=== PATIENT | male | born 1965 | race African-American/Black ===

== ENCOUNTER 2016-12-07 17:19 | Emergency (ER) | payer MEDICARE, MEDICAID ==
[2016-12-07] MEDS ORDERED: Aspirin Low Dose CHEW TAB* 81 MG PO ONE (17:59)
[2016-12-07 18:20] LABS: Hematocrit 26 % (42-52); Hemoglobin 8.8 g/dl (14.0-18.0); Mean Corpuscular HGB Conc 33 g/dl (31-36); Mean Corpuscular Hemoglobin 29 pg (27-31); Mean Corpuscular Volume 87 fL (80-94); Mean Platelet Volume 8 um3 (7.4-10.4); Red Blood Count 3.03 10^6/ul (4.0-5.4); Red Cell Distribution Width 18 % (10.5-15); White Blood Count 8.2 10^3/ul (3.5-10.8)
[2016-12-07] MEDS ORDERED: HYDROmorphone INJ* 1 MG/ML CARPUJECT SYRINGE IV ONE (18:34)
[2016-12-07] MEDS ORDERED: Ondansetron INJ* 2 MG/ML VIAL IV ONE (18:34)
[2016-12-07 18:43] LABS: Albumin 3.9 g/dL (3.2-5.2); BUN/Creatinine Ratio 4.2 (8-20); Calcium 9.2 mg/dL (8.6-10.3); EGFR African American 5.5 (>60); EGFR Non-African American 4.3 (>60); Globulin 3.6 g/dL (2-4); Potassium 4.7 mmol/L (3.5-5.0); Total Bilirubin 0.6 mg/dL (0.2-1.0); Total Protein 7.5 g/dL (6.4-8.9)
[2016-12-07 18:49] LABS: Troponin I 0.09 ng/mL (<0.04)
--- NOTE | 2016-12-07 19:05 | RAD ---
INDICATION: Chest pain. COMPARISON: Comparison is made with a prior chest x-ray study from May 29, 2015. TECHNIQUE: A portable view of the chest was obtained. FINDINGS: The heart is mildly enlarged and increased in size from the prior exam. There is mild prominence of the interstitial markings and small bilateral pleural effusions suggestive of congestive heart failure. IMPRESSION: FINDINGS SUGGESTIVE OF CONGESTIVE HEART FAILURE.
[2016-12-07 23:38] VITALS: BP 185/103
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
--- NOTE | 2016-12-08 12:18 | ED ---
Liset Arreguin Matthew, scribed for Asim Parekh MD on 12/07/16 at 1809 . HPI Chest Pain - HPI Summary HPI Summary: A 51 y/o male presents to the ED with waxing and waning left lateral chest pain since yesterday evening. The pain is described as sharp and rated 7/10 in severity. Associated symptoms include bilateral pedal edema - since 4 days ago, nausea, productive cough, and left arm pain. The patient denies vomiting and diaphoresis. He normal has dialysis MWF, but did not receive dialysis on 12/03/16 , because he was out of town; however, he received dialysis today. The pain is unaffected by movement and is occasionally worse with deep breaths. He also has chronic SOB that worsens with exertion and smoking. The patient's pedal edema improved after dialysis, but has not resolved. The patient also states that he' s been generally ill for the past two weeks. - History of Current Complaint Chief Complaint: EDChestPainROMI Time Seen by Provider: 12/07/16 17:40 Hx Obtained From: Patient Onset/Duration: Started Days Ago, Atraumatic, Still Present Timing: Intermittent Initial Severity: Moderate Current Severity: Moderate Pain Intensity: 7 Pain Scale Used: 0-10 Numeric Chest Pain Location: Left Lateral Chest Pain Radiates: No Character: Sharp/Stabbing Aggravating Factor(s): Nothing Alleviating Factor(s): Nothing Associated Signs and Symptoms: Positive: Chest Pain, Nausea, Productive Cough, Other: - left arm pain. Negative: Diaphoresis, Vomiting - Additional Pertinent History Primary Care Physician: [id number] - Allergy/Home Medications Allergies/Adverse Reactions: Allergies Allergy/AdvReac Type Severity Reaction Status Date / Time Penicillins [PCN] Allergy Severe Anaphylatic Verified 12/07/16 17:28 Shock Lisinopril Allergy Unknown Verified 12/07/16 17:28 Reaction Details PMH/Surg Hx/FS Hx/Imm Hx Endocrine/Hematology History: Reports: Hx Diabetes - ? NO MEDS , BLOOD LEVELS GOOD Denies: Hx Anticoagulant Therapy, Hx Thyroid Disease Cardiovascular History: Reports: Hx Hypertension Denies: Hx Pacemaker/ICD, Other Cardiovascular Problems/Disorders Respiratory History: Denies: Hx Asthma, Hx Chronic Obstructive Pulmonary Disease (COPD), Other Respiratory Problems/Disorders GI History: Reports: Hx Gastroesophageal Reflux Disease - ON DAILY MEDS Denies: Other GI Disorders History: Reports: Hx Renal Disease Musculoskeletal History: Reports: Hx Back Problems, Other Musculoskeletal History - rft Sensory History: Reports: Hx Contacts or Glasses Opthamlomology History: Reports: Hx Contacts or Glasses Neurological History: Reports: Hx Headaches Denies: Hx Dementia, Hx Seizures, Other Neuro Impairments/Disorders Psychiatric History: Reports: Hx Depression Denies: Hx Substance Abuse - Surgical History Surgery Procedure, Year, and Place: 2001 ABD. hernia REPAIR [facility]. 2002 cervicalspin surgery, [facility]. 1994 RT wrist surgery. 2009 ABD. HERNIA REPAIR. 2014 LEFT ELBOW SURGERY. 2014 LUE FISTULA PLACED Hx Anesthesia Reactions: No - Immunization History Date of Tetanus Vaccine: unknown Date of Influenza Vaccine: no Infectious Disease History: No Infectious Disease History: Denies: Hx Hepatitis, Hx Human Immunodeficiency Virus (HIV), Traveled Outside the in Last 30 Days - Social History Alcohol Use: None Substance Use Type: Reports: None Smoking Status (MU): Current Every Day Smoker Type: Cigarettes Amount Used/How Often: 1/2 PPD Length of Time of Smoking/Using Tobacco: 35 YEARS Have You Smoked in the Last Year: Yes Review of Systems Constitutional: Negative Negative: Skin Diaphoresis Eyes: Negative ENT: Negative Positive: Chest Pain Positive: Shortness Of Breath, Cough - productive Positive: Nausea. Negative: Vomiting Genitourinary: Negative Positive: Myalgia - left arm pain , Edema - bilateral pedal edema Skin: Negative Neurological: Negative Psychological: Normal All Other Systems Reviewed And Are Negative: Yes Physical Exam Triage Information Reviewed: Yes Vital Signs On Initial Exam: Initial Vitals Temp Pulse Resp BP Pulse Ox 99.0 F 89 20 173/84 100 12/07/16 17:22 12/07/16 17:22 12/07/16 17:22 12/07/16 17:22 12/07/16 17:22 Vital Signs Reviewed: Yes Appearance: Positive: Well-Appearing, No Pain Distress Skin: Positive: Warm, Skin Color Reflects Adequate Perfusion, Dry Head/Face: Positive: Normal Head/Face Inspection Eyes: Positive: EOMI, BARRY ENT: Positive: Normal ENT inspection Neck: Positive: Supple, Nontender Respiratory/Lung Sounds: Positive: Other - Crackles in the left base Cardiovascular: Positive: RRR, Murmur - Systolic injection murmur Abdomen Description: Positive: Nontender, Soft, Other: - Fistula intact Bowel Sounds: Positive: Present Musculoskeletal: Positive: Normal, Strength/ROM Intact Neurological: Positive: Normal, Sensory/Motor Intact, Alert, Oriented to Person Place, Time Psychiatric: Positive: Normal, Affect/Mood Appropriate Diagnostics - Vital Signs Vital Signs Temp Pulse Resp BP Pulse Ox 12/07/16 17:22 99.0 F 89 20 173/84 100 - Laboratory Lab Results: Lab Results 12/07/16 12/07/16 12/07/16 Range/Units 18:00 18:00 18:00 WBC 8.2 (3.5-10.8) 10^3/ul RBC 3.03 L (4.0-5.4) 10^6/ul Hgb 8.8 L (14.0-18.0) g/dl Hct 26 L (42-52) % MCV 87 (80-94) fL MCH 29 (27-31) pg MCHC 33 (31-36) g/dl RDW 18 H (10.5-15) % Plt Count 168 (150-450) 10^3/ul MPV 8 (7.4-10.4) um3 Neut % (Auto) 67.7 (38-83) % Lymph % (Auto) 22.2 L (25-47) % Hall % (Auto) 5.6 (1-9) % Eos % (Auto) 3.4 (0-6) % Baso % (Auto) 1.1 (0-2) % Absolute Neuts (auto) 5.6 (1.5-7.7) 10^3/ul Absolute Lymphs (auto) 1.8 (1.0-4.8) 10^3/ul Absolute Monos (auto) 0.5 (0-0.8) 10^3/ul Absolute Eos (auto) 0.3 (0-0.6) 10^3/ul Absolute Basos (auto) 0.1 (0-0.2) 10^3/ul Absolute Nucleated RBC 0 10^3/ul Nucleated RBC % 0 INR (Anticoag Therapy) 1.10 (0.89-1.11) Sodium 139 (133-145) mmol/L Potassium 4.7 (3.5-5.0) mmol/L Chloride 95 L (101-111) mmol/L Carbon Dioxide 35 H (22-32) mmol/L Anion Gap 9 (2-11) mmol/L BUN 52 H (6-24) mg/dL Creatinine 12.44 H (0.67-1.17) mg/dL Est GFR ( Amer) 5.5 (>60) Est GFR (Non-Af Amer) 4.3 (>60) BUN/Creatinine Ratio 4.2 L (8-20) Glucose 100 (70-100) mg/dL Lactic Acid (0.5-2.0) mmol/L Calcium 9.2 (8.6-10.3) mg/dL Total Bilirubin 0.60 (0.2-1.0) mg/dL AST 19 (13-39) U/L ALT 25 (7-52) U/L Alkaline Phosphatase 44 (34-104) U/L Troponin I 0.09 H* (<0.04) ng/mL B-Natriuretic Peptide ( - 100) pg/mL Total Protein 7.5 (6.4-8.9) g/dL Albumin 3.9 (3.2-5.2) g/dL Globulin 3.6 (2-4) g/dL Albumin/Globulin Ratio 1.1 (1-3) 12/07/16 12/07/16 12/07/16 Range/Units 18:00 18:00 21:00 WBC (3.5-10.8) 10^3/ul RBC (4.0-5.4) 10^6/ul Hgb (14.0-18.0) g/dl Hct (42-52) % MCV (80-94) fL MCH (27-31) pg MCHC (31-36) g/dl RDW (10.5-15) % Plt Count (150-450) 10^3/ul MPV (7.4-10.4) um3 Neut % (Auto) (38-83) % Lymph % (Auto) (25-47) % [place] % (Auto) (1-9) % Eos % (Auto) (0-6) % Baso % (Auto) (0-2) % Absolute Neuts (auto) (1.5-7.7) 10^3/ul Absolute Lymphs (auto) (1.0-4.8) 10^3/ul Absolute Monos (auto) (0-0.8) 10^3/ul Absolute Eos (auto) (0-0.6) 10^3/ul Absolute Basos (auto) (0-0.2) 10^3/ul Absolute Nucleated RBC 10^3/ul Nucleated RBC % INR (Anticoag Therapy) (0.89-1.11) Sodium (133-145) mmol/L Potassium (3.5-5.0) mmol/L Chloride (101-111) mmol/L Carbon Dioxide (22-32) mmol/L Anion Gap (2-11) mmol/L BUN (6-24) mg/dL Creatinine (0.67-1.17) mg/dL Est GFR ( Amer) (>60) Est GFR (Non-Af Amer) (>60) BUN/Creatinine Ratio (8-20) Glucose (70-100) mg/dL Lactic Acid 0.9 (0.5-2.0) mmol/L Calcium (8.6-10.3) mg/dL Total Bilirubin (0.2-1.0) mg/dL AST (13-39) U/L ALT (7-52) U/L Alkaline Phosphatase (34-104) U/L Troponin I 0.08 H* (<0.04) ng/mL B-Natriuretic Peptide 2266 H ( - 100) pg/mL Total Protein (6.4-8.9) g/dL Albumin (3.2-5.2) g/dL Globulin (2-4) g/dL Albumin/Globulin Ratio (1-3) Result Diagrams: 12/07/16 18:00 12/07/16 18:00 Lab Statement: Any lab studies that have been ordered have been reviewed, and results considered in the medical decision making process. - Radiology CXR Xray Interpretation: Positive (See Comments) - IMPRESSION: FINDINGS SUGGESTIVE OF CONGESTIVE HEART FAILURE. Radiology Interpretation Completed By: Radiologist - EKG 17:33 Cardiac Rate: NL - 70 bpm EKG Rhythm: Sinus Rhythm EKG Interpretation: LVH Chest Pain Course/Dx - Course Course Of Treatment: Mr. Roman presented C/O significant left sided chest pain in the context of having been on his feet a lot this past weekend and noticing a lot of fluid in his lower extemities. He reported it at dialysis on Tuesday and it did improve some but not significantly. He does admit to SOB which is a bit worse than his chronic condition. His W/U here showed that he was collecting fluid in his lungs as well as peripherally and I was concerned about his chest pain in the context of pulmonary edema. He probably just needs to be dialyzed which he is due for in the morning (he missed last Tuesday) but I have asked the hospitalist to admithim. His troponin is indeterminant and this is probably due to his renal failure but I am repeating it. - Diagnoses Provider Diagnoses: CHF (congestive heart failure) - Provider Notifications Discussed Care Of Patient With: Dr. Estrada (Hospitalist) at 21:50 -- Notified of patient's history and will admit the patient into his services. Discharge - Discharge Plan Condition: Stable Disposition: HOME Referrals: Jacob Deng MD [Primary Care Provider] - The documentation as recorded by the Liset mota Matthew accurately reflects the service I personally performed and the decisions made by me, Asim Parekh MD.
== END 2016-12-08 01:40 | disposition home or self-care (01) ==
LOC: ED 17:19
DX: I50.9 Heart failure, unspecified (principal); F17.210 Nicotine dependence, cigarettes, uncomplicated; I12.0 Hypertensive chronic kidney disease with stage 5 chronic kidney disease or end stage renal disease; E11.22 Type 2 diabetes mellitus with diabetic chronic kidney disease; N18.6 End stage renal disease; Z99.2 Dependence on renal dialysis; K21.9 Gastro-esophageal reflux disease without esophagitis; Z88.0 Allergy status to penicillin
CPT/HCPCS: 36415; 71010; 80053; 83605; 83880; 84484; 85025; 85610; 93005; 96374; 96375; 99283; A9270-GY; J1170; J2405

== ENCOUNTER 2016-12-08 10:30 | Observation (INO) | payer MEDICARE, MEDICAID ==
[2016-12-08] MEDS ORDERED: Aspirin Low Dose CHEW TAB* 81 MG PO ONE (11:06)
[2016-12-08 11:58] LABS: Hematocrit 26 % (42-52); Hemoglobin 8.8 g/dl (14.0-18.0); Mean Corpuscular HGB Conc 33 g/dl (31-36); Mean Corpuscular Hemoglobin 29 pg (27-31); Mean Corpuscular Volume 87 fL (80-94); Mean Platelet Volume 7 um3 (7.4-10.4); Red Blood Count 3.03 10^6/ul (4.0-5.4); Red Cell Distribution Width 18 % (10.5-15); White Blood Count 7.4 10^3/ul (3.5-10.8)
[2016-12-08 12:13] LABS: Albumin 3.9 g/dL (3.2-5.2); BUN/Creatinine Ratio 3.3 (8-20); EGFR African American 10.8 (>60); EGFR Non-African American 8.4 (>60); Globulin 3.4 g/dL (2-4); Total Bilirubin 0.5 mg/dL (0.2-1.0); Total Protein 7.3 g/dL (6.4-8.9)
[2016-12-08 12:41] LABS: Troponin I 0.09 ng/mL (<0.04)
[2016-12-08] MEDS ORDERED: Carvedilol TAB* 6.25 MG ONE (12:58)
[2016-12-08] MEDS ORDERED: amLODIPine TAB* 5 MG ONE (12:58)
[2016-12-08] MEDS ORDERED: amLODIPine TAB* 5 MG PO ONE (13:01)
[2016-12-08] MEDS ORDERED: Carvedilol TAB* 6.25 MG PO ONE (13:01)
--- NOTE | 2016-12-08 13:13 | ED ---
Jaden Arreguin Benjamin, scribed for Sergei Hammond MD on 12/08/16 at 1139 . HPI Chest Pain - HPI Summary HPI Summary: 51yo male c/o swollen ankles, also CP that radiates to his shoulder and neck since yesterday. Pt has hx of HTN, DM and renal failure, and is on dialysis 3 times a week. Fhx of DM and HTN. - History of Current Complaint Chief Complaint: EDChestPainROMI Time Seen by Provider: 12/08/16 11:07 Hx Obtained From: Patient Onset/Duration: Started Days Ago - 1 day ago, Still Present Timing: Intermittent Initial Severity: Moderate Current Severity: Moderate Pain Intensity: 7 Pain Scale Used: 0-10 Numeric Chest Pain Location: Diffuse Chest Pain Radiates: Yes Chest Pain Radiates To:: Shoulder, Neck Aggravating Factor(s): Nothing Alleviating Factor(s): Nothing Associated Signs and Symptoms: Positive: Nausea, Edema - ankles - Additional Pertinent History Primary Care Physician: EMILIE - Allergy/Home Medications Allergies/Adverse Reactions: Allergies Allergy/AdvReac Type Severity Reaction Status Date / Time Penicillins [PCN] Allergy Severe Anaphylatic Verified 12/07/16 17:28 Shock Lisinopril Allergy Unknown Verified 12/07/16 17:28 Reaction Details PMH/Surg Hx/FS Hx/Imm Hx Endocrine/Hematology History: Reports: Hx Diabetes - ? NO MEDS , BLOOD LEVELS GOOD Denies: Hx Anticoagulant Therapy, Hx Thyroid Disease Cardiovascular History: Reports: Hx Hypertension Denies: Hx Pacemaker/ICD, Other Cardiovascular Problems/Disorders Respiratory History: Denies: Hx Asthma, Hx Chronic Obstructive Pulmonary Disease (COPD), Other Respiratory Problems/Disorders GI History: Reports: Hx Gastroesophageal Reflux Disease - ON DAILY MEDS Denies: Other GI Disorders History: Reports: Hx Chronic Renal Failure, Hx Dialysis, Hx Renal Disease Musculoskeletal History: Reports: Hx Back Problems, Other Musculoskeletal History - rft Sensory History: Reports: Hx Contacts or Glasses Opthamlomology History: Reports: Hx Contacts or Glasses Neurological History: Reports: Hx Headaches Denies: Hx Dementia, Hx Seizures, Other Neuro Impairments/Disorders Psychiatric History: Reports: Hx Depression Denies: Hx Substance Abuse - Surgical History Surgery Procedure, Year, and Place: 2001 ABD. hernia REPAIR [facility]. 2002 cervicalspin surgery, [facility]. 1994 RT wrist surgery. 2010 ABD. HERNIA REPAIR. 2015 LEFT ELBOW SURGERY. 2015 LUE FISTULA PLACED Hx Anesthesia Reactions: No - Immunization History Date of Tetanus Vaccine: unknown Date of Influenza Vaccine: no Infectious Disease History: No Infectious Disease History: Denies: Hx Hepatitis, Hx Human Immunodeficiency Virus (HIV), Traveled Outside the [place] in Last 30 Days - Family History Known Family History: Positive: Hypertension, Diabetes Negative: Cardiac Disease, Renal Disease - Social History Alcohol Use: None Substance Use Type: Reports: None Smoking Status (MU): Current Every Day Smoker Type: Cigarettes Amount Used/How Often: 1/2 PPD Length of Time of Smoking/Using Tobacco: 35 YEARS Have You Smoked in the Last Year: Yes Review of Systems Constitutional: Negative Eyes: Negative ENT: Negative Positive: Chest Pain Respiratory: Negative Positive: Nausea Genitourinary: Negative Positive: Edema - bilateral LE Skin: Negative Neurological: Negative Psychological: Normal All Other Systems Reviewed And Are Negative: Yes Physical Exam Triage Information Reviewed: Yes Vital Signs On Initial Exam: Initial Vitals Temp Pulse Resp BP Pulse Ox 100.0 F 74 20 182/95 92 12/08/16 10:51 12/08/16 10:51 12/08/16 10:51 12/08/16 10:51 12/08/16 10:51 Vital Signs Reviewed: Yes Appearance: Positive: Well-Appearing, No Pain Distress, Well-Nourished Skin: Positive: Warm, Skin Color Reflects Adequate Perfusion, Dry Head/Face: Positive: Normal Head/Face Inspection Eyes: Positive: Normal ENT: Positive: Normal ENT inspection Neck: Positive: Supple, Nontender Respiratory/Lung Sounds: Positive: Clear to Auscultation, Breath Sounds Present Cardiovascular: Positive: RRR Abdomen Description: Positive: Nontender, No Organomegaly, Soft Bowel Sounds: Positive: Present Musculoskeletal: Positive: Edema Left, Edema Right - pedal edema Neurological: Positive: Normal, Sensory/Motor Intact, Alert, Oriented to Person Place, Time, CN Intact II-III, Reflexes Intact Psychiatric: Positive: Affect/Mood Appropriate Diagnostics - Vital Signs Vital Signs Temp Pulse Resp BP Pulse Ox 12/08/16 10:51 100.0 F 74 20 182/95 92 - Laboratory Lab Results: Lab Results 12/08/16 12/08/16 12/08/16 Range/Units 11:40 11:40 11:40 WBC 7.4 (3.5-10.8) 10^3/ul RBC 3.03 L (4.0-5.4) 10^6/ul Hgb 8.8 L (14.0-18.0) g/dl Hct 26 L (42-52) % MCV 87 (80-94) fL MCH 29 (27-31) pg MCHC 33 (31-36) g/dl RDW 18 H (10.5-15) % Plt Count 188 (150-450) 10^3/ul MPV 7 L (7.4-10.4) um3 Neut % (Auto) 59.4 (38-83) % Lymph % (Auto) 27.2 (25-47) % [place] % (Auto) 6.8 (1-9) % Eos % (Auto) 5.5 (0-6) % Baso % (Auto) 1.1 (0-2) % Absolute Neuts (auto) 4.4 (1.5-7.7) 10^3/ul Absolute Lymphs (auto) 2.0 (1.0-4.8) 10^3/ul Absolute Monos (auto) 0.5 (0-0.8) 10^3/ul Absolute Eos (auto) 0.4 (0-0.6) 10^3/ul Absolute Basos (auto) 0.1 (0-0.2) 10^3/ul Absolute Nucleated RBC 0 10^3/ul Nucleated RBC % 0 Sodium 139 (133-145) mmol/L Potassium 4.0 (3.5-5.0) mmol/L Chloride 94 L (101-111) mmol/L Carbon Dioxide 37 H (22-32) mmol/L Anion Gap 8 (2-11) mmol/L BUN 23 (6-24) mg/dL Creatinine 6.93 H (0.67-1.17) mg/dL Est GFR ( Amer) 10.8 (>60) Est GFR (Non-Af Amer) 8.4 (>60) BUN/Creatinine Ratio 3.3 L (8-20) Glucose 85 (70-100) mg/dL Lactic Acid 0.6 (0.5-2.0) mmol/L Calcium 9.0 (8.6-10.3) mg/dL Magnesium 2.0 (1.9-2.7) mg/dL Total Bilirubin 0.50 (0.2-1.0) mg/dL AST 20 (13-39) U/L ALT 23 (7-52) U/L Alkaline Phosphatase 56 (34-104) U/L Troponin I 0.09 H* (<0.04) ng/mL B-Natriuretic Peptide ( - 100) pg/mL Total Protein 7.3 (6.4-8.9) g/dL Albumin 3.9 (3.2-5.2) g/dL Globulin 3.4 (2-4) g/dL Albumin/Globulin Ratio 1.1 (1-3) 12/08/16 Range/Units 11:40 WBC (3.5-10.8) 10^3/ul RBC (4.0-5.4) 10^6/ul Hgb (14.0-18.0) g/dl Hct (42-52) % MCV (80-94) fL MCH (27-31) pg MCHC (31-36) g/dl RDW (10.5-15) % Plt Count (150-450) 10^3/ul MPV (7.4-10.4) um3 Neut % (Auto) (38-83) % Lymph % (Auto) (25-47) % [place] % (Auto) (1-9) % Eos % (Auto) (0-6) % Baso % (Auto) (0-2) % Absolute Neuts (auto) (1.5-7.7) 10^3/ul Absolute Lymphs (auto) (1.0-4.8) 10^3/ul Absolute Monos (auto) (0-0.8) 10^3/ul Absolute Eos (auto) (0-0.6) 10^3/ul Absolute Basos (auto) (0-0.2) 10^3/ul Absolute Nucleated RBC 10^3/ul Nucleated RBC % Sodium (133-145) mmol/L Potassium (3.5-5.0) mmol/L Chloride (101-111) mmol/L Carbon Dioxide (22-32) mmol/L Anion Gap (2-11) mmol/L BUN (6-24) mg/dL Creatinine (0.67-1.17) mg/dL Est GFR ( Amer) (>60) Est GFR (Non-Af Amer) (>60) BUN/Creatinine Ratio (8-20) Glucose (70-100) mg/dL Lactic Acid (0.5-2.0) mmol/L Calcium (8.6-10.3) mg/dL Magnesium (1.9-2.7) mg/dL Total Bilirubin (0.2-1.0) mg/dL AST (13-39) U/L ALT (7-52) U/L Alkaline Phosphatase (34-104) U/L Troponin I (<0.04) ng/mL B-Natriuretic Peptide 2000 H ( - 100) pg/mL Total Protein (6.4-8.9) g/dL Albumin (3.2-5.2) g/dL Globulin (2-4) g/dL Albumin/Globulin Ratio (1-3) Result Diagrams: 12/08/16 11:40 12/08/16 11:40 Lab Statement: Any lab studies that have been ordered have been reviewed, and results considered in the medical decision making process. - EKG 1059 Cardiac Rate: NL - 75bpm EKG Rhythm: Sinus Rhythm ST Segment: Normal Ectopy: None Chest Pain Course/Dx - Course Assessment/Plan: ADMIT HOSPITALIST STABLE - Diagnoses Provider Diagnoses: Chest pain Discharge - Discharge Plan Condition: Stable Disposition: ADMITTED TO [facility] documentation as recorded by the Jaden mota Benjamin accurately reflects the service I personally performed and the decisions made by me, Sergei Hammond MD.
[2016-12-08] MEDS ORDERED: Acetaminophen TAB* 325 MG PO PRN (13:45)
[2016-12-08] MEDS ORDERED: hydrALAZINE IV* 20 MG/ML VIAL IV SLOW PU PRN (13:45)
[2016-12-08] MEDS ORDERED: Dextrose 50% Syringe 50 ML* 25 GM/50 ML SYRINGE IV PUSH PRN (13:57)
[2016-12-08] MEDS ORDERED: Albuterol/Ipratropium NEB.SOL* Albuterol 2.5 MG/Ipratropium 0.5 MG 3 ML INH SCH (14:00)
[2016-12-08] MEDS ORDERED: Azithromycin IV(*) 500 MG in NS 0.9% 250 ML* 250 ML IVPB SCH (14:00)
[2016-12-08] MEDS ORDERED: Albuterol 2.5 MG/3 ML NEB.SOL* (0.083%) INH PRN (14:21)
[2016-12-08] MEDS: Heparin VIAL(*) 5000 UNITS/ML VIAL (FIVE THOUSAND) SUBCUT SCH ×2 (15:11→21:42)
[2016-12-08] MEDS: Carvedilol TAB* 25 MG PO SCH ×2 (15:37→20:42)
[2016-12-08] MEDS: Calcium Acetate CAP* 667 MG PO SCH (16:45)
[2016-12-08] MEDS: oxyCODONE TAB* 5 MG TAB PO SCH ×2 (16:45→20:43)
[2016-12-08] MEDS: Insulin LISPRO* 1 UNITS UNIT SUBCUT SCH (17:48)
--- NOTE | 2016-12-08 20:00 | HP ---
HISTORY AND PHYSICAL: DATE OF ADMISSION: 12/08/16 PRIMARY CARE PROVIDER: Dr. Deng. ATTENDING PHYSICIAN WHILE IN THE HOSPITAL: Dr. Jung *(report dictated by Maxim Disla NP) CHIEF COMPLAINT: Leg swelling. HISTORY OF PRESENT ILLNESS: Mr. Roman is a 51-year-old male patient coming into the ER today stating that since Tuesday he has noted that his legs have been swelling intermittently off and on. He states that he was painting, up on his feet all day on Tuesday and felt that him being standing all day may have contributed. The swelling went down but it came back throughout the weekend and was not getting any better. He initially came to the ER yesterday but according to the notes, he had signed out AMA. He came back again today because he noticed the swelling, it went down after dialysis. He does state that over the last 2 weeks though, he has been eating salty foods, particularly potato chips. I instructed him that he should avoid this at all cost. He also states that he has had cold symptoms for the last 7 to 10 days. He has had the rhinorrhea. He has been coughing. He cannot bring up anything with the cough. He states that he has continued to smoke with the cough as well. He denies any arthralgias or myalgias. He states that he does feel short of breath particularly with exertion. Denies any orthopnea. No chest pain. No abdominal pain or any nausea or vomiting. He was concerned, came back to the ER today because he was not feeling any better. He was evaluated down here. It was ultimately again found that his troponin was indeterminate, so the hospitalist service was asked to evaluate for admission. PAST MEDICAL HISTORY: Significant for: 1. CKD, on hemodialysis. 2. History of diabetes. 3. Chronic left arm pain. PAST SURGICAL HISTORY: 1. He has had a C-spine fusion. 2. He has had right wrist surgery. 3. Hernia repair. 4. Left elbow surgery. HOME MEDICATIONS: Include: 1. Catapres 0.2 mg p.o. b.i.d. 2. Norvasc 10 mg daily. 3. Cialis 20 mg p.o. daily as needed. 4. Imitrex 50 mg daily as needed. 5. Opana 20 mg p.o. 4 times a day 6. Sensipar 30 mg p.o. daily. 7. Coreg 25 mg p.o. t.i.d. 8. PhosLo 2001 mg p.o. t.i.d. 9. Nephro-Caridad 1 tablet p.o. daily. ALLERGIES TO MEDICATIONS: PENICILLIN, LISINOPRIL. FAMILY HISTORY: His mother has history of hypertension and diabetes. Father had diabetes. SOCIAL HISTORY: He is a half a pack a day smoker for 35 years. He does not drink alcohol. Surrogate decision maker is his . REVIEW OF SYSTEMS: There is no documented fever at home but he does have a low - grade fever of 100. He does state that he has had a weight change, he did not quantify how much. He denies having any shortness of breath or orthopnea. There is dyspnea on exertion. There is no chest pain. There is no orthopnea or nocturnal dyspnea. There is no abdominal pain. No nausea. No vomiting. No dysuria. No frequency. No loss of consciousness. No pruritus. No skin ulcerations. Review of 14 systems was completed, all others negative. PHYSICAL EXAMINATION GENERAL: At this time, Mr. Roman is a 51-year-old male patient. He appears well nourished, well developed. He does not appear to be in any acute distress. He is sitting in the ER stretcher. VITAL SIGNS: Blood pressure 182/95 with a pulse of 74, respirations 20, O2 saturation 92%, temperature now is 98.2. HEENT: Head is atraumatic and normocephalic. Eyes; EOMs are intact. Sclerae anicteric and not pale. Throat: Oral mucosa appears to be moist. No oropharyngeal erythema. NECK: Supple. LUNGS: He had wheezing noted throughout. Equal diaphragmatic expansion. HEART: Heart sounds S1 and S2. Regular rate and rhythm. No murmurs, rubs, or gallops. ABDOMEN: Soft, flat, nontender. Bowel sounds present. EXTREMITIES: Pulses are 2+ throughout. He did have some pedal edema, appeared to be nonpitting. He is able to move all 4 extremities with 5/5 strength. SKIN: Intact. NEUROLOGIC: He is awake, alert, and oriented x3. No gross focal deficits. LABORATORY DATA: The labs today revealed a WBC of 7.4, RBC of 3.03, hemoglobin of 8.8, hematocrit of 26, platelet count of 188. Sodium was 139, potassium 4, chloride 94, bicarb 37, BUN 23, creatinine 6.93, glucose 85, lactic 0.6, calcium 9, mag 2.0, total bili 0.5, AST 20, ALT 23, alk phos 66, troponin 0.09. BNP was 2000. Albumin 2.9. He had a chest x-ray obtained today, I did not appreciate any acute infiltrates or pulmonary vascular congestion. Appears to be a benign exam. An EKG obtained today, which shows a normal sinus rhythm. He had T-wave inversions at V4, 5, and 6, V2 and V3. The EKG from yesterday appears to be similar, the inversions appear to be more prominent now. Old medical records were reviewed. ASSESSMENT AND PLAN: Mr. Roman is a 51-year-old male patient, coming into the ER today with complaints of edema, cough, upper respiratory infection symptoms. On evaluation today, he was noted to have EKG changes. In addition to this, it was also noted that his troponin is elevated. He will be admitted under observation status for: 1. Indeterminate troponin and EKG changes. At this point, his blood pressures when these measurements were taken was in the 200s. He had not taken his BP medications this morning. My plan was to give him his blood pressure medications, repeat the troponin, repeat the EKG after his blood pressure trends down possibly in the 140 to 160 range systolically. I think that we are seeing left ventricular strain on the EKG secondary to the hypertension. He is not having any chest discomfort whatsoever. I am going to get an echo as well and evaluate him. At some point, a stress test would be warranted, but I would like to get the echo first, try to get his blood pressure under better control and reevaluate him. He is again not having any chest discomfort. 2. Lower extremity edema. Again, it is probably secondary to dietary indiscretion. The edema is improved now. We will continue to monitor him and continue his dialysis as prescribed. 3. Upper respiratory infection. Again, I think he has had upper respiratory infection symptoms for the last 7 days to 10 days. I am going to go ahead and put him on azithromycin. He is wheezing on exam. I have put him on nebs around the clock. Held on steroids because of the history of diabetes and the fact that this may cause edema as well and cause fluid retention, so I held off on the steroids for now. 4. Diabetes. Continue on lispro sliding scale. 5. Chronic arm pain, continue medications as prescribed. 6. DVT prophylaxis. He will be placed on heparin subcu. 7. Code status: Full code. 8. Fluid, electrolytes, nutrition. He can have a renal diet. TIME SPENT: Time spent on this admission was approximately 60 minutes, of which greater than half the time was spent [id number] with the patient obtaining my history and physical; other half of the time was spent going over the plan of care with the patient and implementing the plan of care. I discussed the plan of care with my attending, Dr. Jung, who is in agreement. MAXIM DISLA NP CC: Dr. Deng; Dr. Spivey * [id number]/CPS #: [id number] [facility] HOSPITALBernice
[2016-12-08] MEDS: cloNIDine TAB* 0.1 MG PO SCH (20:42)
[2016-12-08] MEDS: Nicotine PATCH 21 MG/24 HR* PATCH TRANSDERM SCH (21:43)
[2016-12-09 06:01] LABS: Hematocrit 24 % (42-52); Hemoglobin 7.9 g/dl (14.0-18.0); Mean Corpuscular HGB Conc 33 g/dl (31-36); Mean Corpuscular Hemoglobin 29 pg (27-31); Mean Corpuscular Volume 89 fL (80-94); Mean Platelet Volume 8 um3 (7.4-10.4); Red Blood Count 2.68 10^6/ul (4.0-5.4); Red Cell Distribution Width 19 % (10.5-15); White Blood Count 7.5 10^3/ul (3.5-10.8)
[2016-12-09 06:14] LABS: BUN/Creatinine Ratio 3.6 (8-20); Calcium 8.8 mg/dL (8.6-10.3); EGFR African American 7.4 (>60); EGFR Non-African American 5.7 (>60); Potassium 5.1 mmol/L (3.5-5.0)
[2016-12-09] MEDS: Heparin VIAL(*) 5000 UNITS/ML VIAL (FIVE THOUSAND) SUBCUT SCH ×2 (06:18→12:14)
[2016-12-09] MEDS: Insulin LISPRO* 1 UNITS UNIT SUBCUT SCH ×2 (07:53→11:58)
[2016-12-09] MEDS: Nicotine PATCH 21 MG/24 HR* PATCH TRANSDERM SCH (08:01)
[2016-12-09] MEDS: oxyCODONE TAB* 5 MG TAB PO SCH ×2 (08:01→12:18)
[2016-12-09] MEDS: Carvedilol TAB* 25 MG PO SCH ×3 (08:01→12:18)
[2016-12-09] MEDS: Calcium Acetate CAP* 667 MG PO SCH ×2 (08:01→12:17)
[2016-12-09] MEDS: cloNIDine TAB* 0.1 MG PO SCH (08:02)
--- NOTE | 2016-12-09 08:05 | RAD ---
HISTORY: Chest pain, shortness of breath COMPARISONS: December 07, 2016 VIEWS:1: Single frontal portable view of the chest at 11:20 PM FINDINGS: LINES AND TUBES: None. CARDIOMEDIASTINAL SILHOUETTE: The cardiomediastinal silhouette is normal for portable technique. PLEURA: There is blunting of the chest clinic angles bilaterally. LUNG PARENCHYMA: There is prominence of the central pulmonary vasculature. ABDOMEN: The upper abdomen is clear. There is no subphrenic gas. BONES AND SOFT TISSUES: No bone or soft tissue abnormalities are noted. IMPRESSION: PULMONARY VASCULAR CONGESTION WITH SMALL BILATERAL PLEURAL EFFUSIONS
[2016-12-09] MEDS ORDERED: Cinacalcet TAB* 30 MG PO SCH (09:00)
[2016-12-09] MEDS ORDERED: amLODIPine TAB* 5 MG PO SCH (09:00)
[2016-12-09] MEDS ORDERED: Albuterol HFA INHALER* 8 gm MDI INH PRN (11:34)
--- NOTE | 2016-12-09 11:36 | DCNOTE ---
Patient seen this morning. Still feels congested and a bit SOB at times. Minimal LE edema. Asking if he can go home tomorrow. On exam, lungs CTA B/L, LUE fistula, RRR, s1 and s2 presnent, no m/g/r, mild RLE edema Echo done and pending read. Likely discharge home with oral ABx and albuterol inhaler. HD tomorrow.
--- NOTE | 2016-12-09 12:34 | ECHO ---
Patient: REYNOLD DURON [facility] Rec#: [id number] : 1965 Date: 12/09/2016 Age: 51y Height: 182.9 cm / 72.0 in Weight: 91.6 kg / 201.9 lbs Sex: M BSA: 2.1 Room#: 432 Admit Date#: 12/08/2016 Type: Inpatient Referring: Francisco Disla NP Reading: Arthur Bolanos MD Collections Rep: Ofelia Akers RN RDCS CC: Jacob Deng MD Transthoracic Echocardiogram Indication: Chest pain, SOB, lower extremity edema BP: 158/83 HR: 74 Rhythm: NSR Findings History: HTN, DM, CKD on hemodialysis, chronic left arm pain, smoker Technical Comments: The study is technically limited due to the patient's smoking history. Completed at 0855. Left Ventricle: The left ventricular chamber size is mildly dilated. Moderate concentric left ventricular hypertrophy is observed. Mild global hypokinesis of the left ventricle is observed. There is mildly decreased left ventricular systolic function. The estimated ejection fraction is 40-45%. Visually estimated LVEF is closer to 45 %. There is no consistent Doppler evidence of clinically significant diastolic dysfunction. Left Atrium: The left atrium is severely dilated. Right Ventricle: The right ventricular cavity size is normal. The right ventricular global systolic function is normal. Right Atrium: The right atrium is moderately dilated. Aortic Valve: The aortic valve is trileaflet. The aortic valve leaflets are mildly thickened. There is no evidence of aortic regurgitation. There is no evidence of aortic stenosis. Mitral Valve: The mitral valve leaflets are mildly thickened. There is mild mitral regurgitation. There is no evidence of mitral stenosis. Tricuspid Valve: The tricuspid valve leaflets are normal. There is mild to moderate tricuspid regurgitation. There is evidence of moderate pulmonary hypertension. Pulmonic Valve: The pulmonic valve appears normal. There is trace to mild pulmonic regurgitation. There is no pulmonic stenosis. Pericardium: There is no significant pericardial effusion. A pericardial fat pad is visualized. Aorta: There is no dilatation of the ascending aorta. There is no dilatation of the aortic arch. The aortic root is normal in size. Pulmonary Artery: The main pulmonary artery appears normal. Venous: The inferior vena cava is dilated. There is less than 50% respiratory change in the inferior vena cava dimension. Conclusions Mild global hypokinesis of the left ventricle is observed. There is mildly decreased left ventricular systolic function. The estimated ejection fraction is 40-45%. Visually estimated LVEF is closer to 45 %. There is mild mitral regurgitation. There is mild to moderate tricuspid regurgitation. There is evidence of moderate pulmonary hypertension. There is trace to mild pulmonic regurgitation. No reports of prior studies are offered for comparison. Measurements Name Value Normal Range RVDdMajor (2D) 3.5 cm (2.2 - 4.4) RAd ISD 4CH 6.1 cm (3.4 - 4.9) RA (A4C)W 5.3 cm (2.9 - 4.6) IVSd (2D) 1.6 cm (0.6 - 1) LVPWd (2D) 1.6 cm (0.6 - 1) LVIDd (2D) 5.9 cm (3.6 - 5.4) LVIDs (2D) 4.8 cm - LV FS (2D) 19 % (25 - 45) Aortic Annulus 2.1 cm (1.4 - 2.6) Ao root diameter (2D) 3.3 cm (2.1 - 3.5) Ascending Ao 3.4 cm (2.1 - 3.4) Aortic arch 3 cm (1.8 - 3.4) LA dimension (AP) 2D 4.7 cm (2.3 - 3.8) LAd ISD 4CH 6.9 cm (2.9 - 5.3) LA ISD 4CH W 5.6 cm (2.5 - 4.5) Name Value Normal Range LA ESV SP 4CH (A/L) 132 ml - LA ESV SP 2CH (A/L) 113 ml - LA ESV BP (A/L) 131 ml - LA ESV BP (A/L) index 61.1 ml/m2 - LA ESV SP 4CH (MOD) 126 ml - LA ESV SP 2CH (MOD) 107 ml - Name Value Normal Range MV E-wave Vmax 1 m/sec - MV deceleration time 193 msec - MV A-wave Vmax 0.94 m/sec - MV E:A ratio 1.1 ratio - LV septal e' Vmax 0.06 m/sec - LV lateral e' Vmax 0.07 m/sec - LV E:e' septal ratio 16.7 ratio - LV E:e' lateral ratio 14.3 ratio - Name Value Normal Range AV Vmax 1.5 m/sec - LVOT Vmax 1.3 m/sec - DULCE Vmax 0.86 m/sec - Name Value Normal Range TR Vmax 3.2 m/sec - TR peak gradient 41 mmHg - RAP 15 mmHg - RVSP 56 mmHg - IVC diameter 2.2 cm - Name Value Normal Range PV Vmax 0.82 m/sec -
[2016-12-09] MEDS ORDERED: Azithromycin TAB* 250 MG PO SCH (13:00)
[2016-12-09 13:19] VITALS: BP 144/85
[2016-12-09] MEDS ORDERED: Nicotine Patch Removal NOTE FOLLOW UP SCH (21:00)
--- NOTE | 2016-12-10 09:10 | DS ---
DISCHARGE SUMMARY: DATE OF ADMISSION: 12/08/16 DATE OF DISCHARGE: 12/09/16 PCP: Dr. Deng. PRINCIPAL DISCHARGE DIAGNOSES: 1. Bronchitis. 2. Mild lower extremity edema. SECONDARY DIAGNOSES: 1. End-stage renal failure, on hemodialysis. 2. Chronic pain. 3. Hypertension. STUDIES DURING HOSPITALIZATION: Chest x-ray. Impression: Pulmonary vascular congestion with small bilateral pleural effusions. Transthoracic echocardiogram. Conclusions: Mild global hypokinesis of the left ventricle is observed. There is mildly decreased left ventricular systolic function. Estimated ejection fraction is close to 45%. Mild mitral regurgitation. Mild- to-moderate tricuspid regurgitation. Evidence of moderate pulmonary hypertension. [id number] pulmonic regurgitation. No reports of prior studies are offered for comparison. DISCHARGE MEDICATION REGIMEN: 1. Albuterol one puff inhaled every 4 hours as needed for shortness of breath or wheezing. 2. Azithromycin 250 mg by mouth daily. 3. Amlodipine 10 mg by mouth daily. 4. Tadalafil 20 mg by mouth daily as needed for erectile dysfunction. 5. Clonidine 0.2 mg by mouth 2 times daily. 6. Calcium acetate 2001 mg by mouth 3 times daily with meals. 7. Nephro-Caridad one tablet by mouth daily. 8. Carvedilol 25 mg by mouth 3 times daily. 9. Sensipar 30 mg by mouth daily. 10. Sumatriptan 50 mg by mouth daily as needed for migraine. 11. Opana 20 mg by mouth 4 times daily. HPI AND HOSPITAL SUMMARY: Please see the full history and physical by Francisco Disla NP for full details. Briefly, Mr. Roman is a 51-year-old male with a past medical history as above, who presented to the hospital with intermittent leg swelling, also reports recent cough, some shortness of breath, and rhinorrhea. The patient initially presented to the emergency department on 12/07/16; however, he signed out AMA, and then returned after dialysis. The patient was noted to have a mildly elevated troponin at 0.08 in the setting of end-stage renal disease. He did not report any chest pain. He was also noted to be significantly hypertensive. The patient was treated with azithromycin and p.r.n. nebulizer therapy. His lower extremity edema was very mild. He underwent an echocardiogram. We do not have any previous to compare to and he had some global hypokinesis; however, there were no focal wall motion abnormalities to indicate acute myocardial infarction. I feel that his mild troponin elevation is likely due to his hypertension, which improved with resumption of his home medications. The patient will be discharged home with three additional days of azithromycin and an albuterol inhaler. He should follow up with Dr. Deng as scheduled. TIME SPENT: Total time spent on this discharge was 40 minutes. This is a summary of the hospitalization; please see the full medical record for further details. CC: Dr. Deng* [id number]/CPS #: [id number] MTDD
== END 2016-12-09 14:30 | disposition home or self-care (01) ==
LOC: ED 10:30 → MEDTELE 12:19
PROVIDERS: ADMIT Internal Medicine; ATTEND Hospitalist
DX: J40 Bronchitis, not specified as acute or chronic (principal); R60.9 Edema, unspecified; I12.0 Hypertensive chronic kidney disease with stage 5 chronic kidney disease or end stage renal disease; N18.6 End stage renal disease; Z99.2 Dependence on renal dialysis; E11.9 Type 2 diabetes mellitus without complications; G89.29 Other chronic pain; J06.9 Acute upper respiratory infection, unspecified; R06.02 Shortness of breath; Z79.899 Other long term (current) drug therapy; Z88.0 Allergy status to penicillin; Z88.8 Allergy status to other drugs, medicaments and biological substances; F17.210 Nicotine dependence, cigarettes, uncomplicated; R94.31 Abnormal electrocardiogram [ECG] [EKG]
CPT/HCPCS: 36415; 71010; 80048; 80053; 83605; 83735; 83880; 84484; 85025; 87502; 93005; 94760; 96365; 96366; 96372; 99284; 99406; A9270-GY; G0378; J0456; J1644

== ENCOUNTER 2017-03-21 18:23 | Emergency (ER) | payer MEDICARE, MEDICAID ==
[2017-03-21 18:35] VITALS: BP 200/109
--- NOTE | 2017-03-21 18:47 | UC ---
Alexey Arreguin Alok, scribed for Gopal Dowell MD on 03/21/17 at 1837 . Shortness of Breath HPI - HPI Summary HPI Summary: 51M presents to the ED for SOB for the last two nights, worsening today. Pt states nothing worsens/improves his SOB. Pt also notes ankle edema. Pt also notes cough. Pt denies CP. Pt denies fever or chills. Pt has h/o renal failure and on dialysis. Pt last had dialysis treatment 3 days ago at [facility] and was due for one today but could not get an appointment. Additional PMHx includes HTN and DM (DM controlled without medications). Pt smokes tobacco 1/2 ppd. Pt is allergic to Penicillins. FMHx includes HTN. - History of Current Complaint Stated Complaint: DIFFICULTY BREATHING Time Seen by Provider: 03/21/17 18:28 Hx Obtained From: Patient Onset/Duration: Lasting Days, Still Present Current Severity: Moderate Aggrevating Factors: Nothing Alleviating Factors: Nothing Associated Signs & Symptoms: Positive: Calf Pain/Swelling, Edema, Other - SOB. Negative: Cough (Productive), Cough (Nonproductive), Cough (Bloody Sputum), Chest Pain w/Cough, Chest Pain Unrelated to Cough, Fever, Chills - Allergy/Home Medications Allergies/Adverse Reactions: Allergies Allergy/AdvReac Type Severity Reaction Status Date / Time Penicillins [PCN] Allergy Severe Anaphylatic Verified 03/21/17 18:36 Shock Lisinopril Allergy Unknown Verified 03/21/17 18:36 Reaction Details Home Medications: Home Medications Furosemide TAB* [Lasix TAB*] 80 mg PO DAILY 03/21/17 [History Confirmed 03/21/17 ] hydrALAZINE TAB* [Apresoline TAB*] 25 mg PO BID 03/21/17 [History Confirmed ] PMH/Surg Hx/FS Hx/Imm Hx Endocrine History Of: Reports: Diabetes - ? NO MEDS , BLOOD LEVELS GOOD Denies: Thyroid Disease Cardiovascular History Of: Reports: Hypertension Denies: Cardiac Disorders, Pacemaker/ICD Respiratory History Of: Denies: COPD, Asthma GI/ History Of: Reports: Renal Disease Denies: Gastroesophageal Reflux Neurological History Of: Denies: CVA, Dementia, Seizures Psychological History Of: Reports: Depression Other History Of: Negative For: Anticoagulant Therapy - Surgical History Surgical History: Yes Surgery Procedure, Year, and Place: 2001 ABD. hernia REPAIR [facility]. 2002 cervicalspin surgery, [facility]. 1994 RT wrist surgery. 2009 ABD. HERNIA REPAIR. 2014 LEFT ELBOW SURGERY. 2014 LUE FISTULA PLACED - Family History Known Family History: Positive: Hypertension, Diabetes Negative: Cardiac Disease, Renal Disease - Social History Occupation: Employed Full-time Lives: With Family Alcohol Use: None Substance Use Type: None Smoking Status (MU): Current Every Day Smoker Type: Cigarettes Amount Used/How Often: 1/2 PPD Length of Time of Smoking/Using Tobacco: 35 YEARS Have You Smoked in the Last Year: Yes Household Exposure Type: Cigarettes - Immunization History Most Recent Influenza Vaccination: unknown Most Recent Tetanus Shot: 2016 Most Recent Pneumonia Vaccination: 2016 Review of Systems Constitutional: Negative Respiratory: Shortness Of Breath Cardiovascular: Negative Musculoskeletal: Edema All Other Systems Reviewed And Are Negative: Yes Physical Exam Triage Information Reviewed: Yes Appearance: Other: - appears SOB Vital Signs: Initial Vital Signs Temp 98.7 F 03/21/17 18:31 Pulse 76 03/21/17 18:31 Resp 24 03/21/17 18:31 BP 200/109 03/21/17 18:31 Pulse Ox 95 03/21/17 18:31 ENT: Positive: Normal ENT inspection Dental: Positive: Percussion Tenderness @ Neck: Positive: Supple, Nontender Respiratory: Positive: Lungs clear, Other: - increased effort Cardiovascular: Positive: RRR Musculoskeletal: Positive: Edema @ - bilaterl ankles Psychological: Positive: Age Appropriate Behavior Skin: Negative: rashes Shortness of Breath Dx - Course Course Of Treatment: 51 yr old male with likely volume overload from missing his dialysis. His BP is high. JOSÉ Galindo in the ER at [facility] and they are aware of patient coming there. oxygen applied and saline lock ordered. Ambulance called. - Differential Dx/Diagnosis Provider Diagnoses: shortness of breath. renal failure - Physician Notification/Consults Discussed Patient Care With: Arthur Powell (ED PA) @ 1835 - discussed pt hx and transit to ED Discharge - Discharge Plan Condition: Fair Disposition: TRANS HIGHER LVL OF CARE FAC Referrals: Jacob Deng MD [Primary Care Provider] - The documentation as recorded by the Alexey mota Alok accurately reflects the service I personally performed and the decisions made by , Gopal Dowell MD.
== END 2017-03-21 19:00 | disposition short-term general hospital (02) ==
LOC: UCEAST 18:23
DX: N19 Unspecified kidney failure (principal); R06.02 Shortness of breath; I10 Essential (primary) hypertension; F32.9 Major depressive disorder, single episode, unspecified; Z88.0 Allergy status to penicillin; F17.210 Nicotine dependence, cigarettes, uncomplicated
CPT/HCPCS: 99213; G0463

== ENCOUNTER 2017-03-21 19:25 | Emergency (ER) | payer MEDICARE, MEDICAID ==
[2017-03-21 20:08] LABS: Hematocrit 24 % (42-52); Mean Corpuscular HGB Conc 33 g/dl (31-36); Mean Corpuscular Hemoglobin 29 pg (27-31); Mean Corpuscular Volume 88 fL (80-94); Mean Platelet Volume 8 um3 (7.4-10.4); Red Blood Count 2.79 10^6/ul (4.0-5.4); Red Cell Distribution Width 17 % (10.5-15); White Blood Count 7.6 10^3/ul (3.5-10.8)
[2017-03-21 20:23] LABS: Calcium 8.1 mg/dL (8.6-10.3); EGFR African American 4.6 (>60); EGFR Non-African American 3.6 (>60); Globulin 3.2 g/dL (2-4); Potassium 5.9 mmol/L (3.5-5.0); Total Bilirubin 0.5 mg/dL (0.2-1.0); Total Protein 7.2 g/dL (6.4-8.9)
[2017-03-21] MEDS ORDERED: Furosemide IV* 10 MG/ML 10 ML VIAL (100 MG) IV ONE (20:45)
--- NOTE | 2017-03-21 20:45 | ED ---
Harjinder Arreguin Salem, scribed for Hossein Jackson MD on 03/21/17 at 1945 . Shortness of Breath - HPI Summary HPI Summary: Patient is a 51 y/o male with chronic renal failure who presents to the ED per EMS with SOB since yesterday. He reports edema of the lower extremities since 2 days ago. He states he receives dialysis on Tuesday, , and Tuesday, but the last time was 3 days ago. Pt recently moved back from [place] and his dialysis schedule was recently changed as a result. Pt states that he is still able to make urine and typically does 5-6 times a day. He states he has been on dialysis for almost 2 years, but will be receiving a kidney transplant soon. - History of Current Complaint Time Seen by Provider: 03/21/17 19:27 Hx Obtained From: Patient, EMS Onset/Duration: Gradual Onset, Lasting Days, Still Present Timing: Constant Current Severity: Moderate Aggrevating Factors: Nothing Alleviating Factors: Nothing Associated Signs & Symptoms: Negative - Allergy/Home Medications Allergies/Adverse Reactions: Allergies Allergy/AdvReac Type Severity Reaction Status Date / Time Penicillins [PCN] Allergy Severe Anaphylatic Verified 03/21/17 18:36 Shock Lisinopril Allergy Unknown Verified 03/21/17 18:36 Reaction Details PMH/Surg Hx/FS Hx/Imm Hx Endocrine/Hematology History: Reports: Hx Diabetes - ? NO MEDS , BLOOD LEVELS GOOD Denies: Hx Anticoagulant Therapy, Hx Thyroid Disease Cardiovascular History: Reports: Hx Hypertension Denies: Hx Pacemaker/ICD, Other Cardiovascular Problems/Disorders Respiratory History: Denies: Hx Asthma, Hx Chronic Obstructive Pulmonary Disease (COPD), Other Respiratory Problems/Disorders GI History: Reports: Hx Gastroesophageal Reflux Disease - ON DAILY MEDS Denies: Hx Ulcer, Other GI Disorders History: Reports: Hx Chronic Renal Failure, Hx Dialysis, Hx Renal Disease Musculoskeletal History: Reports: Hx Back Problems, Other Musculoskeletal History - rft Sensory History: Reports: Hx Contacts or Glasses Opthamlomology History: Reports: Hx Contacts or Glasses Neurological History: Reports: Hx Headaches Denies: Hx Dementia, Hx Seizures, Other Neuro Impairments/Disorders Psychiatric History: Reports: Hx Depression Denies: Hx Substance Abuse - Surgical History Surgery Procedure, Year, and Place: 2001 ABD. [place] [facility] [place] [facility] [place]. 1994 RT wrist surgery. 2009 ABD. HERNIA REPAIR. 2014 LEFT ELBOW SURGERY. 2014 LUE FISTULA PLACED Hx Anesthesia Reactions: No - Immunization History Date of Tetanus Vaccine: unknown Date of Influenza Vaccine: no Infectious Disease History: Denies: Hx Clostridium Difficile, Hx Hepatitis, Hx Human Immunodeficiency Virus (HIV), Hx of Known/Suspected MRSA, Hx Shingles, Hx Tuberculosis, Hx Known/ Suspected VRE, Hx Known/Suspected VRSA, History Other Infectious Disease, Traveled Outside the US in Last 30 Days - Family History Known Family History: Positive: Hypertension, Diabetes Negative: Cardiac Disease, Renal Disease - Social History Alcohol Use: None Hx Substance Use: No Substance Use Type: Reports: None Hx Tobacco Use: Yes Smoking Status (MU): Current Every Day Smoker Type: Cigarettes Amount Used/How Often: 1/2 PPD Length of Time of Smoking/Using Tobacco: 35 YEARS Have You Smoked in the Last Year: Yes Review of Systems Negative: Fever Positive: Shortness Of Breath Positive: Edema - LLE. RLE. All Other Systems Reviewed And Are Negative: Yes Physical Exam Triage Information Reviewed: Yes Vital Signs On Initial Exam: Initial Vitals Temp Pulse Resp BP Pulse Ox 99.9 F 78 20 177/122 98 03/21/17 19:35 03/21/17 19:35 03/21/17 19:35 03/21/17 19:35 03/21/17 19:35 Vital Signs Reviewed: Yes Appearance: Positive: Well-Appearing, No Pain Distress Skin: Positive: Warm Head/Face: Positive: Normal Head/Face Inspection Eyes: Positive: BARRY ENT: Positive: Hearing grossly normal Neck: Positive: Supple Respiratory/Lung Sounds: Positive: Clear to Auscultation, Breath Sounds Present Cardiovascular: Positive: RRR Abdomen Description: Positive: Nontender, Soft Bowel Sounds: Positive: Present Musculoskeletal: Positive: Strength/ROM Intact Neurological: Positive: Sensory/Motor Intact, Alert, Oriented to Person Place, Time, Normal Gait Diagnostics - Vital Signs Vital Signs Temp Pulse Resp BP Pulse Ox 03/21/17 19:35 99.9 F 78 20 177/122 98 - Laboratory Lab Results: Lab Results 03/21/17 03/21/17 03/21/17 Range/Units 19:55 19:55 19:55 WBC 7.6 (3.5-10.8) 10^3/ul RBC 2.79 L (4.0-5.4) 10^6/ul Hgb 8.0 L (14.0-18.0) g/dl Hct 24 L (42-52) % MCV 88 (80-94) fL MCH 29 (27-31) pg MCHC 33 (31-36) g/dl RDW 17 H (10.5-15) % Plt Count 194 (150-450) 10^3/ul MPV 8 (7.4-10.4) um3 Neut % (Auto) 65.5 (38-83) % Lymph % (Auto) 23.1 L (25-47) % [place] % (Auto) 5.6 (1-9) % Eos % (Auto) 4.7 (0-6) % Baso % (Auto) 1.1 (0-2) % Absolute Neuts (auto) 5.0 (1.5-7.7) 10^3/ul Absolute Lymphs (auto) 1.8 (1.0-4.8) 10^3/ul Absolute Monos (auto) 0.4 (0-0.8) 10^3/ul Absolute Eos (auto) 0.4 (0-0.6) 10^3/ul Absolute Basos (auto) 0.1 (0-0.2) 10^3/ul Absolute Nucleated RBC 0.01 10^3/ul Nucleated RBC % 0.1 Sodium 138 (133-145) mmol/L Potassium 5.9 H (3.5-5.0) mmol/L Chloride 99 L (101-111) mmol/L Carbon Dioxide 26 (22-32) mmol/L Anion Gap 13 H (2-11) mmol/L BUN 88 H (6-24) mg/dL Creatinine 14.56 H (0.67-1.17) mg/dL Est GFR ( Amer) 4.6 (>60) Est GFR (Non-Af Amer) 3.6 (>60) BUN/Creatinine Ratio 6.0 L (8-20) Glucose 81 (70-100) mg/dL Lactic Acid 0.6 (0.5-2.0) mmol/L Calcium 8.1 L (8.6-10.3) mg/dL Total Bilirubin 0.50 (0.2-1.0) mg/dL AST 23 (13-39) U/L ALT 26 (7-52) U/L Alkaline Phosphatase 51 (34-104) U/L B-Natriuretic Peptide ( - 100) pg/mL Total Protein 7.2 (6.4-8.9) g/dL Albumin 4.0 (3.2-5.2) g/dL Globulin 3.2 (2-4) g/dL Albumin/Globulin Ratio 1.3 (1-3) 05/15/17 Range/Units 19:55 WBC (3.5-10.8) 10^3/ul RBC (4.0-5.4) 10^6/ul Hgb (14.0-18.0) g/dl Hct (42-52) % MCV (80-94) fL MCH (27-31) pg MCHC (31-36) g/dl RDW (10.5-15) % Plt Count (150-450) 10^3/ul MPV (7.4-10.4) um3 Neut % (Auto) (38-83) % Lymph % (Auto) (25-47) % [place] % (Auto) (1-9) % Eos % (Auto) (0-6) % Baso % (Auto) (0-2) % Absolute Neuts (auto) (1.5-7.7) 10^3/ul Absolute Lymphs (auto) (1.0-4.8) 10^3/ul Absolute Monos (auto) (0-0.8) 10^3/ul Absolute Eos (auto) (0-0.6) 10^3/ul Absolute Basos (auto) (0-0.2) 10^3/ul Absolute Nucleated RBC 10^3/ul Nucleated RBC % Sodium (133-145) mmol/L Potassium (3.5-5.0) mmol/L Chloride (101-111) mmol/L Carbon Dioxide (22-32) mmol/L Anion Gap (2-11) mmol/L BUN (6-24) mg/dL Creatinine (0.67-1.17) mg/dL Est GFR ( Amer) (>60) Est GFR (Non-Af Amer) (>60) BUN/Creatinine Ratio (8-20) Glucose (70-100) mg/dL Lactic Acid (0.5-2.0) mmol/L Calcium (8.6-10.3) mg/dL Total Bilirubin (0.2-1.0) mg/dL AST (13-39) U/L ALT (7-52) U/L Alkaline Phosphatase (34-104) U/L B-Natriuretic Peptide 3121 H ( - 100) pg/mL Total Protein (6.4-8.9) g/dL Albumin (3.2-5.2) g/dL Globulin (2-4) g/dL Albumin/Globulin Ratio (1-3) Result Diagrams: 03/21/17 19:55 03/21/17 19:55 Lab Statement: Any lab studies that have been ordered have been reviewed, and results considered in the medical decision making process. - Radiology CXR Radiology Interpretation Completed By: Radiologist - IMPRESSION: Cardiomegaly with findings consistent with CHF. - EKG 2043 EKG Interpretation: Sinus rhythm @ 78 bpm. LVH. Re-Evaluation - Re-Evaluation First Eval Change: Improved - pt feels better, not sob ambulates with 02 sat lowest at 89 % pt schedulked for dialysis in am, will d/c home return in am for dialysis, earlier if worsens Course/Dx - Diagnoses Provider Diagnoses: CRF (chronic renal failure) Discharge - Discharge Plan Condition: Improved Disposition: HOME Patient Education Materials: Chronic Kidney Disease (ED) Referrals: Jacob Deng MD [Primary Care Provider] - Additional Instructions: Please, go to dialysis tomorrow morning (03/22/17) as scheduled. The documentation as recorded by the Harjinder mota Salem accurately reflects the service I personally performed and the decisions made by , Hossein Jackson MD.
--- NOTE | 2017-03-21 20:50 | RAD ---
Indication: Shortness of breath. 2 views of the chest are reviewed and compared to previous exam dated December 08, 2016. Cardiomegaly is noted. Interstitial edema consistent with CHF is noted. No pleural fluid is identified. IMPRESSION: Cardiomegaly with findings consistent with CHF.
[2017-03-21] MEDS ORDERED: Sodium Polystyrene ORAL.SOL* 15 GM/60 ML BTL PO ONE (21:42)
[2017-03-21 22:08] VITALS: BP 196/107
== END 2017-03-21 22:23 | disposition home or self-care (01) ==
LOC: ED 19:25
DX: N18.9 Chronic kidney disease, unspecified (principal); R06.02 Shortness of breath; R60.9 Edema, unspecified; F17.210 Nicotine dependence, cigarettes, uncomplicated
CPT/HCPCS: 36415; 71020; 80053; 83605; 83880; 85025; 93005; 96374; 99282; J1940

== ENCOUNTER 2017-04-14 16:48 | Inpatient (IN) | payer MEDICARE, MEDICAID ==
[2017-04-14 19:16] LABS: Hematocrit 18 % (42-52); Red Blood Count 2.05 10^6/ul (4.0-5.4); Red Cell Distribution Width 16 % (10.5-15)
[2017-04-14] MEDS ORDERED: Ondansetron INJ* 2 MG/ML VIAL IV ONE (19:20)
[2017-04-14] MEDS ORDERED: Morphine INJ* 4 MG/ML 1 ML SYRINGE IV ONE (19:20)
[2017-04-14 19:28] LABS: ALT 26 U/L (7-52); Albumin 3.8 g/dL (3.2-5.2); Alkaline Phosphatase 45 U/L (34-104); BUN/Creatinine Ratio 5.2 (8-20); Blood Urea Nitrogen 68 mg/dL (6-24); CO2 Carbon Dioxide 27 mmol/L (22-32); Calcium 8.4 mg/dL (8.6-10.3); Chloride 96 mmol/L (101-111); EGFR African American 5.2 (>60); Globulin 3.3 g/dL (2-4); Glucose 77 mg/dL (70-100); Sodium 139 mmol/L (133-145); Total Protein 7.1 g/dL (6.4-8.9)
[2017-04-14 19:36] LABS: Mean Corpuscular HGB Conc 33 g/dl (31-36); Mean Corpuscular Hemoglobin 29 pg (27-31); Mean Corpuscular Volume 90 fL (80-94); Mean Platelet Volume 9 um3 (7.4-10.4); White Blood Count 8.9 10^3/ul (3.5-10.8)
[2017-04-14] MEDS ORDERED: Nitroglycerin 2% OINT* 1 GM PAK TOPICAL ONE (19:37)
[2017-04-14 19:38] LABS: Comments Flag Yes
[2017-04-14 19:39] LABS: Add Diff/Slide Review? Slide Review Added
[2017-04-14 19:41] LABS: Troponin I 0.07 ng/mL (<0.04)
[2017-04-14 19:41] LABS: PCO2 Arterial 35 mmHg (35-45)
[2017-04-14] MEDS ORDERED: Furosemide IV* 10 MG/ML 10 ML VIAL (100 MG) IV ONE (19:56)
[2017-04-14 20:04] LABS: Hypochromasia 1+; Polychromasia 1+; Schistocytes 2+
[2017-04-14 20:06] LABS: Add Path Review? YES
[2017-04-14] MEDS ORDERED: OXYMORPHONE IR 5 MG PO PRN (21:00)
[2017-04-14] MEDS: cloNIDine TAB* 0.1 MG PO SCH (21:03)
[2017-04-14] MEDS: hydrALAZINE TAB* 25 MG PO SCH (21:04)
--- NOTE | 2017-04-14 21:06 | RAD ---
Indication: Shortness of breath. Single frontal view of the chest performed at 1929 hours was reviewed. Comparison is made with previous exam dated March 21, 2017. Cardiomegaly is noted. Lung hart demonstrate no pleural fluid, pneumonia or pneumothorax. When compared to previous exam of March 21, 2017 interstitial edema is improved. IMPRESSION: CARDIOMEGALY WITHOUT DEFINITE PNEUMONIA.
[2017-04-14 21:08] LABS: Troponin I 0.07 ng/mL (<0.04)
[2017-04-14] MEDS: Pantoprazole IV* 80 MG in NS 0.9% 250 ML* 250 ML IVPB SCH (21:52)
[2017-04-14] MEDS: Nitroglycerin 2% OINT* 1 GM PAK TOPICAL SCH (21:53)
--- NOTE | 2017-04-14 22:21 | HP ---
CC: Dr. Deng; Dr. Spivey * HISTORY AND PHYSICAL: DATE OF ADMISSION: 04/14/17 CHIEF COMPLAINT: Shortness of breath. HISTORY OF PRESENT ILLNESS: The patient says he has been in increasingly short of breath now for 2 weeks. It has been on and off for that time. However, today he developed left-sided chest pain which goes to his shoulder. It is a pressure like pain, out of 10 severity. He said he had the shortness of breath during dialysis, but the pain happened afterwards. He does not normally wear oxygen at home. He denies sweating. He also does note a sharp pain in his stomach area. He has been having that for last week or so. He states it goes to his side where his kidney . He has got transfusion last but no further treatment. He also noticed his stool has been black as of late. He denies any recent NSAID use. PAST MEDICAL HISTORY: Significant for chronic kidney disease requiring hemodialysis, diabetes mellitus, chronic left arm pain. PAST SURGICAL HISTORY: Significant for C-spine fusion, right wrist surgery, hernia repair, and left elbow surgery. CURRENT MEDICATIONS: Are as follows: 1. Hydralazine 25 mg twice daily. 2. Clonidine 0.2 mg twice daily. 3. Amlodipine 10 mg daily. 4. Opana 40 mg b.i.d. and 10 mg 4 times a day. 5. Furosemide 80 mg daily. 6. B complex vitamin 1 tablet daily. ALLERGIES: He has allergy/adverse reaction to PENICILLIN, LISINOPRIL. FAMILY HISTORY: Significant for mother with hypertension, diabetes. Father had diabetes. SOCIAL HISTORY: Half-a-pack day smoker, 35 years, no alcohol, no recreational drug use. Surrogate decision maker is his , Yoni Bridges, [phone]. REVIEW OF SYSTEMS: A 14-point review of systems was completed with the patient. All pertinent positives and negatives are in the history of present illness; otherwise, it is negative. PHYSICAL EXAMINATION GENERAL: A pleasant gentleman, lying in bed, in no acute distress. VITAL SIGNS: Blood pressure 184/95, pulse ox 97%, respiratory rate 20 breaths per minute, heart rate 81 beats per minute, temperature is 101.1. HEENT: Normocephalic, atraumatic. Pupils equal and round reactive. Moist mucous membranes. NECK: Supple. No JVD, bruits, palpable thyroid or lymphadenopathy. CHEST: Clear to auscultation and percussion bilaterally. CARDIOVASCULAR: S1, S2 appreciated. Regular rate and rhythm. ABDOMEN: Positive bowel sounds in all 4 quadrants. Soft, nontender, nondistended. EXTREMITIES: No cyanosis or clubbing. +2 peripheral pulses bilaterally NEUROLOGIC: Alert and oriented x3. He moves all extremities. SKIN: No rashes or abnormalities. DIAGNOSTIC STUDIES/LAB DATA: Lab data, white count 8.9, hemoglobin 6.0, hematocrit 18, platelets 214. Sodium 139, potassium test not performed, chloride 96, CO2 27, BUN 68, creatinine 13.07, glucose 77, troponin 0.07, BNP 5. ABG pH 7.53, pCO2 35, pO2 66. Chest x-ray shows no acute infiltrates. EKG shows normal sinus rhythm at 80 beats per minute. Normal axis, no acute ST- T wave changes. ASSESSMENT AND PLAN: 1. Shortness of breath. I do not think the patient is in over heart failure now and he does not seem to be fluid overloaded. I think it may be related to his hemoglobin being quite low. It also could some ischemic demand because of the low hemoglobin. I will transfuse him 1 unit packed red blood cells, give him 80 mg IV Lasix, to be checked again. With his black stool, he should better perform a GI consult in the morning. 2. GI bleed. I will check stool guaiac. I think this is a likely cause of his low hemoglobin as well as his shortness of breath. I will place him on a Protonix drip. See above. We will ask GI to see in the morning. 3. Anemia due to acute blood loss. Check serial H and H's, transfuse as noted above. 4. Chest pain. I do not think he is having a heart attack. I think it is most likely ischemic demand. We will cycle his troponins, however on telemetry. 5. Hypertension. Poorly controlled, but he has not gotten his medications. We will restart his medications and the Lasix should help as well. Adjust medications as needed. 6. Diabetes mellitus. The patient's sugar is well-controlled and he is not on any current medications. Continue to monitor 7. Fluids, electrolytes, and nutrition, n.p.o. after midnight in case of procedure. 8. Deep vein thrombosis prophylaxis: Sequential compression stockings in case of bleed. 9. The patient is a full code. TIME SPENT: Over 80 minutes were spent on this H and P, and more than 45 minutes were spent in direct [id number] contact with the patient in evaluation , physical examination, counseling, and coordination of care. [id number] #: [id number] MTDD
[2017-04-14] MEDS: OXYMORPHONE 5 MG PO SCH (22:31)
--- NOTE | 2017-04-14 23:40 | ED ---
Heath Arreguin Aidan, scribed for Alexis Irwin MD on 04/14/17 at 1950 . Shortness of Breath - HPI Summary HPI Summary: 51 y/o male presents to the ED with a complaint of acute, constant, moderate SOB both today and yesterday. Associated symptoms include acute, constant, moderate lower abdominal pain that has persisted for the past 2 days, chronic shoulder pain, a productive cough, dizziness, and left-sided CP that radiates down the left arm. Hx of HTN and diabetes. This patient received dialysis this morning. - History of Current Complaint Chief Complaint: EDShortnessOfBreath Time Seen by Provider: 04/14/17 18:45 Hx Obtained From: Patient Onset/Duration: Sudden Onset, Lasting Days, Still Present Timing: Constant Current Severity: Moderate Dyspnea At: Rest - and during exertion Aggrevating Factors: Nothing - unknown Alleviating Factors: Nothing - unknown Associated Signs & Symptoms: Cough (Productive) - and abdominal pain, and chronic shoulder pain, Chest Pain w/Cough, Dizzy - Risk Factors Pulmonary Embolism: Smoking Cardiac: Smoking, Diabetes, Hypertension Tuberculosis: Diabetes - Allergy/Home Medications Allergies/Adverse Reactions: Allergies Allergy/AdvReac Type Severity Reaction Status Date / Time Penicillins [PCN] Allergy Severe Anaphylatic Verified 03/21/17 18:36 Shock Lisinopril Allergy Unknown Verified 03/21/17 18:36 Reaction Details Home Medications: Home Medications Opana 10 mg PO QID 04/14/17 [History Confirmed 04/14/17] Opana 40 mg PO BID 04/14/17 [History Confirmed 04/14/17] PMH/Surg Hx/FS Hx/Imm Hx Endocrine/Hematology History: Reports: Hx Diabetes - ? NO MEDS , BLOOD LEVELS GOOD Denies: Hx Anticoagulant Therapy, Hx Thyroid Disease Cardiovascular History: Reports: Hx Hypertension Denies: Hx Pacemaker/ICD, Other Cardiovascular Problems/Disorders Respiratory History: Denies: Hx Asthma, Hx Chronic Obstructive Pulmonary Disease (COPD), Other Respiratory Problems/Disorders GI History: Reports: Hx Gastroesophageal Reflux Disease - ON DAILY MEDS Denies: Hx Ulcer, Other GI Disorders History: Reports: Hx Chronic Renal Failure, Hx Dialysis, Hx Renal Disease Musculoskeletal History: Reports: Hx Back Problems, Other Musculoskeletal History - rft Sensory History: Reports: Hx Contacts or Glasses Opthamlomology History: Reports: Hx Contacts or Glasses Neurological History: Reports: Hx Headaches Denies: Hx Dementia, Hx Seizures, Other Neuro Impairments/Disorders Psychiatric History: Reports: Hx Depression Denies: Hx Substance Abuse - Surgical History Surgery Procedure, Year, and Place: 2001 ABD. hernia REPAIR [facility]. 2002 cervicalspin surgery, [facility]. 1994 RT wrist surgery. 2009 ABD. HERNIA REPAIR. 2014 LEFT ELBOW SURGERY. 2014 LUE FISTULA PLACED Hx Anesthesia Reactions: No - Immunization History Date of Tetanus Vaccine: unknown Date of Influenza Vaccine: no Infectious Disease History: No Infectious Disease History: Denies: Hx Clostridium Difficile, Hx Hepatitis, Hx Human Immunodeficiency Virus (HIV), Hx of Known/Suspected MRSA, Hx Shingles, Hx Tuberculosis, Hx Known/ Suspected VRE, Hx Known/Suspected VRSA, History Other Infectious Disease, Traveled Outside the [place] in Last 30 Days - Family History Known Family History: Positive: Hypertension, Diabetes Negative: Cardiac Disease, Renal Disease - Social History Occupation: Employed Full-time Lives: With Family Alcohol Use: None Hx Substance Use: No Substance Use Type: Reports: None Hx Tobacco Use: Yes Smoking Status (MU): Current Every Day Smoker Type: Cigarettes Amount Used/How Often: 1/2 PPD Length of Time of Smoking/Using Tobacco: 35 YEARS Have You Smoked in the Last Year: Yes Review of Systems Constitutional: Other - dizziness Negative: Fever, Chills, Fatigue, Skin Diaphoresis Eyes: Negative ENT: Negative Positive: Chest Pain. Negative: Palpitations Positive: Shortness Of Breath, Cough Gastrointestinal: Negative Genitourinary: Negative Musculoskeletal: Negative Skin: Negative Neurological: Negative Psychological: Normal All Other Systems Reviewed And Are Negative: Yes Physical Exam - Summary Physical Exam Summary: Constitutional: Well-developed, Well-nourished, Alert. (-) Distressed Skin: Warm, Dry HENT: Normocephalic; Atraumatic Eyes: Conjunctiva normal Neck: Musculoskeletal ROM normal neck. (-) JVD, (-) Stridor, (-) Tracheal deviation Cardio: Heart sounds normal; Intact distal pulses; The pedal pulses are 2+ and symmetric. Radial pulses are 2+ and symmetric. (-) Murmur Pulmonary/Chest wall: Effort normal. (+) TACH[place]A, (-) Wheezes, (+) rales on the left lower lung field Abd: Soft, (-) Tenderness, (-) Distension, (-) Guarding, (-) Rebound Musculoskeletal: (-) Edema Lymph: (-) Cervical adenopathy Neuro: Alert, Oriented x3 Psych: Mood and affect Normal, however the patient is somewhat drowsy Triage Information Reviewed: Yes Vital Signs On Initial Exam: Initial Vitals Temp Pulse Resp BP Pulse Ox 98.2 F 94 20 175/88 100 04/14/17 16:53 04/14/17 16:53 04/14/17 16:53 04/14/17 16:53 04/14/17 16:53 Vital Signs Reviewed: Yes - Branch Coma Scale Coma Scale Total: 15 Diagnostics - Vital Signs Vital Signs Temp Pulse Resp BP Pulse Ox 04/14/17 19:36 24 04/14/17 18:43 83 0 97 04/14/17 17:51 101.1 F 81 34 165/84 100 04/14/17 16:56 98.6 F 81 36 175/88 100 04/14/17 16:53 98.2 F 94 20 175/88 100 - Laboratory Lab Results: Lab Results 04/14/17 04/14/17 04/14/17 Range/Units 18:13 18:13 18:13 Sodium 139 (133-145) mmol/L Potassium Pending Chloride 96 L (101-111) mmol/L Carbon Dioxide 27 (22-32) mmol/L Anion Gap Pending BUN 68 H (6-24) mg/dL Creatinine 13.07 H (0.67-1.17) mg/dL Est GFR ( Amer) 5.2 (>60) Est GFR (Non-Af Amer) 4.0 (>60) BUN/Creatinine Ratio 5.2 L (8-20) Glucose 77 (70-100) mg/dL Lactic Acid 1.5 (0.5-2.0) mmol/L Calcium 8.4 L (8.6-10.3) mg/dL Total Bilirubin 0.50 (0.2-1.0) mg/dL AST Pending ALT 26 (7-52) U/L Alkaline Phosphatase 45 (34-104) U/L Troponin I Pending B-Natriuretic Peptide 2025 H ( - 100) pg/mL Total Protein 7.1 (6.4-8.9) g/dL Albumin 3.8 (3.2-5.2) g/dL Globulin 3.3 (2-4) g/dL Albumin/Globulin Ratio 1.2 (1-3) Result Diagrams: 04/14/17 18:13 04/14/17 20:35 Lab Statement: Any lab studies that have been ordered have been reviewed, and results considered in the medical decision making process. - Radiology CHEST X-RAY Xray Interpretation: Positive (See Comments) - IMPRESSION: Pulmonary edema Radiology Interpretation Completed By: ED Physician - Dr. Irwin - EKG EKG 1700 Cardiac Rate: NL - 80 BPM EKG Interpretation: NORMAL SINUS RHYTHM, NO STEMI Course/Dx - Course Course Of Treatment: 51 y/o male presents with acute, constant, moderate SOB and episodes of left-sided CP. Currently, he is dizzy and mentions some abdominal pain - Diagnoses Provider Diagnoses: Chronic pain, Dyspnea, Symptomatic anemia Discharge - Discharge Plan Condition: Good Disposition: ADMITTED TO [facility] The documentation as recorded by the Heath mota Aidan accurately reflects the service I personally performed and the decisions made by me, Alexis Irwin MD.
[2017-04-15 01:50] LABS: Comments Flag Yes; Hematocrit 20 % (42-52)
[2017-04-15 01:51] LABS: Hemoglobin 6.4 g/dl (14.0-18.0)
[2017-04-15] MEDS: Nitroglycerin 2% OINT* 1 GM PAK TOPICAL SCH ×3 (04:33→21:26)
[2017-04-15 07:20] LABS: Hematocrit 24 % (42-52); Hemoglobin 7.6 g/dl (14.0-18.0)
[2017-04-15] MEDS ORDERED: NON FORMULARY MED* (B-Complex W/ C & Folic Acid [Nephro-Vite 0.8 Mg] 1 TAB) PO SCH (09:00)
[2017-04-15] MEDS ORDERED: Ondansetron INJ* 2 MG/ML VIAL IV STA (09:14)
[2017-04-15] MEDS ORDERED: Ondansetron INJ* 2 MG/ML VIAL IV PRN (09:15)
[2017-04-15] MEDS ORDERED: Ondansetron INJ* 2 MG/ML VIAL ONE ×2 (09:16→09:21)
[2017-04-15] MEDS: Pantoprazole IV* 80 MG in NS 0.9% 250 ML* 250 ML IVPB SCH (10:09)
[2017-04-15 10:25] LABS: BUN/Creatinine Ratio 5.4 (8-20); Calcium 7.9 mg/dL (8.6-10.3); EGFR African American 4.9 (>60); EGFR Non-African American 3.8 (>60)
[2017-04-15 10:35] LABS: Potassium 6.3 mmol/L (3.5-5.0)
[2017-04-15] MEDS ORDERED: Epoetin Alfa* 10,000 UNITS/ML VIAL IV ONE (11:00)
[2017-04-15] MEDS: Folic Acid TAB* 1 MG PO SCH (13:24)
[2017-04-15] MEDS: amLODIPine TAB* 5 MG PO SCH (13:24)
[2017-04-15] MEDS: hydrALAZINE TAB* 25 MG PO SCH ×2 (13:25→21:25)
[2017-04-15] MEDS: cloNIDine TAB* 0.1 MG PO SCH ×2 (13:25→21:25)
[2017-04-15] MEDS: Nitro Patch/OINT Remove PATCH OFF SCH ×2 (13:26→19:00)
[2017-04-15] MEDS: Vitamin B Complex TAB PO SCH (13:27)
[2017-04-15] MEDS: OXYMORPHONE 5 MG PO SCH ×2 (13:51→21:26)
[2017-04-15 14:42] LABS: Hematocrit 29 % (42-52); Hemoglobin 8.7 g/dl (14.0-18.0)
[2017-04-15] MEDS ORDERED: Midazolam* 1 MG/ML 10 ML VIAL (10 MG) ONE (15:08)
[2017-04-15] MEDS ORDERED: fentaNYL* 50 MCG/ML 2 ML VIAL (100 MCG VIAL) ONE (15:08)
--- NOTE | 2017-04-15 15:31 | ECHO ---
Patient: REYNOLD DURON [facility] Rec#: [id number] : 1965 Date: 04/15/2017 Age: 51y Height: 182.88 cm / 72.0 in Weight: 87.54 kg / 192.9 lbs Sex: M BSA: 2.1 Room#: 439 Admit Date#: 04/14/2017 Type: Inpatient Referring: Osvaldo Estrada MD Reading: Rubén Taylor DO Highway Maintenance Technician: Ghada Hernandez RDCS CC: Jacob Deng MD Transthoracic Echocardiogram Indication: Chest pain BP: 160/90 HR: 95 Rhythm: NSR Indications Chest Pain Findings History: HTN, DM, chronic renal failure with dialysis, GERD, smoker. Technical Comments: The study quality is good. Completed at 1445. Left Ventricle: The left ventricular chamber size is normal. Moderate to severe concentric left ventricular hypertrophy is observed. Global left ventricular wall motion and contractility are within normal limits. There is normal left ventricular systolic function. The estimated ejection fraction is 50-55%. Left Atrium: The left atrium is moderate to severely dilated. Right Ventricle: The right ventricular cavity size is normal. The right ventricular global systolic function is normal. Right Atrium: The right atrium is moderately dilated. Aortic Valve: The aortic valve is trileaflet. The aortic valve leaflets are mildly thickened. There is a trace of aortic regurgitation. There is no evidence of aortic stenosis. Mitral Valve: The mitral valve leaflets are mildly thickened. There is mild mitral regurgitation. There is no evidence of mitral stenosis. Tricuspid Valve: The tricuspid valve leaflets are normal. There is mild tricuspid regurgitation. There is evidence of moderate pulmonary hypertension. There is no tricuspid stenosis. Pulmonic Valve: The pulmonic valve appears normal. There is a trace pulmonic regurgitation. There is no pulmonic stenosis. Pericardium: There is no significant pericardial effusion. Aorta: There is no dilatation of the ascending aorta. There is no dilatation of the aortic arch. There is no dilation of the aortic root. Pulmonary Artery: The main pulmonary artery is not well visualized. Venous: The inferior vena cava appears normal in size. There is an approximate 50% respiratory change in the inferior vena cava dimension. Conclusions The left ventricular chamber size is normal. Moderate to severe concentric left ventricular hypertrophy is observed. Global left ventricular wall motion and contractility are within normal limits. There is normal left ventricular systolic function. The estimated ejection fraction is 55%. The left atrium is moderate to severely dilated. No more than mild valvular regurgitation noted. The right ventricular cavity size is normal. The right ventricular global systolic function is normal. There is evidence of moderate pulmonary hypertension. Compared to prior study from 12/2016, the LVEF now appears in the normal range (was mildly reduced previously) Measurements Name Value Normal Range RVIDd (AP) 2D 2.5 cm (0.9 - 2.6) RVDdMajor (2D) 4.5 cm (2.2 - 4.4) RAd ISD 4CH 6 cm (3.4 - 4.9) RA (A4C)W 4.3 cm (2.9 - 4.6) IVSd (2D) 1.7 cm (0.6 - 1) LVPWd (2D) 1.7 cm (0.6 - 1) LVIDd (2D) 5.7 cm (3.6 - 5.4) LVIDs (2D) 4.7 cm - LV FS (2D) 18 % (25 - 45) Aortic Annulus 2.3 cm (1.4 - 2.6) Ao root diameter (2D) 3.4 cm (2.1 - 3.5) Ascending Ao 3.3 cm (2.1 - 3.4) Aortic arch 2.6 cm (1.8 - 3.4) LA dimension (AP) 2D 4 cm (2.3 - 3.8) LAd ISD 4CH 6.6 cm (2.9 - 5.3) LA ISD 4CH W 6.2 cm (2.5 - 4.5) Name Value Normal Range LA ESV SP 4CH (A/L) 147.5 ml - LA ESV SP 2CH (A/L) 139 ml - LA ESV BP (A/L) 147 ml - LA ESV BP (A/L) index 70.2 ml/m2 - LA ESV SP 4CH (MOD) 125 ml - LA ESV SP 2CH (MOD) 133 ml - Name Value Normal Range MV E-wave Vmax 1.1 m/sec - MV deceleration time 105.2 msec - MV A-wave Vmax 1.18 m/sec - MV E:A ratio 0.93 ratio - LV septal e' Vmax 0.07 m/sec - LV lateral e' Vmax 0.12 m/sec - Name Value Normal Range AV Vmax 2.3 m/sec - AV VTI 37 cm - AV peak gradient 21.87 mmHg - AV mean gradient 10.59 mmHg - LVOT diameter 2.4 cm - LVOT Vmax 1.6 m/sec - LVOT VTI 26.4 cm - LVOT peak gradient 10.82 mmHg - LVOT mean gradient 5.63 mmHg - BEN (continuity Vmax) 3.14 cm2 - BEN (continuity VTI) 3.23 cm2 - DULCE Vmax 1.3 m/sec - Name Value Normal Range TR Vmax 3.46 m/sec - TR peak gradient 48 mmHg - RAP 8 mmHg - RVSP 56 mmHg - IVC diameter 1.7 cm - Name Value Normal Range PV Vmax 1.08 m/sec - PV peak gradient 4.69 mmHg -
[2017-04-15] MEDS ORDERED: Furosemide IV* 10 MG/ML VIAL (40 MG) ONE (16:28)
--- NOTE | 2017-04-15 20:08 | CONS ---
GASTROENTEROLOGY CONSULT: DATE OF CONSULT: 04/15/17 CONSULTING PHYSICIAN: Dr. Osvaldo Estrada. REASON FOR CONSULT: Hemoglobin of 6.4 in a patient on dialysis, who has been running under 10 for the last 6 months and who had an outpatient transfusion, . HISTORY: He came to the emergency room complaining of shortness of breath. He did not really have any specific GI complaint at that time but told me that he had had black stool about 3 weeks ago and that it had persisted being dark and then yesterday, he saw some dark red or maroon stool. He also had some spitting up of bloody material within the last 24 hours. He is rather vague and seems little bit frustrated and exasperated after a long day. He denies any history of gastrointestinal bleeding in the past. He did have upper endoscopy by Dr. Majano in 2012, but generally unremarkable findings and then in June 2009, he had bidirectional endoscopy showing a little bit of erosive GERD, negative CLOtest, and a small hyperplastic sigmoid polyp. There was little bit of diverticulosis also. PAST MEDICAL HISTORY: 1. Chronic renal disease, on hemodialysis with left arm fistula. 2. Congestive heart failure. 3. Diabetes. 4. Hypertension. 5. Status post abdominal hernia repair with mesh twice. 6. Chronic pain syndrome, on Opana daily maintenance dose of 40 and other immediate-release doses. SOCIAL HISTORY: He is disabled and . He has two sons living in town. He has listed as having a here in [facility] and his ex- apparently lives in [place]. REVIEW OF SYSTEMS: There is no history of CVA or seizures. He has a complex regional pain syndrome, left arm. He did have cervical spine surgery by Dr. Saab in 2002. The old record has an entry for pancreatitis but reviewing the amylase and lipase values from the and first decade of 1999 reveals that the amylase is chronically elevated and lipase has been uniformly under 40 and they are thus constant and idiosyncratic. They are probably not the cause of abdominal pain that he had referred to. There has been a question of alcohol abuse. There is a single alcohol level May 1999 of 26.9 with normal less than 10. PHYSICAL EXAM: He is a chronically ill-appearing black male with a left arm fistula. He is in no acute distress, lying semi-supine. He does, however, have a little bit of breathy wet respirations and there are rales and rhonchi in the lower half of the lung hart. He had had dialysis earlier today and also 2 units transfused in the last 16 hours. He was given Lasix for those. He has no adenopathy. The lungs are symmetric. Heart sounds are regular. The abdomen is mildly obese, soft, and nontender. Rectal done later showed normal sphincter tone, no mass, and soft formed brown stool, sent for Hemoccult (later negative). Extremities show multiple deformities and scars. Neurologic: Grossly normal with regards to cranial nerves and movement of all four extremities. LABORATORY DATA: After 2 units transfusion, hemoglobin 8.7, hematocrit 29, MCV 90, platelets 214. Sed rate 27. Predialysis chemistries: Sodium 135, potassium 6.3, BUN 74, creatinine 13.8, ALT 26, alk phos 45, bilirubin 0.5. BNP yesterday 2024. An old serology shows hepatitis B antibody nonreactive, hepatitis B antigen nonreactive. Tuberculosis test via interferon gamma negative, May 2015. IMPRESSION: This 51-year-old man with renal failure, on dialysis, and also cardiomyopathy probably on the basis of hypertension reports seeing dark stool over several weeks. He also said he had vomited up some material. The history is rather vague. Upper endoscopy would certainly help and yet his oxygenation ( which is now 94% on 2 L) can be maintained. Upper endoscopy will be done. He clearly has a tenuous cardiac compensation. [id number]/CPS #: [id number] MTDD
[2017-04-16] MEDS: Pantoprazole IV* 80 MG in NS 0.9% 250 ML* 250 ML IVPB SCH ×3 (01:51→12:03)
[2017-04-16] MEDS: Nitro Patch/OINT Remove PATCH OFF SCH ×2 (01:53→09:34)
--- NOTE | 2017-04-16 02:33 | PRO ---
DATE: 04/15/17 - ROOM #439 REFERRING PHYSICIANS: Dr. Jacob Deng, Dr. Jacob Spivey * PROCEDURE: Upper gastrointestinal endoscopy through the distal duodenum. INDICATION: This 51-year-old man was admitted to the ER around 1 a.m. complaining of shortness of breath with his hemoglobin found to be 6.4, down from 8.0 on 03/21/17 after which he did receive a unit transfusion with labs associated with that and the dialysis unit records. He and his girlfriend say he has had dark stool for 3 weeks predominantly and saw some red blood yesterday. He also reported some blood in dry heaves. He is not on any PPI. ENDOSCOPIST: Dr. Sherwood. MEDICATIONS: Midazolam 3, meperidine 37.5. FINDINGS: He is a chronically ill appearing, black male with some increase in mucus with respiration. He does have rales in his lower lung hart. He has a left arm fistula. He is not overtly short of breath and with an adequate blood pressure and being alert, it was elected to proceed. The doses of medication were given slowly. He was encouraged to breathe and an equilibrium point was reached where he was clearly responsive to repeated verbal exhortations to breathe or cough and yet did not react to the two. EGD: Larynx - symmetric limited views. Esophagus - easily entered and the mucosa is normal in the upper, mid, and lower esophagus with the EG junction at 40. There is small minimal laxity at times with peristalsis coursing through, but no fixed hiatal hernia and no fundic prolapse. There were no chronic changes or scarring. Stomach - a mild amount of fluid in the gastric fundus. There was no blood seen. The mucosa appeared normal. The overall contours and rugal folds appeared normal. The antrum appeared normal. There were no erosions. Duodenum - the pylorus and bulb appeared normal. There were redundant folds in the bulb, but no erythema and they were carefully evaluated during different phases of peristalsis and motility in general and with vigorous insufflation. There was somewhat of a hyperacute turn and loop going into the second or third portion of the duodenum, though this was eventually traversed. The third and fourth portion of the duodenum appeared normal. No AVMs were seen. There was no blood. no findings in the distal duodenum. Coming back slowly, there were no additional findings. Following the scoping, a digital rectal was done and retrieved soft medium brown stools submitted for Hemoccult. It was clearly not compatible with melena. [id number]/[facility] #: [id number] [facility]
[2017-04-16] MEDS: Nitroglycerin 2% OINT* 1 GM PAK TOPICAL SCH (05:32)
[2017-04-16 07:47] LABS: Hematocrit 23 % (42-52); Hemoglobin 7.5 g/dl (14.0-18.0); Mean Corpuscular HGB Conc 33 g/dl (31-36); Mean Corpuscular Hemoglobin 29 pg (27-31); Mean Corpuscular Volume 89 fL (80-94); Mean Platelet Volume 8 um3 (7.4-10.4); Red Blood Count 2.58 10^6/ul (4.0-5.4); Red Cell Distribution Width 16 % (10.5-15); White Blood Count 16.3 10^3/ul (3.5-10.8)
[2017-04-16 08:14] LABS: BUN/Creatinine Ratio 4.9 (8-20); Calcium 7.8 mg/dL (8.6-10.3); EGFR African American 6.6 (>60); EGFR Non-African American 5.1 (>60); Phosphorus 6.2 mg/dL (2.5-5.0); Potassium 4.8 mmol/L (3.5-5.0)
[2017-04-16] MEDS: OXYMORPHONE 5 MG PO SCH (08:57)
[2017-04-16] MEDS: Vitamin B Complex TAB PO SCH (09:24)
[2017-04-16] MEDS: Folic Acid TAB* 1 MG PO SCH (09:24)
[2017-04-16] MEDS: hydrALAZINE TAB* 25 MG PO SCH (09:28)
[2017-04-16] MEDS: cloNIDine TAB* 0.1 MG PO SCH (09:28)
[2017-04-16] MEDS: amLODIPine TAB* 5 MG PO SCH (09:28)
--- NOTE | 2017-04-16 10:03 | RAD ---
HISTORY: Hypoxia COMPARISONS: April 14, 2017 VIEWS:1: Single frontal portable view of the chest at 9:50 AM FINDINGS: LINES AND TUBES: None. CARDIOMEDIASTINAL SILHOUETTE: The cardiac silhouette is enlarged. The cardiomediastinal silhouette is otherwise normal for portable technique. PLEURA: The costophrenic angles are sharp. No pleural abnormalities are noted. LUNG PARENCHYMA: There is been interval development of a diffuse reticular pattern of opacification, greater on the right than on the left, with patchy alveolar opacification of the right midlung. The pulmonary vasculature is indistinct ABDOMEN: The upper abdomen is clear. There is no subphrenic gas. BONES AND SOFT TISSUES: No bone or soft tissue abnormalities are noted. IMPRESSION: CARDIOMEGALY WITH INTERVAL DEVELOPMENT OF PULMONARY INTERSTITIAL EDEMA, WITH FINDINGS SUGGESTIVE OF ALVEOLAR EDEMA VERSUS PNEUMONIC CONSOLIDATION OF THE RIGHT MIDLUNG
[2017-04-16 11:50] VITALS: BP 162/95
--- NOTE | 2017-04-16 15:28 | PN ---
Subjective Date of Service: 04/15/17 Interval History: . saw patient after HD easier breathing. got 3rd unit prbc feels subjectively better overall, though he still requires oxygen. EGD pending. NPO patient now hungry. Family History: Unchanged from Admission Social History: Unchanged from Admission Past Medical History: Unchanged from Admission Objective Active Medications: reviewed in [facility] Vital Signs 04/15/17 04/15/17 04/16/17 20:00 20:02 00:04 Temperature 100.1 F 98.7 F Pulse Rate 95 76 Respiratory 22 28 16 Rate Blood Pressure 170/86 155/90 (mmHg) O2 Sat by Pulse 73 89 Oximetry Oxygen Devices in Use Now: Nasal Cannula Appearance: NAD at this time Ears/Nose/Mouth/Throat: Clear Oropharnyx Neck: NL Appearance and Movements; NL JVP Respiratory: Symmetrical Chest Expansion and Respiratory Effort Cardiovascular: NL Sounds; No Murmurs; No JVD Abdominal: NL Sounds; No Tenderness; No Distention Lymphatic: No Cervical Adenopathy Extremities: No Edema, - - L arm fistula, CDI Skin: No Rash or Ulcers Neurological: Alert and Oriented x 3 Lines/Tubes/Other Access: Clean, Dry and Intact Peripheral IV Nutrition: - - NPO for EGD Result Diagrams: 04/16/17 07:36 04/16/17 07:36 Additional Lab and Data: . Microbiology and Other Data: Microbiology 04/15/17 01:43 Aerobic Blood Culture - Preliminary Blood Venous No Growth Day 1 Anaerobic Blood Culture - Preliminary No Growth Day 1 04/15/17 16:00 Stool Occult Blood (PHIL) - Final Stool Assess/Plan/Problems-Billing . Assessment: 51 yo man with acute anemia thought 2/2 GI Bleed, but possibly secondary to anemia of renal failure, now with sohrtness of breath in setting of profound anemia. s/p urgent HD and 3 unit prbc transfusion, with EGD pending to explore possibility of upper GI Hemorrhage. . - Patient Problems (1) Symptomatic anemia Status: Acute Priority: High Code(s): D64.9 - ANEMIA, UNSPECIFIED Comment : - 3 unit prbc - urgent HD to remove extra / associated fluid - supplemental oxygen (2) Hypoxia Status: Acute Priority: High Code(s): R09.02 - HYPOXEMIA Comment: - likely a fluid component, but also likely a component of pulmonary hypertension. - ECHO with preserved EF, but mod-sev pHTN. - Likely SUMEET given patient's overnight desaturations recorded here. - Sleep study needed afte rdc -- will also need home oxygen. (3) ESRD (end stage renal disease) on dialysis Status: Acute Priority: High Code(s): N18.6 - END STAGE RENAL DISEASE; Z99.2 - DEPENDENCE ON RENAL DIALYSIS Comment: - Dr. Spivey aware of patient / HD needs and will consider adjusting dry-weight (target weight) at next HD.
--- NOTE | 2017-04-16 15:29 | PN ---
Hospitalist Progress Note . HOSPITALIST DISCHARGE NOTE: See dc instructions and summary by me. Patient stable for dc dc instructions reviewed with the patient at the bedside. DC patient home today.
--- NOTE | 2017-04-17 01:46 | DS ---
CC: Dr. Deng; Dr. Jacob Spivey; Dr. Sajan Sherwood DISCHARGE SUMMARY: DATE OF ADMISSION: 04/14/17 DATE OF DISCHARGE: 04/16/17 STATUS DURING HOSPITALIZATION: Inpatient. PRIMARY CARE PROVIDER: Dr. Jacob Deng, [facility]. NEPHROLOGY FOREIGN LANGUAGE INSTRUCTOR: Dr. Jacob Spivey. GI FOREIGN LANGUAGE INSTRUCTOR: Dr. Sajan Sherwood. PRINCIPAL DISCHARGE DIAGNOSES: 1. Symptomatic anemia secondary to anemia of end-stage renal failure. 2. Hypoxia secondary to fluid overload as well as moderate pulmonary hypertension secondary to sleep apnea with the patient discharged on home oxygen with need for followup sleep study. SECONDARY DIAGNOSES: 1. Chronic renal failure - stage 5 - on hemodialysis. 2. Iwj-xcagdsb-xvimcgwax diabetes mellitus. 3. Chronic left arm pain. 4. History of C-spine fusion, right wrist surgery, hernia repair, and left elbow surgery. DISCHARGE MEDICATIONS: Meds are unchanged and include: 1. Amlodipine 10 mg by mouth daily. 2. B complex with C and folic acid - 1 tablet by mouth once daily. 3. Clonidine 0.2 mg by mouth twice daily. 4. Hydralazine 25 mg by mouth twice daily. 5. Furosemide 80 mg by mouth daily. 6. Opana 10 mg by mouth 4 times daily (unchanged, unprescribed). 7. Opana 40 mg by mouth twice daily (told the patient to resume old regimen). HISTORY OF PRESENT ILLNESS/HOSPITAL COURSE: Please see the H and P by Dr. Osvaldo Estrada on 04/14/17. In brief, Mr. Roman was increasingly short of breath for 2 weeks. This has happened intermittently over that time period. The patient developed left sided chest pain which radiated to his shoulder. He stated it was fairly severe. He reported intermittent shortness of breath, including after dialysis. He does not wear oxygen. The patient came to the hospital for transfusion recently, but I do not have many details about that episode. The patient denied recent NSAID use. The patient was admitted to the hospital for symptomatic anemia with a hgb of around 6. At the point of admission, Dr. Estrada did not feel the patient was in overt heart failure and he was transfused several units of blood. Following the second unit of blood, the patient clearly had developed fluid-overload and had somewhat urgent dialysis on 04/14/17. During that dialysis, concurrent with his fluid removal, he did receive his third unit of packed red cells and his hemoglobin appropriately increased from 6 up to 8.7. The repeat hemoglobin was 7.5 on the morning of 08/23. The patient felt subjectively improved, but continued to demonstrate an oxygen requirement of approximately 4 L (nasal cannula). Again, he reported no symptoms and was eager for discharge. Specifically, no dyspnea was reported. The patient did have a transthoracic echocardiogram during the hospitalization to explore his ejection fraction and this showed no decrement in his ejection fraction with an ejection fraction between 50% and 55% and an LV chamber size that was normal, but with [id number] concentric left ventricular hypertrophy consistent with fluid sensitivity. The patient does have moderate pulmonary hypertension, though right ventricular global systolic function was normal. Interestingly, compared to the echocardiogram in December of 2016, his LVEF had normalized. The patient was initially placed on IV PPI drip and ultimately proceeded to an EGD following a consultation by Dr. Sajan Sherwood of the GI consult service. The EGD was effectively normal with no evidence of active or recent bleeding and following the EGD, the patient's stool was sent for occult blood and this was negative with the entire presentation leaning away from GI bleeding as an explanation for his symptomatic anemia and in favor of anemia pursuant to renal failure and poor epoetin production. The patient is currently stable with respect to his hemoglobin level and hemodynamics. He did have desaturations overnight with an overnight pulse oximetry monitoring effort that confirms the patient should have a sleep study and he will be discharged on oxygen in the interim. There was some question of whether the patient's dry weight should be adjusted and I spoke with Dr. Spivey about that. The patient will have another dialysis treatment on 04/18/17, and I told Mr. Roman to come back to the emergency room before Tuesday if he has any worsening symptoms including, but not limited to chest pain, shortness of breath, lightheadedness, or any other worrisome symptoms and he said he would comply with that instruction. TOTAL TIME spent discharging Mr. Roman was approximately 45 minutes, with greater than half that time spent reviewing the discharge instructions with the patient at the bedside and reviewing [id number] instructions as above. CONDITION AT DISCHARGE: Stable. [id number]/[facility] #: [id number] [facility]
== END 2017-04-16 13:05 | disposition home or self-care (01) | DRG 811 ==
LOC: ED 16:48 → MEDTELE 19:56
PROVIDERS: ADMIT Internal Medicine; ATTEND Internal Medicine
PROC: 30233N1 Transfusion of Nonautologous Red Blood Cells into Peripheral Vein, Percutaneous Approach (ICD-10-PCS; 2017-04-14)
PROC: 0DJ08ZZ Inspection of Upper Intestinal Tract, Via Natural or Artificial Opening Endoscopic (ICD-10-PCS; principal; 2017-04-15)
PROC: 5A1D00Z (ICD-10-PCS; 2017-04-15)
DX: D62 Acute posthemorrhagic anemia (principal); N18.6 End stage renal disease; E11.22 Type 2 diabetes mellitus with diabetic chronic kidney disease; E87.71 Transfusion associated circulatory overload; I27.2 Other secondary pulmonary hypertension; D63.1 Anemia in chronic kidney disease; Z99.2 Dependence on renal dialysis; R09.02 Hypoxemia; G47.30 Sleep apnea, unspecified; M79.602 Pain in left arm; Z79.84 Long term (current) use of oral hypoglycemic drugs; Z79.899 Other long term (current) drug therapy; Z88.0 Allergy status to penicillin; Z88.8 Allergy status to other drugs, medicaments and biological substances; Z83.3 Family history of diabetes mellitus; Z82.49 Family history of ischemic heart disease and other diseases of the circulatory system; F17.210 Nicotine dependence, cigarettes, uncomplicated
CPT/HCPCS: 36415; 36600; 71010; 80048; 80053; 82272; 82803; 83605; 83735; 83880; 84100; 84484; 85014; 85018; 85025; 85060; 85610; 85730; 86850; 86900; 86901; 86922; 87040; 87641; 93005; 93306; 94760; A9270-GY; J0885; J1940; J2250; J2270; J2405; J3010; P9040

== ENCOUNTER 2017-05-29 22:24 | Observation (INO) | payer MEDICARE, MEDICAID ==
[2017-05-29] MEDS ORDERED: Morphine INJ* 2 MG/ML 1 ML SYRINGE IV ONE (23:04)
[2017-05-29 23:27] LABS: Hematocrit 22 % (42-52); Hemoglobin 7.4 g/dl (14.0-18.0); Mean Corpuscular HGB Conc 33 g/dl (31-36); Mean Corpuscular Hemoglobin 30 pg (27-31); Mean Corpuscular Volume 90 fL (80-94); Mean Platelet Volume 8 um3 (7.4-10.4); Red Blood Count 2.49 10^6/ul (4.0-5.4); Red Cell Distribution Width 16 % (10.5-15); White Blood Count 7.3 10^3/ul (3.5-10.8)
[2017-05-29 23:28] LABS: Add Diff/Slide Review? Slide Review Added; Comments Flag Yes
[2017-05-29 23:39] LABS: Albumin 3.9 g/dL (3.2-5.2); BUN/Creatinine Ratio 4.1 (8-20); Calcium 9.2 mg/dL (8.6-10.3); EGFR Non-African American 4.7 (>60); Globulin 3.4 g/dL (2-4); Magnesium 2.1 mg/dL (1.9-2.7); Potassium 4.6 mmol/L (3.5-5.0); Total Bilirubin 0.5 mg/dL (0.2-1.0); Total Protein 7.3 g/dL (6.4-8.9)
--- NOTE | 2017-05-29 23:50 | ED ---
Crys Arreguin Edward, scribed for Hossein Jackson MD on 05/29/17 at 2237 . Abdominal Pain/Male - HPI Summary HPI Summary: 52 y/o male presents to ED c/o ABD pain for 1 week and a half. The pain became worse tonight and is rated severe. His ABD is also distended. Aggravated by walking, lying down, and breathing. Associated sx: N/V/D yesterday. PMHx GI Bleed. SHx ABD Hernia Repair 2001 and 2009. - History of Current Complaint Chief Complaint: EDAbdPain Stated Complaint: UPPER ABD PAIN Hx Obtained From: Patient Onset/Duration: Gradual Onset, Lasting Weeks Severity Currently: Severe Aggravating Factor(s): Movement, Deep Breaths Associated Signs And Symptoms: Positive: Nausea, Vomiting, Diarrhea - Allergies/Home Medications Allergies/Adverse Reactions: Allergies Allergy/AdvReac Type Severity Reaction Status Date / Time Penicillins [PCN] Allergy Severe Anaphylatic Verified 05/30/17 04:07 Shock Lisinopril Allergy Anaphylatic Verified 05/30/17 04:07 Shock Shellfish Allergy Allergy Anaphylatic Verified 05/30/17 04:07 Shock PMH/Surg Hx/FS Hx/Imm Hx Previously Healthy: No Endocrine/Hematology History: Reports: Hx Diabetes - NON INSULIN DM, BLOOD LEVELS GOOD-NO MEDS Denies: Hx Anticoagulant Therapy, Hx Thyroid Disease Cardiovascular History: Reports: Hx Hypertension - ON MED Denies: Hx Pacemaker/ICD, Other Cardiovascular Problems/Disorders Respiratory History: Denies: Hx Asthma, Hx Chronic Obstructive Pulmonary Disease (COPD), Other Respiratory Problems/Disorders GI History: Reports: Hx Gastroesophageal Reflux Disease - ON DAILY MEDS Denies: Hx Ulcer, Other GI Disorders History: Reports: Hx Chronic Renal Failure, Hx Dialysis, Hx Renal Disease Denies: Hx Kidney Infection, Hx Kidney Stones - STAGE 5 ON HEMODIALYSIS Musculoskeletal History: Reports: Hx Back Problems, Other Musculoskeletal History - S/P SPINAL FUSION Sensory History: Reports: Hx Contacts or Glasses - GLASSES Denies: Hx Hearing Aid Opthamlomology History: Reports: Hx Contacts or Glasses - GLASSES Neurological History: Denies: Hx Dementia, Hx Headaches, Hx Seizures, Other Neuro Impairments/ Disorders Psychiatric History: Denies: Hx Depression, Hx Substance Abuse - Surgical History Surgery Procedure, Year, and Place: 2001 ABD. [place] [facility] [place] [facility] [place] RT wrist surgery. 2009 ABD. HERNIA REPAIR. 2014 LEFT ELBOW SURGERY. 2015 LUE FISTULA PLACED Hx Anesthesia Reactions: No - Immunization History Date of Tetanus Vaccine: unknown Date of Influenza Vaccine: no Infectious Disease History: Denies: Hx Clostridium Difficile, Hx Hepatitis, Hx Human Immunodeficiency Virus (HIV), Hx of Known/Suspected MRSA, Hx Shingles, Hx Tuberculosis, Hx Known/ Suspected VRE, Hx Known/Suspected VRSA, History Other Infectious Disease, Traveled Outside the [place] in Last 30 Days - Family History Known Family History: Positive: Hypertension, Diabetes Negative: Cardiac Disease, Renal Disease - Social History Occupation: Employed Full-time Alcohol Use: None Hx Substance Use: No Substance Use Type: Reports: None Hx Tobacco Use: Yes Smoking Status (MU): Current Every Day Smoker Type: Cigarettes Amount Used/How Often: 1/2 PPD X 20 YEARS Length of Time of Smoking/Using Tobacco: 35 YEARS Have You Smoked in the Last Year: Yes Review of Systems Constitutional: Negative Eyes: Negative ENT: Negative Cardiovascular: Negative Respiratory: Negative Positive: Abdominal Pain, Vomiting, Diarrhea, Nausea Genitourinary: Negative Musculoskeletal: Negative Skin: Negative Neurological: Negative Psychological: Normal All Other Systems Reviewed And Are Negative: Yes Physical Exam Triage Information Reviewed: Yes Vital Signs On Initial Exam: Initial Vitals Temp Pulse Resp BP Pulse Ox 98 F 67 16 179/101 99 05/29/17 22:30 05/29/17 22:30 05/29/17 22:30 05/29/17 22:30 05/29/17 22:30 Vital Signs Reviewed: Yes Appearance: Positive: Well-Appearing, Pain Distress - mild discomfort Skin: Positive: Warm Eyes: Positive: BARRY ENT: Positive: Hearing grossly normal Neck: Positive: Supple Respiratory/Lung Sounds: Positive: Clear to Auscultation, Breath Sounds Present Cardiovascular: Positive: RRR Abdomen Description: Positive: Soft, Other: - mild diffuse abd tenderness. Negative: Distended, Guarding Bowel Sounds: Positive: Present Musculoskeletal: Positive: Strength/ROM Intact Neurological: Positive: Alert, Oriented to Person Place, Time, Normal Gait Psychiatric: Positive: Affect/Mood Appropriate Diagnostics - Vital Signs Vital Signs Temp Pulse Resp BP Pulse Ox 05/29/17 22:30 98 F 67 16 179/101 99 - Laboratory Lab Results: Lab Results 07/23/17 07/23/17 07/23/17 Range/Units 23:15 23:15 23:15 WBC 7.3 (3.5-10.8) 10^3/ul RBC 2.49 L (4.0-5.4) 10^6/ul Hgb 7.4 L (14.0-18.0) g/dl Hct 22 L (42-52) % MCV 90 (80-94) fL MCH 30 (27-31) pg MCHC 33 (31-36) g/dl RDW 16 H (10.5-15) % Plt Count 155 (150-450) 10^3/ul MPV 8 (7.4-10.4) um3 Neut % (Auto) 66.4 (38-83) % Lymph % (Auto) 21.5 L (25-47) % [place] % (Auto) 5.1 (1-9) % Eos % (Auto) 4.3 (0-6) % Baso % (Auto) 2.7 H (0-2) % Absolute Neuts (auto) 4.9 (1.5-7.7) 10^3/ul Absolute Lymphs (auto) 1.6 (1.0-4.8) 10^3/ul Absolute Monos (auto) 0.4 (0-0.8) 10^3/ul Absolute Eos (auto) 0.3 (0-0.6) 10^3/ul Absolute Basos (auto) 0.2 (0-0.2) 10^3/ul Absolute Nucleated RBC 0 10^3/ul Nucleated RBC % 0 Sodium 130 L (133-145) mmol/L Potassium 4.6 (3.5-5.0) mmol/L Chloride 88 L (101-111) mmol/L Carbon Dioxide 33 H (22-32) mmol/L Anion Gap 9 (2-11) mmol/L BUN 47 H (6-24) mg/dL Creatinine 11.46 H (0.67-1.17) mg/dL Est GFR ( Amer) 6.0 (>60) Est GFR (Non-Af Amer) 4.7 (>60) BUN/Creatinine Ratio 4.1 L (8-20) Glucose 88 (70-100) mg/dL Lactic Acid 0.4 L (0.5-2.0) mmol/L Calcium 9.2 (8.6-10.3) mg/dL Magnesium 2.1 (1.9-2.7) mg/dL Total Bilirubin 0.50 (0.2-1.0) mg/dL AST 25 (13-39) U/L ALT 21 (7-52) U/L Alkaline Phosphatase 49 (34-104) U/L Total Protein 7.3 (6.4-8.9) g/dL Albumin 3.9 (3.2-5.2) g/dL Globulin 3.4 (2-4) g/dL Albumin/Globulin Ratio 1.1 (1-3) Lipase 30 (11.0-82.0) U/L Result Diagrams: 05/29/17 23:15 05/29/17 23:15 Lab Statement: Any lab studies that have been ordered have been reviewed, and results considered in the medical decision making process. - CT ABD/PEL CT CT Interpretation: Positive (See Comments) - New minimal ascites may be related to renal dysfunction. New cardiomegaly may indicate hypertrophic cardiomyopathy. Progressive renal atrophy wihtout hydronephrosis. CT Interpretation Completed By: Radiologist Re-Evaluation - Re-Evaluation First Eval Re-Evaluation Time: 04:00 Comment: pt sleeping in room, upon awakening and results d/w pt, pt states he can't go home as pain is unbearable. Case d/w hospitalst Abdominal Pain Fem Course/Dx - Course Assessment/Plan: 52 y/o male presents to ED c/o ABD pain for 1 week and a half. Associated sx: N/V/D yesterday. PMHx GI Bleed. SHx 2 ABD hernia repairs (2001 and 2009). ABD/PEL CT shows New minimal ascites may be related to renal dysfunction. New cardiomegaly may indicate hypertrophic cardiomyopathy. Progressive renal atrophy wihtout hydronephrosis. Discussed case with Dr. Shin, who agreed [place] [facility] [place] - Diagnoses Provider Diagnoses: Abdominal pain, Chronic renal failure - Provider Notifications Discussed Care Of Patient With: Bladimir Shin Time Discussed With Above Provider: 04:05 Instructed by Provider To: Admit As Observation Discharge - Discharge Plan Condition: Fair Disposition: ADMITTED TO [facility] Patient Education Materials: Abdominal Pain (ED), Chronic Kidney Disease (ED) Referrals: Jacob Deng MD [Primary Care Provider] - 3 Days (Please f/u in 2-3 days) The documentation as recorded by the Crys mota Edward accurately reflects the service I personally performed and the decisions made by me, Hossein Jackson MD.
[2017-05-29 23:51] LABS: Hypochromasia 2+; Stomatocytes 1+
[2017-05-30] MEDS ORDERED: Iodixanol* (CONTRAST) 320 MG/ML 100 ML SDV IV ONE (00:01)
[2017-05-30] MEDS ORDERED: Morphine INJ* 2 MG/ML 1 ML SYRINGE IV ONE (00:48)
[2017-05-30] MEDS ORDERED: LORazepam INJ* 2 MG/ML 1 ML VIAL ONE (01:31)
[2017-05-30] MEDS ORDERED: LORazepam INJ* 2 MG/ML 1 ML VIAL IV PUSH ONE (01:31)
[2017-05-30] MEDS ORDERED: Acetaminophen TAB* 325 MG PO PRN (06:51)
[2017-05-30] MEDS ORDERED: Albuterol 2.5 MG/3 ML NEB.SOL* (0.083%) INH PRN (06:52)
[2017-05-30] MEDS ORDERED: Ondansetron INJ* 2 MG/ML VIAL IV PRN (06:52)
[2017-05-30] MEDS ORDERED: traMADol TAB* 50 MG PO PRN (06:52)
--- NOTE | 2017-05-30 06:59 | HP ---
H&P (Free Text) History and Physical: PCP: Jesus Deng MD Nephrology: Jesus Spivey MD Date/Time of Evaluation: 05/30/2017 0420 CC: intractable abdominal pain HPI: Mr Roman is a 52YO male HX ESRD-HD who is currently sedated from pain medications and only able to participate in this history to a limited degree with the reliability of his responses questionable. Therefore this history is largely supplemented by his nephew, who is not fully abreast of Mr Roman's medical issues, and the available medical record. He is quite sedated requiring loud voice or light touch to rouse, but as soon as he wakes starts complaining of severe abdominal pain and requesting pain medications. Tuesday he had some trouble with an upset stomach vomiting thin green fluid which resolved until Tuesday afternoon ~1700 when he experienced the onset of sharp epigastric pain, nausea without emesis, and diarrhea. He denies blood in the diarrhea, but states it was dark/not black. He denies chest pain, palpitations, SOB, sweats, and change in bowels. He is unable to state when his last BM was. He denies HX of similar. After being admitted, he informed the ED nurse he had run out of his medications and hadn't taken any yesterday, but when speaking to the receiving floor nurse he told her he had not run out of any meds, but for reasons unknown had not taken any Opana since . PMedHx DM2 ESRD-HD HTN chronic LUE pain anemia of renal disease Ambulatory Orders Nursing to reconcile. amLODIPine TAB* [Norvasc 5 mg TAB*] 10 mg PO QAM 05/29/15 B-Complex W/ C & Folic Acid [Nephro-Caridad 0.8 mg] 1 tab PO QAM 12/08/16 cloNIDine TAB* [Catapres 0.1 MG TAB*] 0.2 mg PO TID 12/08/16 Furosemide TAB* [Lasix TAB*] 80 mg PO QAM 03/21/17 hydrALAZINE TAB* [Apresoline TAB*] 25 mg PO TID 03/21/17 Opana 10 mg PO QID 04/14/17 Opana 40 mg PO BID 04/14/17 Calcium & Phosphorus [Posture] 4 tab PO QID 04/20/17 Allergies Penicillins [PCN] Allergy (Severe, Verified 05/30/17 04:07) Anaphylatic Shock Lisinopril Allergy (Verified 05/30/17 04:07) Anaphylatic Shock Shellfish Allergy Allergy (Verified 05/30/17 04:07) Anaphylatic Shock PSurgHx cervical fusion R wrist surgery ventral hernia repair x2 L elbow surgery SocHx: 1/2PPD cigarettes w/ ~20PYHX, denies alcohol and recreational drugs; lives with his ; full code status FamHx: positive for HTN & DM2 ROS: as above, otherwise reviewed and all were negative Constitutional: NAD, normally developed, well-nourished black male vitals: Vital Signs Temp 36.6 C 05/29/17 22:43 Pulse 62 05/30/17 06:00 Resp 20 05/30/17 01:35 BP 165/86 05/30/17 06:00 Pulse Ox 99 05/30/17 06:00 Intake & Output 05/29/17 05/29/17 05/30/17 11:59 23:59 11:59 Weight 87.543 kg HEENM: atraumatic; hearing: clinically intact; oropharynx: clear, mucosa moist Neck: soft tissue: non-tender; thyroid: normal Pulmonary: clear to auscultation bilaterally, good aeration, no accessory muscle use CV: RR/RR, normal S1S2, no carotid bruit, no jugular venous distention, 2+ B DP/ PT, no edema Abdominal: soft, non-distended, tympanitic, moderately tender to very light epigastric pressure , no rebound/guarding/rigidity, hyperactive bowel sounds, no hepatosplenomegaly or masses, no costovertebral angle tenderness Musculoskeletal: general: grossly intact without tenderness Integumental: normal appearance and texture of exposed skin Psychiatric orientation: somnolent, oriented to PPS affect: calm mood: cooperative eye contact: poor content: unreliable responses: slowed insight: poor Testing: Lab Results 05/29/17 05/29/17 05/29/17 Range/Units 23:15 23:15 23:15 WBC 7.3 (3.5-10.8) 10^3/ul RBC 2.49 L (4.0-5.4) 10^6/ul Hgb 7.4 L (14.0-18.0) g/dl Hct 22 L (42-52) % MCV 90 (80-94) fL MCH 30 (27-31) pg MCHC 33 (31-36) g/dl RDW 16 H (10.5-15) % Plt Count 155 (150-450) 10^3/ul MPV 8 (7.4-10.4) um3 Neut % (Auto) 66.4 (38-83) % Lymph % (Auto) 21.5 L (25-47) % [place] % (Auto) 5.1 (1-9) % Eos % (Auto) 4.3 (0-6) % Baso % (Auto) 2.7 H (0-2) % Absolute Neuts (auto) 4.9 (1.5-7.7) 10^3/ul Absolute Lymphs (auto) 1.6 (1.0-4.8) 10^3/ul Absolute Monos (auto) 0.4 (0-0.8) 10^3/ul Absolute Eos (auto) 0.3 (0-0.6) 10^3/ul Absolute Basos (auto) 0.2 (0-0.2) 10^3/ul Absolute Nucleated RBC 0 10^3/ul Nucleated RBC % 0 Normal RBC Morphology Not Reportable Hypochromasia 2+ Stomatocytes 1+ Sodium 130 L (133-145) mmol/L Potassium 4.6 (3.5-5.0) mmol/L Chloride 88 L (101-111) mmol/L Carbon Dioxide 33 H (22-32) mmol/L Anion Gap 9 (2-11) mmol/L BUN 47 H (6-24) mg/dL Creatinine 11.46 H (0.67-1.17) mg/dL Est GFR ( Amer) 6.0 (>60) Est GFR (Non-Af Amer) 4.7 (>60) BUN/Creatinine Ratio 4.1 L (8-20) Glucose 88 (70-100) mg/dL Lactic Acid 0.4 L (0.5-2.0) mmol/L Calcium 9.2 (8.6-10.3) mg/dL Magnesium 2.1 (1.9-2.7) mg/dL Total Bilirubin 0.50 (0.2-1.0) mg/dL AST 25 (13-39) U/L ALT 21 (7-52) U/L Alkaline Phosphatase 49 (34-104) U/L Total Protein 7.3 (6.4-8.9) g/dL Albumin 3.9 (3.2-5.2) g/dL Globulin 3.4 (2-4) g/dL Albumin/Globulin Ratio 1.1 (1-3) Lipase 30 (11.0-82.0) U/L CT abd/pel WO, personally reviewed: IMPRESSION: New minimal ascites may be related to renal dysfunction. New cardiomegaly may indicate hypertrophic cardiomyopathy. Progressive renal atrophy without hydronephrosis. Impression: 52M HX DM2, HTN, & ESRD-HD presents with intractable DIAGNOSIS & PLAN Primary intractable abdominal pain with bilious emesis Tuesday & diarrhea Tuesday : consistent with opioid withdrawal, but continues to complain of abdominal pain when roused : no further sedating medications until he awakes enough to give a more reliable history : nursing to reconcile his medications via pharmacy w/ last fill dates charted : recommend checking I-stop, as well : supportive care Secondary DM2 : currently NPO until awake : claims diet control, check A1c : correctional insulin ESRD-HD : consult Jesus Spivey MD nephrology, if due for HD HTN : review meds once reconciled chronic LUE pain : review narcotics once reconciled w/ last fill dates anemia of renal disease : stable, periodic monitoring Admission Rational: observation for intractable abdominal pain DVTp: SCDs Code Status: full HCP:
[2017-05-30] MEDS: Insulin LISPRO* 1 UNITS UNIT SUBCUT SCH ×2 (07:42→11:22)
[2017-05-30 07:49] VITALS: BP 153/90
--- NOTE | 2017-05-30 07:50 | RAD ---
CLINICAL HISTORY: Abdominal pain COMPARISON: November 26, 2012 TECHNIQUE: Multiple contiguous axial CT scans were obtained of the abdomen and pelvis after the administration of intravenous contrast. Coronal and sagittal multiplanar reformations are submitted for review. Oral contrast was administered. Delayed images were obtained through the abdomen and pelvis. FINDINGS: LUNG BASES: There is biventricular cardiomegaly. LIVER: The liver is homogeneously enlarged measuring 21 cm in long axis. There is periportal edema. BILE DUCTS: There is no intrahepatic or extrahepatic biliary dilatation. GALLBLADDER: The gallbladder is normal, without pericholecystic inflammatory change. PANCREAS: The pancreas is normal, without mass or ductal dilatation. SPLEEN: Normal in size and appearance. UPPER GI TRACT: Evaluation of the gastrointestinal tract is limited by incomplete gastric distention. The upper GI tract is unremarkable. SMALL BOWEL AND MESENTERY: The small bowel is normal in contour, course, and caliber. There is no obstruction or dilatation. COLON: The colon is normal in contour, course, caliber. There is no pericolonic inflammatory change. ADRENALS: Normal bilaterally. KIDNEYS: The kidneys are atrophic bilaterally. There is no appreciable hydronephrosis or nephrolithiasis. There is no excretion on delayed images. BLADDER: The bladder is smooth in contour. PELVIC ORGANS: The prostate is diffusely enlarged. The seminal vesicles are symmetric. AORTA: There is mild atherosclerotic disease of the abdominal aorta and its branches, without aneurysmal dilatation IVC: Unremarkable LYMPH NODES: There is no lymphadenopathy by size criteria. ABDOMINAL WALL: There is no evidence for abdominal wall hernia. BONES AND SOFT TISSUES: Mild degenerative changes are noted along the spine OTHER: There is a trace amount of perihepatic ascites IMPRESSION: 1. HEPATOMEGALY WITH PERIPORTAL EDEMA. 2. RENAL ATROPHY BILATERALLY. THERE IS NO EXCRETION ON DELAYED IMAGES. 3. TRACE PERIHEPATIC ASCITES. 4. CARDIOMEGALY. 5. ENLARGED PROSTATE.
[2017-05-30] MEDS ORDERED: Docusate CAP* 100 MG PO SCH (09:00)
--- NOTE | 2017-05-30 09:01 | PN ---
"Subjective Date of Service: 05/30/17 Objective Active Medications: Acetaminophen (Tylenol Tab*) 650 mg PO Q6H PRN PRN Reason: FEVER/PAIN Albuterol (Ventolin 2.5 Mg/3 Ml Neb.Janette*) 2.5 mg INH Q2H PRN PRN Reason: SOB/WHEEZING Docusate Sodium (Colace Cap*) 200 mg PO BID [facility] Last Admin: 05/30/17 08:49 Dose: Not Given Insulin Human Lispro (Humalog*) 0 units SUBCUT Q4H TAMMY PRN Reason: Protocol Last Admin: 05/30/17 07:42 Dose: Not Given Omeprazole (Prilosec Cap*) 20 mg PO DAILY@0600 [facility] Ondansetron HCl (Zofran Inj*) 4 mg IV Q6H PRN PRN Reason: NAUSEA Tramadol HCl (Ultram*) 50 mg PO Q6H PRN PRN Reason: PAIN Vital Signs 05/30/17 05/30/17 05/30/17 04:30 05:00 05:30 Temperature Pulse Rate 62 64 61 Respiratory Rate Blood Pressure 166/95 175/98 171/97 (mmHg) O2 Sat by Pulse 97 96 98 Oximetry 05/30/17 05/30/17 05/30/17 06:00 06:27 06:30 Temperature 98.4 F 98.4 F Pulse Rate 62 59 59 Respiratory 18 18 Rate Blood Pressure 165/86 169/96 169/96 (mmHg) O2 Sat by Pulse 99 100 100 Oximetry 05/30/17 07:42 Temperature 98.4 F Pulse Rate 58 Respiratory 16 Rate Blood Pressure 153/90 (mmHg) O2 Sat by Pulse 100 Oximetry Result Diagrams: 05/29/17 23:15 05/29/17 23:15 Additional Lab and Data: Lab Results 05/29/17 05/29/17 05/29/17 Range/Units 23:15 23:15 23:15 WBC 7.3 (3.5-10.8) 10^3/ul RBC 2.49 L (4.0-5.4) 10^6/ul Hgb 7.4 L (14.0-18.0) g/dl Hct 22 L (42-52) % MCV 90 (80-94) fL MCH 30 (27-31) pg MCHC 33 (31-36) g/dl RDW 16 H (10.5-15) % Plt Count 155 (150-450) 10^3/ul MPV 8 (7.4-10.4) um3 Neut % (Auto) 66.4 (38-83) % Lymph % (Auto) 21.5 L (25-47) % [place] % (Auto) 5.1 (1-9) % Eos % (Auto) 4.3 (0-6) % Baso % (Auto) 2.7 H (0-2) % Absolute Neuts (auto) 4.9 (1.5-7.7) 10^3/ul Absolute Lymphs (auto) 1.6 (1.0-4.8) 10^3/ul Absolute Monos (auto) 0.4 (0-0.8) 10^3/ul Absolute Eos (auto) 0.3 (0-0.6) 10^3/ul Absolute Basos (auto) 0.2 (0-0.2) 10^3/ul Absolute Nucleated RBC 0 10^3/ul Nucleated RBC % 0 Sodium 130 L (133-145) mmol/L Potassium 4.6 (3.5-5.0) mmol/L Chloride 88 L (101-111) mmol/L Carbon Dioxide 33 H (22-32) mmol/L Anion Gap 9 (2-11) mmol/L BUN 47 H (6-24) mg/dL Creatinine 11.46 H (0.67-1.17) mg/dL Est GFR ( Amer) 6.0 (>60) Est GFR (Non-Af Amer) 4.7 (>60) BUN/Creatinine Ratio 4.1 L (8-20) Glucose 88 (70-100) mg/dL Lactic Acid 0.4 L (0.5-2.0) mmol/L Calcium 9.2 (8.6-10.3) mg/dL Magnesium 2.1 (1.9-2.7) mg/dL Total Bilirubin 0.50 (0.2-1.0) mg/dL AST 25 (13-39) U/L ALT 21 (7-52) U/L Alkaline Phosphatase 49 (34-104) U/L Total Protein 7.3 (6.4-8.9) g/dL Albumin 3.9 (3.2-5.2) g/dL Globulin 3.4 (2-4) g/dL Albumin/Globulin Ratio 1.1 (1-3) Lipase 30 (11.0-82.0) U/L Assess/Plan/Problems-Billing Assessment: Status and Disposition: Search Terms: bandar roman, 1965 Search Date: 05/30/2017 08:58:21 AM The Drug Utilization Report below displays all of the controlled substance prescriptions, if any, that your patient has filled in the last twelve months. The information displayed on this report is compiled from pharmacy submissions to the Department, and accurately reflects the information as submitted by the pharmacies. This report was requested by: Sunday Rausch | Reference #: [id number] Others' Prescriptions Patient Name: Bandar Roman Date: 1965 Address: [address] [place] [id number] Sex: Male Rx Written Rx Dispensed Drug Quantity Days Supply Prescriber Name 05/11/2017 05/12/2017 oxymorphone hcl er 40 mg tab 60 30 Jacob Deng MD 04/05/2017 04/11/2017 oxymorphone hcl er 40 mg tab 60 30 Jacob Deng MD Patient Name: Bandar Roman Date: 1965 Address: [address] [place] [address] Sex: Male Rx Written Rx Dispensed Drug Quantity Days Supply Prescriber Name 04/25/2017 05/09/2017 oxymorphone hcl 10 mg tablet 240 30 Jacob Deng MD 03/31/2017 04/11/2017 oxymorphone hcl 10 mg tablet 208 26 Cassy Buckley NP 03/31/2017 04/08/2017 oxymorphone hcl 10 mg tablet 32 4 Cassy Buckley NP Patient Name: Bandar Roman Date: 1965 [facility] [address] Sex: Male Rx Written Rx Dispensed Drug Quantity Days Supply Prescriber Name 02/24/2017 02/28/2017 oxymorphone hcl er 40 mg tab 60 30 Jacob Deng MD 02/01/2017 02/08/2017 oxymorphone hcl 10 mg tablet 240 30 Jacob Deng MD 01/15/2017 01/17/2017 oxymorphone hcl er 40 mg tab 60 30 Kristian Oro MD Patient Name: Bandar Roman Date: 1965 Address: [address] [place] [address] [address] [place] [id number] Sex: Male Rx Written Rx Dispensed Drug Quantity Days Supply Prescriber Name 12/23/2016 01/07/2017 oxymorphone hcl 10 mg tablet 240 30 Jacob Deng MD 12/03/2016 12/10/2016 oxymorphone hcl er 40 mg tab 60 30 Kristian Oro MD 11/02/2016 12/01/2016 oxymorphone hcl 10 mg tablet 240 30 Jacob Deng MD 11/02/2016 11/03/2016 oxymorphone hcl er 40 mg tab 60 30 Jacob Deng MD 10/06/2016 10/12/2016 oxymorphone hcl 10 mg tablet 240 30 Jacob Deng MD 09/22/2016 09/24/2016 oxymorphone hcl er 40 mg tab 60 30 Jacob Deng MD 08/30/2016 09/09/2016 oxymorphone hcl 10 mg tablet 240 30 Jacob Deng MD 07/28/2016 08/23/2016 oxymorphone hcl er 40 mg tab 60 30 Jacob Deng MD 07/28/2016 07/30/2016 oxymorphone hcl 10 mg tablet 240 30 Jacob Deng MD 07/20/2016 07/21/2016 oxymorphone hcl er 40 mg tab 60 30 Jacob Deng MD 07/01/2016 07/02/2016 oxymorphone hcl 10 mg tablet 240 30 Jacob Deng MD 06/17/2016 07/01/2016 oxymorphone hcl er 40 mg tab 60 30 Jacob Deng MD 05/25/2016 06/01/2016 oxymorphone hcl 10 mg tablet 240 30 Jacob Deng MD"
--- NOTE | 2017-05-30 10:12 | DCNOTE ---
"Subjective Date of Service: 05/30/17 Interval History: C/O he is hungry, also still has abdominal pain and requests his usual doses of oxymorphone. Objective Active Medications: Acetaminophen (Tylenol Tab*) 650 mg PO Q6H PRN PRN Reason: FEVER/PAIN Albuterol (Ventolin 2.5 Mg/3 Ml Neb.Janette*) 2.5 mg INH Q2H PRN PRN Reason: SOB/WHEEZING Docusate Sodium (Colace Cap*) 200 mg PO BID [facility] Last Admin: 05/30/17 08:49 Dose: Not Given Insulin Human Lispro (Humalog*) 0 units SUBCUT Q4H [facility] PRN Reason: Protocol Last Admin: 05/30/17 07:42 Dose: Not Given Ondansetron HCl (Zofran Inj*) 4 mg IV Q6H PRN PRN Reason: NAUSEA Oxymorphone HCl (Opana Ir (Nf)) 10 mg PO QID TAMMY Oxymorphone HCl (Opana Er (Nf)) 40 mg PO BID [facility] Vital Signs 05/30/17 05/30/17 05/30/17 04:30 05:00 05:30 Temperature Pulse Rate 62 64 61 Respiratory Rate Blood Pressure 166/95 175/98 171/97 (mmHg) O2 Sat by Pulse 97 96 98 Oximetry 05/30/17 05/30/17 05/30/17 06:00 06:27 06:30 Temperature 98.4 F 98.4 F Pulse Rate 62 59 59 Respiratory 18 18 Rate Blood Pressure 165/86 169/96 169/96 (mmHg) O2 Sat by Pulse 99 100 100 Oximetry 05/30/17 07:42 Temperature 98.4 F Pulse Rate 58 Respiratory 16 Rate Blood Pressure 153/90 (mmHg) O2 Sat by Pulse 100 Oximetry Oxygen Devices in Use Now: None Appearance: Alert, sitting on the monalisa of his bed. In fair spirits. Looks comfortable. Eyes: No Scleral Icterus Ears/Nose/Mouth/Throat: Clear Oropharnyx, Mucous Membranes Moist Cardiovascular: NL Sounds; No Murmurs; No JVD, RRR, No Edema, - - mild epigastric tenderness Extremities: No Edema, No Clubbing, Cyanosis, - Skin: No Rash or Ulcers, No Nodules or Sclerosis, - Neurological: Alert and Oriented x 3, NL Sensation Result Diagrams: 05/29/17 23:15 07/23/17 23:15 Additional Lab and Data: Lab Results 05/29/17 05/29/17 05/29/17 Range/Units 23:15 23:15 23:15 WBC 7.3 (3.5-10.8) 10^3/ul RBC 2.49 L (4.0-5.4) 10^6/ul Hgb 7.4 L (14.0-18.0) g/dl Hct 22 L (42-52) % MCV 90 (80-94) fL MCH 30 (27-31) pg MCHC 33 (31-36) g/dl RDW 16 H (10.5-15) % Plt Count 155 (150-450) 10^3/ul MPV 8 (7.4-10.4) um3 Neut % (Auto) 66.4 (38-83) % Lymph % (Auto) 21.5 L (25-47) % [place] % (Auto) 5.1 (1-9) % Eos % (Auto) 4.3 (0-6) % Baso % (Auto) 2.7 H (0-2) % Absolute Neuts (auto) 4.9 (1.5-7.7) 10^3/ul Absolute Lymphs (auto) 1.6 (1.0-4.8) 10^3/ul Absolute Monos (auto) 0.4 (0-0.8) 10^3/ul Absolute Eos (auto) 0.3 (0-0.6) 10^3/ul Absolute Basos (auto) 0.2 (0-0.2) 10^3/ul Absolute Nucleated RBC 0 10^3/ul Nucleated RBC % 0 Sodium 130 L (133-145) mmol/L Potassium 4.6 (3.5-5.0) mmol/L Chloride 88 L (101-111) mmol/L Carbon Dioxide 33 H (22-32) mmol/L Anion Gap 9 (2-11) mmol/L BUN 47 H (6-24) mg/dL Creatinine 11.46 H (0.67-1.17) mg/dL Est GFR ( Amer) 6.0 (>60) Est GFR (Non-Af Amer) 4.7 (>60) BUN/Creatinine Ratio 4.1 L (8-20) Glucose 88 (70-100) mg/dL Lactic Acid 0.4 L (0.5-2.0) mmol/L Calcium 9.2 (8.6-10.3) mg/dL Magnesium 2.1 (1.9-2.7) mg/dL Total Bilirubin 0.50 (0.2-1.0) mg/dL AST 25 (13-39) U/L ALT 21 (7-52) U/L Alkaline Phosphatase 49 (34-104) U/L Total Protein 7.3 (6.4-8.9) g/dL Albumin 3.9 (3.2-5.2) g/dL Globulin 3.4 (2-4) g/dL Albumin/Globulin Ratio 1.1 (1-3) Lipase 30 (11.0-82.0) U/L Assess/Plan/Problems-Billing Assessment: - Patient Problems (1) ESRD (end stage renal disease) on dialysis Current Visit: No Status: Acute Priority: High Code(s): N18.6 - END STAGE RENAL DISEASE; Z99.2 - DEPENDENCE ON RENAL DIALYSIS SNOMED Code(s): 059382907 (2) Anemia Current Visit: Yes Status: Acute Code(s): D64.9 - ANEMIA, UNSPECIFIED SNOMED Code(s): 935447974 Comment: Had EGD 04/2017. Dr. Spivey told me the patient's ferritin was 800+ recently. Fup Dr. Venegas (3) Abdominal pain Current Visit: Yes Status: Acute Code(s): R10.9 - UNSPECIFIED ABDOMINAL PAIN SNOMED Code(s): 56669111 Comment: Patient has seen Dr. Majano in the past. Patient prefers to go home and have outpt GI visit. I called Dr. Ball's office and they suggested I have the patient call them for an appointment when he gets home. Status and Disposition: Search Terms: bandar roman, 1965 Search Date: 05/30/2017 08:58:21 AM The Drug Utilization Report below displays all of the controlled substance prescriptions, if any, that your patient has filled in the last twelve months. The information displayed on this report is compiled from pharmacy submissions to the Department, and accurately reflects the information as submitted by the pharmacies. This report was requested by: Sunday Rausch | Reference #: [id number] Others' Prescriptions Patient Name: Bandar Roman Date: 1965 Address: [address] [place] [id number] Sex: Male Rx Written Rx Dispensed Drug Quantity Days Supply Prescriber Name 05/11/2017 05/12/2017 oxymorphone hcl er 40 mg tab 60 30 Jacob Deng MD 04/05/2017 04/11/2017 oxymorphone hcl er 40 mg tab 60 30 Jacob Deng MD Patient Name: Bandar Roman Date: 1965 Address: [address] [place] [id number] Sex: Male Rx Written Rx Dispensed Drug Quantity Days Supply Prescriber Name 04/25/2017 05/09/2017 oxymorphone hcl 10 mg tablet 240 30 Jacob Deng MD 03/31/2017 04/11/2017 oxymorphone hcl 10 mg tablet 208 26 Cassy Buckley NP 03/31/2017 04/08/2017 oxymorphone hcl 10 mg tablet 32 4 Cassy Buckley [employer] Patient Name: Bandar Romna Date: 1965 Address: [address] [place] [address] [place] [address] Sex: Male Rx Written Rx Dispensed Drug Quantity Days Supply Prescriber Name 02/24/2017 02/28/2017 oxymorphone hcl er 40 mg tab 60 30 Jacob Deng MD 02/01/2017 02/08/2017 oxymorphone hcl 10 mg tablet 240 30 Jacob Deng MD 01/15/2017 01/17/2017 oxymorphone hcl er 40 mg tab 60 30 Kristian Oro MD Patient Name: Bandar Roman Date: 1965 Address: [address] [place] [id number] Sex: Male Rx Written Rx Dispensed Drug Quantity Days Supply Prescriber Name 12/23/2016 01/07/2017 oxymorphone hcl 10 mg tablet 240 30 Jacob Deng MD 12/03/2016 12/10/2016 oxymorphone hcl er 40 mg tab 60 30 Kristian Oro MD 11/02/2016 12/01/2016 oxymorphone hcl 10 mg tablet 240 30 Jacob Deng MD 11/02/2016 11/03/2016 oxymorphone hcl er 40 mg tab 60 30 Jacob Deng MD 10/06/2016 10/12/2016 oxymorphone hcl 10 mg tablet 240 30 Jacob Deng MD 09/22/2016 09/24/2016 oxymorphone hcl er 40 mg tab 60 30 Jacob Deng MD 08/30/2016 09/09/2016 oxymorphone hcl 10 mg tablet 240 30 Jacob Deng MD 07/28/2016 08/23/2016 oxymorphone hcl er 40 mg tab 60 30 Jacob Deng MD 07/28/2016 07/30/2016 oxymorphone hcl 10 mg tablet 240 30 Jacob Deng MD 07/20/2016 07/21/2016 oxymorphone hcl er 40 mg tab 60 30 Jacob Deng MD 07/01/2016 07/02/2016 oxymorphone hcl 10 mg tablet 240 30 Jacob Deng MD 06/17/2016 07/01/2016 oxymorphone hcl er 40 mg tab 60 30 Jacob Deng MD 05/25/2016 06/01/2016 oxymorphone hcl 10 mg tablet 240 30 Jacob Deng MD"
[2017-05-30] MEDS: Oxymorphone IR (NF) 5 MG TAB PO SCH ×2 (11:18→11:43)
[2017-05-30] MEDS: Oxymorphone ER (NF) 5 MG TAB PO SCH ×2 (11:19→11:43)
--- NOTE | 2017-05-31 02:09 | DS ---
CC: Dr. Spivey; Dr. Majano * DISCHARGE SUMMARY: DATE OF ADMISSION: DATE OF DISCHARGE: 05/30/17 HISTORY OF PRESENT ILLNESS: This 52-year-old man presented with abdominal pain. He told me he was having the pain for about a week and a half. He had vomiting a couple of days ago. He did not, however, see any blood in his stool or black stools. He did have an episode of melena but a couple of months ago, he had endoscopy early in April of this year. This was unremarkable. I spoke to Dr. Spivey on the phone, who told me his ferritin was over 800, though Dr. Spivey apparently did order some IV iron for the patient. I note the patient had 3 units of blood transfused in April of this year. His hemoglobin was 7.[address] Spivey's office on 05/28/17 and exactly the same number in the emergency room on 05/29/17 The patient also said he had not taken any Opana for about a day and a half before admission, I am not sure why he really could not explain this. He did get sedated to have the CT scan in the emergency room because of his claustrophobia. He then got some intravenous opiate as well. He was a little sedated when Dr. Shin admitted him, but he is quite alert now. He is requesting his Opana, he also stated he was hungry and wanted some food. He stated he would prefer to go home and have an outpatient GI appointment. I have called Dr. Majano's office and they suggested that the patient call them when he gets home to schedule an appointment. FINAL DIAGNOSES: 1. End-stage renal disease. 2. Anemia. 3. Abdominal pain. 4. Hypertension. DISCHARGE MEDICATIONS: 1. Amlodipine 10 mg daily. 2. B complex with folic acid daily. 3. Clonidine 0.2 mg t.i.d. 4. Hydralazine 25 mg t.i.d. 5. Furosemide 80 mg daily. 6. Opana IR 10 mg 4 times a day 7. Opana ER 40 mg b.i.d. 8. Calcium with phosphorus 600/280 four tabs 4 times a day. [id number]/[facility] #: [id number] [facility]
[2017-05-31] MEDS ORDERED: Omeprazole CAP* 20 MG PO SCH (06:00)
== END 2017-05-30 11:30 | disposition home or self-care (01) ==
LOC: EEVIPCON 22:24 → ED 22:24 → MED 05-30 04:22
PROVIDERS: ADMIT Hospitalist; ATTEND Internal Medicine
DX: R10.9 Unspecified abdominal pain (principal); I12.0 Hypertensive chronic kidney disease with stage 5 chronic kidney disease or end stage renal disease; N18.6 End stage renal disease; Z99.2 Dependence on renal dialysis; D64.9 Anemia, unspecified; E11.9 Type 2 diabetes mellitus without complications; Z79.899 Other long term (current) drug therapy; F17.210 Nicotine dependence, cigarettes, uncomplicated; M79.622 Pain in left upper arm
CPT/HCPCS: 36415; 74177; 80053; 83605; 83690; 83735; 85025; 96374; 96375; 96376; 99284; A9270-GY; G0378; J2060; J2270; Q9967

== ENCOUNTER 2017-07-21 07:10 | Inpatient (IN) | payer MEDICARE, MEDICAID ==
[2017-07-21] MEDS ORDERED: NS 0.9% 1000 ML* 1,000 ML IV ONE (07:42)
[2017-07-21] MEDS ORDERED: HYDROmorphone* 1 MG/ML 1 ML CARPUJECT IV ONE (07:42)
[2017-07-21] MEDS ORDERED: Metoclopramide IV* 5 MG/ML 2 ML VIAL IV ONE (07:42)
[2017-07-21] MEDS ORDERED: LORazepam INJ* 2 MG/ML 1 ML VIAL IV PUSH ONE (07:47)
[2017-07-21 08:20] LABS: Hematocrit 23 % (42-52); Hemoglobin 7.8 g/dl (14.0-18.0); Mean Corpuscular HGB Conc 33 g/dl (31-36); Mean Corpuscular Hemoglobin 29 pg (27-31); Mean Corpuscular Volume 88 fL (80-94); Mean Platelet Volume 9 um3 (7.4-10.4); Red Blood Count 2.66 10^6/ul (4.0-5.4); Red Cell Distribution Width 18 % (10.5-15); White Blood Count 9.2 10^3/ul (3.5-10.8)
--- NOTE | 2017-07-21 08:26 | RAD ---
HISTORY: Cough, chest pain, shortness of breath, pneumonia COMPARISONS: None VIEWS: 2: Frontal and lateral views of the chest. FINDINGS: CARDIOMEDIASTINAL SILHOUETTE: The cardiac silhouette is enlarged. The cardiomediastinal silhouette is otherwise normal. BEAR: The bear are normal. PLEURA: The costophrenic angles are sharp. No pleural abnormalities are noted. LUNG PARENCHYMA: There is a diffuse reticular pattern with indistinct pulmonary vessels. ABDOMEN: The upper abdomen is clear. There is no subphrenic gas. BONES AND SOFT TISSUES: No bone or soft tissue abnormalities are noted. OTHER: None. IMPRESSION: CARDIOMEGALY WITH PULMONARY INTERSTITIAL EDEMA
[2017-07-21 08:35] LABS: Albumin 4.7 g/dL (3.2-5.2); BUN/Creatinine Ratio 5.5 (8-20); C Reactive Protein 86.77 mg/L (< 5.00); Calcium 9.2 mg/dL (8.6-10.3); EGFR African American 4.3 (>60); EGFR Non-African American 3.4 (>60); Globulin 2.5 g/dL (2-4); Total Bilirubin 1.1 mg/dL (0.2-1.0); Total Protein 7.2 g/dL (6.4-8.9)
[2017-07-21 08:38] LABS: Troponin I 0.14 ng/mL (<0.04)
--- NOTE | 2017-07-21 09:50 | RAD ---
INDICATION: Abdominal pain with vomiting and diarrhea. Question obstruction, colitis. End-stage renal disease on dialysis. Previous abdominal hernia repair. COMPARISON: May 30, 2017 CT. TECHNIQUE: Multidetector CT images were obtained from the lung bases to the ischial tuberosities. Evaluation of the viscera is limited without IV contrast. Multiplanar reformation. REPORT: Severe cardiomegaly with interval increase. RIGHT larger than LEFT small dependent pleural effusions with proportional atelectasis. Prominence of the peripheral interlobular septa. Prominence of the hepatic veins and IVC suspicious for passive congestion given the clinical context findings of pulmonary edema at the visualized inferior thorax. No focal hepatic lesions evident within limits of noncontrast CT. Suggestion of dependent sludge or stones in the gallbladder. Small volume of pericholecystic fluid is nonspecific given the diffuse mild ascites. Unremarkable pancreas and spleen. Assessment of the bowel is limited due to absence of enteric contrast, motion artifact, and beam hardening artifact from the RIGHT arm down positioning. No gross abnormality of the upper GI, small bowel, or colon. The appendix is visualized anterior to the RIGHT common iliac vessels based on correlation with the prior contrast enhanced CT and appears grossly normal. Negative for free air. Negative for hernias. Unremarkable adrenal glands. Atrophic platinum kidneys without hydronephrosis. Partially distended urinary bladder demonstrates diffuse mild wall thickening. Symmetric seminal vesicles. Negative for lymphadenopathy. Normal diameter abdominal aorta and iliac arteries. Moderately severe bilateral hip joint osteoarthritis. No suspicious focal osseous lesions. IMPRESSION: 1. Pulmonary edema with associated passive congestion of the liver. 2. RIGHT larger than LEFT small pleural effusions and basilar atelectasis. 3. Small volume of ascites. 4. Suggestion of dependent sludge or stones in the gallbladder. Nonspecific pericholecystic fluid in setting of diffuse small ascites. Correlate with clinical assessment and consider ultrasound for further assessment if deemed appropriate. 5. Limited assessment of the alimentary tract as described without gross abnormality.
[2017-07-21] MEDS ORDERED: Ondansetron INJ* 2 MG/ML VIAL IV PRN (14:26)
[2017-07-21] MEDS ORDERED: Acetaminophen TAB* 325 MG PO PRN (14:26)
[2017-07-21] MEDS ORDERED: Morphine INJ* 4 MG/ML 1 ML CARPUJECT IV PRN (14:27)
[2017-07-21] MEDS ORDERED: Labetalol IV* 5 MG/ML 20 ML VIAL IV PUSH PRN (14:28)
--- NOTE | 2017-07-21 14:30 | HP ---
H&P (Free Text) History and Physical: CRITICAL CARE MEDICINE DATE: 07/21/17 TIME: 1200 REFERRING PROVIDER: [employer] Supervisor: Dr. Spivey REASON/CHIEF COMPLAINT: abd pain HISTORY OF PRESENT ILLNESS: 52 M with h/o ESRD on HD, presenting to resume outpt HD with [facility] (most recently with jamil) but had abd pains and elevated bp. sent to ED. CT ordered. pt ordered ativan, dilaudid to ease his pain and get through ct. Pts pain better but still with elevated htn, worsened lfts and concerns for R heart decompensation and or needing more urgent GB eval. REVIEW OF SYSTEMS: As per HPI. Limited sec to acuity as pt is lethargic post meds. PAST MEDICAL HISTORY: As per chart review as limited from pt currently: CKD V, DM, HTN, chronic left arm pains with left elbow sx, c spine fusion, hernia repair; moderate pulm htn on last echo MEDICATIONS: Reviewed but unconfirmed with him. ALLERGIES: PCN, lisinopril SOCIAL HISTORY: Reviewed per records. tob use FAMILY HISTORY: Noncontributory at present. DM PHYSICAL EXAM: Vital Signs: Reviewed. SBP 180s. HR 110s, RR with kervin chavira pattern which dissipates when awoken. Neurologic: awakens, attempts communication but falls back asleep quickly. bautista HEENT: anciteric, mm dry; Inc JVP Cardiovascular: S4, S1, S2 with mitral click without m appreciable. Respiratory: dec but clear Abdomen: soft, tenderness olive diffusely; no rebound or guarding. Extremities: warm LABS: Reviewed. IMAGING: Reviewed. MEDICATIONS: Reviewed. ASSESSMENT: 52 M Acute decompensated right heart failure, equalling acute diastolic heart failure Congestive hepatopathy Cholelithiasis Mild coagulopathy ESRD - HD uncontrolled HTN metabolic encephalopathy acute on chronic renal failure with hyperkalemia anemia of ckd mild metabolic acidosis with mild LA - multifactorial PLAN: Neurologic: hold further sedatives and re-eval in time. nonfocal on initial ED present. Cardiovascular: Perusing. elevated bp likely chronic and cardiomyopathy likely to reflect. Need to get control with resumption of his oupt rx. Ensure this is not clonidine withdrawal rebound. hydralazine and or labetaolol iv to get quicker control. Re-assess his fx with echo. Fluid balance may become major issue with him if R heart failure further decompensating. Give fluid in ED. Respiratory: tolerating, although clear kervin chavira currently. hopefully more med affect then metabolic but follow up. IS if needed. Gastrointestinal: po later. eval with US RUQ. Doubt acute needs, but may need sx eval for oupt care +/- hida. antiemetics. gerd supperssion Renal/Metabolic: acute on chronic renal failure with hyperkalemia. HD planned for today with Dr. Spivey. Infectious Disease: no abx need currently. Hematology: stable chronic anemia. hsq Endocrine: adrenal axis high if anything. glu uncontrolled. ssi. Musculoskeletal: oob as able Psych/Social: social work eval Supportive and preventative care as ordered. Vaccine: f/u needs SUP: po VTE prophylaxis: heparin Disposition: ICU tonight Code Status: Full Critical Care Time: 45min FAga Johnson DO
[2017-07-21] MEDS ORDERED: hydrALAZINE IV* 20 MG/ML VIAL ONE (14:35)
[2017-07-21] MEDS: hydrALAZINE IV* 20 MG/ML VIAL IV SLOW PU PRN ×2 (14:41→21:22)
[2017-07-21] MEDS: amLODIPine TAB* 5 MG PO SCH (15:13)
--- NOTE | 2017-07-21 15:41 | RAD ---
Indication: Right upper quadrant pain. Real-time sonography of the right upper quadrant was performed. Liver is normal in size. There is prominent hepatic veins noted. No definite focal lesions are identified. A small amount of ascites is noted. The gallbladder is distended with gallbladder wall thickening which may be apparent due to ascites. Common duct measures up to 7 mm which is within normal limits. The right kidney measures 7.0 x 2.8 x 3.1 cm and is small and echogenic consistent with medical renal disease. Cyst in the upper pole measuring 7 mm is noted. The pancreas is not visualized. Aorta and inferior vena cava are unremarkable. IMPRESSION: Hepatomegaly. Gallbladder wall thickening may be artifactual due to adjacent ascites. Small amount of ascites is noted. No cholelithiasis is noted. No biliary duct dilatation is noted. Atrophic kidney is noted. No hydronephrosis.
[2017-07-21] MEDS: cloNIDine TAB* 0.1 MG PO SCH ×2 (15:45→21:22)
--- NOTE | 2017-07-21 17:30 | ECHO ---
Patient: REYNOLD DURON [facility] Rec#: [id number] : 1965 Date: 07/21/2017 Age: 52y Height: 177.8 cm / 70.0 in Weight: 87.54 kg / 192.9 lbs Sex: M BSA: 2.06 Room#: ICU 5 Admit Date#: 07/21/2017 Type: Inpatient Referring: Tylor Johnson Reading: Alicia Ortega MD [employer] Supervisor: Catherine Abraham RDCS,RDMS CC: Jacob Deng MD Transthoracic Echocardiogram Indication: PHTN, CHF BP: 186/120 HR: 71 Rhythm: NSR Findings History: ESRD, dialysis, DM, HTN, smoker Technical Comments: The study quality is good. Completed 1530 Left Ventricle: The left ventricular chamber size is mildly dilated. Moderate concentric left ventricular hypertrophy is observed. There is severely decreased left ventricular systolic function. The estimated ejection fraction is 20-25%. The left ventricular diastolic filling pattern is restrictive. The patient was unable to perform a Valsalva maneuver. Left Atrium: The left atrium is severely dilated. Right Ventricle: The right ventricle is mildly dilated. The right ventricular global systolic function is normal. Right Atrium: The right atrium is moderately dilated. Aortic Valve: The aortic valve is trileaflet. The aortic valve leaflets are mildly thickened. There is a trace of aortic regurgitation. There is no evidence of aortic stenosis. Mitral Valve: The mitral valve leaflets are mildly thickened. There is mild to moderate mitral regurgitation. There is no evidence of mitral stenosis. Tricuspid Valve: The tricuspid valve leaflets are normal. There is mild to moderate tricuspid regurgitation. There is evidence of moderate to severe pulmonary hypertension. Pulmonic Valve: The pulmonic valve appears normal. There is mild to moderate pulmonic regurgitation. Pericardium: There is no significant pericardial effusion. Aorta: The aortic root appears normal. There is mild dilatation of the aortic arch. Pulmonary Artery: The main pulmonary artery is mildly dilated. Venous: The inferior vena cava is dilated. There is less than 50% respiratory change in the inferior vena cava dimension. Summary: There are changes noted when compared to the previous study done on 04/15/2017, LV EF is severely reduced now instead of 55% then. There is increase in MR, TR and PI severity now. PASP at 65 mmHg instead of 56 mmHg then. Conclusions The left ventricular chamber size is mildly dilated. Moderate concentric left ventricular hypertrophy is observed. There is severely decreased left ventricular systolic function. The estimated ejection fraction is 20-25%. The left atrium is severely dilated. The right atrium is moderately dilated. There is mild to moderate mitral regurgitation. There is mild to moderate tricuspid regurgitation. There is evidence of moderate to severe pulmonary hypertension. There is mild to moderate pulmonic regurgitation. There is mild dilatation of the aortic arch. There are changes noted when compared to the previous study done on 04/15/2017, LV EF is severely reduced now instead of 55% then. There is increase in MR, TR and PI severity now. PASP at 65 mmHg instead of 56 mmHg then. Measurements Name Value Normal Range RVIDd (AP) 2D 3 cm (0.9 - 2.6) RVDdMajor (2D) 3.7 cm (2.2 - 4.4) RAd ISD 4CH 6.2 cm (3.4 - 4.9) RA (A4C)W 5.9 cm (2.9 - 4.6) IVSd (2D) 1.4 cm (0.6 - 1) LVPWd (2D) 1.5 cm (0.6 - 1) LVIDd (2D) 5.9 cm (3.6 - 5.4) LVIDs (2D) 5 cm - LV FS (2D) 16 % (25 - 45) Aortic Annulus 2 cm (1.4 - 2.6) Ao root diameter (2D) 3.1 cm (2.1 - 3.5) Ascending Ao 2.8 cm (2.1 - 3.4) Aortic arch 3.8 cm (1.8 - 3.4) LA dimension (AP) 2D 4.1 cm (2.3 - 3.8) LAd ISD 4CH 7.1 cm (2.9 - 5.3) LA ISD 4CH W 5.7 cm (2.5 - 4.5) Name Value Normal Range LA ESV SP 4CH (A/L) 75.8 ml - LA ESV SP 2CH (A/L) 171.39 ml - LA ESV BP (A/L) 114.12 ml - LA ESV BP (A/L) index 55.4 ml/m2 - LA ESV SP 4CH (MOD) 70.16 ml - LA ESV SP 2CH (MOD) 160.9 ml - Name Value Normal Range MV E-wave Vmax 0.9 m/sec - MV deceleration time 138 msec - MV A-wave Vmax 0.3 m/sec - MV E:A ratio 3 ratio - P. vein S-wave Vmax 0.3 m/sec - P. vein D-wave Vmax 0.4 m/sec - P. vein S:D Vmax ratio 0.8 ratio - P. vein A-wave duration 92.3 msec - LV septal e' Vmax 0.03 m/sec - LV lateral e' Vmax 0.05 m/sec - LV E:e' septal ratio 30 ratio - LV E:e' lateral ratio 18 ratio - Name Value Normal Range AV Vmax 1.3 m/sec - AV VTI 20.4 cm - AV peak gradient 7 mmHg - AV mean gradient 3.1 mmHg - LVOT Vmax 1.1 m/sec - LVOT VTI 19 cm - LVOT peak gradient 5 mmHg - LVOT mean gradient 2 mmHg - DULCE Vmax 0.7 m/sec - Name Value Normal Range MV Vmax 1 m/sec - MV VTI 21.2 cm - MV peak gradient 4 mmHg - MV mean gradient 1.3 mmHg - MV PHT 39 msec - MR Vmax 6.2 m/sec - MR VTI 216 cm - MVA (PHT) 5.6 cm2 - Name Value Normal Range TR Vmax 3.6 m/sec - TR peak gradient 52 mmHg - RAP 15 mmHg - RVSP 65 mmHg - IVC diameter 3.3 cm - Name Value Normal Range PV Vmax 0.6 m/sec - PV peak gradient 1.4 mmHg -
[2017-07-21] MEDS ORDERED: Epoetin Alfa* 10,000 UNITS/ML VIAL IV ONE (18:00)
--- NOTE | 2017-07-21 18:46 | ED ---
Darryl Arreguin SooYoung, scribed for Mingo Evans MD on 07/21/17 at 0739 . Complex/Multi-Sys Presentation - HPI Summary HPI Summary: A 52 y/o M with renal failure TRES presents to ED with c/o CP onset a few days ago and umbilical abd pain for past week, both sx recently worsening. CP is described as tightness. Associated sx: abd swelling, back pain, v/d, hemesis, chills, mildly productive cough, decreased oral intake. He is able to make urine. Denies pedal edema. Pt is unsure if his BM are blood, states they are dark. No prev episodes of hemesis. Aggravating factors: deep breaths. Pt was at dialysis this AM, but did not receive it [facility]. He states he is .80 over dry weight. Has been receiving dialysis for past three years. Pt is not fluid restricted. He is not on a blood thinner and he did not take his blood pressure medication today. Former smoker. No drugs. No heavy ETOH. Pt states he is on donor list for a kidney, his son is planning to donate. PMHx: pancreatitis, hernia surgery. No PMHx of ulcers - History Of Current Complaint Time Seen by Provider: 07/21/17 07:29 Hx Obtained From: Patient Onset/Duration: Lasting Days, Still Present Timing: Constant Severity Currently: Moderate Severity Initially: Severe - 8 out of 10 Aggravating Factor(s): deep breaths Associated Signs And Symptoms: Positive: Cough, Chest Pain, Edema - abd, Vomiting, Diarrhea, Abdominal Pain, Back Pain, Hematemesis, Decreased Oral Intake. Negative: Other - neg: pedal edema - Allergies/Home Medications Allergies/Adverse Reactions: Allergies Allergy/AdvReac Type Severity Reaction Status Date / Time Penicillins [PCN] Allergy Severe Anaphylatic Verified 05/30/17 04:07 Shock Lisinopril Allergy Anaphylatic Verified 05/30/17 04:07 Shock Shellfish Allergy Allergy Anaphylatic Verified 05/30/17 04:07 Shock Home Medications: Home Medications Calcium Acetate CAP* [Phoslo CAP*] 667 mg PO TID WITH MEALS 07/21/17 [History Confirmed 07/21/17] Carvedilol TAB* [Coreg TAB*] 25 mg PO BID 07/21/17 [History Confirmed 07/21/17] Cinacalcet TAB* [Sensipar TAB*] 30 mg PO DAILY 07/21/17 [History Confirmed 07/21] Omeprazole CAP* [Prilosec CAP* 20 MG] 40 mg PO DAILY 07/21/17 [History Confirmed 07/21/17] Oxymorphone (NF) [Opana (NF)] 10 mg PO QID PRN 07/21/17 [History Confirmed 07/21] Oxymorphone ER (NF) [Opana ER (NF)] 40 mg PO BID 07/21/17 [History Confirmed ] Vitamin B Complex TAB* [Complex B-100*] 1 tab PO DAILY 07/21/17 [History Confirmed 07/21/17] amLODIPine TAB* [Norvasc 5 mg TAB*] 10 mg PO DAILY 07/21/17 [History Confirmed 07/21/17] cloNIDine TAB* [Catapres 0.1 MG TAB*] 0.1 mg PO BID 07/21/17 [History Confirmed 07/21/17] PMH/Surg Hx/FS Hx/Imm Hx Previously Healthy: No Endocrine/Hematology History: Reports: Hx Diabetes - NON INSULIN DM, BLOOD LEVELS GOOD-NO MEDS Denies: Hx Anticoagulant Therapy, Hx Thyroid Disease Cardiovascular History: Reports: Hx Hypertension - ON MED Denies: Hx Pacemaker/ICD, Other Cardiovascular Problems/Disorders Respiratory History: Denies: Hx Asthma, Hx Chronic Obstructive Pulmonary Disease (COPD), Other Respiratory Problems/Disorders GI History: Reports: Hx Gastroesophageal Reflux Disease - ON DAILY MEDS Denies: Hx Ulcer, Other GI Disorders History: Reports: Hx Chronic Renal Failure, Hx Dialysis, Hx Renal Disease Denies: Hx Kidney Infection, Hx Kidney Stones - STAGE 5 ON HEMODIALYSIS Musculoskeletal History: Reports: Hx Back Problems, Other Musculoskeletal History - S/P SPINAL FUSION Sensory History: Reports: Hx Contacts or Glasses Denies: Hx Hearing Aid Opthamlomology History: Reports: Hx Contacts or Glasses Neurological History: Denies: Hx Dementia, Hx Headaches, Hx Seizures, Other Neuro Impairments/ Disorders Psychiatric History: Denies: Hx Depression, Hx Substance Abuse - Surgical History Surgery Procedure, Year, and Place: 2001 ABD. hernia REPAIR [facility]. 2002 cervical spine surgery, [facility]. 1994 RT wrist surgery. 2009 ABD. HERNIA REPAIR. 2014 LEFT ELBOW SURGERY. 2015 LUE FISTULA PLACED Hx Anesthesia Reactions: No - Immunization History Date of Tetanus Vaccine: unknown Date of Influenza Vaccine: no Infectious Disease History: Denies: Hx Clostridium Difficile, Hx Hepatitis, Hx Human Immunodeficiency Virus (HIV), Hx of Known/Suspected MRSA, Hx Shingles, Hx Tuberculosis, Hx Known/ Suspected VRE, Hx Known/Suspected VRSA, History Other Infectious Disease, Traveled Outside the [place] in Last 30 Days - Family History Known Family History: Positive: Hypertension, Diabetes Negative: Cardiac Disease, Renal Disease - Social History Occupation: Employed Full-time Lives: With Family Alcohol Use: None Hx Substance Use: No Substance Use Type: Reports: None Hx Tobacco Use: Yes Smoking Status (MU): Current Every Day Smoker Type: Cigarettes Amount Used/How Often: 1/2 PPD X 20 YEARS Length of Time of Smoking/Using Tobacco: 35 YEARS Have You Smoked in the Last Year: Yes Review of Systems Positive: Chills Positive: Chest Pain Positive: Cough Positive: Abdominal Pain, Vomiting, Diarrhea, Other - pos: hemesis, decreased oral intake, abd edema Positive: Other - pos: back pain. Negative: Edema - neg: pedal edema All Other Systems Reviewed And Are Negative: Yes Physical Exam - Summary Physical Exam Summary: The patient is well-nourished in moderate pain and distress. The skin is warm and dry and skin color reflects adequate perfusion. There is decreased skin turgor. HEENT: The head is normocephalic and atraumatic. The pupils are equal and reactive. The conjunctivae are clear, not icteric, and without drainage. Nares are patent and without drainage. Mouth reveals dry oral mucous membranes and the throat is without erythema and exudate. The external ears are intact. The ear canals are patent and without drainage. The tympanic membranes are intact. Neck is supple with full range of motion and non-tender. There are no carotid bruits. There is neck vein distension. Respiratory: Chest is non-tender. Lungs are clear to auscultation and breath sounds are symmetrical and equal. No rales, rhonchi, or wheezing. Cardiovascular: Heart tachycardic. Pt is hypertensive. There is no murmur or rub auscultated. There is no peripheral edema and pulses are symmetrical and equal. Abdomen: The abdomen is distended with hyperactive bowel sounds. There is diffuse tenderness more pronounced in epigastric and LUQ areas. There is no CVA tenderness. Musculoskeletal: There is no reproducible back pain noted. Extremities are non- tender with full range of motion. There is good capillary refill. There is no peripheral edema or calf tenderness elicited. Neurological: Patient is alert and oriented to person, place and time. The patient has symmetrical motor strength in all four extremities. Cranial nerves are grossly intact. Deep tendon reflexes are symmetrical and equal in all four extremities. Psychiatric: The patient has an appropriate affect and does not exhibit any anxiety or depression. Triage Information Reviewed: Yes Vital Signs On Initial Exam: Initial Vitals Temp Pulse Resp BP Pulse Ox 98.9 F 119 18 177/129 97 07/21/17 07:28 07/21/17 07:28 07/21/17 07:28 07/21/17 07:28 07/21/17 07:28 Vital Signs Reviewed: Yes Diagnostics - Vital Signs Vital Signs Temp Pulse Resp BP Pulse Ox 07/21/17 07:28 98.9 F 119 18 177/129 97 - Laboratory Lab Results: Lab Results 07/21/17 07/21/17 07/21/17 Range/Units 07:50 07:50 07:50 WBC 9.2 (3.5-10.8) 10^3/ul RBC 2.66 L (4.0-5.4) 10^6/ul Hgb 7.8 L (14.0-18.0) g/dl Hct 23 L (42-52) % MCV 88 (80-94) fL MCH 29 (27-31) pg MCHC 33 (31-36) g/dl RDW 18 H (10.5-15) % Plt Count 153 (150-450) 10^3/ul MPV 9 (7.4-10.4) um3 Neut % (Auto) 73.5 (38-83) % Lymph % (Auto) 17.7 L (25-47) % Greer % (Auto) 6.8 (1-9) % Eos % (Auto) 1.2 (0-6) % Baso % (Auto) 0.8 (0-2) % Absolute Neuts (auto) 6.7 (1.5-7.7) 10^3/ul Absolute Lymphs (auto) 1.6 (1.0-4.8) 10^3/ul Absolute Monos (auto) 0.6 (0-0.8) 10^3/ul Absolute Eos (auto) 0.1 (0-0.6) 10^3/ul Absolute Basos (auto) 0.1 (0-0.2) 10^3/ul Absolute Nucleated RBC 0.03 10^3/ul Nucleated RBC % 0.3 INR (Anticoag Therapy) (0.89-1.11) Sodium 135 (133-145) mmol/L Potassium 6.0 H (3.5-5.0) mmol/L Chloride 95 L (101-111) mmol/L Carbon Dioxide 25 (22-32) mmol/L Anion Gap 15 H (2-11) mmol/L BUN 83 H (6-24) mg/dL Creatinine 15.17 H (0.67-1.17) mg/dL Est GFR ( Amer) 4.3 (>60) Est GFR (Non-Af Amer) 3.4 (>60) BUN/Creatinine Ratio 5.5 L (8-20) Glucose 197 H (70-100) mg/dL Lactic Acid 2.4 H* (0.5-2.0) mmol/L Calcium 9.2 (8.6-10.3) mg/dL Total Bilirubin 1.10 H (0.2-1.0) mg/dL AST 389 H (13-39) U/L ALT 389 H (7-52) U/L Alkaline Phosphatase 57 (34-104) U/L Total Creatine Kinase 202 (10-223) U/L Troponin I 0.14 H* (<0.04) ng/mL C-Reactive Protein 86.77 H (< 5.00) mg/L B-Natriuretic Peptide ( - 100) pg/mL Total Protein 7.2 (6.4-8.9) g/dL Albumin 4.7 (3.2-5.2) g/dL Globulin 2.5 (2-4) g/dL Albumin/Globulin Ratio 1.9 (1-3) Amylase 73 (29-103) U/L Lipase 13 (11.0-82.0) U/L 07/21/17 07/21/17 Range/Units 07:50 07:50 WBC (3.5-10.8) 10^3/ul RBC (4.0-5.4) 10^6/ul Hgb (14.0-18.0) g/dl Hct (42-52) % MCV (80-94) fL MCH (27-31) pg MCHC (31-36) g/dl RDW (10.5-15) % Plt Count (150-450) 10^3/ul MPV (7.4-10.4) um3 Neut % (Auto) (38-83) % Lymph % (Auto) (25-47) % Greer % (Auto) (1-9) % Eos % (Auto) (0-6) % Baso % (Auto) (0-2) % Absolute Neuts (auto) (1.5-7.7) 10^3/ul Absolute Lymphs (auto) (1.0-4.8) 10^3/ul Absolute Monos (auto) (0-0.8) 10^3/ul Absolute Eos (auto) (0-0.6) 10^3/ul Absolute Basos (auto) (0-0.2) 10^3/ul Absolute Nucleated RBC 10^3/ul Nucleated RBC % INR (Anticoag Therapy) 1.52 H (0.89-1.11) Sodium (133-145) mmol/L Potassium (3.5-5.0) mmol/L Chloride (101-111) mmol/L Carbon Dioxide (22-32) mmol/L Anion Gap (2-11) mmol/L BUN (6-24) mg/dL Creatinine (0.67-1.17) mg/dL Est GFR ( Amer) (>60) Est GFR (Non-Af Amer) (>60) BUN/Creatinine Ratio (8-20) Glucose (70-100) mg/dL Lactic Acid (0.5-2.0) mmol/L Calcium (8.6-10.3) mg/dL Total Bilirubin (0.2-1.0) mg/dL AST (13-39) U/L ALT (7-52) U/L Alkaline Phosphatase (34-104) U/L Total Creatine Kinase (10-223) U/L Troponin I (<0.04) ng/mL C-Reactive Protein (< 5.00) mg/L B-Natriuretic Peptide 9663 H ( - 100) pg/mL Total Protein (6.4-8.9) g/dL Albumin (3.2-5.2) g/dL Globulin (2-4) g/dL Albumin/Globulin Ratio (1-3) Amylase (29-103) U/L Lipase (11.0-82.0) U/L Result Diagrams: 07/21/17 07:50 07/21/17 07:50 Lab Statement: Any lab studies that have been ordered have been reviewed, and results considered in the medical decision making process. - Radiology CXR Xray Interpretation: Positive (See Comments) - IMPRESSION: CARDIOMEGALY WITH PULMONARY INTERSTITIAL EDEMA. ED physician has reviewed this radiology report and agrees Radiology Interpretation Completed By: Radiologist - CT ABD/PEL CT Interpretation: Positive (See Comments) - IMPRESSION: 1. Pulmonary edema with associated passive congestion of the liver. 2. RIGHT larger than LEFT small pleural effusions and basilar atelectasis. 3. Small volume of ascites. 4. Suggestion of dependent sludge or stones in the gallbladder. Nonspecific pericholecystic fluid in setting of diffuse small ascites. Correlate with clinical assessment and consider ultrasound for further assessment if deemed appropriate. 5. Limited assessment of the alimentary tract as described without gross abnormality. ED physician has reviewed this radiology report and agrees. CT Interpretation Completed By: Radiologist - EKG 0729 Cardiac Rate: Other Rate - junctional tachycardia at [address] Segment: Non-Specific - no STEMI Re-Evaluation - Re-Evaluation 1 Re-Evaluation Time: 12:07 Change: Improved Comment: Discussing results with pt. Pt states improved, was soundly sleeping. Complex Multi-Symp Course/Dx Course Of Treatment: Pt is a 52 y/o M with renal failure presenting with CP described as tightness onset a few days ago and diffuse abd pain and distension for past week, both sx recently worsening. Associated sx: back pain, v/d, hemesis, chills, mildly productive cough, decreased oral intake. He is able to make urine. Denies pedal edema. Pt is unsure if his BM are blood, states they are dark. No prev episodes of hemesis. Aggravating factors: deep breaths. Pt was at dialysis this AM, but did not receive it [facility]. He states he is .80 over dry weight. Has been receiving dialysis for past three years. Pt is not fluid restricted. He is not on a blood thinner and he did not take his blood pressure medication today. Former smoker. No drugs. No heavy ETOH. Pt states he is on donor list for a kidney, his son is planning to donate. PMHx: pancreatitis, GERD , DM, HTN, CRF, hernia surgery. No PMHx of ulcers. Trop is 0.14, lactic acid is 2.4. EKG shows junctional tachy at 122bpm, no STEMI, non-specific ST changes. CXR shows "CARDIOMEGALY WITH PULMONARY INTERSTITIAL EDEMA." ABD/PEL CT shows "1. Pulmonary edema with associated passive congestion of the liver. 2. RIGHT larger than LEFT small pleural effusions and basilar atelectasis. 3. Small volume of ascites. 4. Suggestion of dependent sludge or stones in the gallbladder. Nonspecific pericholecystic fluid in setting of diffuse small ascites. Correlate with clinical assessment and consider ultrasound for further assessment if deemed appropriate. 5. Limited assessment of the alimentary tract as described without gross abnormality.". Pt given fluids, Dilaudid, Ativan, Reglan in ED. Consulted with hospitalist, will admit pt. - Diagnoses Provider Diagnoses: Dehydration, Hyperkalemia, Chronic renal failure, Cholelithiases, Abdominal pain, Cardiomyopathy - Physician Notifications Discussed Care Of Patient With: Emilie Peterson - hospitalist Time Discussed With Above Provider: 12:30 Instructed by Provider To: Admit As Inpatient - Critical Care Time Critical Care Time: 30-74 min - 30 minute Discharge - Discharge Plan Condition: Stable Disposition: ADMITTED TO [facility] Consult Consult: 1305: Consult with Dr. Spivey, nephrology Will give pt dialysis, and work on decreasing Potassium levels. The documentation as recorded by the Darryl mota SooYoung accurately reflects the service I personally performed and the decisions made by , Mingo Evans MD.
[2017-07-21] MEDS: Calcium Acetate CAP* 667 MG PO SCH (18:54)
[2017-07-21] MEDS: Carvedilol TAB* 25 MG PO SCH (21:22)
[2017-07-22 06:40] LABS: Hematocrit 22 % (42-52); Hemoglobin 7.2 g/dl (14.0-18.0); Mean Corpuscular HGB Conc 33 g/dl (31-36); Mean Corpuscular Hemoglobin 29 pg (27-31); Mean Corpuscular Volume 87 fL (80-94); Mean Platelet Volume 8 um3 (7.4-10.4); Red Blood Count 2.49 10^6/ul (4.0-5.4); Red Cell Distribution Width 17 % (10.5-15); White Blood Count 6.6 10^3/ul (3.5-10.8)
[2017-07-22 06:45] LABS: Albumin 3.4 g/dL (3.2-5.2); BUN/Creatinine Ratio 4.9 (8-20); Calcium 7.9 mg/dL (8.6-10.3); EGFR African American 5.8 (>60); EGFR Non-African American 4.5 (>60); Phosphorus 5.8 mg/dL (2.5-5.0); Potassium 4.8 mmol/L (3.5-5.0); Total Bilirubin 0.8 mg/dL (0.2-1.0); Total Protein 6.4 g/dL (6.4-8.9)
[2017-07-22] MEDS ORDERED: Heparin DIALYSIS ONLY(*) 1,000 UNITS/ML VIAL DIALYSIS ONE (11:00)
[2017-07-22] MEDS ORDERED: Epoetin Alfa* 10,000 UNITS/ML VIAL IV ONE (11:00)
[2017-07-22] MEDS: Omeprazole CAP* 20 MG PO SCH (12:38)
[2017-07-22] MEDS: amLODIPine TAB* 5 MG PO SCH (12:38)
[2017-07-22] MEDS: cloNIDine TAB* 0.1 MG PO SCH ×3 (12:39→21:05)
[2017-07-22] MEDS: Cinacalcet TAB* 30 MG PO SCH (12:39)
[2017-07-22] MEDS: Carvedilol TAB* 25 MG PO SCH ×2 (12:39→21:05)
[2017-07-22] MEDS: Calcium Acetate CAP* 667 MG PO SCH ×3 (12:39→17:40)
[2017-07-22] MEDS ORDERED: Oxymorphone IR (NF) 5 MG TAB PO PRN (12:44)
--- NOTE | 2017-07-22 12:52 | PN ---
Progress Note - Progress Note Date of Service: 07/22/17 Note: CRITICAL CARE MEDICINE DATE: 07/22/17 TIME: 1210 SUBJECTIVE: Patient seen and examined post HD today. Feels better. daughter to bedside during discussion. PHYSICAL EXAM: Vital Signs: Reviewed. SBP 150s. HR 70s, RR stable. RA. Neurologic: awakens, attempts communication but falls back asleep quickly. bautista HEENT: anciteric, mm dry Cardiovascular: S1, S2 with mitral click with 2/6 peg Respiratory: dec but clear Abdomen: soft, nt Extremities: warm LABS: Reviewed. IMAGING: Reviewed. MEDICATIONS: Reviewed. ASSESSMENT: 52 M Acute decompensation biventrciular heart failure, equalling acute systolic > diastolic heart failure Congestive hepatopathy sec to above Cholelithiasis r/o Mild coagulopathy sec to above ESRD - HD uncontrolled HTN metabolic encephalopathy acute on chronic renal failure with hyperkalemia - resolved anemia of ckd mild metabolic acidosis with mild LA - resolved PLAN: Neurologic: stable. resume oupt pain rx Cardiovascular: Perfusing. water status stable. bp better. resumption of oupt meds. decompensated left ventricule most likely htn induced. resume meds and adherence. ask cards to eval for close f/u in outpt world. Respiratory: tolerating. IS if needed. Gastrointestinal: po. no abd discomfort. can f/u lfts for improvement in time. Renal/Metabolic: acute on chronic renal failure. HD today and f/u with nephrology. Infectious Disease: no abx need. Hematology: stable chronic anemia. hsq Endocrine: ok. Musculoskeletal: oob Psych/Social: social work eval Supportive and preventative care as ordered. Vaccine: f/u needs SUP: po VTE prophylaxis: heparin Disposition: [facility] floor and hopeful dc tomorrow with outpt f/us Code Status: Full Critical Care Time: 25min FAga Johnson DO
[2017-07-22] MEDS: Heparin VIAL(*) 5000 UNITS/ML VIAL (FIVE THOUSAND) SUBCUT SCH ×2 (17:40→21:06)
[2017-07-22] MEDS ORDERED: Oxymorphone ER (NF) 5 MG TAB PO SCH (21:00)
[2017-07-22] MEDS: hydrALAZINE TAB* 25 MG PO SCH (21:05)
--- NOTE | 2017-07-22 22:12 | CONS ---
CARDIOLOGY CONSULTATION: DATE OF CONSULT: 07/22/17 PATIENT OF: Dr. Spivey. CONSULTING PHYSICIAN: Dr. Tay Jung. REASON FOR EVALUATION: Cardiomyopathy and hypertensive crisis. HISTORY OF PRESENT ILLNESS: This is a 52-year-old gentleman with a history of end- stage renal disease, on hemodialysis for 3 years, hypertension, tobacco use half pack per day, who has been having abdominal pain, vomiting, and shortness of breath. He had an episode of melanoma couple of months ago and endoscopy, which was unremarkable. He had 3 units of blood in April. The patient had abdominal pain on 07/21/17 and elevated blood pressure, was sent to the ED. His pain improved with Ativan, but he had elevated blood pressures, worsening LFTs, and right heart decompensation and was admitted. He had been noncompliant with his medicines and he has skipped his clonidine on and off for few days and was unsure about his other medications. He was restarted on his medications and dialyzed and has had improvement in his symptoms and now lying flat. He denies any chest pain. No orthopnea. No peripheral edema. No syncope or near syncope. No palpitations. PAST MEDICAL HISTORY: Includes end-stage renal disease, anemia, abdominal pain , hypertension, and admission in May. He also reports that he has been evaluated at [facility] for possible renal transplant and had a negative stress test in March as per the patient, those records are not available. PAST SURGICAL HISTORY: Includes fistula, hernia repair, right wrist surgery. MEDICATIONS: His medications currently include: 1. Amlodipine 10 mg a day. 2. PhosLo 667 mg t.i.d. with meals. 3. Carvedilol 25 mg b.i.d. 4. Clonidine 0.1 mg p.o. t.i.d. 5. Subcu heparin 5000 units q.8. 6. Hydralazine 25 mg b.i.d. 7. Labetalol p.r.n. 10 mg IV push. 8. Hydralazine 10 mg IV push p.r.n. 9. Omeprazole 40 mg a day. 10. Zofran. 11. Oxymorphone ER 40 mg b.i.d. 12. Morphine 10 mg 4 times a day p.r.n. pain. ALLERGIES: Include PENICILLIN, SHELLFISH. He denies alcohol use. Denies caffeine use. FAMILY HISTORY. He has 3 brothers and a sister without premature coronary disease. Mother is alive at 74, but no premature coronary disease. Father of 55 of unknown reasons. SOCIAL HISTORY: He has been in the past. He has 13 children, but he is now. 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 REVIEW OF SYSTEMS: Review of systems x10 was negative except as above. PHYSICAL EXAM: He is a well-developed, well-nourished gentleman, in no apparent distress, lying flat. Blood pressure 140/70, pulse is 66, O2 sats 94% on room air. No significant JVD. Carotids 2+. Cardiac Exam: S1, S2 with a 2/ 6 holosystolic murmur at the left lower sternal border and apex. Chest was clear. No CVAT. There is a fistula that appears to be functioning normally at left antecubital area. Distal pulses are intact. Femoral pulses are intact without bruits. Abdomen: Bowel sounds present and nontender. No edema. Motor strength 5/5 bilaterally. Deep tendon reflexes 2/4. Alert and oriented x3. DIAGNOSTIC STUDIES/LAB DATA: Include white count of 6.6, hemoglobin of 7.2, hematocrit 22, platelets count of 138. Sodium 134, potassium 4.8, BUN of 58, creatinine of 11.85, lactic acid was 2.4 yesterday, transaminase elevated at 548. AST and ALT was 588. Troponin was mildly elevated at 0.14 yesterday. BNP elevated at 9663. EKG revealed what appeared to be a tachycardia with nonspecific QRS widening and nonspecific ST-T changes. EKG from 07/15/17, revealed sinus rhythm with possible left atrial enlargement. No acute changes. Chest x-ray revealed cardiomegaly with pulmonary interstitial edema. An echocardiogram from 07/21/17 revealed mildly dilated LV, moderate concentric LVH severely decreased LV function. EF at 20% to 25%. Left atrium severely dilated. Moderately dilated right atrium. [id number] MR, mild-to- moderate TR, okqmzenv-[id number] pulmonary hypertension, [id number] PI. PA pressure estimated at 65 compared to the previous study of April 15. At that time, his EF was 55% and his PA pressure was 56. IMPRESSION AND PLAN: My impression is that Mr. Roman appears to have LV dysfunction and moderate valve dysfunction of unclear etiology. Certainly, he has risk factors for coronary artery disease, but in the setting of malignant hypertension and tachycardia, it may be related to the presentation with uncontrolled hypertension. For the time being, I have recommended the following : 1. I would continue blood pressure control as you are doing. 2. Would consider adding Aldactone or lisinopril if acceptable from Dr. Spivey' s standpoint. In lieu of RUIZ inhibitors, we could use hydralazine and nitrates for his heart failure. 3. He is to have repeat echo later this admission. Hopefully, we will confirm improvement his LV function. 4. Would consider repeating his EKG and troponins. Depending on his clinical course, I would suggest further evaluation for ischemia possibly with a stress nuclear if his LV function improves and his troponins resolve. Otherwise, we could consider cardiac catheterization. 5. I did discuss with him the potential life threatening complications and noncompliance with his medications. He understands. 6. I would also recommend tobacco cessation. [id number]/[facility] #: [id number] JOCY
[2017-07-23] MEDS: Omeprazole CAP* 20 MG PO SCH (05:57)
[2017-07-23] MEDS: Heparin VIAL(*) 5000 UNITS/ML VIAL (FIVE THOUSAND) SUBCUT SCH (05:58)
[2017-07-23 06:58] LABS: Comments Flag Yes; Hematocrit 23 % (42-52); Hemoglobin 7.7 g/dl (14.0-18.0); Mean Corpuscular HGB Conc 33 g/dl (31-36); Mean Corpuscular Hemoglobin 29 pg (27-31); Mean Corpuscular Volume 88 fL (80-94); Mean Platelet Volume 8 um3 (7.4-10.4); Red Blood Count 2.65 10^6/ul (4.0-5.4); Red Cell Distribution Width 18 % (10.5-15); White Blood Count 6.3 10^3/ul (3.5-10.8)
[2017-07-23 07:18] LABS: Albumin 3.6 g/dL (3.2-5.2); BUN/Creatinine Ratio 4.5 (8-20); Calcium 8.3 mg/dL (8.6-10.3); EGFR African American 7.8 (>60); EGFR Non-African American 6.1 (>60); Globulin 3.1 g/dL (2-4); Potassium 4.4 mmol/L (3.5-5.0); Total Bilirubin 0.9 mg/dL (0.2-1.0); Total Protein 6.7 g/dL (6.4-8.9)
[2017-07-23 07:48] LABS: Troponin I 0.09 ng/mL (<0.04)
[2017-07-23 08:28] VITALS: BP 143/88
[2017-07-23] MEDS: hydrALAZINE TAB* 25 MG PO SCH (08:36)
[2017-07-23] MEDS: cloNIDine TAB* 0.1 MG PO SCH (08:36)
[2017-07-23] MEDS: Calcium Acetate CAP* 667 MG PO SCH (08:36)
[2017-07-23] MEDS: amLODIPine TAB* 5 MG PO SCH (08:36)
[2017-07-23] MEDS: Carvedilol TAB* 25 MG PO SCH (08:37)
[2017-07-23] MEDS: Cinacalcet TAB* 30 MG PO SCH (08:59)
--- NOTE | 2017-07-23 09:02 | PN ---
Progress Note - Progress Note Date of Service: 07/23/17 Note: Time spent on discharge 45 minutes
--- NOTE | 2017-07-23 22:41 | DS ---
CC: Dr. Spivey; Dr. Deng DISCHARGE SUMMARY: DATE OF ADMISSION: DATE OF DISCHARGE: 07/23/17 HOSPITAL COURSE: This 52-year-old man presented with abdominal pain. He was thought to have systol ic heart failure and congestive hepatopathy. His ejection fraction was much decreased from a few mo nths ago. It was felt this is related to his uncontrolled hypertension. He had changed dialysis un its from here to [place] to back here and for some reason was out of his blood pressure medications for a week possibly longer. He was very vague about this. He said he had none of his blood pressu re medications. The pharmacy had refused to fill prescriptions sent in by the dialysis unit in [facility]. Basically, his usual antihypertensive regimen was reinstituted. He was dialyzed twice. He was real ly returned completely to his baseline on the day of discharge. His morning blood pressure was 143/8 8 before his morning meds. FINAL DIAGNOSES: 1. Acute systolic heart failure. 2. Uncontrolled hypertension. 3. End-stage renal disease. 4. Chololithiasis. 5. Metabolic encephalopathy due to uncontrolled hypertension. 6. Anemia of chronic disease. 7. Chronic pain. DISCHARGE MEDICATIONS: 1. Oxymorphone 10 mg 4 times a day p.r.n. 2. Oxymorphone ER 40 mg b.i.d. 3. Calcium acetate 666 mg t.i.d. with meals. 4. Carvedilol 25 mg b.i.d. 5. Cinacalcet 30 mg daily. 6. Omeprazole 40 mg daily. 7. Vitamin B complex 1 daily. 8. Amlodipine 10 mg daily. 9. Clonidine 0.1 mg b.i.d. 10. Hydralazine 25 mg b.i.d. [id number]/[facility] #: [id number]
== END 2017-07-23 09:55 | disposition home or self-care (01) | DRG 291 ==
LOC: ED 07:10 → ICU 13:03 → MED 07-22 16:51
PROVIDERS: ADMIT Internal Medicine Critical Care Medicine; ATTEND Internal Medicine
PROC: 5A1D60Z (ICD-10-PCS; principal; 2017-07-22)
DX: I13.2 Hypertensive heart and chronic kidney disease with heart failure and with stage 5 chronic kidney disease, or end stage renal disease (principal); N18.6 End stage renal disease; G93.41 Metabolic encephalopathy; E87.2 Acidosis; N17.9 Acute kidney failure, unspecified; D68.9 Coagulation defect, unspecified; R18.8 Other ascites; I42.9 Cardiomyopathy, unspecified; I50.43 Acute on chronic combined systolic (congestive) and diastolic (congestive) heart failure; J98.11 Atelectasis; I16.9 Hypertensive crisis, unspecified; E11.22 Type 2 diabetes mellitus with diabetic chronic kidney disease; I27.2 Other secondary pulmonary hypertension; G89.29 Other chronic pain; M79.602 Pain in left arm; D63.1 Anemia in chronic kidney disease; K80.20 Calculus of gallbladder without cholecystitis without obstruction; K76.1 Chronic passive congestion of liver; I08.1 Rheumatic disorders of both mitral and tricuspid valves; E87.5 Hyperkalemia; E11.65 Type 2 diabetes mellitus with hyperglycemia; K21.9 Gastro-esophageal reflux disease without esophagitis; F17.210 Nicotine dependence, cigarettes, uncomplicated; E86.0 Dehydration; Z98.1 Arthrodesis status; Z99.2 Dependence on renal dialysis; Z88.0 Allergy status to penicillin; Z88.8 Allergy status to other drugs, medicaments and biological substances; Z83.3 Family history of diabetes mellitus; Z91.013 Allergy to seafood; Z82.49 Family history of ischemic heart disease and other diseases of the circulatory system; Z85.820 Personal history of malignant melanoma of skin; Z91.14 Patient's other noncompliance with medication regimen; Z79.891 Long term (current) use of opiate analgesic
CPT/HCPCS: 36415; 71020; 74176; 76705; 80053; 82140; 82150; 82550; 83605; 83690; 83735; 83880; 84100; 84484; 85025; 85027; 85610; 86140; 87040; 90935; 93005; 93306; A9270-GY; G0257; J0360; J0885; J1170; J1644; J2060; J2765

== ENCOUNTER 2017-11-29 06:10 | Observation (INO) | payer MEDICARE, MEDICAID ==
[2017-11-29] MEDS ORDERED: NS 0.9% 1000 ML* 2,000 ML IV ONE (07:24)
[2017-11-29] MEDS ORDERED: Famotidine IV* 10 MG/ML 2 ML (20 mg) IV ONE (07:24)
[2017-11-29] MEDS ORDERED: NS 0.9% 1000 ML* 1,000 ML IV SCH (08:00)
[2017-11-29 08:10] LABS: ABS Basophils 0.1 10^3/ul (0-0.2); ABS Eosinophils 0.1 10^3/ul (0-0.6); ABS Lymphocytes 1.7 10^3/ul (1.0-4.8); ABS Monocytes 0.4 10^3/ul (0-0.8); ABS Neutrophils 4.2 10^3/ul (1.5-7.7); ABS Nucleated RBC 0 10^3/ul; Eosinophil % 1.8 % (0-6); Hematocrit 29 % (42-52); Hemoglobin 9.5 g/dl (14.0-18.0); Lymphocyte % 26.4 % (25-47); Mean Corpuscular HGB Conc 33 g/dl (31-36); Mean Corpuscular Hemoglobin 28 pg (27-31); Mean Corpuscular Volume 86 fL (80-94); Mean Platelet Volume 8 um3 (7.4-10.4); Nucleated Red Blood Cells % 0; Platelet Count 109 10^3/ul (150-450); Red Blood Count 3.33 10^6/ul (4.0-5.4); Red Cell Distribution Width 18 % (10.5-15); White Blood Count 6.5 10^3/ul (3.5-10.8)
[2017-11-29 08:29] LABS: EGFR Non-African American 2.5 (>60)
[2017-11-29] MEDS ORDERED: Sodium Polystyrene ORAL.SOL* 15 GM/60 ML BTL PO ONE ×2 (08:37→10:23)
[2017-11-29] MEDS ORDERED: Insulin REGULAR(*) 1 UNITS UNIT IV PUSH ONE (08:37)
[2017-11-29] MEDS ORDERED: Dextrose 50% VIAL 50 ml IV PRN (08:37)
[2017-11-29] MEDS ORDERED: Calcium Gluconate INJ* 1 GM in NS 0.9% 100 ML* 100 ML IVPB ONE (08:37)
[2017-11-29] MEDS ORDERED: Furosemide IV* 10 MG/ML 2 ML VIAL (20 MG) IV ONE (08:52)
--- NOTE | 2017-11-29 09:05 | RAD ---
INDICATION: Shortness of breath. COMPARISON: Comparison is made with a prior chest x-ray study from July 21, 2017. TECHNIQUE: AP and lateral views of the chest were obtained. FINDINGS: The heart is moderately enlarged and unchanged. There is diffuse prominence of the interstitial markings which appears similar to the prior exam. No pleural effusion is seen. IMPRESSION: FINDINGS SUGGESTIVE OF CONGESTIVE HEART FAILURE.
[2017-11-29] MEDS ORDERED: Dextrose 50% Syringe 50 ML* 25 GM/50 ML SYRINGE ONE (09:08)
[2017-11-29] MEDS ORDERED: Dextrose 50% Syringe 50 ML* 25 GM/50 ML SYRINGE IV PUSH PRN (09:14)
[2017-11-29] MEDS ORDERED: HYDROcodone/ACETAMIN 5-325 MG* 1 TAB PO ONE (09:22)
[2017-11-29] MEDS ORDERED: Morphine INJ* 2 MG/ML 1 ML SYRINGE (TWO MG - NEW SYRINGE VERSION) IV PRN (10:18)
[2017-11-29] MEDS ORDERED: Acetaminophen TAB* 325 MG PO PRN (10:18)
[2017-11-29] MEDS ORDERED: Zolpidem TAB* 10 MG PO PRN (10:21)
[2017-11-29] MEDS ORDERED: oxyCODONE TAB* 5 MG TAB PO PRN (10:55)
[2017-11-29] MEDS: amLODIPine TAB* 5 MG PO SCH (12:04)
[2017-11-29] MEDS: hydrALAZINE TAB* 25 MG PO SCH ×2 (12:04→21:24)
[2017-11-29] MEDS: oxyCODONE SR TAB(*) 40 MG TAB.SR PO SCH (12:04)
[2017-11-29 13:08] LABS: Urine Appearance Clear; Urine Blood Negative (Negative); Urine Color Yellow; Urine Ketones Negative (Negative); Urine Protein 2+(100 mg/dL) (Negative); Urine Specific Gravity 1.012 (1.010-1.030); Urine Urobilinogen Negative (Negative)
[2017-11-29 13:15] LABS: EGFR Non-African American 2.5 (>60)
[2017-11-29] MEDS: Calcium Acetate CAP* 667 MG PO SCH ×2 (13:29→18:05)
[2017-11-29] MEDS: cloNIDine TAB* 0.1 MG PO SCH ×2 (13:29→20:55)
[2017-11-29] MEDS: Heparin VIAL(*) 5000 UNITS/ML VIAL (FIVE THOUSAND) SUBCUT SCH ×2 (13:29→21:27)
[2017-11-29] MEDS ORDERED: hydrALAZINE IV* 20 MG/ML VIAL IV SLOW PU PRN ×2 (13:34→23:00)
[2017-11-29] MEDS ORDERED: LORazepam TAB(*) 1 MG PO ONE (14:15)
--- NOTE | 2017-11-29 15:00 | RAD ---
INDICATION: Abdominal pain. COMPARISON: Comparison is made with a prior CT of the abdomen and pelvis from July 21, 2017. Correlation is also made with a study from May 30, 2017. TECHNIQUE: A CT scan of the abdomen and pelvis was performed without intravenous or oral contrast. Contiguous axial sections were obtained from the lung bases through the symphysis pubis. Images were reconstructed in the coronal and sagittal planes. FINDINGS: There is minimal dependent atelectasis in both lower lobes. There is a trace right pleural effusion. The liver is moderately enlarged and unchanged from the prior study. The spleen is mildly enlarged and also unchanged. No focal abnormalities are seen on this noncontrast study. No calcified gallstones are noted. The pancreas appears to be within normal limits. The adrenal glands appear within normal limits in size. The kidneys are small in size and atrophic consistent with the patient's history of chronic renal failure. There is a small cyst in the upper pole of the left kidney measuring 1.5 cm in size. No hydronephrosis is seen. The urinary bladder wall appears thickened likely due to incomplete distention. The aorta is normal in caliber with mild calcific plaque present. No significant enlarged retroperitoneal lymph nodes are seen. The stomach, small and large bowel appear nondistended. The appendix is not visualized. There is mild descending and sigmoid diverticulosis without evidence for diverticulitis. There is a small to moderate amount of ascites present. No free intraperitoneal air is seen. No significant focal osseous abnormality is seen. IMPRESSION: 1. SMALL RIGHT PLEURAL EFFUSION. 2. SMALL TO MODERATE AMOUNT OF ASCITES. 3. HEPATOSPLENOMEGALY, UNCHANGED. 4. SMALL ATROPHIC KIDNEYS.
[2017-11-29] MEDS ORDERED: Epoetin Alfa* 3,000 UNITS/ML VIAL IV ONE (19:00)
--- NOTE | 2017-11-29 20:07 | HP ---
CC: Dr. Deng; Dr. Spivey; Dr. Majano * HISTORY AND PHYSICAL: DATE OF ADMISSION: 11/29/17 PRIMARY CARE PROVIDER: Dr. Deng. CHIEF COMPLAINT: Nausea, vomiting, diarrhea, and abdominal pain. HISTORY OF PRESENT ILLNESS: Indra oRman is a 52-year-old male with history of recurrent abdominal pain, who stated that he started having nausea, vomiting , and diarrhea over the past 5-day period. Due to that, he missed his dialysis on and Tuesday last week. Today, which is Tuesday, he presents to the hospital complaining of abdominal pain. He stated that his last bout of diarrhea was today in the morning. The patient also complained of rectal pain with diarrhea as well as occasionally he would have bright red blood mixed in with the loose stool. He stated that he thought it was hemorrhoid. The patient's nausea and vomiting resolved 3 days ago. His abdominal pain recurred and this is something that for which he had been evaluated in the past. The patient is a poor, rather nonspecific historian and he is unable to tell me how often his abdominal pain occurs, but he stated that it happens "often." He describes it as an epigastric abdominal pain, not improved or worsened with eating. He stated that usually he is "regular with his bowel movements," but regular for him did not mean that he has a bowel movement every day and he could not elaborate further on that. Once again, the patient is rather short with his answers, appears to be annoyed when interviewed for his history and physical. PAST MEDICAL HISTORY: History of cardiomyopathy with EF of 25% diagnosed in July of 2017 and as well as severe pulmonary hypertension and moderate mitral valve regurgitation. CURRENT MEDICATIONS: Include: 1. Ambien 10 mg at bedtime p.r.n. 2. Sensipar 30 mg q.a.m. 3. Coreg 25 mg b.i.d. 4. PhosLo 667 mg 3 times a day. 5. Amlodipine 10 mg daily. 6. Vitamin B complex 1 tablet daily. 7. Opana ER 40 mg b.i.d. and Opana immediate release 20 mg four times a day p.r.n. 8. Omeprazole 40 mg daily. 9. Hydralazine 25 mg b.i.d. 10. Clonidine 0.1 mg 3 times a day. ALLERGIES: Included PENICILLIN, LISINOPRIL, SHELLFISH allergy. FAMILY HISTORY: Positive for 3 brothers and 1 sister with early heart disease. The patient's mother is well and alive at the age of 75. His father at age of 55 of unknown reason. SOCIAL HISTORY: The patient smokes 1 pack of cigarettes per day. Denies any alcohol or drug use. He is unemployed, lives by himself and mentioned his brother, Tong Bedolla, as his surrogate. REVIEW OF SYSTEMS: Please see history of present illness. In addition to above mentioned, the patient stated that he had been coughing for the past several days. He denies chest pain, denies purulent sputum production. All the remaining 12 systems were reviewed with the patient and were otherwise negative. PHYSICAL EXAMINATION GENERAL: The patient is a 52-year-old male, who appears rather upset and angry with being in the hospital. The patient is in no acute distress. Alert, awake , and oriented x3. VITAL SIGNS: Blood pressure of 169/85, heart rate of 55 and regular, respiratory rate 19, oxygen saturation % on room air, temperature of 99.4. HEENT: Head is atraumatic, normocephalic. Eyes: Pupils are equal and reactive to light and accommodation. Oropharynx clear. Mucosa moist. NECK: Supple. No JVD. No bruits bilaterally. RESPIRATORY: Coarse wheezes in bilateral upper and mid lung hart. CARDIOVASCULAR: Regular rate and rhythm. No murmur. ABDOMEN: Distended, soft, and diffusely tender throughout. It is tympanic to percussion. Bowel sounds are hypoactive, but present in all 4 quadrants. EXTREMITIES: There is no edema. Pulses +2 bilaterally. No clubbing or cyanosis. The patient also has AV fistula in the left forearm with positive thrill. NEURO: Speech clear. Cranial nerves II through XII grossly intact. Motor strength is 5/5 bilaterally. DIAGNOSTIC STUDIES/LAB DATA: Today includes white blood cell count of 6.5, hemoglobin 9.5, hematocrit of 29, and platelets of 109. Sodium of 136, potassium 6.7, chloride of 98, carbon dioxide 22, anion gap of 16 , BUN 122, creatinine was 19. The patient's troponin was 0.06. C-reactive protein of 11. The patient's troponin level was consistent with prior. The patient's EKG shows sinus bradycardia with a heart rate of 52 beats per minute with no significant changes, but the patient has T-wave inversion in his V1 and V2, which is chronic, consistent with prior in 2017. Portable chest x-ray, impression: "Findings suggestive of congestive heart failure." ASSESSMENT AND PLAN: 1. In regards to the patient's hyperkalemia, at this point, directly responsible for that is the patient missed dialysis twice in a row. The patient stated that he missed dialysis because he had too much nausea, vomiting , and diarrhea going on. At this point, the patient is going to be admitted to the intensive care unit due to bradycardia and hyperkalemia. Please also note that the hyperkalemia was acutely treated in the emergency department with calcium gluconate as well as Kayexalate. I will also give the patient another dose of Kayexalate and the patient is going to be dialyzed this afternoon. 2. In regards to the patient's nausea, vomiting, and diarrhea, I suspect the patient has a gastrointestinal viral illness that had been prominent in this area over the winter season. It appears that the nausea, vomiting resolved. We will observe him for diarrhea. The patient already received 2 L of intravenous fluid during his ER stay and due to his history of end-stage renal disease and that he already appears to have pulmonary edema on the x-ray, I am not going to give him any more fluids for the time being. I will place him on renal diet and observe. 3. In regards to the patient's abdominal pain, it may be related to that the patient has pulmonary hypertension as well as chronic right-sided heart failure and chronic hepatic congestion. It also may be worsened by accumulating fluid in his abdomen due to end-stage renal disease and no dialysis. At this point, that is going to be observed. The ED physician already ordered for CT of abdomen, and is going to be obtained today without contrast due the patient's history of anaphylaxis to SHELLFISH. I will treat it with opioid pain medications. Please also note that the patient will be tolerant to opioid medications if he is on significant doses of Opana throughout the day at baseline. 4. In regards to the patient's chronic pain, his Opana is going to be changed to OxyContin and oxycodone during his hospital stay since we do not have Opana on formulary. 5. The patient's elevated troponin is consistent with his baseline and is mostly related to the patient's end-stage renal disease. 6. Please also note that the patient has a history of ejection fraction of 25% documented in July 2017 and moderate mitral regurgitation. At this point, we will observe for fluid and we will place the patient on daily weights. 7. For DVT prophylaxis, the patient is going to be placed on heparin subcutaneous. 8. The patient's code status is full and his surrogate is his brother. TIME SPENT: Approximately 65 minutes was spent on admission of this patient, more than half that time was spent [id number] with the patient during the interview and physical exam. [id number]/[facility] #: [id number] JOCY
[2017-11-29] MEDS: Carvedilol TAB* 25 MG PO SCH (20:55)
[2017-11-29] MEDS ORDERED: hydrALAZINE IV* 20 MG/ML VIAL IV SLOW PU ONE (23:00)
[2017-11-30] MEDS: oxyCODONE SR TAB(*) 40 MG TAB.SR PO SCH ×2 (00:49→10:49)
[2017-11-30] MEDS: [UNRECOGNIZED DRUG - OTHER] IV SCH ×2 (01:30→05:53)
[2017-11-30 06:19] LABS: EGFR Non-African American 3.7 (>60)
[2017-11-30] MEDS: Heparin VIAL(*) 5000 UNITS/ML VIAL (FIVE THOUSAND) SUBCUT SCH ×2 (06:36→13:30)
[2017-11-30 06:49] LABS: Hematocrit 30 % (42-52); Hemoglobin 10.1 g/dl (14.0-18.0); Mean Corpuscular HGB Conc 34 g/dl (31-36); Mean Corpuscular Hemoglobin 28 pg (27-31); Mean Corpuscular Volume 85 fL (80-94); Mean Platelet Volume 8 um3 (7.4-10.4); Platelet Count 127 10^3/ul (150-450); Red Blood Count 3.55 10^6/ul (4.0-5.4); Red Cell Distribution Width 18 % (10.5-15)
[2017-11-30 06:52] LABS: ABS Basophils 0 10^3/ul (0-0.2); ABS Eosinophils 0.2 10^3/ul (0-0.6); ABS Lymphocytes 1.9 10^3/ul (1.0-4.8); ABS Monocytes 0.4 10^3/ul (0-0.8); ABS Neutrophils 3.3 10^3/ul (1.5-7.7); ABS Nucleated RBC 0 10^3/ul; Eosinophil % 3.9 % (0-6); Lymphocyte % 31.8 % (25-47); Nucleated Red Blood Cells % 0.2
--- NOTE | 2017-11-30 07:56 | ED ---
Graham Arreguin Angela, scribed for Gopal Ambriz MD on 11/29/17 at 0735 . Abdominal Pain/Male - HPI Summary HPI Summary: This pt is a 52 y/o male presenting to [facility] c/o abd pain, nausea, vomiting and diarrhea for 1 week. Pt reports diarrhea is bloody. He denies recent travel, recent antibiotics, or recent new food. Pt had hemodialysis last Tuesday, . Per nurse's note, pt was at dialysis today when he c/o of these symptoms. - History of Current Complaint Chief Complaint: EDAbdPain Stated Complaint: ABD PAIN, DIARRHEA Time Seen by Provider: 11/29/17 07:12 Hx Obtained From: Patient Onset/Duration: Lasting Days, Still Present Timing: Lasting Days Severity Currently: Severe Pain Intensity: 8 Pain Scale Used: 0-10 Numeric Location: Diffuse Radiates: No Aggravating Factor(s): Nothing Alleviating Factor(s): Nothing Associated Signs And Symptoms: Positive: Nausea, Vomiting, Diarrhea, Other - bloody stools - Allergies/Home Medications Allergies/Adverse Reactions: Allergies Allergy/AdvReac Type Severity Reaction Status Date / Time Penicillins [PCN] Allergy Severe Anaphylatic Verified 05/30/17 04:07 Shock Lisinopril Allergy Anaphylatic Verified 05/30/17 04:07 Shock Shellfish Allergy Allergy Anaphylatic Verified 05/30/17 04:07 Shock Home Medications: Home Medications Zolpidem TAB* [Ambien TAB*] 10 mg PO BEDTIME PRN 11/29/17 [History Confirmed ] cloNIDine TAB* [Catapres 0.1 MG TAB*] 0.1 mg PO TID 11/29/17 [History Confirmed 11/29/17] PMH/Surg Hx/FS Hx/Imm Hx Endocrine/Hematology History: Reports: Hx Diabetes - no meds, Hx Anemia Denies: Hx Anticoagulant Therapy, Hx Thyroid Disease Cardiovascular History: Reports: Hx Congestive Heart Failure, Hx Hypertension - uncontrolled Denies: Hx Pacemaker/ICD, Other Cardiovascular Problems/Disorders Respiratory History: Reports: Hx Sleep Apnea Denies: Hx Asthma, Hx Chronic Obstructive Pulmonary Disease (COPD), Other Respiratory Problems/Disorders GI History: Reports: Hx Gastroesophageal Reflux Disease Denies: Hx Ulcer, Other GI Disorders History: Reports: Hx Chronic Renal Failure, Hx Dialysis, Hx Renal Disease Denies: Hx Kidney Infection, Hx Kidney Stones - STAGE 5 ON HEMODIALYSIS Musculoskeletal History: Reports: Hx Back Problems, Other Musculoskeletal History - S/P SPINAL FUSION Sensory History: Reports: Hx Contacts or Glasses - glasses Denies: Hx Hearing Aid Opthamlomology History: Reports: Hx Contacts or Glasses - glasses Neurological History: Denies: Hx Dementia, Hx Headaches, Hx Seizures, Other Neuro Impairments/ Disorders Psychiatric History: Denies: Hx Depression, Hx Substance Abuse - Surgical History Surgery Procedure, Year, and Place: 2001 hernia REPAIR [facility]. 2002 cervical spine surgery, [facility] [place]. 1994 RT wrist surgery. 2009 HERNIA REPAIR. 2014 LEFT ELBOW SURGERY. 2014 LUE FISTULA PLACED Hx Anesthesia Reactions: No - Immunization History Date of Tetanus Vaccine: unknown Date of Influenza Vaccine: no Infectious Disease History: No Infectious Disease History: Denies: Hx Clostridium Difficile, Hx Hepatitis, Hx Human Immunodeficiency Virus (HIV), Hx of Known/Suspected MRSA, Hx Shingles, Hx Tuberculosis, Hx Known/ Suspected VRE, Hx Known/Suspected VRSA, History Other Infectious Disease, Traveled Outside the [place] in Last 30 Days - Family History Known Family History: Positive: Hypertension, Diabetes Negative: Cardiac Disease, Renal Disease - Social History Alcohol Use: None Hx Substance Use: No Substance Use Type: Reports: None Hx Tobacco Use: Yes Smoking Status (MU): Current Every Day Smoker Type: Cigarettes Amount Used/How Often: 1/2 PPD X 20 YEARS Length of Time of Smoking/Using Tobacco: 35 YEARS Have You Smoked in the Last Year: Yes Review of Systems Negative: Fever, Chills Cardiovascular: Negative Respiratory: Negative Gastrointestinal: Other - bloody stools Positive: Abdominal Pain, Vomiting, Diarrhea, Nausea Genitourinary: Negative Musculoskeletal: Negative Skin: Negative All Other Systems Reviewed And Are Negative: Yes Physical Exam - Summary Physical Exam Summary: VITAL SIGNS: Reviewed. GENERAL: Patient is a well-developed and nourished male who is lying comfortable in the stretcher. Patient is not in any acute respiratory distress. HEAD AND FACE: Normocephalic and atraumatic. EYES: PERRLA, EOMI x 2, No injected conjunctiva. EARS: Hearing grossly intact. Ear canals and tympanic membranes are WNL. MOUTH: Oropharynx within normal limits. NECK: Supple, trachea is midline, no adenopathy, no JVD. CHEST: Symmetric, no tenderness at palpation LUNGS: Clear to auscultation bilaterally. No wheezing or crackles. CVS: RRR, S1 and S2 present, no murmurs or gallops appreciated. ABDOMEN: Soft. Diffuse abdominal tenderness. No signs of distention. Positive bowel sounds. No rebound no guarding, and no masses palpated. No abdominal bruit or pulsations. EXTREMITIES: FROM in all major joints, no edema, no cyanosis or clubbing. NEURO: Alert and oriented x 3. No acute neurological deficits. Speech is normal. SKIN: Dry and warm Triage Information Reviewed: Yes Vital Signs On Initial Exam: Initial Vitals Temp Pulse Resp BP Pulse Ox 99.4 F 108 26 155/77 94 11/29/17 06:13 11/29/17 06:13 11/29/17 06:13 11/29/17 06:13 11/29/17 06:13 Vital Signs Reviewed: Yes Diagnostics - Vital Signs Vital Signs Temp Pulse Resp BP Pulse Ox 11/29/17 06:13 99.4 F 108 26 155/77 94 - Laboratory Lab Results: Lab Results 11/29/17 11/29/17 11/29/17 Range/Units 07:59 07:59 07:59 WBC 6.5 (3.5-10.8) 10^3/ul RBC 3.33 L (4.0-5.4) 10^6/ul Hgb 9.5 L (14.0-18.0) g/dl Hct 29 L (42-52) % MCV 86 (80-94) fL MCH 28 (27-31) pg MCHC 33 (31-36) g/dl RDW 18 H (10.5-15) % Plt Count 109 L (150-450) 10^3/ul MPV 8 (7.4-10.4) um3 Neut % (Auto) 64.9 (38-83) % Lymph % (Auto) 26.4 (25-47) % Grainger % (Auto) 6.0 (1-9) % Eos % (Auto) 1.8 (0-6) % Baso % (Auto) 0.9 (0-2) % Absolute Neuts (auto) 4.2 (1.5-7.7) 10^3/ul Absolute Lymphs (auto) 1.7 (1.0-4.8) 10^3/ul Absolute Monos (auto) 0.4 (0-0.8) 10^3/ul Absolute Eos (auto) 0.1 (0-0.6) 10^3/ul Absolute Basos (auto) 0.1 (0-0.2) 10^3/ul Absolute Nucleated RBC 0 10^3/ul Nucleated RBC % 0 Sodium 136 (133-145) mmol/L Potassium 6.7 H* (3.5-5.0) mmol/L Chloride 98 L (101-111) mmol/L Carbon Dioxide 22 (22-32) mmol/L Anion Gap 16 H (2-11) mmol/L BUN 122 H (6-24) mg/dL Creatinine 19.46 H (0.67-1.17) mg/dL Est GFR ( Amer) 3.3 (>60) Est GFR (Non-Af Amer) 2.5 (>60) BUN/Creatinine Ratio 6.3 L (8-20) Glucose 183 H (70-100) mg/dL Lactic Acid 0.9 (0.5-2.0) mmol/L Calcium 8.0 L (8.6-10.3) mg/dL Total Bilirubin 0.60 (0.2-1.0) mg/dL AST 21 (13-39) U/L ALT 19 (7-52) U/L Alkaline Phosphatase 62 (34-104) U/L Troponin I 0.06 H* (<0.04) ng/mL C-Reactive Protein 11.60 H (< 5.00) mg/L Total Protein 7.0 (6.4-8.9) g/dL Albumin 3.7 (3.2-5.2) g/dL Globulin 3.3 (2-4) g/dL Albumin/Globulin Ratio 1.1 (1-3) Amylase 84 (29-103) U/L Lipase 46 (11.0-82.0) U/L Result Diagrams: 11/30/17 05:50 11/30/17 05:50 Lab Statement: Any lab studies that have been ordered have been reviewed, and results considered in the medical decision making process. - Radiology Chest XR Xray Interpretation: Positive (See Comments) - IMPRESSION: Findings suggestive of congestive heart failure. Dr. Ambriz has reviewed this radiology report. Radiology Interpretation Completed By: Radiologist - CT Abdomen/Pelvis CT CT Interpretation: Positive (See Comments) - IMPRESSION: 1. Small right pleural effusion. 2. Small to moderate amount of ascites. 3. Hepatosplenomegaly, unchanged. 4. Small atrophic kidneys. Dr. Ambriz has reviewed this radiology report. CT Interpretation Completed By: Radiologist - EKG 07:49 Cardiac Rate: Bradycardia EKG Rhythm: Sinus Bradycardia - at 52 bpm EKG Interpretation: ST depression in II, III, V4-V6. T wave inversion in V2 and V3. EKG Comparison: No Significant Change - similar to prior EKG on 07/21/17. Abdominal Pain Fem Course/Dx - Course Course Of Treatment: This pt is a 52 y/o male presenting to [facility] c/o abd pain, nausea, vomiting and diarrhea for 1 week. Pt reports diarrhea is bloody. He denies recent travel, recent antibiotics, or recent new food. Pt had hemodialysis last 11/22/17. Per nurse's note, pt was at dialysis today when he c/o of these symptoms. Test results show chronic anemia, hyperkalemia to 6.7 with no changes in the EKG, worsening renal failure, BUN of 122, creatinine of 19.46, troponin of 0.06, CRP of 11.6,. Urinalysis is negative for UTI. In the ED course the pt was placed on a monitor, he was given calcium gluconate, dextrose, insulin, and Kayexalate for hyperkalemia. I did order an abdominal CT since he is complaining of abdominal pain. CT abdomen/pelvis shows 1. Small right pleural effusion. 2. Small to moderate amount of ascites. 3. Hepatosplenomegaly, unchanged. 4. Small atrophic kidneys. I also did a rectal exam, since he is complaining of rectal bleeding. Occult blood is negative. At this point I discussed the pts case with Dr. Spivey who will dialyze the pt today. I also discussed test results and [facility]. Pt is hemodynamically stable, alert and oriented x3. - Diagnoses Differential Diagnosis/HQI/PQRI: Bowel Obstruction, Constipation, Diverticulitis Provider Diagnoses: Hyperkalemia, End stage renal disease, CHF exacerbation, Abdominal pain - Provider Notifications Discussed Care Of Patient With: Jacob Spivey Time Discussed With Above Provider: 08:45 Instructed by Provider To: Other - I discussed pt care with Dr. Spivey, job checker. [09:03] I spoke with Dr. Peterson, hospitalist, who has agreed to admit the pt. - Critical Care Time Critical Care Time: 75-104 min Discharge - Discharge Plan Condition: Stable Disposition: ADMITTED TO [facility] documentation as recorded by the Graham mota Angela accurately reflects the service I personally performed and the decisions made by me, Gopal Ambriz MD.
[2017-11-30] MEDS ORDERED: Furosemide IV* 10 MG/ML 10 ML VIAL (100 MG) IV ONE (08:11)
[2017-11-30] MEDS ORDERED: Vitamin B Complex TAB PO SCH (09:00)
[2017-11-30] MEDS ORDERED: Omeprazole CAP* 20 MG PO SCH (09:00)
[2017-11-30] MEDS ORDERED: Cinacalcet TAB* 30 MG PO SCH (09:00)
[2017-11-30] MEDS: cloNIDine TAB* 0.1 MG PO SCH ×2 (09:25→13:30)
[2017-11-30] MEDS: Calcium Acetate CAP* 667 MG PO SCH ×3 (09:26→20:05)
[2017-11-30] MEDS: hydrALAZINE TAB* 25 MG PO SCH (09:26)
[2017-11-30] MEDS: Carvedilol TAB* 25 MG PO SCH (09:26)
[2017-11-30] MEDS: amLODIPine TAB* 5 MG PO SCH (09:26)
[2017-11-30 13:39] VITALS: BP 148/75
--- NOTE | 2017-11-30 15:56 | PN ---
Subjective Date of Service: 11/30/17 Interval History: Received dialysis last night and feels okay this morning. He declines further discussion with me, but says he is in no pain and has no complaints. He wants to go home. Family History: Unchanged from Admission Social History: Unchanged from Admission Past Medical History: Unchanged from Admission Objective Active Medications: Acetaminophen (Tylenol Tab*) 650 mg PO Q4H PRN PRN Reason: FEVER/PAIN Amlodipine Besylate (Norvasc Tab*) 10 mg PO QAM [facility] Last Admin: 11/30/17 09:26 Dose: 10 mg Calcium Acetate (Phoslo Cap*) 667 mg PO TID WITH MEALS [facility] Last Admin: 11/30/17 13:30 Dose: 667 mg Carvedilol (Coreg Tab*) 25 mg PO BID [facility] Last Admin: 11/30/17 09:26 Dose: 25 mg Cinacalcet (Sensipar Tab*) 30 mg PO QAM [facility] Last Admin: 11/30/17 09:26 Dose: 30 mg Clonidine HCl (Catapres Tab*) 0.1 mg PO TID [facility] Last Admin: 11/30/17 13:30 Dose: 0.1 mg Dextrose (D50w Syringe 50 Ml*) 50 gm IV PUSH ONCE PRN PRN Reason: FS < 60 Last Admin: 11/29/17 09:16 Dose: 25 gm Heparin Sodium (Porcine) (Heparin Vial(*)) 5,000 units SUBCUT Q8HR [facility] Last Admin: 11/30/17 13:30 Dose: 5,000 units Hydralazine HCl (Apresoline Tab*) 25 mg PO BID [facility] Last Admin: 11/30/17 09:26 Dose: 25 mg Hydralazine HCl (Apresoline Iv*) 10 mg IV SLOW PU Q6H PRN PRN Reason: BLOOD PRESSURE Nicardipine/Sodium Chloride (Cardene 0.1mg/Ml Ivpremix*) 20 mg in 200 mls @ 25 mls/hr IV .(as Initial Rate) TAMMY; 2.5 MG/HR PRN Reason: Protocol Last Admin: 11/30/17 05:53 Dose: 30 mls/hr Morphine Sulfate (Morphine Inj (Syringe)*) 2 mg IV Q4H PRN PRN Reason: PAIN Last Admin: 11/29/17 20:56 Dose: 2 mg Omeprazole (Prilosec Cap*) 40 mg PO DAILY@0900 [facility] Last Admin: 11/30/17 09:25 Dose: 40 mg Oxycodone HCl (Oxycontin(*)) 40 mg PO Q12H [facility] Last Admin: 11/30/17 10:49 Dose: Not Given Oxycodone HCl (Roxycodone Tab*) 10 mg PO Q6H PRN PRN Reason: PAIN Vitamin B Complex/Vitamin E (Complex B-100*) 1 tab PO QAM [facility] Last Admin: 11/30/17 09:26 Dose: 1 tab Zolpidem Tartrate (Ambien Tab*) 10 mg PO BEDTIME PRN PRN Reason: INSOMNIA Vital Signs - 8 hr 11/30/17 11/30/17 11/30/17 07:55 08:00 08:01 Temperature 99.6 F Pulse Rate 66 66 Respiratory 13 14 Rate Blood Pressure 153/74 (mmHg) O2 Sat by Pulse 90 93 Oximetry 11/30/17 11/30/17 11/30/17 08:16 08:30 08:45 Temperature Pulse Rate 61 62 62 Respiratory 17 12 13 Rate Blood Pressure 146/73 139/78 140/71 (mmHg) O2 Sat by Pulse 92 90 89 Oximetry 11/30/17 11/30/17 11/30/17 09:00 09:01 09:44 Temperature Pulse Rate 63 66 61 Respiratory 19 22 19 Rate Blood Pressure 96/74 151/80 (mmHg) O2 Sat by Pulse 87 91 91 Oximetry 11/30/17 11/30/17 11/30/17 10:00 10:30 10:49 Temperature Pulse Rate 61 61 Respiratory 15 15 22 Rate Blood Pressure 139/84 145/77 (mmHg) O2 Sat by Pulse 88 89 Oximetry 11/30/17 11/30/17 11/30/17 11:00 11:30 12:00 Temperature 99.3 F Pulse Rate 60 61 61 Respiratory 15 17 16 Rate Blood Pressure 156/82 151/80 149/81 (mmHg) O2 Sat by Pulse 87 86 91 Oximetry 11/30/17 11/30/17 11/30/17 12:30 13:00 13:30 Temperature Pulse Rate 61 59 Respiratory 20 15 18 Rate Blood Pressure 153/80 149/82 148/75 (mmHg) O2 Sat by Pulse 91 90 Oximetry Oxygen Devices in Use Now: None Appearance: sitting up in the chair, aggressive, agitated Eyes: No Scleral Icterus Ears/Nose/Mouth/Throat: NL Teeth, Lips, Gums Neck: - - JVP +16cm Respiratory: Symmetrical Chest Expansion and Respiratory Effort, Clear to Auscultation Cardiovascular: - - S3 and systolic murmur at apex Abdominal: NL Sounds; No Tenderness; No Distention, No Hepatosplenomegaly Lymphatic: No Cervical Adenopathy Extremities: No Edema, - - LUE AV fistula Skin: No Rash or Ulcers Neurological: Alert and Oriented x 3, - - no asterixis Result Diagrams: 11/30/17 05:50 11/30/17 05:50 Additional Lab and Data: Lab Results 11/29/17 11/29/17 11/29/17 Range/Units 07:59 07:59 07:59 WBC 6.5 (3.5-10.8) 10^3/ul RBC 3.33 L (4.0-5.4) 10^6/ul Hgb 9.5 L (14.0-18.0) g/dl Hct 29 L (42-52) % MCV 86 (80-94) fL MCH 28 (27-31) pg MCHC 33 (31-36) g/dl RDW 18 H (10.5-15) % Plt Count 109 L (150-450) 10^3/ul MPV 8 (7.4-10.4) um3 Neut % (Auto) 64.9 (38-83) % Lymph % (Auto) 26.4 (25-47) % [place] % (Auto) 6.0 (1-9) % Eos % (Auto) 1.8 (0-6) % Baso % (Auto) 0.9 (0-2) % Absolute Neuts (auto) 4.2 (1.5-7.7) 10^3/ul Absolute Lymphs (auto) 1.7 (1.0-4.8) 10^3/ul Absolute Monos (auto) 0.4 (0-0.8) 10^3/ul Absolute Eos (auto) 0.1 (0-0.6) 10^3/ul Absolute Basos (auto) 0.1 (0-0.2) 10^3/ul Absolute Nucleated RBC 0 10^3/ul Nucleated RBC % 0 Sodium 136 (133-145) mmol/L Potassium 6.7 H* (3.5-5.0) mmol/L Chloride 98 L (101-111) mmol/L Carbon Dioxide 22 (22-32) mmol/L Anion Gap 16 H (2-11) mmol/L BUN 122 H (6-24) mg/dL Creatinine 19.46 H (0.67-1.17) mg/dL Est GFR ( Amer) 3.3 (>60) Est GFR (Non-Af Amer) 2.5 (>60) BUN/Creatinine Ratio 6.3 L (8-20) Glucose 183 H (70-100) mg/dL Lactic Acid 0.9 (0.5-2.0) mmol/L Calcium 8.0 L (8.6-10.3) mg/dL Total Bilirubin 0.60 (0.2-1.0) mg/dL AST 21 (13-39) U/L ALT 19 (7-52) U/L Alkaline Phosphatase 62 (34-104) U/L Troponin I 0.06 H* (<0.04) ng/mL C-Reactive Protein 11.60 H (< 5.00) mg/L Total Protein 7.0 (6.4-8.9) g/dL Albumin 3.7 (3.2-5.2) g/dL Globulin 3.3 (2-4) g/dL Albumin/Globulin Ratio 1.1 (1-3) Amylase 84 (29-103) U/L Lipase 46 (11.0-82.0) U/L Microbiology and Other Data: Microbiology 11/29/17 12:10 Stool Culture - Preliminary Stool Klebsiella Oxytoca Stool Gross Appearance - Final Shiga Toxin I & II - Final Negative Shiga Toxin 1 & 2 11/29/17 12:10 Nasal Screen MRSA (PCR)(PHIL) - Final Nasal Mrsa Negative 11/29/17 12:10 Stool Gross Appearance - Final Stool C. difficile DNA Amplification - Final 027 Presumptive NEGATIVE Toxigenic C.diff NEGATIVE Stool Lactoferrin - Final 11/29/17 12:10 Stool Occult Blood (PHIL) - Final Stool Assess/Plan/Problems-Billing Assessment: - Patient Problems (1) Hyperkalemia Current Visit: Yes Status: Acute Code(s): E87.5 - HYPERKALEMIA SNOMED Code (s): 13857496 Comment: Resolved after one session of HD yesterday. Most likely related to missed HD sessions, but he also says he may have consumed some high-K foods. He was unsure of which foods have potassium in them besides orange juice and potatoes, so I educated him on other foods to avoid. (2) Volume overload Current Visit: Yes Status: Acute Code(s): E87.70 - FLUID OVERLOAD, UNSPECIFIED SNOMED Code(s): 74466951 Comment: Likely multifactorial and related to missing HD and severe MR. He needs another session of HD today. His mitral valve should be repaired, and reportedly has been evaluated at [facility], though I am unsure of the outcome of this evaluation. He has a poor prognosis if this is not repaired. Regarding his volume today, he is able to walk around, lie flat, and has no oxygen requirement. He has no leg edema, may have some abdominal edema, and has profoundly elevated JVP. (3) Diarrhea Current Visit: Yes Status: Acute Code(s): R19.7 - DIARRHEA, UNSPECIFIED SNOMED Code(s): 92007044 Comment: this is what brought him to the ED yesterday, though he says this has resolved today. Stool culture shows klebsiella, which was discussed with ID and is not pathogenic. (4) Left against medical advice Current Visit: Yes Status: Acute Code(s): Z53.20 - PROC/TRTMT NOT CRD OUT BEC PT DECISION FOR UNSP REASONS SNOMED Code(s): 551910452 Comment: Unfortunately, Mr. Roman left AMA this afternoon before his next session of HD. I explained the risks of leaving, including volume overload and respiratory failure, hyperkalemia and cardiac arrest, and encouraged him to come back to the ED with any shortness of breath, chest pain, swelling, or confusion. He agrees to go to his usual HD session in the morning.
== END 2017-11-30 16:00 | disposition home or self-care (01) ==
LOC: ED 06:10 → ICU 10:18
PROVIDERS: ADMIT Internal Medicine; ATTEND Internal Medicine
DX: N18.6 End stage renal disease (principal); I50.9 Heart failure, unspecified; E87.5 Hyperkalemia; E87.70 Fluid overload, unspecified; R11.2 Nausea with vomiting, unspecified; R19.7 Diarrhea, unspecified; Z86.79 Personal history of other diseases of the circulatory system; Z87.19 Personal history of other diseases of the digestive system; R10.9 Unspecified abdominal pain; F17.200 Nicotine dependence, unspecified, uncomplicated; Z53.20 Procedure and treatment not carried out because of patient's decision for unspecified reasons
CPT/HCPCS: 36415; 71046; 74176; 80048; 80053; 81003; 81015; 82150; 82272; 83605; 83630; 83690; 84484; 85025; 86140; 87045; 87046; 87077; 87493; 87641; 87899; 93005; 96374; 96375; 99283; A9270-GY; G0378; J0360; J0610; J0885; J1644; J1940; J2270

== ENCOUNTER 2018-09-11 06:42 | Emergency (ER) | payer MEDICARE, MEDICAID ==
[2018-09-11] MEDS ORDERED: NS 0.9% 1000 ML* 1,000 ML IV ONE (07:00)
[2018-09-11] MEDS ORDERED: LORazepam INJ* 2 MG/ML 1 ML VIAL IV PUSH ONE (07:01)
[2018-09-11 07:42] LABS: ABS Basophils 0.1 10^3/ul (0-0.2); ABS Eosinophils 0.2 10^3/ul (0-0.6); ABS Monocytes 0.5 10^3/ul (0-0.8); ABS Neutrophils 3.1 10^3/ul (1.5-7.7); ABS Nucleated RBC 0 10^3/ul; Eosinophil % 5.1 % (0-6); Hematocrit 43 % (42-52); Hemoglobin 13.8 g/dl (14.0-18.0); Lymphocyte % 20.2 % (25-47); Mean Corpuscular HGB Conc 33 g/dl (31-36); Mean Corpuscular Hemoglobin 28 pg (27-31); Mean Corpuscular Volume 86 fL (80-94); Mean Platelet Volume 8.8 fL (7.4-10.4); Nucleated Red Blood Cells % 0; Platelet Count 171 10^3/ul (150-450); Red Blood Count 4.97 10^6/ul (4.00-5.40); Red Cell Distribution Width 15 % (10.5-15); White Blood Count 4.8 10^3/ul (3.5-10.8)
[2018-09-11 07:48] LABS: INR 1.04 (0.77-1.02)
[2018-09-11 08:02] LABS: EGFR Non-African American 45.1 (>60)
--- NOTE | 2018-09-11 08:05 | ED ---
Headache - HPI Summary HPI Summary: Patient is a 53yo M smoker with history of CKD, recent R renal transplant 6 months ago and hypertension presenting to the ED with CC of HIG[place] and intermittent blurry vision since . Endorses feeling weak and falling on (4 days ago), hitting his head and subsequently having H[place] and blurred vision since that time. Denied LOC or memory loss. H[place] is diffuse and described as a pressure. Denies hx of concussions. States he has felt "off" since his fall. Denies any other injuries associated with the fall. Continues to endorse weakness today as well as intermittent chest pain, SOB, R sided flank pain. Denies L sided flank pain, abdominal pain, constipation, diarrhea, N/V, fatigue. Continues to smoke, although patient states he had quit and only smokes occasionally. Denies drugs or alcohol use. Continues all medications as prescribed including his anti-rejection medications. Denies complications from the renal tx 6 mos ago. Denies blood thinners or bleeding d/o. HIGGINBOTHAM is not worst of life and not acute onset. - History Of Current Complaint Chief Complaint: EDHeadache Stated Complaint: HEADACHE Time Seen by Provider: 09/11/18 06:48 Hx Obtained From: Patient Onset/Duration: Gradual Onset Initially Headache Was: Initial Pain Scale(0-10)= - 8 Timing: Constant Character: Pressure Location of Headache: Diffuse Aggravating Factor: Nothing Allevating Factors: Nothing Associated Signs And Symptoms: Negative - Risk Factors SAH Risk Factors: -Greek - and ESRD, Smoking, Hypertension Meningitis Risk Factors: Immune Deficiency SDH Risk Factors: Male Temporal Arteritis Risk Factors: Negative - Allergies/Home Medications Allergies/Adverse Reactions: Allergies Allergy/AdvReac Type Severity Reaction Status Date / Time lisinopril Allergy Anaphylatic Verified 09/11/18 07:30 Shock Penicillins Allergy Anaphylatic Verified 09/11/18 07:30 Shock shellfish derived Allergy Anaphylatic Verified 09/11/18 07:30 Shock PMH/Surg Hx/FS Hx/Imm Hx Previously Healthy: No - immunocompromised Endocrine/Hematology History: Reports: Hx Diabetes - no meds, Hx Anemia Denies: Hx Anticoagulant Therapy, Hx Thyroid Disease Cardiovascular History: Reports: Hx Congestive Heart Failure, Hx Hypertension - uncontrolled Denies: Hx Pacemaker/ICD, Other Cardiovascular Problems/Disorders Respiratory History: Reports: Hx Sleep Apnea Denies: Hx Asthma, Hx Chronic Obstructive Pulmonary Disease (COPD), Other Respiratory Problems/Disorders GI History: Reports: Hx Gastroesophageal Reflux Disease Denies: Hx Ulcer, Other GI Disorders History: Reports: Hx Chronic Renal Failure, Hx Dialysis, Hx Renal Disease Denies: Hx Kidney Infection, Hx Kidney Stones - STAGE 5 ON HEMODIALYSIS Musculoskeletal History: Reports: Hx Back Problems, Other Musculoskeletal History - S/P SPINAL FUSION Sensory History: Reports: Hx Contacts or Glasses - glasses Denies: Hx Hearing Aid Opthamlomology History: Reports: Hx Contacts or Glasses - glasses Neurological History: Denies: Hx Dementia, Hx Headaches, Hx Seizures, Other Neuro Impairments/ Disorders Psychiatric History: Denies: Hx Depression, Hx Substance Abuse - Surgical History Surgery Procedure, Year, and Place: 2001 hernia REPAIR [facility]. 2002 cervical spine surgery, [facility]. 1994 RT wrist surgery. 2009 HERNIA REPAIR. 2014 LEFT ELBOW SURGERY. 2014 LUE FISTULA PLACED Hx Anesthesia Reactions: No - Immunization History Date of Tetanus Vaccine: unknown Date of Influenza Vaccine: no Hx Pertussis Vaccination: Yes Immunizations Up to Date: Yes Infectious Disease History: No Infectious Disease History: Denies: Hx Clostridium Difficile, Hx Hepatitis, Hx Human Immunodeficiency Virus (HIV), Hx of Known/Suspected MRSA, Hx Shingles, Hx Tuberculosis, Hx Known/ Suspected VRE, Hx Known/Suspected VRSA, History Other Infectious Disease, Traveled Outside the [place] in Last 30 Days - Family History Known Family History: Positive: Hypertension, Diabetes Negative: Cardiac Disease, Renal Disease - Social History Occupation: Employed Full-time Lives: Alone Alcohol Use: None Hx Substance Use: No Substance Use Type: Reports: None Hx Tobacco Use: Yes Smoking Status (MU): Current Every Day Smoker Type: Cigarettes Amount Used/How Often: 1/2 PPD X 20 YEARS Length of Time of Smoking/Using Tobacco: 35 YEARS Have You Smoked in the Last Year: Yes Review of Systems Negative: Fever, Chills, Fatigue, Skin Diaphoresis Positive: Blurred Vision. Negative: Diplopia, Drainage, Erythema Positive: Chest Pain. Negative: Palpitations Positive: Shortness Of Breath. Negative: Cough Negative: Abdominal Pain, Vomiting, Diarrhea, Nausea Genitourinary: Other - R flank pain Positive: flank pain. Negative: burning, dysuria, discharge, frequency Negative: Arthralgia, Myalgia Negative: Rash, Bruising Positive: Headache, Weakness. Negative: Paresthesia, Numbness, Syncope Psychological: Normal All Other Systems Reviewed And Are Negative: Yes Physical Exam Triage Information Reviewed: Yes Vital Signs On Initial Exam: Initial Vitals Temp Pulse Resp BP Pulse Ox 99.1 F 97 20 162/97 98 09/11/18 06:43 09/11/18 06:43 09/11/18 06:43 09/11/18 06:43 09/11/18 06:43 Vital Signs Reviewed: Yes Appearance: Positive: Ill-Appearing Skin: Positive: Skin Color Reflects Adequate Perfusion Head/Face: Positive: Normal Head/Face Inspection Eyes: Positive: EOMI, BARRY, Conjunctiva Clear Neck: Positive: Supple, No Lymphadenopathy Respiratory/Lung Sounds: Positive: Clear to Auscultation, Breath Sounds Present Cardiovascular: Positive: RRR, Pulses are Symmetrical in both Upper and Lower Extremities Diagnostics - Vital Signs Vital Signs Temp Pulse Resp BP Pulse Ox 09/11/18 07:23 16 09/11/18 06:43 99.1 F 97 20 162/97 98 - Laboratory Lab Results: Lab Results 09/11/18 09/11/18 09/11/18 Range/Units 07:23 07:23 07:23 WBC 4.8 (3.5-10.8) 10^3/ul RBC 4.97 (4.00-5.40) 10^6/ul Hgb 13.8 L (14.0-18.0) g/dl Hct 43 (42-52) % MCV 86 (80-94) fL MCH 28 (27-31) pg MCHC 33 (31-36) g/dl RDW 15 (10.5-15) % Plt Count 171 (150-450) 10^3/ul MPV 8.8 (7.4-10.4) fL Neut % (Auto) 63.9 (38-83) % Lymph % (Auto) 20.2 L (25-47) % [place] % (Auto) 9.7 H (0-7) % Eos % (Auto) 5.1 (0-6) % Baso % (Auto) 1.1 (0-2) % Absolute Neuts (auto) 3.1 (1.5-7.7) 10^3/ul Absolute Lymphs (auto) 1.0 (1.0-4.8) 10^3/ul Absolute Monos (auto) 0.5 (0-0.8) 10^3/ul Absolute Eos (auto) 0.2 (0-0.6) 10^3/ul Absolute Basos (auto) 0.1 (0-0.2) 10^3/ul Absolute Nucleated RBC 0 10^3/ul Nucleated RBC % 0 INR (Anticoag Therapy) 1.04 H (0.77-1.02) Lactic Acid 0.5 (0.5-2.0) mmol/L Result Diagrams: 09/11/18 07:23 09/11/18 08:19 Lab Statement: Any lab studies that have been ordered have been reviewed, and results considered in the medical decision making process. - CT No standard instances CT Interpretation Completed By: Radiologist - IMPRESSION: 1. The right lower quadrant transplant kidney does not exhibit any definite acute abnormalities within the limitations of a noncontrast CT examination. There is no hydronephrosis or large stones. The [place] kidneys are atrophic. 2. The otherwise normal-appearing gallbladder is top normal in dimension measuring 4.8 cm and diameter. The patient is exhibiting any symptoms in the right upper quadrant superior characterization of the gallbladder can be obtained with ultrasound. 3. Additional chronic and degenerative changes described in the body the report unlikely to be directly related to the patient's current clinical presentation. Headache Course/Dx - Course Course Of Treatment: Patient high risk for SAH, although H[place] is not worst of life or acute onset. Most likely [place], blurred vision associated with fall and head injury. CT brain obtained: small vessel changes. Ct abd/pelvis (see above), shows no acute changes. CXR WNL. All labs WNL. Patient states his headache is currently a 2/10. He will be discharged with headache and blurry vision. He is to follow up with Dr. James in 2-3 days. - Diagnoses Provider Diagnoses: Headache, Blurry vision Discharge - Sign-Out/Discharge Documenting (check all that apply): Patient Departure - Discharge Plan Condition: Stable Disposition: HOME Patient Education Materials: Acute Headache (ED) Forms: *Work Release Referrals: Jacob Deng MD [Primary Care Provider] - Jacob James MD [Medical Doctor] - Additional Instructions: Please follow-up with Dr. James regarding your blurry vision Please return to the ED if any symptoms worsen or change Take the next 2 days off from work Rest as much as possible including brain rest as discussed Continue with all medications at home as prescribed - Billing Disposition and Condition Condition: STABLE Disposition: Home
[2018-09-11 09:47] VITALS: BP 129/92
== END 2018-09-11 09:47 | disposition home or self-care (01) ==
LOC: ED 06:42
DX: R51 Headache (principal); H53.8 Other visual disturbances; F17.210 Nicotine dependence, cigarettes, uncomplicated; I50.9 Heart failure, unspecified; I10 Essential (primary) hypertension; E11.9 Type 2 diabetes mellitus without complications; Z94.0 Kidney transplant status; K21.9 Gastro-esophageal reflux disease without esophagitis
CPT/HCPCS: 36415; 70450; 71046; 74176; 80053; 82550; 83605; 83690; 83735; 83880; 84484; 85025; 85610; 86140; 93005; 99283; J2060

== ENCOUNTER 2018-10-05 07:24 | Emergency (ER) | payer MEDICARE, MEDICAID ==
[2018-10-05] MEDS ORDERED: Ondansetron INJ* 2 MG/ML VIAL IV ONE (08:06)
[2018-10-05] MEDS ORDERED: NS 0.9% 1000 ML* 1,000 ML IV ONE (08:06)
[2018-10-05] MEDS ORDERED: Morphine VIAL* 4 MG/ML VIAL (1 ml vial) IV ONE (08:10)
[2018-10-05 08:31] LABS: ABS Basophils 0.1 10^3/ul (0-0.2); ABS Eosinophils 0.2 10^3/ul (0-0.6); ABS Lymphocytes 0.5 10^3/ul (1.0-4.8); ABS Monocytes 0.4 10^3/ul (0-0.8); ABS Neutrophils 3.1 10^3/ul (1.5-7.7); ABS Nucleated RBC 0 10^3/ul; Eosinophil % 4.9 %; Hematocrit 39 % (42-52); Hemoglobin 12.8 g/dl (14.0-18.0); Lymphocyte % 11.8 %; Mean Corpuscular HGB Conc 32 g/dl (31-36); Mean Corpuscular Hemoglobin 28 pg (27-31); Mean Corpuscular Volume 85 fL (80-94); Mean Platelet Volume 8.3 fL (7.4-10.4); Nucleated Red Blood Cells % 0.1; Platelet Count 166 10^3/ul (150-450); Red Blood Count 4.65 10^6/ul (4.00-5.40); Red Cell Distribution Width 16 % (10.5-15); White Blood Count 4.3 10^3/ul (3.5-10.8)
--- NOTE | 2018-10-05 08:37 | ED ---
Complex/Multi-Sys Presentation - HPI Summary HPI Summary: This patient is a 53 year old M presenting to [facility] with a chief complaint of general malaise that began 2 days ago. Pt reports receiving a kidney transplant in February at [facility] from Dr. Velez and thinks there may be something wrong with it. Patient reports lightheadedness, weakness, foamy urine, chills, nausea, and RUE pain. The patient rates the pain 8/10 in severity. Symptoms aggravated by movement of the RUE. Patient denies fever, vomiting, ABD pain, CP, SOB, hx of [place], cough, and myalgia. He states he had kidney failure due to chronic HTN and he was instructed to avoid IV contrast. He is on an immunosuppressant. He reports heavy lifting for work recently. Pt still has appendix. - History Of Current Complaint Chief Complaint: EDGeneral Time Seen by Provider: 10/05/18 07:28 Hx Obtained From: Patient Onset/Duration: Still Present Timing: Constant Severity Currently: Mild Severity Initially: Mild Associated Signs And Symptoms: Positive: Other - lightheadedness, weakness, foamy urine, chills, nausea, and RUE pain - Allergies/Home Medications Allergies/Adverse Reactions: Allergies Allergy/AdvReac Type Severity Reaction Status Date / Time bee venom protein (honey bee) Allergy Anaphylatic Verified 10/05/18 07:41 Shock lisinopril Allergy Anaphylatic Verified 10/05/18 07:29 Shock Penicillins Allergy Anaphylatic Verified 10/05/18 07:29 Shock shellfish derived Allergy Anaphylatic Verified 10/05/18 07:29 Shock Home Medications: Home Medications Mycophenolate Mofetil CAP(*) [Cellcept CAP(*)] 1,000 mg PO BID 10/05/18 [ History Confirmed 10/05/18] Tacrolimus 5 mg PO BID 10/05/18 [History Confirmed 10/05/18] PMH/Surg Hx/FS Hx/Imm Hx Endocrine/Hematology History: Reports: Hx Diabetes - no meds, Hx Anemia Denies: Hx Anticoagulant Therapy, Hx Thyroid Disease Cardiovascular History: Reports: Hx Congestive Heart Failure, Hx Hypertension - uncontrolled Denies: Hx Pacemaker/ICD, Other Cardiovascular Problems/Disorders Respiratory History: Reports: Hx Sleep Apnea Denies: Hx Asthma, Hx Chronic Obstructive Pulmonary Disease (COPD), Other Respiratory Problems/Disorders GI History: Reports: Hx Gastroesophageal Reflux Disease Denies: Hx Ulcer, Other GI Disorders History: Reports: Hx Chronic Renal Failure, Hx Dialysis, Hx Renal Disease Denies: Hx Kidney Infection, Hx Kidney Stones - STAGE 5 ON HEMODIALYSIS Musculoskeletal History: Reports: Hx Back Problems, Other Musculoskeletal History - S/P SPINAL FUSION Sensory History: Reports: Hx Contacts or Glasses - glasses Denies: Hx Hearing Aid Opthamlomology History: Reports: Hx Contacts or Glasses - glasses Neurological History: Denies: Hx Dementia, Hx Headaches, Hx Seizures, Other Neuro Impairments/ Disorders Psychiatric History: Denies: Hx Depression, Hx Substance Abuse - Surgical History Surgery Procedure, Year, and Place: 2001 hernia REPAIR [facility]. 2002 cervical spine surgery, [facility] [place]. 1994 RT wrist surgery. 2009 HERNIA REPAIR. 2014 LEFT ELBOW SURGERY. 2014 LUE FISTULA PLACED Hx Anesthesia Reactions: No - Immunization History Date of Tetanus Vaccine: unknown Date of Influenza Vaccine: no Infectious Disease History: No Infectious Disease History: Denies: Hx Clostridium Difficile, Hx Hepatitis, Hx Human Immunodeficiency Virus (HIV), Hx of Known/Suspected MRSA, Hx Shingles, Hx Tuberculosis, Hx Known/ Suspected VRE, Hx Known/Suspected VRSA, History Other Infectious Disease, Traveled Outside the [place] in Last 30 Days - Family History Known Family History: Positive: Hypertension, Diabetes Negative: Cardiac Disease, Renal Disease - Social History Alcohol Use: None Hx Substance Use: No Substance Use Type: Reports: None Hx Tobacco Use: Yes Smoking Status (MU): Former Smoker Type: Cigarettes Amount Used/How Often: 1/2 PPD X 20 YEARS Length of Time of Smoking/Using Tobacco: 35 YEARS Have You Smoked in the Last Year: Yes Review of Systems Positive: Chills, Other - general malaise . Negative: Fever Negative: Chest Pain Negative: Shortness Of Breath, Cough Positive: Abdominal Pain - denied but was TTP , Nausea. Negative: Vomiting Genitourinary: Other - "foamy urine" Musculoskeletal: Other - RUE pain Negative: Myalgia Neurological: Other - light headedness Positive: Weakness All Other Systems Reviewed And Are Negative: Yes Physical Exam - Summary Physical Exam Summary: GENERAL: Patient is a well-developed and nourished M who is lying comfortable in the stretcher. Patient is not in any acute respiratory distress. HEAD AND FACE: Normocephalic EYES: PERRLA, EOMI x 2. EARS: Hearing grossly intact. MOUTH: Oropharynx within normal limits. NECK: Supple, TTP at the C spine and right shoulder area. It is worse with elevation of the shoulder. He is neurovascularly intact CHEST: Symmetric, no tenderness at palpation LUNGS: Clear to auscultation bilaterally. No wheezing or crackles. CVS: Regular rate and rhythm, S1 and S2 present, no murmurs or gallops appreciated. ABDOMEN: Soft, TTP on the right side , worse in the RLQ. Bowel sounds are normal. No abdominal abnormal pulsations. EXTREMITIES: Full ROM in all major joints, no edema, no cyanosis or clubbing. NEURO: Alert and oriented x 3. No acute neurological deficits. Speech is normal and follows commands. SKIN: Dry and warm Triage Information Reviewed: Yes Vital Signs On Initial Exam: Initial Vitals Temp Pulse Resp BP Pulse Ox 96.9 F 81 19 151/85 99 10/05/18 07:26 10/05/18 07:26 10/05/18 07:26 10/05/18 07:26 10/05/18 07:26 Vital Signs Reviewed: Yes Diagnostics - Vital Signs Vital Signs Temp Pulse Resp BP Pulse Ox 10/05/18 08:21 18 10/05/18 07:26 96.9 F 81 19 151/85 99 - Laboratory Lab Results: Lab Results 10/05/18 Range/Units 08:21 WBC 4.3 (3.5-10.8) 10^3/ul RBC 4.65 (4.00-5.40) 10^6/ul Hgb 12.8 L (14.0-18.0) g/dl Hct 39 L (42-52) % MCV 85 (80-94) fL MCH 28 (27-31) pg MCHC 32 (31-36) g/dl RDW 16 H (10.5-15) % Plt Count 166 (150-450) 10^3/ul MPV 8.3 (7.4-10.4) fL Neut % (Auto) 71.2 % Lymph % (Auto) 11.8 % [place] % (Auto) 9.8 % Eos % (Auto) 4.9 % Baso % (Auto) 2.3 % Absolute Neuts (auto) 3.1 (1.5-7.7) 10^3/ul Absolute Lymphs (auto) 0.5 L (1.0-4.8) 10^3/ul Absolute Monos (auto) 0.4 (0-0.8) 10^3/ul Absolute Eos (auto) 0.2 (0-0.6) 10^3/ul Absolute Basos (auto) 0.1 (0-0.2) 10^3/ul Absolute Nucleated RBC 0 10^3/ul Nucleated RBC % 0.1 Result Diagrams: 10/05/18 08:21 10/05/18 08:21 Lab Statement: Any lab studies that have been ordered have been reviewed, and results considered in the medical decision making process. - Radiology CXR Radiology Interpretation Completed By: Radiologist Summary of Radiographic Findings: NO ACTIVE CARDIOPULMONARY DISEASE. ED physician has reviewed this radiology report. - CT CT ABD/Pelvis CT Interpretation Completed By: Radiologist Summary of CT Findings: , Enlarged right lower quadrant transplanted kidney. This appears similar to. that seen on September 11, 2018. No other abnormal masses or fluid collections. Atrophic. kidneys are noted bilaterally. ED physician has reviewed this radiology report CT Cspine CT Interpretation Completed By: Radiologist Summary of CT Findings: DEGENERATIVE DISC DISEASE AND OSTEOARTHRITIS. ED physician has reviewed this radiology report. - EKG 0834 Cardiac Rate: NL EKG Rhythm: Sinus Rhythm - at 64 BPM Summary of EKG Findings: normal axis Re-Evaluation - Re-Evaluation First Eval Re-Evaluation Time: 10:43 Change: Unchanged Comment: Pt states he needs anxiety medication in order to sit in the CT machine , as he is claustrophobic. Complex Multi-Symp Course/Dx Assessment/Plan: This patient is a 53 year old M presenting to [facility] with a chief complaint of general malaise that began 2 days ago. Pt reports receiving a kidney transplant in February at [facility] from Dr. Velez and thinks there may be something wrong with it. An EKG reveals 64 BMP NSR, nml axis, 0834. CXR reveals, per radiologist, NO ACTIVE CARDIOPULMONARY DISEASE. CT ABD/Pelvis, reveals, per radiology, Enlarged right lower quadrant transplanted kidney. This appears similar to. that seen on September 11, 2018. No other abnormal masses or fluid collections. Atrophic. kidneys are noted bilaterally. CT C spine reveals, per radiology, DEGENERATIVE DISC DISEASE AND OSTEOARTHRITIS. ED physician has reviewed this radiology report. I informed the patient his immunosuppressant medication levels needed to be sent out and he will be called with the results. Test results with no significant abnormalities. UA obtained. Pt was negative for influenza A and B. Creatinine is 1.77 and is similar to a result from September 11 which was 1.60. There was no protein in his urine. In the ED course the patient was given Ativan, Zofran, and IV fluids. We discussed patient care with Dr Velez and they recommended the patient f/u with him tmrw. He is also requesting a copy of the CT. Spoke with doctor at . Disc with CT sent to Dr. Velez. Patient will be discharged and follow up from Dr. Velez. He was given strict return precautions. The patient is agreeable with this plan. - Diagnoses Provider Diagnoses: Abdominal pain - Physician Notifications Discussed Care Of Patient With: Emily Velez Time Discussed With Above Provider: 11:56 Instructed by Provider To: Other - We discussed patient care with Dr Velez and they recommended the patient f/u with him. He is also requesting a copy of the CT. Spoke with doctor at [phone]. Discharge - Sign-Out/Discharge Documenting (check all that apply): Patient Departure - Discharge Plan Condition: Stable Disposition: HOME Patient Education Materials: Abdominal Pain (ED) Forms: *Work Release Referrals: Jacob Deng MD [Primary Care Provider] - Emily Velez MD [Medical Doctor] - Additional Instructions: Please follow up with Dr. Velez tomorrow in his office. Follow up with your primary care physician in 1-3 days. RETURN TO THE EMERGENCY DEPARTMENT FOR CHANGING OR WORSENING SYMPTOMS. - Billing Disposition and Condition Condition: STABLE Disposition: Home - Attestation Statements Document Initiated by Duy: Yes Documenting Scribe: Gokul Caicedo Provider For Whom Duy is Documenting (Include Credential): Brandon David MD Scribe Attestation: Gokul Arreguin scribed for Brandon David MD on 10/05/18 at 1531. Scribe Documentation Reviewed: Yes Provider Attestation: The documentation as recorded by the Gokul mota accurately reflects the service I personally performed and the decisions made by me, Brandon David MD Status of Scribe Document: Viewed
[2018-10-05 08:46] LABS: EGFR Non-African American 40.1 (>60)
[2018-10-05 09:24] LABS: Urine Appearance Clear; Urine Blood Negative (Negative); Urine Color Yellow; Urine Ketones Negative (Negative); Urine Protein Negative (Negative); Urine Specific Gravity 1.014 (1.010-1.030); Urine Urobilinogen Negative (Negative)
[2018-10-05] MEDS ORDERED: LORazepam INJ* 2 MG/ML 1 ML VIAL IV PUSH ONE (10:33)
[2018-10-05] MEDS ORDERED: LORazepam INJ* 2 MG/ML 1 ML VIAL ONE (10:36)
[2018-10-05 12:19] VITALS: BP 132/100
== END 2018-10-05 12:14 | disposition home or self-care (01) ==
LOC: ED 07:24
DX: R10.31 Right lower quadrant pain (principal); Z87.891 Personal history of nicotine dependence; E11.8 Type 2 diabetes mellitus with unspecified complications; D64.9 Anemia, unspecified; I50.9 Heart failure, unspecified; I10 Essential (primary) hypertension; K21.9 Gastro-esophageal reflux disease without esophagitis; M50.30 Other cervical disc degeneration, unspecified cervical region; Z94.0 Kidney transplant status
CPT/HCPCS: 36415; 71046; 72125; 74176; 80053; 80197; 80349; 81003; 83605; 83690; 83735; 83880; 84484; 85025; 85610; 85730; 86140; 87040; 93005; 96361; 96374; 96375; 99283; G0480; J2060; J2270; J2405

== ENCOUNTER 2019-06-07 12:45 | Emergency (ER) | payer MEDICARE, MEDICAID ==
--- NOTE | 2019-06-07 14:02 | ED ---
Complex/Multi-Sys Presentation - HPI Summary HPI Summary: The patient is a 54 y/o M presenting to [facility] accompanied by sister with a chief complaint of generalized weakness and edema worsening over the past week. He reports that he has felt weak to the point where he has difficulty standing occasionally. The edema is present in his feet and thighs, although the swelling is not at its worst right now. He additionally c/o nausea, and cramping in the hands and legs. He denies any diaphoresis, changes in urination , fever, chills, erythema of eyes, sore throat, CP, SOB, cough, abdominal pain, vomiting, diarrhea, dysuria, hematuria, myalgia, rash, or dizziness. He states that he had a kidney transplant a year ago, and has been taking his Mycophenolate, but he is concerned for organ rejection. He has not been back to [facility], where his surgery was performed, but he has seen Dr. Spivey, who last reported that the patient's kidney was not in failure, which is consistent with taking the medications, and he had been on dialysis. He is not currently in any pain. He has been able to go to work this past week. Hx of DM, anemia, CHF, HTN , GERD, chronic renal failure, dialysis. Former smoker, no EtOH, no substance use. - History Of Current Complaint Chief Complaint: EDDizziness Time Seen by Provider: 06/07/19 13:19 Hx Obtained From: Patient Onset/Duration: Gradual Onset, Lasting Days, Still Present Timing: Days Severity Currently: Moderate Severity Initially: Mild Aggravating Factor(s): nothing Alleviating Factor(s): nothing Associated Signs And Symptoms: Positive: Weakness - generalized, Edema - bilateral feet and thighs, Nausea, Other - NEGATIVE: chills, erythema of eyes, sore throat, hematuria, myalgia, rash. Negative: Dizziness, SOB, Cough, Chest Pain, Vomiting, Diarrhea, Abdominal Pain, Dysuria, Fever - Allergies/Home Medications Allergies/Adverse Reactions: Allergies Allergy/AdvReac Type Severity Reaction Status Date / Time bee venom protein (honey bee) Allergy Anaphylatic Verified 06/07/19 13:36 Shock lisinopril Allergy Anaphylatic Verified 06/07/19 13:36 Shock Penicillins Allergy Anaphylatic Verified 06/07/19 13:36 Shock shellfish derived Allergy Anaphylatic Verified 06/07/19 13:36 Shock Home Medications: Home Medications Mycophenolate (NF) 1,000 mg PO BID 06/07/19 [History Confirmed 06/07/19] Sodium Bicarbonate 30 mg PO BID 06/07/19 [History Confirmed 06/07/19] predniSONE 5 mg PO DAILY 06/07/19 [History Confirmed 06/07/19] PMH/Surg Hx/FS Hx/Imm Hx Endocrine/Hematology History: Reports: Hx Diabetes - no meds, Hx Anemia Denies: Hx Anticoagulant Therapy, Hx Thyroid Disease Cardiovascular History: Reports: Hx Congestive Heart Failure, Hx Hypertension - uncontrolled Denies: Hx Pacemaker/ICD, Other Cardiovascular Problems/Disorders Respiratory History: Reports: Hx Sleep Apnea Denies: Hx Asthma, Hx Chronic Obstructive Pulmonary Disease (COPD), Other Respiratory Problems/Disorders GI History: Reports: Hx Gastroesophageal Reflux Disease Denies: Hx Ulcer, Other GI Disorders History: Reports: Hx Chronic Renal Failure, Hx Dialysis, Hx Renal Disease Denies: Hx Kidney Infection, Hx Kidney Stones - STAGE 5 ON HEMODIALYSIS Musculoskeletal History: Reports: Hx Back Problems, Other Musculoskeletal History - S/P SPINAL FUSION Sensory History: Reports: Hx Contacts or Glasses - glasses Denies: Hx Hearing Aid Opthamlomology History: Reports: Hx Contacts or Glasses - glasses Neurological History: Denies: Hx Dementia, Hx Headaches, Hx Seizures, Other Neuro Impairments/ Disorders Psychiatric History: Denies: Hx Depression, Hx Substance Abuse - Surgical History Surgery Procedure, Year, and Place: 2001 hernia REPAIR [facility]. 2002 cervical spine surgery, [facility] [place]. 1994 RT wrist surgery. 2009 HERNIA REPAIR. 2014 LEFT ELBOW SURGERY. 2014 LUE FISTULA PLACED Hx Anesthesia Reactions: No - Immunization History Date of Tetanus Vaccine: unknown Date of Influenza Vaccine: no Infectious Disease History: No Infectious Disease History: Denies: Hx Clostridium Difficile, Hx Hepatitis, Hx Human Immunodeficiency Virus (HIV), Hx of Known/Suspected MRSA, Hx Shingles, Hx Tuberculosis, Hx Known/ Suspected VRE, Hx Known/Suspected VRSA, History Other Infectious Disease, Traveled Outside the [place] in Last 30 Days - Family History Known Family History: Positive: Hypertension, Diabetes Negative: Cardiac Disease, Renal Disease - Social History Alcohol Use: None Hx Substance Use: No Substance Use Type: Reports: None Hx Tobacco Use: Yes Smoking Status (MU): Former Smoker Type: Cigarettes Amount Used/How Often: 1/2 PPD X 20 YEARS Length of Time of Smoking/Using Tobacco: 35 YEARS Have You Smoked in the Last Year: Yes Review of Systems Negative: Fever, Chills, Skin Diaphoresis Negative: Erythema Negative: Sore Throat Negative: Chest Pain Negative: Cough Positive: Nausea. Negative: Abdominal Pain, Vomiting, Diarrhea Positive: other - NEGATIVE: changes in urination. Negative: dysuria, hematuria Positive: Edema - bilateral feet, thighs, Other - cramping in hands and legs. Negative: Myalgia Negative: Rash Neurological: Other - NEGATIVE: dizziness Positive: Weakness - generalized All Other Systems Reviewed And Are Negative: Yes Physical Exam - Summary Physical Exam Summary: Constitutional: Well-developed, Well-nourished, Alert. (-) Distressed Skin: Warm, Dry HENT: Normocephalic; Atraumatic Eyes: Conjunctiva normal Neck: Musculoskeletal ROM normal neck. (-) JVD, (-) Stridor, (-) Tracheal deviation Cardio: Rhythm regular, rate normal, Heart sounds normal; Intact distal pulses; The pedal pulses are 2+ and symmetric. Radial pulses are 2+ and symmetric. (-) Murmur Pulmonary/Chest wall: Effort normal. (-) Respiratory distress, (-) Wheezes, (-) Rales Abd: Soft, (-) tenderness, (-) Distension, (-) Guarding, (-) Rebound Musculoskeletal: (-) Edema Lymph: (-) Cervical adenopathy Neuro: Alert, Oriented x3 Psych: Mood and affect Normal Triage Information Reviewed: Yes Vital Signs On Initial Exam: Initial Vitals Temp Pulse Resp BP Pulse Ox 98.9 F 65 16 157/95 97 06/07/19 12:47 06/07/19 12:47 06/07/19 12:47 06/07/19 12:47 06/07/19 12:47 Vital Signs Reviewed: Yes Diagnostics - Vital Signs Vital Signs Temp Pulse Resp BP Pulse Ox 06/07/19 12:47 98.9 F 65 16 157/95 97 - Laboratory Result Diagrams: 06/07/19 13:46 06/07/19 13:46 Lab Statement: Any lab studies that have been ordered have been reviewed, and results considered in the medical decision making process. - EKG 1322 Cardiac Rate: NL - 62 bpm EKG Rhythm: Sinus Rhythm Summary of EKG Findings: Peaked T waves. No STEMI. Complex Multi-Symp Course/Dx Course Of Treatment: Patient is a 54 y/o M with cc of generalized weakness, edema in the feet and thighs, cramping in the hands and legs, and nausea over the past week. Had kidney transplant a year ago at [facility] and reports taking medications. Has seen Dr. Spivey for dialysis. Upon physical exam, the patient exhibits no acute abnormalities. Blood work reveals RBCs of 2.89, Hgb of 7.8, Hct of 24, RDW of 17, plt count of 127, absolute lymphs of 0.2, potassium of 6.7 , chloride of 112, carbon dioxide of 16, BUN of 61, creatinine of 7.41, glucose of 110, calcium of 6.6, and BNP of >1300. UA reveals 2+ protein, 1+ blood, trace leukocyte esterase, 2+ WBCs, 2+ RBCs, presence of squamous epithelial cells, and 1+ glucose. EKG at 1322 reveals NSR at 62 bpm with peaked T waves. In the ED course, the patient was administered Calcium Gluconate, Albuterol, and Patiromer. I spoke with Dr. Ruffin concerning the patient's case; she will come see the patient in the ED. Dr. Spivey will come see the patient in the ED because patient wants to speak with him. In the ED at 1645, he recommends rechecking the patient's chemistry results at 2000; if it is 5.5 milliequivalent range, the patient can be discharged with follow up with Dr. Rees. If the potassium continues to be elevated, he will need to be discharged to [facility] for dialysis and transplant medical consultation. Dr. Spivey spoke with the patient concerning this plan, and if the patient refuses the plan if there is a need for transfer, then he will be considered leaving AMA. He discussed all the risks of leaving AMA, including disability, , and arrhythmia. There is some reference to medication noncompliance for the past two days. [facility] questioned whether he was medication compliant as well, but he denies this now. 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 CCT of 60 minutes. The patient is a sign-out from Dr. Alexis Irwin MD, to Dr. Asim Baez MD, at change of shift at 1900 on 06/07/2019, pending repeat chemistry labs at 2000 and disposition. - Diagnoses Provider Diagnoses: Acute renal failure, Kidney transplant rejection - Physician Notifications Discussed Care Of Patient With: Oliva Ruffin - nephrology Time Discussed With Above Provider: 15:30 Instructed by Provider To: Other - I spoke with Dr. Ruffin concerning the patient's case; she will come see the patient in the ED. Dr. Spivey will come see the patient in the ED because patient wants to speak with him. In the ED at 1645, he recommends to recheck the patient's potassium to determine disposition. - Critical Care Time Critical Care Time: 30-74 min - 60 minutes Discharge - Sign-Out/Discharge Documenting (check all that apply): Sign-Out Patient Signing out patient TO: Asim Baez - Patient is a sign-out to Dr. Asim Baez MD, at change of shift pending repeat chemistry labs at 2000 and disposition. Patient Received Moderate/Deep Sedation with Procedure: No - Discharge Plan Referrals: Oliva Ruffin MD [Medical Doctor] - Jacob Deng MD [Primary Care Provider] - - Attestation Statements Document Initiated by Scribe: Yes Documenting Scribe: Ana Cristina Dominguez Provider For Whom Scribe is Documenting (Include Credential): Dr. Alexis Irwin MD Scribe Attestation: I, lionel Mckeon for Dr. Alexis Irwin MD on 06/07/19 at 1958. Status of Scribe Document: Ready
[2019-06-07 14:07] LABS: ABS Eosinophils 0.1 10^3/ul (0-0.6); ABS Lymphocytes 0.2 10^3/ul (1.0-4.8); ABS Monocytes 0.2 10^3/ul (0-0.8); ABS Neutrophils 3.8 10^3/ul (1.5-7.7); Eosinophil % 1.4 %; Hematocrit 24 % (42-52); Hemoglobin 7.8 g/dL (14.0-18.0); Lymphocyte % 5.6 %; Mean Corpuscular HGB Conc 32 g/dL (31-36); Mean Corpuscular Hemoglobin 27 pg (27-31); Mean Corpuscular Volume 84 fL (80-94); Mean Platelet Volume 8.1 fL (7.4-10.4); Platelet Count 127 10^3/uL (150-450); Red Blood Count 2.89 10^6 /uL (4.18-5.48); Red Cell Distribution Width 17 % (10-15); White Blood Count 4.3 10^3/uL (3.5-10.8)
[2019-06-07 14:23] LABS: Troponin I 0.03 ng/mL (<0.04)
[2019-06-07 14:24] LABS: Calcium 6.6 mg/dL (8.6-10.3); Magnesium 2.1 mg/dL (1.9-2.7); Total Bilirubin 0.6 mg/dL (0.2-1.0)
[2019-06-07 14:28] LABS: Potassium 6.7 mmol/L (3.5-5.0)
[2019-06-07 14:30] LABS: Albumin/Globulin Ratio 1.3 (1-3); BUN/Creatinine Ratio 8.2 (8-20); EGFR African American 9.3 (>60); EGFR Non-African American 7.7 (>60); Globulin 3.2 g/dL (2-4); Total Protein 7.2 g/dL (6.4-8.9)
[2019-06-07 14:50] LABS: TSH (Thyroid Stimulating Horm) 1.48 mcIU/mL (0.34-5.60)
[2019-06-07 14:59] LABS: Urine Appearance Clear; Urine Bacteria Absent (Absent); Urine Bilirubin Negative (Negative); Urine Blood 1+ (Negative); Urine Color Yellow; Urine Glucose 1+(50 mg/dL) (Negative); Urine Ketones Negative (Negative); Urine Nitrite Negative (Negative); Urine Protein 2+(100 mg/dL) (Negative); Urine Red Blood Cell 2+(6-10/hpf) (Absent); Urine Specific Gravity 1.019 (1.010-1.030); Urine Squamous Epithelial Cell Present (Absent); Urine Urobilinogen Negative (Negative); Urine White Blood Cell 2+(11-20/hpf) (Absent)
[2019-06-07] MEDS ORDERED: Calcium Gluconate INJ* 2 GM in NS 0.9% 100 ML* 100 ML IVPB ONE (15:15)
[2019-06-07] MEDS ORDERED: Albuterol 2.5 MG/3 ML NEB.SOL* (0.083%) INH ONE ×2 (15:20→15:35)
[2019-06-07] MEDS ORDERED: Albuterol 0.5% CONC NEB.SOL* 5 MG/ML 20 ml BOT INH ONE (15:41)
[2019-06-07] MEDS ORDERED: Patiromer POWDER* 8.4 GM PAK PO SCH (17:00)
--- NOTE | 2019-06-07 17:17 | CONS ---
CONSULTATION NOTE: DATE OF CONSULT: 06/07/19 REQUESTING PHYSICIAN: Dr. Irwin. REASON FOR CONSULTATION: [id number] renal failure in the setting of renal transplant. HISTORY OF PRESENT ILLNESS: A 54-year-old male with history of kidney transplant in February 2018 at [facility] here in the ER for symptoms of nausea and lower extremity edema. The patient reports that he felt poorly over the last week and came in for further evaluation. The patient usually follows with Dr. Spivey and was last seen in the clinic in March 2019. In February, his creatinine was noted to be 2.97. Today, in the emergency room, the patient' s creatinine is noted to be 7.41. Also, noted to have a potassium of 6.7. His BNP is noted to be elevated over 1300. The patient takes mycophenolate, prednisone, and tacrolimus for antirejection regimen. He reports that he missed couple of doses of tacrolimus, but otherwise has been taking his medications. PAST MEDICAL HISTORY: As listed in the ER and have been reviewed. SURGICAL HISTORY: As listed in the ER and have been reviewed. MEDICATION LIST: As listed in the ER and have been reviewed. REVIEW OF SYSTEMS: As discussed above. All other review of systems noted to be negative. PHYSICAL EXAM: Vitals: Temperature 98.9, pulse 65, respirations 16, oxygen saturation 97% on room air, blood pressure 157/95. HEENT: NC/AT. Heart: S1, S2 present. Regular at the time of exam. Lungs: Clear to auscultation. Abdomen: Soft. Extremities: Noted to have minimal edema. Neuro: Alert and oriented. ASSESSMENT AND PLAN: 1. Acute kidney injury in renal transplant patient with questionable history of noncompliance. At this time, his kidney transplant is less than 2 years old and this patient may need a kidney biopsy and antirejection medications including the rejection protocol to salvage his kidney if it is indeed rejection. 2. Tacrolimus can also cause hyperkalemia. 3. The patient also may require dialysis in the short term till his transplanted kidney can be accurately assessed and we currently do not have dialysis capability at [facility]. The patient is noted to have metabolic acidosis, hyperkalemia, worsening renal failure with an elevated BNP level, and if he does not respond to medical management, may very well need dialysis in the next 24 hours till his transplanted kidney can be accurately evaluated. 4. This is also not a transplant center and we would not be able to evaluate his kidney accurately and follow the rejection protocol here. This was all explained to the patient and I recommended transfer to [facility], where he got his initial transplant, so this can be accurately assessed. 5. The patient and family are frustrated and upset that he may need dialysis, but on review of his medical records and condition, if he does not respond to treatment, may need short-term dialysis before his kidney can be evaluated further and see if it has any function left. 6. The patient and family do not want to talk to me as I have not had a long- term patient-doctor relationship with the patient and Dr. Spivey is very familiar with the patient. In light of this and the fact that the family also does not want him to go to [facility] as he is very upset with [facility] as [facility] had previously accused him of not taking his antirejection medications and the patient is adamant that he would not go to [facility]. Because of all this, I have contacted Dr. Spivey, who has a trusted relationship with the patient to explain the situation better to him and the patient wants to talk directly to Dr. Spivey. 7. I have discussed the case with Dr. Spivey and he agrees with the plan as I have recommended above, and further management per discussion between the patient and Dr. Spivey. [id number]/[facility] #: [id number] JOCY
[2019-06-07 18:39] LABS: Phosphorus 6.1 mg/dL (2.5-5.0)
--- NOTE | 2019-06-07 19:15 | ED ---
Progress - Progress Note Progress Note: This pt was a sign out from Dr. Irwin to Dr. Baez at shift change on 06/07/19 at 19:00 pending repeat labs at 20:00. EKG at 20:46 Rate: normal at 70 bpm Rhythm" normal sinus T waves are now WNL. Course/Dx - Course Course Of Treatment: Pt was signed out by Dr. Irwin pending repeat labs if potassium is greater than 5.5 patient will need to be transferred. Repeat labs show potassium of 5.8, carbon dioxide of 14, BUN of 64, creatinine of 7.64, calcium of 7. Discussed lab results with patient. He declines transfer and would like to sign out against medical advice. Patient signed the AMA form. Pt was instructed to follow up with Dr. Ruffin, neprhologist, tomorrow. - Diagnoses Provider Diagnoses: Acute renal failure, Kidney transplant rejection Discharge - Sign-Out/Discharge Documenting (check all that apply): Patient Departure - AMA, Receiving Sign-Out Receiving patient FROM: Alexis Irwin Patient Received Moderate/Deep Sedation with Procedure: No - Discharge Plan Condition: Fair Disposition: AGAINST MEDICAL ADVICE Patient Education Materials: Hyperkalemia (ED) Referrals: Oliva Ruffin MD [Medical Doctor] - 1 Day Jacob Deng MD [Primary Care Provider] - Additional Instructions: Avoid intake of any foods high in potassium. 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 - Billing Disposition and Condition Condition: FAIR Disposition: Against Medical Advice - Attestation Statements Document Initiated by Scribe: Yes Documenting Scribe: Ambar Stevenson Provider For Whom Duy is Documenting (Include Credential): Asim Baez MD Scribe Attestation: Ambar Arreguin, scribed for Asim Baez MD on 06/08/19 at 1922. Scribe Documentation Reviewed: Yes Provider Attestation: The documentation as recorded by the Ambar mota accurately reflects the service I personally performed and the decisions made by me, Asim Baez MD Status of Scribe Document: Viewed
[2019-06-07 20:25] LABS: BUN/Creatinine Ratio 8.4 (8-20); EGFR Non-African American 7.4 (>60)
[2019-06-07 20:28] LABS: Potassium 5.8 mmol/L (3.5-5.0)
[2019-06-07 21:37] VITALS: BP 176/102
--- NOTE | 2019-06-07 22:06 | PN ---
PROGRESS NOTE: DATE OF SERVICE: 06/07/19 Mr. Roman is a 54-year-old renal transplant patient of [facility], who I have known for a number of years now. He has been feeling weak, fatigued, and lethargic for the past few days. He had run out of nd s transplant medications and was off of them for 2 days. That sequence of events has been confirmed independently, in the patient's absence, by both his oihyky-vj-ayu and his brother. He has been havi ng some pedal edema in the last few days. He has been having no fever, no chills, no chest pain, no shortness of breath, no sore throat, no cough, no sputum production, no dysuria, frequency or urgency , and no gross hematuria. He came to the emergency room because of his generalized malaise and he wa s found to have a significantly elevated serum creatinine and an elevated potassium. There had been a recommendation to send him to [facility] for treatment of his hyperkalemia and the potential for initi ation of dialysis. He was exceptionally reluctant to follow that recommendation. Dr. Ruffin, my partner, got hold of me and asked me to come in to smooth things over with the patient. At the present time, he is actually feeling quite comfortable. His blood pressure is 188/113, with a pulse of 65, respirations are 21. There is no jugular venous distention. His mucous membranes are moist. His chest is clear. The heart revealed a regular rhythm without murmurs. The abdomen is sof t. He has a little tenderness over the superior pole of his transplant, in the right adnexa. There is no edema. A review of his laboratory values reveals a white count of 4.3, a hemoglobin of 7.8, and hematocrit o f 24. Platelets are 127,000. Sodium of 136, potassium 6.7, total CO2 of 16, chloride 112, BUN 61, c reatinine of 7.41, phosphorus is pending at this time, as is a CK. A urinalysis revealed 2+ protein, 1+ blood, 2+ rbc's, trace leukocyte esterase, and trace wbc's. His EKG revealed slight peaking of his T-waves in leads V4 and V5, but in none of the other leads and his QRS duration was not lengthened. His QT interval was a little prolonged. IMPRESSION: Acute renal insufficiency. I pointed out to the patient that it seemed to me that rate of rise of his creatinine, having missed 2 days of his transplant medication, was higher than I would have anticipated, as is the change in his hemoglobin and the change in his acid-base status. Kelvin callahan, his family confirmed that he only missed 2 days of his medications because he was out of them as jeff thomas has moved out of the house from his where his medication was and then his newlqg-cp-wiy had to go get his medication for him. I suggested that Dr. Ruffin's plan, which was to send him tonight , was the proper disposition; he is unwilling to do that. He has had some differences of opinion wit h some of the staff at [facility] in the past and he is very reluctant to go back there. I pointed out to him that there is valued continuity of care, but that I would be willing to send him to [facility] if absolutely necessary. He pointed out to me that he would be willing to go to [facility], but jeff thomas would be unwilling to see certain of the doctors there. He mentioned that he would not be willing to go to [facility] today even if the potassium did not come down. We came to, what I think is, a reaso nable middle-ground, which was that if his potassium was coming down after receiving Veltassa that he could be discharged to home with follow up by Dr. Ruffin in the office tomorrow where a decision could be made about referral back to [facility] for the initiation of dialysis. If his potassium was no t coming down, he was either going to [facility] or he would have to sign out against [facility]. He is willing to accept that middle-ground approach. I have discussed that with his nurse as w ell as Dr. Ruffin, as well as Dr. Irwin here in the emergency room. [id number]/[facility] #: [id number]
--- NOTE | 2019-06-08 16:36 | PN ---
PROGRESS NOTE: DATE: 06/08/19 SUBJECTIVE: Please note, the patient was not seen today. The patient signed out against medical adv ice from the ER yesterday. After trying to reach the patient multiple times, we were able to get hol d of the patient, and Dr. Spivey has advised him to go to [facility] and the patient is willing to go. We have also sent all the records from the ER to [facility] ER and I have spoken to the transplant atten ding and the transfer center at the [facility]. [id number]/[facility] #: [id number]
[2019-06-09 13:58] LABS: Mycophenolic Acid 1.9 mcg/mL (1.0 - 3.5)
== END 2019-06-07 21:38 | disposition left against medical advice (07) ==
LOC: ED 12:45
DX: N17.9 Acute kidney failure, unspecified (principal); T86.11 Kidney transplant rejection; E11.22 Type 2 diabetes mellitus with diabetic chronic kidney disease; I13.2 Hypertensive heart and chronic kidney disease with heart failure and with stage 5 chronic kidney disease, or end stage renal disease; N18.5 Chronic kidney disease, stage 5; I50.9 Heart failure, unspecified; D63.1 Anemia in chronic kidney disease; Z99.2 Dependence on renal dialysis; Z94.0 Kidney transplant status; K21.9 Gastro-esophageal reflux disease without esophagitis; Z87.891 Personal history of nicotine dependence; Z88.0 Allergy status to penicillin; Z88.8 Allergy status to other drugs, medicaments and biological substances; Z79.899 Other long term (current) drug therapy
CPT/HCPCS: 36415; 80048; 80053; 80349; 81003; 81015; 82550; 83605; 83735; 83880; 84100; 84443; 84484; 85025; 87086; 93005; 96365; 96366; 99285; A9270-GY; G0480; J0610; J7611

== ENCOUNTER 2019-07-21 09:27 | Inpatient (IN) | payer MEDICARE, MEDICAID ==
[2019-07-21 10:12] LABS: ABS Basophils 0.1 10^3/ul (0-0.2); ABS Lymphocytes 0.2 10^3/ul (1.0-4.8); ABS Monocytes 0.4 10^3/ul (0-0.8); ABS Neutrophils 8.5 10^3/ul (1.5-7.7); Hematocrit 21 % (42-52); Hemoglobin 6.7 g/dL (14.0-18.0); Lymphocyte % 2.7 %; Mean Corpuscular HGB Conc 33 g/dL (31-36); Mean Corpuscular Hemoglobin 28 pg (27-31); Mean Corpuscular Volume 85 fL (80-94); Mean Platelet Volume 7.4 fL (7.4-10.4); Platelet Count 166 10^3/uL (150-450); Red Blood Count 2.42 10^6 /uL (4.18-5.48); Red Cell Distribution Width 19 % (10-15); White Blood Count 9.2 10^3/uL (3.5-10.8)
--- NOTE | 2019-07-21 10:24 | ED ---
Complex/Multi-Sys Presentation - HPI Summary HPI Summary: This patient is a 54 year old M presenting to [facility] with a chief complaint of multiple health issues due to dialysis since earlier today at 0930, 07/21/19. CC described as body aches, sinus troubles, and [place]. Patient reports he would walk or stand for 10-15 minutes and his muscles would ache and swell. Last 07/14/19, he left dialysis with pain between his abdomen and back which lasted for 3 hours located above the butt around the flanks of his back. Patient had a failed kidney transplant and has been on dialysis for 1 month with a port in his chest. Patient reports he did not feel good at dialysis earlier today and yesterday and his doctor wanted him to come prompting his visit to ED. Symptoms aggravated by nothing. Symptoms alleviated by nothing. Patient reports chills, SOB occasionally (felt like phlegm yesterday but not today), swollen legs, nausea. - History Of Current Complaint Chief Complaint: EDHeadache Time Seen by Provider: 07/21/19 09:55 Hx Obtained From: Patient Onset/Duration: Lasting Hours Timing: Constant Aggravating Factor(s): nothing Alleviating Factor(s): nothing Associated Signs And Symptoms: Positive: Headache, SOB, Nausea, Other - body aches, sinus issues, muscle swellign and aches, pain between abd and back, chills, swollen legs - Allergies/Home Medications Allergies/Adverse Reactions: Allergies Allergy/AdvReac Type Severity Reaction Status Date / Time bee venom protein (honey bee) Allergy Anaphylatic Verified 07/21/19 09:34 Shock lisinopril Allergy Anaphylatic Verified 07/21/19 09:34 Shock Penicillins Allergy Anaphylatic Verified 07/21/19 09:34 Shock shellfish derived Allergy Anaphylatic Verified 07/21/19 09:34 Shock Home Medications: Home Medications Calcium Acetate CAP* [Phoslo CAP*] 1 cap PO TID 07/21/19 [History Confirmed ] NIFEdipine ER TAB* [Procardia Xl TAB*] 30 mg PO BID 07/21/19 [History Confirmed 07/21/19] PMH/Surg Hx/FS Hx/Imm Hx Endocrine/Hematology History: Reports: Hx Diabetes - no meds, Hx Anemia Denies: Hx Anticoagulant Therapy, Hx Thyroid Disease Cardiovascular History: Reports: Hx Congestive Heart Failure, Hx Hypertension - uncontrolled Denies: Hx Pacemaker/ICD, Other Cardiovascular Problems/Disorders Respiratory History: Reports: Hx Sleep Apnea Denies: Hx Asthma, Hx Chronic Obstructive Pulmonary Disease (COPD), Other Respiratory Problems/Disorders GI History: Reports: Hx Gastroesophageal Reflux Disease Denies: Hx Ulcer, Other GI Disorders History: Reports: Hx Chronic Renal Failure, Hx Dialysis, Hx Renal Disease Denies: Hx Kidney Infection, Hx Kidney Stones - STAGE 5 ON HEMODIALYSIS Musculoskeletal History: Reports: Hx Back Problems, Other Musculoskeletal History - S/P SPINAL FUSION Sensory History: Reports: Hx Contacts or Glasses - glasses Denies: Hx Hearing Aid Opthamlomology History: Reports: Hx Contacts or Glasses - glasses Neurological History: Denies: Hx Dementia, Hx Headaches, Hx Seizures, Other Neuro Impairments/ Disorders Psychiatric History: Denies: Hx Depression, Hx Substance Abuse - Surgical History Surgery Procedure, Year, and Place: 2001 hernia REPAIR [facility]. 2002 cervical spine surgery, [facility]. 1994 RT wrist surgery. 2009 HERNIA REPAIR. 2014 LEFT ELBOW SURGERY. 2014 LUE FISTULA PLACED Hx Anesthesia Reactions: No - Immunization History Date of Tetanus Vaccine: unknown Date of Influenza Vaccine: no Infectious Disease History: No Infectious Disease History: Denies: Hx Clostridium Difficile, Hx Hepatitis, Hx Human Immunodeficiency Virus (HIV), Hx of Known/Suspected MRSA, Hx Shingles, Hx Tuberculosis, Hx Known/ Suspected VRE, Hx Known/Suspected VRSA, History Other Infectious Disease, Traveled Outside the [place] in Last 30 Days - Family History Known Family History: Positive: Hypertension, Diabetes Negative: Cardiac Disease, Renal Disease - Social History Alcohol Use: None Hx Substance Use: No Substance Use Type: Reports: None Hx Tobacco Use: Yes Smoking Status (MU): Former Smoker Type: Cigarettes Amount Used/How Often: 1/2 PPD X 20 YEARS Length of Time of Smoking/Using Tobacco: 35 YEARS Have You Smoked in the Last Year: Yes Review of Systems Positive: Chills ENT: Other - sinus problems/pressure Positive: Shortness Of Breath Positive: Nausea Positive: Other - body and muscle aches, pain between abdomen and back along flanks above butt, swollen legs Positive: Headache All Other Systems Reviewed And Are Negative: Yes Physical Exam - Summary Physical Exam Summary: Constitutional: Well-developed, Well-nourished, Alert. (-) Distressed Skin: Warm, Dry, chest wall port HENT: Normocephalic; Atraumatic Eyes: Conjunctiva normal Neck: Musculoskeletal ROM normal neck. (-) JVD, (-) Stridor, (-) Nuchal rigidity Cardio: Rhythm regular, rate normal, Heart sounds normal; Intact distal pulses; Radial pulses are 2+ and symmetric. (-) Murmur Pulmonary/Chest wall: bilateral crackles, (-) Wheezes, (-) Rales Abd: Soft, (-) tenderness, (-) Distension, (-) Guarding, (-) Rebound Musculoskeletal: left buttocks tenderness, 2 + edema to shins Lymph: (-) Cervical adenopathy Neuro: Alert, Oriented x3 Psych: Mood and affect Normal Triage Information Reviewed: Yes Vital Signs On Initial Exam: Initial Vitals Temp Pulse Resp BP Pulse Ox 99.3 F 73 18 161/95 91 07/21/19 09:31 07/21/19 09:31 07/21/19 09:31 07/21/19 09:31 07/21/19 09:31 Vital Signs Reviewed: Yes Diagnostics - Vital Signs Vital Signs Temp Pulse Resp BP Pulse Ox 07/21/19 09:31 99.3 F 73 18 161/95 91 - Laboratory Lab Results: Lab Results 07/21/19 Range/Units 10:05 WBC 9.2 (3.5-10.8) 10^3/uL RBC 2.42 L (4.18-5.48) 10^6 /uL Hgb 6.7 L (14.0-18.0) g/dL Hct 21 L (42-52) % MCV 85 (80-94) fL MCH 28 (27-31) pg MCHC 33 (31-36) g/dL RDW 19 H (10-15) % Plt Count 166 (150-450) 10^3/uL MPV 7.4 (7.4-10.4) fL Neut % (Auto) 92.3 % Lymph % (Auto) 2.7 % [place] % (Auto) 4.2 % Eos % (Auto) 0.0 % Baso % (Auto) 0.8 % Absolute Neuts (auto) 8.5 H (1.5-7.7) 10^3/ul Absolute Lymphs (auto) 0.2 L (1.0-4.8) 10^3/ul Absolute Monos (auto) 0.4 (0-0.8) 10^3/ul Absolute Eos (auto) 0.0 (0-0.6) 10^3/ul Absolute Basos (auto) 0.1 (0-0.2) 10^3/ul Absolute Nucleated RBC 0.0 10^3/ul Nucleated RBC % 0.0 Result Diagrams: 07/21/19 10:05 07/21/19 10:05 Lab Statement: Any lab studies that have been ordered have been reviewed, and results considered in the medical decision making process. - Radiology Chest X-Ray Radiology Interpretation Completed By: Radiologist Summary of Radiographic Findings: Per radiologist,. FINDINGS SUGGESTIVE OF CONGESTIVE HEART FAILURE. ED physician has reviewed this imaging report. - EKG 1013 Cardiac Rate: NL - 68 BPM Summary of EKG Findings: Sinus rhythm at 68 BPM, T-wave inversions in V4 ,V5,V6 , V1, and ABL. New when compared to june 07, 2019. Re-Evaluation - Re-Evaluation First Eval Re-Evaluation Time: 13:20 Comment: [facility] has no beds and cannot accept pt for dialysis Second Eval Re-Evaluation Time: 13:28 Comment: Contacted Jacob Salter who is going to get in touch with nephrology. Third Eval Re-Evaluation Time: 13:38 Comment: [facility], Dr. Jaffe, recommends pt come to get dialyzed given BP, initial hypoxia and Hb. Pending acceptance from hospitalist. Fourth Eval Re-Evaluation Time: 14:30 Comment: At pt request, physician talked to Dr. Torre because pt did not want to be transferred but because he needs dialysis with blood transfusion, they do not feel comfortable keeping him here. D/w patient that although his WOB and fluid status is OK today, if he is to get blood he may become fluid overloaded. He states he would like to stay here despite not having access to emergent dialysis. Complex Multi-Symp Course/Dx Course Of Treatment: 54-year-old male with a history of ESRD s/p failed kidney transplant, on dialysis via R chest wall permacath, dialyzed Tuesday, last dialysis this morning presents with malaise, myalgias, headache. Patient has a history of headaches of similar type. This is not the worst headache patient has had, and no additional features today to suggest need for further workup on a truly emergent basis (imaging, LP, etc). Blood pressure elevated to 180s systolic, will give hydralazine. Patient also reports fatigue , and body aches, this could be secondary to infectious process, check a chest x -ray, CBC to assess for underlying infection and anemia given hx anemia w transfusions, UA. Constellation of symptoms including fatigue, myalgias, and headache could be secondary to infection. Patient initially mildly hypoxic to low 90s, bilateral crackles on exam check a BNP and a chest x-ray to assess for fluid overload. Also has pitting edema to the shins. - Diagnoses Provider Diagnoses: ESRD (end stage renal disease) on dialysis, Fatigue associated with anemia - Physician Notifications Discussed Care Of Patient With: Jalen Venegas - nephrology Time Discussed With Above Provider: 11:07 Instructed by Provider To: Other - cant dialyze him until Tuesday therefore if he needs blood will likely need transfer Discharge ED - Sign-Out/Discharge Documenting (check all that apply): Patient Departure - transfer Patient Received Moderate/Deep Sedation with Procedure: No - Discharge Plan Condition: Stable Disposition: ADMITTED TO [facility] - Billing Disposition and Condition Condition: STABLE Disposition: Admitted to [facility] - Attestation Statements Document Initiated by Duy: Yes Documenting Scribe: Rochelle Connolly Provider For Whom Duy is Documenting (Include Credential): Dr. Trenton Solis MD Scribe Attestation: Rochelle Arreguin scribed for Dr. Trenton Solis MD on 07/21/19 at 1810. Scribe Documentation Reviewed: Yes Provider Attestation: The documentation as recorded by the Rochelle mota accurately reflects the service I personally performed and the decisions made by me, Dr. Trenton Solis MD Status of Scribe Document: Viewed
[2019-07-21] MEDS ORDERED: oxyCODONE TAB* 5 MG TAB PO ONE (10:27)
[2019-07-21 10:29] LABS: Albumin 3.7 g/dL (3.2-5.2); Albumin/Globulin Ratio 1.1 (1-3); BUN/Creatinine Ratio 5.5 (8-20); Calcium 8.2 mg/dL (8.6-10.3); EGFR African American 12.8 (>60); EGFR Non-African American 10.6 (>60); Globulin 3.3 g/dL (2-4); Potassium 4.1 mmol/L (3.5-5.0); Total Bilirubin 0.8 mg/dL (0.2-1.0)
[2019-07-21 10:35] LABS: Troponin I 0.04 ng/mL (<0.04)
[2019-07-21] MEDS ORDERED: Furosemide IV* 10 MG/ML 10 ML VIAL (100 MG) IV ONE (11:52)
[2019-07-21] MEDS ORDERED: hydrALAZINE IV* 20 MG/ML VIAL IV SLOW PU ONE (12:05)
[2019-07-21] MEDS ORDERED: Furosemide IV* 10 MG/ML VIAL (40 MG) IV SLOW PU ONE (16:03)
[2019-07-21] MEDS ORDERED: Acetaminophen TAB* 325 MG PO PRN (16:05)
[2019-07-21] MEDS ORDERED: Albuterol 2.5 MG/3 ML NEB.SOL* (0.083%) INH PRN (16:05)
[2019-07-21] MEDS ORDERED: Ondansetron INJ* 2 MG/ML VIAL IV PRN (16:05)
[2019-07-21] MEDS ORDERED: Morphine 4 MG/ML VIAL (1 ml) 4 MG/ML VIAL IV ONE (16:46)
[2019-07-21] MEDS: cloNIDine TAB* 0.1 MG PO SCH ×2 (18:37→21:11)
[2019-07-21] MEDS: Calcium Acetate CAP* 667 MG PO SCH ×2 (18:38→21:13)
--- NOTE | 2019-07-21 19:59 | HP ---
CC: Dr. Deng; Dr. Spivey * MEDICINE HISTORY AND PHYSICAL: DATE OF ADMISSION: 07/21/19 PROVIDER: Maria E Simon NP ATTENDING PHYSICIAN: Dr. Renetta Burgos * (dictated by Maria E Simon NP). PRIMARY CARE PROVIDER: Dr. Deng. CONSULTING POWER SYSTEM ELECTRICAL ENGINEER: Dr. Jalen Venegas. CHIEF COMPLAINT: Dyspnea and edema after dialysis. HISTORY OF PRESENT ILLNESS: Mr. Roman is a 54-year-old male with a history of end-stage renal disease, status post kidney transplant in 2018, that is now in failure. He has resumed dialysis. He was at dialysis this morning and had 3 L taken off. Following dialysis, he continued to endorse leg pain, edema, cough and was noted to have crackles in his lungs and he was referred to the ER for further evaluation. Mr. Roman states that the members of his household are all sick. He sleeps on a couch and states that he has been feeling rundown for the past day and half. He endorses malaise and diarrhea this morning and reports that he also had nausea and upset stomach and headache through the morning. This continued as he was completing dialysis. His nieces and nephews have cold symptoms and congestion and he endorses the same including sinus pressure and sinus headache, some chills and overall body aches. Shortness of breath worsened following dialysis and he presented to the ER. Here in the ER, he received hydralazine and 100 mg of furosemide, which resulted in improvement in his blood pressures as well as a symptom of headache. His breathing has improved. He reportedly was hypoxic earlier with O2 sats in the 80s; however, as he is conversing with me, he remains 95% to 100% on room air with no oxygen support. He continues to put the oxygen on periodically for supportive care. He denies any known fevers, but again endorses chills and malaise. He endorses sinus congestion. He denies chest pain, shortness of breath or cough, but he does endorse edema to the lower extremities. He denies abdominal pain, vomiting or diarrhea, but does endorse nausea. He does report some burning with urination, but denies hematuria. He denies any focal weakness or sensory loss, any visual complaints, dysphagia. He has body aches and endorses right shoulder pain, which has been present since the insertion of his vasc catheter when he moved to a certain position. He endorses chronic neck pain. Denies any skin concerns. Mr. Roman was initially recommended to transfer to a different facility, as there is no weekend dialysis available. He was offered a bed in [place] at [facility] for further interventions and dialysis; however, he declined this. Other medical findings of significance include hemoglobin and hematocrit of 6.7 and 21. His BUN and creatinine of 31 and 5.59. BNP is greater than 1300. Given his refusal to transfer to different facility and his condition, hospital medicine was consulted to admission. PAST MEDICAL HISTORY: 1. He reports end-stage renal disease that he thinks is secondary to history of hypertension, diabetes. He did have a kidney transplant on 02/16/18 with signs of failure evident around March or April of this year. He was seen at [facility] with his last visit around 2 to 3 weeks ago where he was told he would have to resume dialysis. 2. History of nonischemic cardiomyopathy. 3. Severe pulmonary hypertension. 4. Essential hypertension. 5. Type 2 diabetes, diet controlled. 6. Chronic pain. PAST SURGICAL HISTORY: Includes: 1. History of spinal surgeries x2. 2. Kidney transplant on 02/16/18. 3. Hernia repair x2. 4. Right wrist and hand reconstruction. HOME MEDICATIONS: 1. Amlodipine 10 mg q.a.m. 2. Oxymorphone 20 mg 4 times a day p.r.n. 3. Oxymorphone ER 20 mg b.i.d. 4. Nifedipine ER 30 mg b.i.d. 5. Clonidine 0.2 mg t.i.d. 6. Calcium acetate 667 mg p.o. t.i.d. 7. Tacrolimus 5 mg b.i.d. 8. Carvedilol 25 mg b.i.d. 9. Prednisone 10 mg daily. 10. Sodium bicarb take 2 tablets by mouth 4 times a day. 11. Hydralazine 25 mg b.i.d. ALLERGIES: Include BEES, LISINOPRIL, PENICILLIN, and SHELLFISH. FAMILY HISTORY: He reports a mother and father with diabetes. Denies any cancer or heart disease in his family history. SOCIAL HISTORY: He endorses a 39-year smoking history, stating that he quit about 9 months ago, but does still endorse some occasional cigarette. Denies any alcohol or illicit drug use. 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 He lives with his brother and his family. His brother, Hermann Bedolla is his surrogate decision maker in the event of emergency. REVIEW OF SYSTEMS: As per HPI. PHYSICAL EXAMINATION VITAL SIGNS: Temperature 99.3, heart rate 72, respiratory rate 20, blood pressure 158/96, and O2 saturation is 95% on room air. HEENT: Head is atraumatic, normocephalic. Pupils are equal, round, reactive to light and accommodation. Extraocular movements are intact. Oral mucosa is moist without erythema or exudate. No sinus tenderness with palpation. NECK: Supple. No lymphadenopathy appreciated. No JVD noted. There is full range of motion without nuchal rigidity. LUNGS: With good aeration throughout. Some faint crackles noted in the bilateral bases with expiration. CARDIAC: Normal S1, S2 heart sounds with regular rate and rhythm. No murmurs appreciated. There is 2+ pitting lower extremity edema, most notably to the calves and ankles. Distal pulses are present, 2+ and symmetric bilaterally. There is a right vascular access device in the right chest wall without surrounding erythema or tenderness. ABDOMEN: Soft, nontender, nondistended with normoactive bowel sounds. CVA tenderness negative. No suprapubic tenderness noted. MUSCULOSKELETAL: No clubbing or cyanosis. There is full range of motion in all 4 extremities. NEUROLOGIC: He is alert and oriented x4. Cranial nerves II through XII are grossly intact. Sensation is intact to light touch to lower extremities. PSYCH: He is alert and oriented with no visible signs of anxiety or depression. SKIN: Grossly intact. DIAGNOSTIC STUDIES/LAB DATA: CBC, WBC 10.2, hemoglobin 6.7, hematocrit 21, platelet count 166. CMP: Sodium 136, potassium 4.1, chloride 99, carbon dioxide 28, BUN 31, creatinine 5.59, glucose 147, calcium 8.2. Total bilirubin 0.8, AST 10, ALT 9, alk phos 29. Troponin 0.04 with repeat at 0.03. BNP greater than 1300, albumin 3.7. EKG shows sinus rhythm with probable left atrial enlargement. No ST or T-wave changes to suggest acute ischemia, similar in appearance as previous. Chest x-ray shows cardiomegaly and interstitial findings consistent with pulmonary congestion. Old medical records were reviewed. ASSESSMENT AND PLAN: Mr. Roman is a 54-year-old male presenting today with concern for fluid overload secondary to end-stage renal disease with recent kidney transplant failure, anemia of chronic disease and symptomatic hypertensive urgency. He will be admitted to the medicine floor. Plans are as follows: 1. End-stage renal disease. I have discussed the case with Dr. Venegas with Nephrology. He had previously recommended that the patient receive Lasix 80 mg b.i.d. and Mr. Roman has already received 100 mg here in the ER with good effect with improvement in his respiratory status. We will give him an additional 60 mg to equal the total recommended daily dose and continue the order for tomorrow. Nephrology will consult. As the patient is not terribly far from his baseline in terms of his anemia and is not experiencing any chest pain or significant dyspnea, dizziness or other symptomatic concerns, we will watch him closely, recheck his labs tomorrow. Should there be a need to transfuse, we can certainly do so, but ideally it will be best to wait until Tuesday when he is able to receive dialysis concurrently at the time of his transfusion. The patient should continue on his transfer medications, which included tacrolimus and prednisone. Please note that I spent approximately 10 minutes in discussion with Mr. Roman regarding the risks of staying at [facility] without access to dialysis. We discussed that there is the possibility of worsening respiratory or hemodynamic status; should this occur today or tomorrow , treatment with dialysis may be delayed indefinitely until [facility] is able to find an available bed at a dialysis ready facility. This delay in care may result in worsening status, including . He verbalizes under-standing of this but wishes to stay at [facility], stating "I've been through this before , and I'll be okay." 2. Anemia. This is likely secondary to his end-stage renal disease and again, we are going to watch and monitor rechecking a CBC tomorrow. He shows no sign of active bleeding. Denying any rectal bleeding, hematuria, bruising, or other concerns. Previous hemoglobin was 7.5 two weeks ago. Some of the anemia may be dilutional from his previous fluid overload. Continue to follow. 3. Reported dysuria. There was a UA pending. The patient does make urine and we will check a UA when he is able to provide a specimen. 4. Sinus congestion and body aches. He does appear to have concern for viral illness. We have sent off an influenza swab. Continue with supportive care. 5. Hypertensive urgency with headaches. This has resolved here in the ER as he does report improvement in his headache symptoms. We will continue him on his home blood pressure medications and carefully monitor his pressures. 6. History of pulmonary hypertension and nonischemic cardiomyopathy. Mr. Roman denies any knowledge of having cardiomyopathy or cardiac followup from his previous admission over a year ago where he was diagnosed with a EF of 20% to 25%. Check echocardiogram while he is here to monitor this. He was also noted to have moderate mitral valve regurgitation. 7. Hypertension. Continue home regimen, which includes clonidine, amlodipine, carvedilol, and hydralazine. 8. History of diabetes. He is diet controlled. He is not on any medications for this. We will add on A1c. 9. FEN. He is ordered a renal diet. 10. DVT prophylaxis. Subcu heparin. 11. Code status. He is a full code. TIME SPENT: Approximately 60 minutes was spent on this admission with more than half that time spent [id number] with the patient, obtaining history and physical, performing physical examination, and reviewing the plan of care. Plan of care was also reviewed with my attending, Dr. Burgos, who is in agreement. MARIA E SIMON NP [id number]/[facility] #: [id number] JOCY
[2019-07-21] MEDS: Carvedilol TAB* 25 MG PO SCH (21:12)
[2019-07-21] MEDS: hydrALAZINE TAB* 25 MG PO SCH (21:12)
[2019-07-21] MEDS: NIFEdipine ER TAB* 30 MG PO SCH (21:12)
[2019-07-21] MEDS: OXYMORPHONE 20 MG PO SCH (21:13)
[2019-07-21] MEDS: Heparin VIAL(*) 5000 UNITS/ML VIAL (FIVE THOUSAND) SUBCUT SCH (21:17)
[2019-07-21] MEDS: SODIUM BICARBONATE 10 MG PO SCH (21:17)
[2019-07-21 21:58] LABS: Influenza A Molecular NEGATIVE (Negative); Influenza B Molecular NEGATIVE (Negative)
[2019-07-21] MEDS: Tacrolimus CAP(*) 1 MG PO SCH (22:09)
[2019-07-22] MEDS ORDERED: hydrALAZINE IV* 20 MG/ML VIAL IV SLOW PU ONE (01:01)
[2019-07-22] MEDS: Oxymorphone IR (NF) 5 MG TAB PO PRN (03:42)
[2019-07-22] MEDS: Heparin VIAL(*) 5000 UNITS/ML VIAL (FIVE THOUSAND) SUBCUT SCH ×3 (07:28→21:14)
[2019-07-22] MEDS: Carvedilol TAB* 25 MG PO SCH ×2 (08:05→21:12)
[2019-07-22] MEDS: Calcium Acetate CAP* 667 MG PO SCH ×3 (08:06→21:12)
[2019-07-22] MEDS: OXYMORPHONE 20 MG PO SCH ×2 (08:06→21:12)
[2019-07-22] MEDS: hydrALAZINE TAB* 25 MG PO SCH (08:06)
[2019-07-22] MEDS: NIFEdipine ER TAB* 30 MG PO SCH ×2 (08:06→21:11)
[2019-07-22] MEDS: predniSONE TAB* 10 MG PO SCH (08:06)
[2019-07-22] MEDS: cloNIDine TAB* 0.1 MG PO SCH ×3 (08:06→21:11)
[2019-07-22] MEDS: amLODIPine TAB* 5 MG PO SCH (08:06)
[2019-07-22] MEDS: Furosemide IV* 10 MG/ML 10 ML VIAL (100 MG) IV SCH (08:07)
[2019-07-22] MEDS: Tacrolimus CAP(*) 1 MG PO SCH ×2 (08:07→21:15)
[2019-07-22] MEDS: SODIUM BICARBONATE 10 MG PO SCH ×2 (08:11→21:14)
[2019-07-22 10:16] LABS: Hematocrit 19 % (42-52); Hemoglobin 6.2 g/dL (14.0-18.0); Mean Corpuscular HGB Conc 32 g/dL (31-36); Mean Corpuscular Hemoglobin 27 pg (27-31); Mean Corpuscular Volume 84 fL (80-94); Mean Platelet Volume 7.6 fL (7.4-10.4); Platelet Count 155 10^3/uL (150-450); Red Blood Count 2.29 10^6 /uL (4.18-5.48); Red Cell Distribution Width 19 % (10-15); White Blood Count 7.4 10^3/uL (3.5-10.8)
[2019-07-22 10:17] LABS: ABS Basophils 0.1 10^3/ul (0-0.2); ABS Eosinophils 0.2 10^3/ul (0-0.6); ABS Lymphocytes 0.4 10^3/ul (1.0-4.8); ABS Monocytes 0.6 10^3/ul (0-0.8); ABS Neutrophils 6.1 10^3/ul (1.5-7.7); Eosinophil % 2.4 %; Lymphocyte % 5.7 %
[2019-07-22 10:26] LABS: BUN/Creatinine Ratio 5.9 (8-20); Calcium 7.2 mg/dL (8.6-10.3); EGFR African American 8.2 (>60); EGFR Non-African American 6.8 (>60); Potassium 4.7 mmol/L (3.5-5.0)
--- NOTE | 2019-07-22 11:41 | PN ---
Subjective Date of Service: 07/22/19 Interval History: Mr. Roman denies symptoms today and reports that he is doing well. He denies chest pain, SOB, nausea or abdominal pain. Objective Active Medications: Acetaminophen (Tylenol Tab*) 650 mg PO Q4H PRN Albuterol (Ventolin 2.5 Mg/3 Ml Neb.Janette*) 2.5 mg INH [id number] AWAKE PRN Amlodipine Besylate (Norvasc Tab*) 10 mg PO QAM TAMMY Calcium Acetate (Phoslo Cap*) 667 mg PO TID TAMMY Carvedilol (Coreg Tab*) 25 mg PO BID TAMMY Clonidine HCl (Catapres Tab*) 0.2 mg PO TID TAMMY Furosemide (Lasix Iv*) 80 mg IV BID TAMMY Heparin Sodium (Porcine) (Heparin Vial(*)) 5,000 units SUBCUT Q8HR TAMMY Hydralazine HCl (Apresoline Tab*) 25 mg PO BID TAMMY Nifedipine (Procardia Xl Tab*) 30 mg PO BID TAMMY Non-Formulary Medication (Sodium Bicarbonate) 10 mg PO BID TAMMY Ondansetron HCl (Zofran Inj*) 4 mg IV Q6H PRN Oxymorphone HCl (Opana Ir (Nf)) 20 mg PO QID PRN Oxymorphone HCl (Opana Er (Nf)) 40 mg PO BID TAMMY Prednisone (Deltasone Tab*) 10 mg PO DAILY TAMMY Tacrolimus (Prograf Cap(*)) 5 mg PO BID [facility] Vital Signs: Temp Pulse Resp BP Pulse Ox 98.1 F 58 16 164/85 100 07/22/19 07:56 07/22/19 07:56 07/22/19 08:06 07/22/19 07:56 07/22/19 07:56 Oxygen Devices in Use Now: None Appearance: Male sitting up in bed in NAD Eyes: No Scleral Icterus Ears/Nose/Mouth/Throat: Mucous Membranes Moist Respiratory: Symmetrical Chest Expansion and Respiratory Effort, Clear to Auscultation Cardiovascular: NL Sounds; No Murmurs; No JVD Abdominal: NL Sounds; No Tenderness; No Distention Skin: No Rash or Ulcers Neurological: Alert and Oriented x 3, NL Muscle Strength and Tone Nutrition: Taking PO's Result Diagrams: 07/22/19 09:58 07/22/19 09:58 Additional Lab and Data: . Assess/Plan/Problems-Billing Assessment: Ms. Roman is a 54 yo M wit a PMH of ESRD on dialysis, chronic anemia related to ESRD, HTN, who was admitted on 07/21/19 with hypertensive urgency and fluid overload. - Patient Problems (1) Hypertensive urgency Comment: - SBP up to 210 in ED, Now 150-160s s/p hydralazine and lasix - Continue lasix (added on admission), amlodipine, carvedilol, clonidine, hydralazine, nifedipine (2) ESRD (end stage renal disease) on dialysis Comment: - Presents with fluid overload and hypertensive urgency, but now stable - Plan for routine dialysis on Tuesday, emergent dialysis not available and not indicated at this point (patient aware and declined transfer in the ED) - Hx of failed kidney transplant this year, continue tacrolimus and prednisone - Continue sodium bicarb (3) Anemia Comment: - Asymptomatic, do not believe that anemia is contributing to shortness of breath - Chronic anemia related to ESRD, likely also dilutional given fluid overload - Had EGD 04/2017, normal. - Follow up with nephrology (4) Chronic pain Comment: - Continue routine home meds (5) DVT prophylaxis Comment: - Heparin SQ (6) Full code status Comment: Status and Disposition: Inpatient. Anticipate discharge to home when medically stable.
--- NOTE | 2019-07-22 11:48 | ECHO ---
*[facility]* [place] [address] Fax #: [phone] Transthoracic Echocardiogram Patient: Indra Roman : 1965 Study Date: 07/22/2019 Age: 54 Gender: M HR: 56 bpm Height: 72 in /182.9 cm BSA: 2.07 m^2 Weight: 185.6 lb /84.4 kg BMI: 25.2 kg/m^2 *Environmental Research Scientist: * Catherine Abraham [facility] *Referring Physician: * Brianna Reynolds *Reading Physician: * Cecile Alfredo MD Indications: Edema. History: ESRD, renal transplant, severe PHTN. PMH: Cardiomyopathy. Risk factors: Current tobacco use. Diabetes mellitus. Conclusions Summary: - Left ventricle: The cavity size is mildly dilated. Wall thickness is moderately to severely increased. Systolic function is normal. The estimated ejection fraction is 50-55%. Features are consistent with a pseudonormal left ventricular filling pattern, with concomitant abnormal relaxation and increased filling pressure (grade 2 diastolic dysfunction). Doppler parameters are consistent with elevated ventricular end-diastolic filling pressure. - Right ventricle: Systolic function is normal. - Mitral valve: There is mild regurgitation. - Tricuspid valve: There is moderate regurgitation directed toward the septum. - Pulmonary arteries: Systolic pressure is mildly increased. The peak pressure during systole by Doppler is 38.0 mm Hg. - Compared with prior echocardiogram of 07/21/17, ejection fraction has improved from 20-25%, prior diasolic pattern was restrictive, has improved, mitral regurgitation has improved from mild/moderate, tricuspid regurgitation is stable, pulmonary artery pressure has improved from 65 mmHg. Study data: Transthoracic echocardiogram. Procedure: Transthoracic echocardiography was performed. Image quality was good. Complete 2D, spectral Doppler, and color flow Doppler. Location: Bedside. Patient status: Inpatient. Patient room number: 452. Rhythm: Bradycardia. Findings Left ventricle: The cavity size is mildly dilated. Wall thickness is moderately to severely increased. Systolic function is normal. The estimated ejection fraction is 50-55%. Wall motion is normal; there are no regional wall motion abnormalities. Features are consistent with a pseudonormal left ventricular filling pattern, with concomitant abnormal relaxation and increased filling pressure (grade 2 diastolic dysfunction). Doppler parameters are consistent with elevated ventricular end-diastolic filling pressure. Right ventricle: The cavity size is normal. Wall thickness is mildly increased. Systolic function is normal. Left atrium: The atrium is severely dilated. Right atrium: The atrium is severely dilated. There is the appearance of a Chiari network. Mitral valve: The leaflets are mildly thickened. There is no evidence of stenosis. There is mild regurgitation. Aortic valve: The valve is trileaflet. The leaflets are mildly thickened. There is no evidence of stenosis. There is trace regurgitation. Tricuspid valve: The leaflets are normal thickness. There is no evidence of stenosis. There is moderate regurgitation directed toward the septum. Pulmonic valve: The leaflets are normal thickness. There is no evidence of stenosis. There is trace regurgitation. Aorta: The aortic root appears normal. Pericardium: There is no significant pericardial effusion. Pulmonary arteries: The main pulmonary artery is normal-sized. Systolic pressure is mildly increased. Systemic veins: Inferior vena cava: The vessel is dilated. There is (< 50%) respiratory change in the IVC dimension. Measurements Left ventricle Value Ref Aortic valve continued Value Ref RICHELLE, LAX (H) 6.1 cm 4.2 - 5.8 Peak grad, S 13.0 mm Hg ----- ESD, LAX (H) 4.6 cm 2.5 - 4.0 LVOT/AV, VTI ratio 0.63 ----- FS, LAX (L) 24 % 25 - 43 BEN, VTI 2.41 cm^2 ----- PW, ED, LAX (H) 1.9 cm 0.6 - 1.0 BEN, Vmax 2.70 cm^2 ----- EF (L) 47 % 52 - 72 E', lat colten, TDI (L) 5.9 cm/sec >=10.0 Mitral valve Value R ef E/e', lat colten, 15 Peak E 0.89 m/sec ---- - TDI Peak A 0.7 m/sec ----- E', med colten, TDI (L) 6.2 cm/sec >=7.0 Decel time 137 ms - ---- E/e', med colten, 14 Peak grad, D 3.1 mm Hg ---- - TDI Peak E/A ratio 1.3 ----- E', avg, TDI 6.1 cm/sec E/e', avg, TDI (H) 15 <=14 Pulmonic valve Value R ef Peak v, S 0.59 m/sec ----- LVOT Value Ref Peak grad, S 1.0 mm Hg ----- Diam, S 2.20 cm Area 3.8 cm^2 Tricuspid valve Value Ref Peak cali, S 1.28 m/sec TR peak v 2.8 m/sec <=2.8 VTI, S 26.0 cm Peak RV-RA grad, S 31 mm Hg ----- Peak grad, S 7 mm Hg Mean grad, S 3 mm Hg Aortic root Value Ref Root diam 3.4 cm <4.2 Ventricular septum Value Ref IVS, ED (H) 1.7 cm 0.6 - 1.0 Ascending aorta Value Ref AAo AP diam, S 3.1 cm ----- Right ventricle Value Ref RICHELLE, LAX 3.2 cm Aortic arch Value Ref RICHELLE minor ax, A4C 3.4 cm 1.9 - 3.5 Arch diam 3.1 cm ----- mid Pressure, S 39 mm Hg Decending aorta Value Ref Myriam peak cali 1.05 m/sec ----- Left atrium Value Ref AP dim, ES (H) 4.20 cm 3.00 - Pulmonary artery Value Ref 4.00 Pressure, S 38.0 mm Hg ----- ML dim, A4C 5.1 cm SI dim, A4C 7.5 cm Inferior vena cava Value Ref Vol/bsa, ES, A/L (H) 63 ml/m^2 16 - 34 Diam 2.9 cm ----- Right atrium Value Ref Pulmonary veins Value Ref SI dim, ES (H) 6.0 cm 3.4 - 5.3 Peak v, S 0.59 m/sec ----- ML dim, ES, A4C (H) 5.3 cm 2.6 - 4.4 Peak v, D 0.6 m/sec ----- Estimated RAP 8 mm Hg Peak S/D ratio 1 ----- A rev duration 98 ms ----- Aortic valve Value Ref Colten diam, ED 2.3 cm Peak v, S 1.8 m/sec VTI, S 41.0 cm Mean grad, S 7.0 mm Hg Legend: (L) and (H) robinson values outside specified reference range. Prepared and electronically signed by Cecile Alfredo MD 07/22/2019 11:48
--- NOTE | 2019-07-22 13:52 | CONSULT ---
Consult Consult: InPatient Nephrology Consult Consult done by: Dr. Amanda Venegas, [facility] Nephrology Consult requested by: Lamberto Story Consult requested for ESRD on HD. 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 Possible poor compliance to ISDs?! He was admitted via ED, 07/21/19 with very high BP and fluid overload. He has been feeling poorly for 2 days He completed his HD run on tuesday s/p 3L UF. I spoke to ED doc, who described him very SOB, with O2 sat 80%, edematous, fluid overloaded with high BNP. He admitted leg swelling since Tuesday night. The fact that he was obviously fluid overloaded, we thought he will require extra HD session, so he was offered -per my advice, by ED- a transfer to outside for acute HD, but he declined it, so I advised Lasix 80 mg IVP, as he makes decent UOP. He was significantly better after that. Now, no edema, no shortness of breath & feels well. Later last night, O2 Sat was 100% on RA. He reported home sick contacts. He denied missing and HD sessions last few weeks. Of note, SBP in ED was 210 dropped to 150-160s. I spoke to Hospitalist and advised Lasix 80 IV BID. 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 He was profoundly anemic, not far from his baseline, agreed for PRBCs today! PMH: ESRD HTN Failed Renal Transplant Home Medications Medication Instructions Recorded Confirmed Type Oxymorphone (NF) [Opana (NF)] 20 mg PO QID PRN 07/21/17 07/21/19 History Oxymorphone ER (NF) [Opana ER (NF)] 40 mg PO BID 07/21/17 07/21/19 History amLODIPine TAB* [Norvasc 5 mg TAB*] 10 mg PO QAM 09/28/17 07/21/19 History cloNIDine TAB* [Catapres 0.1 MG 0.2 mg PO TID 11/29/17 07/21/19 History TAB*] Tacrolimus 5 mg PO BID 10/05/18 07/21/19 History Sodium Bicarbonate 10 mg PO BID 06/07/19 07/21/19 History predniSONE 10 mg PO DAILY 06/07/19 07/21/19 History Calcium Acetate CAP* [Phoslo CAP*] 1 cap PO TID 07/21/19 07/21/19 History NIFEdipine ER TAB* [Procardia Xl 30 mg PO BID 07/21/19 07/21/19 History TAB*] Allergies: PCN, Shellfish, Lisinopril, Honey Bee bee venom protein (honey bee) Allergy (Verified 07/21/19 09:34) Anaphylatic Shock lisinopril Allergy (Verified 07/21/19 09:34) Anaphylatic Shock Penicillins Allergy (Verified 07/21/19 09:34) Anaphylatic Shock shellfish derived Allergy (Verified 07/21/19 09:34) Anaphylatic Shock - Surgical History 2001 her[place]PA[place] [facility] [place] surgery, [facility] [place]. [place] RT wrist surgery. 2009 HERNIA REPAIR. 2014 LEFT ELBOW SURGERY. 2014 LUE FISTULA PLACED - Family History Hypertension, Diabetes - Social History Hx Tobacco Use: Yes Smoking Status (MU): Former Smoker Type: Cigarettes Amount Used/How Often: 1/2 PPD X 20 YEARS Length of Time of Smoking/Using Tobacco: 35 YEARS Have You Smoked in the Last Year: Yes 12 Point ROS obtained: -ve excpet HPI SOB, edema, Weakness, fatigue, [place], Nausea Inpatient Meds: Acetaminophen (Tylenol Tab*) 650 mg PO Q4H PRN PRN Reason: MILD PAIN or TEMP > 100.4 Albuterol (Ventolin 2.5 Mg/3 Ml Neb.Janette*) 2.5 mg INH [id number] AWAKE PRN PRN Reason: sob/wheezing Amlodipine Besylate (Norvasc Tab*) 10 mg PO QAM [facility] Last Admin: 07/22/19 08:06 Dose: 10 mg Calcium Acetate (Phoslo Cap*) 667 mg PO TID [facility] Last Admin: 07/22/19 12:58 Dose: 667 mg Carvedilol (Coreg Tab*) 25 mg PO BID [facility] Last Admin: 07/22/19 08:05 Dose: 25 mg Clonidine HCl (Catapres Tab*) 0.2 mg PO TID [facility] Last Admin: 07/22/19 12:58 Dose: 0.2 mg Furosemide (Lasix Iv*) 80 mg IV BID [facility] Last Admin: 07/22/19 08:07 Dose: 80 mg Heparin Sodium (Porcine) (Heparin Vial(*)) 5,000 units SUBCUT Q8HR [facility] Last Admin: 07/22/19 12:55 Dose: Not Given Hydralazine HCl (Apresoline Tab*) 25 mg PO BID [facility] Last Admin: 07/22/19 08:06 Dose: 25 mg Nifedipine (Procardia Xl Tab*) 30 mg PO BID [facility] Last Admin: 07/22/19 08:06 Dose: 30 mg Non-Formulary Medication (Sodium Bicarbonate) 10 mg PO BID [facility] Last Admin: 07/22/19 08:11 Dose: Not Given Ondansetron HCl (Zofran Inj*) 4 mg IV Q6H PRN PRN Reason: NAUSEA/VOMITING Oxymorphone HCl (Opana Ir (Nf)) 20 mg PO QID PRN PRN Reason: PAIN - MODERATE Last Admin: 07/22/19 03:42 Dose: 20 mg Oxymorphone HCl (Opana Er (Nf)) 40 mg PO BID [facility] Last Admin: 07/22/19 08:06 Dose: 40 mg Prednisone (Deltasone Tab*) 10 mg PO DAILY [facility] Last Admin: 07/22/19 08:06 Dose: 10 mg Tacrolimus (Prograf Cap(*)) 5 mg PO BID [facility] Last Admin: 07/22/19 08:07 Dose: 5 mg O/E: Temp Pulse Resp BP Pulse Ox 97.7 F 56 16 155/78 100 07/22/19 11:15 07/22/19 11:15 07/22/19 11:15 07/22/19 11:15 07/22/19 11:15 Physical Exam Summary: Constitutional: Well-developed, Well-nourished, Alert. Skin: Warm, Dry, chest wall port HENT: Normocephalic; Atraumatic Eyes: Conjunctiva normal Neck: Musculoskeletal ROM normal neck. No JVD Cardio: Rhythm regular, rate normal, Heart sounds normal; No murmur Pulmonary/Chest wall: No crackles Abd: Soft Musculoskeletal: No edema Neuro: Alert, Oriented x3 Labs: Laboratory Results - last 24 hr 07/21/19 07/22/19 07/22/19 21:00 09:58 09:58 WBC RBC Hgb Hct MCV MCH MCHC RDW Plt Count MPV Neut % (Auto) Lymph % (Auto) [place] % (Auto) Eos % (Auto) Baso % (Auto) Absolute Neuts (auto) Absolute Lymphs (auto) Absolute Monos (auto) Absolute Eos (auto) Absolute Basos (auto) Absolute Nucleated RBC Nucleated RBC % Sodium 136 Potassium 4.7 Chloride 101 Carbon Dioxide 29 Anion Gap 6 BUN 49 H Creatinine 8.27 H Est GFR ( Amer) 8.2 Est GFR (Non-Af Amer) 6.8 BUN/Creatinine Ratio 5.9 L Glucose 109 H Hemoglobin A1c 5.1 Calcium 7.2 L Influenza A (Rapid) Negative Influenza B (Rapid) Negative 07/22/19 09:58 WBC 7.4 RBC 2.29 L Hgb 6.2 L* Hct 19 L MCV 84 MCH 27 MCHC 32 RDW 19 H Plt Count 155 MPV 7.6 Neut % (Auto) 82.6 Lymph % (Auto) 5.7 [place] % (Auto) 8.5 Eos % (Auto) 2.4 Baso % (Auto) 0.8 Absolute Neuts (auto) 6.1 Absolute Lymphs (auto) 0.4 L Absolute Monos (auto) 0.6 Absolute Eos (auto) 0.2 Absolute Basos (auto) 0.1 Absolute Nucleated RBC 0.0 Nucleated RBC % 0.0 Sodium Potassium Chloride Carbon Dioxide Anion Gap BUN Creatinine Est GFR ( Amer) Est GFR (Non-Af Amer) BUN/Creatinine Ratio Glucose Hemoglobin A1c Calcium Influenza A (Rapid) Influenza B (Rapid) A/P: 1.ESRD: For HD TTS. He can be discharged home today if Ok by Hospitalist 2.HTN: Better 3.Volume: May switch to PO Lasix 40 BID after discharge 4.Lytes: Na, K, CO3 Ok 5.HH: Better s/p PRBCs. Acetaminophen (Tylenol Tab*) 650 mg PO Q4H PRN PRN Reason: MILD PAIN or TEMP > 100.4 Albuterol (Ventolin 2.5 Mg/3 Ml Neb.Janette*) 2.5 mg INH [id number] AWAKE PRN PRN Reason: sob/wheezing Amlodipine Besylate (Norvasc Tab*) 10 mg PO QAM [facility] Last Admin: 07/22/19 08:06 Dose: 10 mg Calcium Acetate (Phoslo Cap*) 667 mg PO TID [facility] Last Admin: 07/22/19 12:58 Dose: 667 mg Carvedilol (Coreg Tab*) 25 mg PO BID [facility] Last Admin: 07/22/19 08:05 Dose: 25 mg Clonidine HCl (Catapres Tab*) 0.2 mg PO TID [facility] Last Admin: 07/22/19 12:58 Dose: 0.2 mg Furosemide (Lasix Iv*) 80 mg IV BID [facility] Last Admin: 07/22/19 08:07 Dose: 80 mg Heparin Sodium (Porcine) (Heparin Vial(*)) 5,000 units SUBCUT Q8HR [facility] Last Admin: 07/22/19 12:55 Dose: Not Given Hydralazine HCl (Apresoline Tab*) 25 mg PO BID [facility] Last Admin: 07/22/19 08:06 Dose: 25 mg Nifedipine (Procardia Xl Tab*) 30 mg PO BID [facility] Last Admin: 07/22/19 08:06 Dose: 30 mg Non-Formulary Medication (Sodium Bicarbonate) 10 mg PO BID [facility] Last Admin: 07/22/19 08:11 Dose: Not Given Ondansetron HCl (Zofran Inj*) 4 mg IV Q6H PRN PRN Reason: NAUSEA/VOMITING Oxymorphone HCl (Opana Ir (Nf)) 20 mg PO QID PRN PRN Reason: PAIN - MODERATE Last Admin: 07/22/19 03:42 Dose: 20 mg Oxymorphone HCl (Opana Er (Nf)) 40 mg PO BID [facility] Last Admin: 07/22/19 08:06 Dose: 40 mg Prednisone (Deltasone Tab*) 10 mg PO DAILY [facility] Last Admin: 07/22/19 08:06 Dose: 10 mg Tacrolimus (Prograf Cap(*)) 5 mg PO BID [facility] Last Admin: 07/22/19 08:07 Dose: 5 mg
[2019-07-23] MEDS: Furosemide IV* 10 MG/ML 10 ML VIAL (100 MG) IV SCH ×3 (01:02→20:46)
[2019-07-23] MEDS: hydrALAZINE TAB* 25 MG PO SCH ×3 (01:16→20:42)
[2019-07-23] MEDS: Heparin VIAL(*) 5000 UNITS/ML VIAL (FIVE THOUSAND) SUBCUT SCH ×3 (05:40→23:02)
[2019-07-23 06:07] LABS: ABS Basophils 0.1 10^3/ul (0-0.2); ABS Eosinophils 0.2 10^3/ul (0-0.6); ABS Lymphocytes 0.4 10^3/ul (1.0-4.8); ABS Monocytes 0.7 10^3/ul (0-0.8); ABS Neutrophils 8.2 10^3/ul (1.5-7.7); Eosinophil % 1.7 %; Hematocrit 21 % (42-52); Lymphocyte % 4.7 %; Mean Corpuscular HGB Conc 33 g/dL (31-36); Mean Corpuscular Hemoglobin 27 pg (27-31); Mean Corpuscular Volume 84 fL (80-94); Mean Platelet Volume 7.8 fL (7.4-10.4); Platelet Count 169 10^3/uL (150-450); Red Blood Count 2.54 10^6 /uL (4.18-5.48); Red Cell Distribution Width 19 % (10-15); White Blood Count 9.5 10^3/uL (3.5-10.8)
[2019-07-23 06:23] LABS: BUN/Creatinine Ratio 6.2 (8-20); Calcium 7.5 mg/dL (8.6-10.3); EGFR African American 6.6 (>60); EGFR Non-African American 5.5 (>60); Potassium 5.2 mmol/L (3.5-5.0)
[2019-07-23] MEDS: OXYMORPHONE 20 MG PO SCH ×2 (09:15→20:43)
[2019-07-23] MEDS: SODIUM BICARBONATE 10 MG PO SCH (09:15)
[2019-07-23] MEDS: Tacrolimus CAP(*) 1 MG PO SCH ×2 (09:16→20:46)
[2019-07-23] MEDS: Calcium Acetate CAP* 667 MG PO SCH ×3 (09:17→20:44)
[2019-07-23] MEDS: predniSONE TAB* 10 MG PO SCH (09:17)
[2019-07-23] MEDS: Carvedilol TAB* 25 MG PO SCH ×2 (09:18→20:42)
[2019-07-23] MEDS: amLODIPine TAB* 5 MG PO SCH (09:18)
[2019-07-23] MEDS: cloNIDine TAB* 0.1 MG PO SCH ×3 (09:18→20:42)
[2019-07-23] MEDS: NIFEdipine ER TAB* 30 MG PO SCH ×2 (09:18→20:44)
[2019-07-23] MEDS ORDERED: Patiromer POWDER* 8.4 GM PAK PO ONE (09:24)
--- NOTE | 2019-07-23 15:43 | PN ---
Subjective Date of Service: 07/23/19 Interval History: Mr. Roman is feeling well today. States he came to ER with c/o LE edema and was found to have SOB. He notes that these have all resolved since then. He is no longer requiring oxygen and denies SOB; feels LE edema is improved with Lasix. Pt denies dizziness, LH, vision changes, headache, fatigue. He has no other complaints today. Objective Active Medications: Acetaminophen (Tylenol Tab*) 650 mg PO Q4H PRN Albuterol (Ventolin 2.5 Mg/3 Ml Neb.Janette*) 2.5 mg INH [id number] AWAKE PRN Amlodipine Besylate (Norvasc Tab*) 10 mg PO QAM [facility] Calcium Acetate (Phoslo Cap*) 667 mg PO TID [facility] Carvedilol (Coreg Tab*) 25 mg PO BID [facility] Clonidine HCl (Catapres Tab*) 0.2 mg PO TID [facility] Furosemide (Lasix Iv*) 80 mg IV BID [facility] Heparin Sodium (Porcine) (Heparin Vial(*)) 5,000 units SUBCUT Q8HR [facility] Hydralazine HCl (Apresoline Tab*) 25 mg PO BID [facility] Nifedipine (Procardia Xl Tab*) 30 mg PO BID [facility] Non-Formulary Medication (Sodium Bicarbonate) 10 mg PO BID [facility] Ondansetron HCl (Zofran Inj*) 4 mg IV Q6H PRN Oxymorphone HCl (Opana Ir (Nf)) 20 mg PO QID PRN Oxymorphone HCl (Opana Er (Nf)) 40 mg PO BID [facility] Prednisone (Deltasone Tab*) 10 mg PO DAILY [facility] Tacrolimus (Prograf Cap(*)) 5 mg PO BID [facility] Vital Signs: Temp Pulse Resp BP Pulse Ox 97.5 F 60 16 189/93 100 07/23/19 11:15 07/23/19 11:15 07/23/19 11:15 07/23/19 11:15 07/23/19 11:15 Oxygen Devices in Use Now: Nasal Cannula Appearance: Pt is sitting up in bed with HOB elevated. Breathing comfortably, NAD. Eyes: No Scleral Icterus, PERRLA Ears/Nose/Mouth/Throat: NL Teeth, Lips, Gums, Clear Oropharnyx, Mucous Membranes Moist Neck: NL Appearance and Movements; NL JVP, Trachea Midline Respiratory: Symmetrical Chest Expansion and Respiratory Effort, Clear to Auscultation Cardiovascular: NL Sounds; No Murmurs; No JVD, RRR, - - Trace LE edema Abdominal: NL Sounds; No Tenderness; No Distention, No Hepatosplenomegaly Extremities: No Clubbing, Cyanosis Neurological: Alert and Oriented x 3, NL Muscle Strength and Tone Result Diagrams: 07/23/19 05:50 07/23/19 05:50 Additional Lab and Data: . Assess/Plan/Problems-Billing Assessment: Ms. Roman is a 54 yo M with a PMH of ESRD on dialysis, chronic anemia related to ESRD, HTN, who was admitted on 07/21/19 with hypertensive urgency and fluid overload. - Patient Problems (1) Hypertensive urgency Comment: - SBP up to 210 in ED, Now 150-170s s/p hydralazine and lasix - Continue lasix (added on admission), amlodipine, carvedilol, clonidine, hydralazine, nifedipine - Will d/c with home antihypertensives plus lasix 40 BID, per nephrology (2) Anemia Comment: - Asymptomatic - Chronic anemia related to ESRD; anemia appears worse than baseline, perhaps dilutional - 1 U PRBC given 07/22 - Had EGD 04/2017, normal - Stool for occult blood ordered - Follow up with nephrology (3) ESRD (end stage renal disease) on dialysis Comment: - Presents with fluid overload and hypertensive urgency, but now stable - Plan for routine dialysis on Tuesday, emergent dialysis not available and not indicated at this point (patient aware and declined transfer in the ED) - Hx of failed kidney transplant this year, continue tacrolimus and prednisone - Continue sodium bicarb - Patiromer x1 dose today (4) Chronic pain Comment: - Continue routine home meds (5) DVT prophylaxis Comment: - Heparin SQ (6) Full code status Comment: Status and Disposition: Inpatient. Anticipate discharge to home after dialysis tomorrow morning.
[2019-07-23] MEDS: Sodium Bicarbonate (ANTACID)* 650 MG TAB PO SCH (20:43)
[2019-07-24] MEDS: Oxymorphone IR (NF) 5 MG TAB PO PRN (01:34)
[2019-07-24] MEDS: Heparin VIAL(*) 5000 UNITS/ML VIAL (FIVE THOUSAND) SUBCUT SCH (05:26)
[2019-07-24 06:02] LABS: Hematocrit 22 % (42-52); Mean Corpuscular HGB Conc 32 g/dL (31-36); Mean Corpuscular Hemoglobin 27 pg (27-31); Mean Corpuscular Volume 85 fL (80-94); Mean Platelet Volume 8.4 fL (7.4-10.4); Platelet Count 169 10^3/uL (150-450); Red Blood Count 2.56 10^6 /uL (4.18-5.48); Red Cell Distribution Width 19 % (10-15); White Blood Count 7.9 10^3/uL (3.5-10.8)
[2019-07-24 06:29] LABS: BUN/Creatinine Ratio 6.9 (8-20); Calcium 7.5 mg/dL (8.6-10.3); EGFR African American 5.8 (>60); EGFR Non-African American 4.8 (>60)
[2019-07-24 08:06] LABS: Potassium 5.9 mmol/L (3.5-5.0)
[2019-07-24] MEDS: OXYMORPHONE 20 MG PO SCH (08:39)
[2019-07-24] MEDS: NIFEdipine ER TAB* 30 MG PO SCH (08:39)
[2019-07-24] MEDS: Furosemide IV* 10 MG/ML 10 ML VIAL (100 MG) IV SCH (08:39)
[2019-07-24] MEDS: Tacrolimus CAP(*) 1 MG PO SCH (08:40)
[2019-07-24] MEDS: Sodium Bicarbonate (ANTACID)* 650 MG TAB PO SCH (08:40)
[2019-07-24] MEDS: Carvedilol TAB* 25 MG PO SCH (08:41)
[2019-07-24] MEDS: amLODIPine TAB* 5 MG PO SCH (08:41)
[2019-07-24] MEDS: cloNIDine TAB* 0.1 MG PO SCH (08:42)
[2019-07-24] MEDS: Calcium Acetate CAP* 667 MG PO SCH (08:42)
[2019-07-24] MEDS: hydrALAZINE TAB* 25 MG PO SCH (08:42)
[2019-07-24] MEDS: predniSONE TAB* 10 MG PO SCH (08:42)
[2019-07-24] MEDS ORDERED: Senna TAB 8.6 mg* TAB PO ONE (08:47)
[2019-07-24 09:41] VITALS: BP 170/89
--- NOTE | 2019-07-24 11:31 | DS ---
DISCHARGE SUMMARY: DATE OF ADMISSION: 07/21/19 DATE OF DISCHARGE: 07/24/19 ATTENDING PROVIDER: Ambar White MD * (DICTATED BY JACKIE DUNN) PRIMARY CARE PROVIDER: Dr. Deng. OTHER PROVIDER: Dr. Spivey. PRIMARY DIAGNOSES: 1. Volume overload. 2. Hypertensive urgency. 3. Anemia requiring 1 unit packed red blood cells. SECONDARY DIAGNOSES: 1. End-stage renal disease with kidney transplant 02/16/18, failure evident in April 2019. 2. Nonischemic cardiomyopathy. 3. Severe pulmonary hypertension. 4. Hypertension. 5. Diabetes mellitus type 2, diet controlled. 6. Chronic pain. CONSULTATIONS WHILE IN THE HOSPITAL: Nephrology, Dr. Venegas. 1. End-stage renal disease, hemodialysis - [id number]-Rptllprv (TTS). He can be discharged home today if okay by hospitalist. 2. Hypertension, better. 3. Volume, may switch to p.o. Lasix 40 b.i.d. after discharge. 4. Electrolytes - NA, K, CO3 okay. 5. H and H better status post PRBCs. STUDIES WHILE IN THE HOSPITAL: Transthoracic echocardiogram, summary: LV mildly dilated. Wall thickness moderately to severely increased. Systolic function normal. EF 50% to 55%. Features consistent with pseudonormal LV filling pattern with concomitant abnormal relaxation and increased filling pressure, grade 2 diastolic dysfunction, mild mitral regurgitation, moderate tricuspid regurgitation, pulmonary artery pressure mildly increased. DISCHARGE MEDICATIONS: Home Medications: 1. Amlodipine 10 mg p.o. q.a.m. 2. Calcium acetate 1 cap p.o. t.i.d. 3. Carvedilol 25 mg p.o. b.i.d. 4. Clonidine 0.2 mg p.o. t.i.d. 5. Hydralazine 25 mg p.o. b.i.d. 6. Nifedipine ER 30 mg p.o. b.i.d. 7. Oxymorphone 20 mg p.o. 4 times a day p.r.n. for pain. 8. Oxymorphone ER 40 mg b.i.d. 9. Prednisone 10 mg p.o. daily. 10. Sodium bicarbonate 10 mg p.o. b.i.d. 11. Tacrolimus 5 mg p.o. b.i.d. [place] Medication: Furosemide 40 mg p.o. b.i.d. HISTORY OF PRESENT ILLNESS/HOSPITAL COURSE: Mr. Roman is a 54-year-old black man with a past medical history of end-stage renal disease with kidney transplant in 2018, now in failure, with instructions to resume dialysis. He presented to the ER on 07/21/19 after 3 L fluid was removed during dialysis following leg pain, edema, and cough. For full and complete details, please see Brianna Reynolds NP's history and physical from 07/21/19, but in short, the patient presented and was found to have crackles in bilateral bases, shortness of breath, elevated blood pressure. It was recommended that he be transferred to another facility for urgent dialysis. He was offered a bed in [place] at [facility], but declined this. He was admitted. Nephrology was consulted and recommended Lasix 80 b.i.d. This produced good results. The patient's shortness of breath improved relatively rapidly and he had no lower extremity edema at discharge. Upon admission, the patient was noted to have a H and H of 6.7 and 21, respectively, prompting transfusion of 1 unit packed red blood cells. Looking back through his lab trends, it appears that his H and H is low at baseline, although this is lower than normal. Stool for occult blood was ordered and the patient was unable to have a bowel movement. He was offered a rectal exam to check for bleeding, but refused this. Dr. Spivey recommended outpatient stool for occult blood and the patient has agreed to this. Nephrology will continue to monitor the patient's H and H and need for Epogen. At the time of discharge , the patient denies hematochezia, melena, or hematemesis. Due to the patient's lower extremity edema, a CONSTANTINE was ordered which showed EF of 50% to 55% and grade 2 diastolic dysfunction. Again, Lasix was initiated with good outcome. The patient was noted to have SVT up to 210 in the ER which was improved with hydralazine and Lasix. He was also hypertensive during his stay. His home medications include amlodipine, carvedilol, clonidine, hydralazine, and nifedipine. At the recommendation of Nephrology, we will add Lasix 40 b.i.d. to the patient's home medication list. This has been sent to his pharmacy. At the time of discharge, his blood pressure has improved to systolic of 148. At the time of discharge, the patient denies chest pain, shortness of breath, dizziness, or lightheadedness. He denies abdominal pain, nausea, vomiting, diarrhea, or constipation. He notes that he has chronic pain , which he has experienced no change in recently. He denies fever or cough. He denies lower extremity edema; this has resolved. Mr. Roman is stable for discharge. REVIEW OF SYSTEMS: A 10-point review of systems has been performed and all the pertinent positives and negatives are in the HPI. All other systems are negative. PHYSICAL EXAMINATION: Vital signs are temperature 98.8 oral, heart rate 63, respiratory rate 18, oxygen saturation 94% on room air, blood pressure 148/65. General: Mr. Roman is a well-developed, well-nourished, overweight black male who is sitting up in bed. He has poor eye contact and a flat affect, but is cooperative during our conversation with minimal responses. HEENT: PERRL. EOMI. Nonicteric sclerae. Hearing grossly intact. Oral: Mucous membranes are moist without lesions. The pharynx is clear. The tongue is at midline. Palate elevates symmetrically. Cardiovascular: Regular rate and rhythm with S1 , S2 present without murmurs, rubs, clicks, or gallops. There is no JVD. There is no peripheral edema. Radial and pedal pulses are palpable. Pulmonary : Symmetrical chest expansion without use of accessory muscles. Lungs: Clear to auscultation bilaterally. No rhonchi, wheezes, or rubs. No digital clubbing or cyanosis. Abdomen: Slight distension, soft, nontender to palpation. Bowel sounds in all quadrants. Musculoskeletal: Full range of motion without pain or deformity. Neuro: The patient is awake. He is alert and oriented x3 with cranial nerves grossly intact. Motor strength is 5/5 in bilateral upper and lower extremities, symmetrical tire recapper strength. DISCHARGE PLAN: Mr. Roman will be discharged to home. CONDITION: Fair. ACTIVITY: As tolerated. DIET: Renal. MEDICATIONS: 1. Add furosemide 40 mg p.o. b.i.d. 2. Resume other home medications. 3. May use Colace or senna as needed p.r.n. for constipation. FOLLOWUP: 1. Follow up with primary care provider in 4 to 7 days to discuss recent hospitalization. 2. Follow up with Nephrology as scheduled. Continue dialysis. Epogen as directed by Dr. Spivey. 3. Please get labs. Please get stool for occult blood outpatient as this was declined by the patient during his hospital stay. 4. Return to the ER or nearest hospital if you experience any worsening of symptoms, chest discomfort, shortness of breath, high fevers, chills, night sweats, dizziness, lightheadedness, loss of consciousness,or any other worrisome signs or symptoms. This is a summarized report of a complex medical history and hospital stay. For further details, please see the entire medical record. TIME SPENT: Approximately 35 minutes were spent on this discharge, greater than half of that time was spent [id number] with the patient discussing discharge plans and instructions. JACKIE DUNN [id number]/[facility] #: [id number] JOCY
== END 2019-07-24 10:23 | disposition home or self-care (01) | DRG 304 ==
LOC: ED 09:27 → MEDTELE 16:05
PROVIDERS: ADMIT Internal Medicine; ATTEND Internal Medicine
PROC: 30233N1 Transfusion of Nonautologous Red Blood Cells into Peripheral Vein, Percutaneous Approach (ICD-10-PCS; principal; 2019-07-22)
DX: I16.0 Hypertensive urgency (principal); N18.6 End stage renal disease; I42.9 Cardiomyopathy, unspecified; T86.12 Kidney transplant failure; I50.30 Unspecified diastolic (congestive) heart failure; I47.1 Supraventricular tachycardia; E11.22 Type 2 diabetes mellitus with diabetic chronic kidney disease; I08.1 Rheumatic disorders of both mitral and tricuspid valves; I12.0 Hypertensive chronic kidney disease with stage 5 chronic kidney disease or end stage renal disease; R30.0 Dysuria; R09.81 Nasal congestion; G89.29 Other chronic pain; D63.8 Anemia in other chronic diseases classified elsewhere; E87.70 Fluid overload, unspecified; I27.20 Pulmonary hypertension, unspecified; Z99.2 Dependence on renal dialysis; Z79.891 Long term (current) use of opiate analgesic; Z79.52 Long term (current) use of systemic steroids; Z79.899 Other long term (current) drug therapy; Z88.8 Allergy status to other drugs, medicaments and biological substances; Z91.030 Bee allergy status; Z88.0 Allergy status to penicillin; Z91.013 Allergy to seafood; Z83.3 Family history of diabetes mellitus; Z87.891 Personal history of nicotine dependence; Z82.49 Family history of ischemic heart disease and other diseases of the circulatory system; Z79.84 Long term (current) use of oral hypoglycemic drugs
CPT/HCPCS: 36415; 71046; 80048; 80053; 83036; 83880; 84484; 85025; 85027; 86850; 86900; 86901; 86922; 93005; 93306; 99284; A9270-GY; J0360; J1644; J1940; J2270; J7507; J7512; P9040

== ENCOUNTER 2019-08-07 15:40 | Inpatient (IN) | payer OTHER, MEDICAID ==
--- NOTE | 2019-08-07 16:09 | ED ---
Head Injury - History Of Current Complaint Chief Complaint: EDShortnessOfBreath Stated Complaint: SHORT OF BREATH Pain Intensity: 3 - Allergies/Home Medications Allergies/Adverse Reactions: Allergies Allergy/AdvReac Type Severity Reaction Status Date / Time bee venom protein (honey bee) Allergy Anaphylatic Verified 07/21/19 09:34 Shock lisinopril Allergy Anaphylatic Verified 07/21/19 09:34 Shock Penicillins Allergy Anaphylatic Verified 07/21/19 09:34 Shock shellfish derived Allergy Anaphylatic Verified 07/21/19 09:34 Shock PMH/Surg Hx/FS Hx/Imm Hx Endocrine/Hematology History: Reports: Hx Diabetes - no meds, Hx Anemia Denies: Hx Anticoagulant Therapy, Hx Thyroid Disease Cardiovascular History: Reports: Hx Congestive Heart Failure, Hx Hypertension - uncontrolled Denies: Hx Pacemaker/ICD, Other Cardiovascular Problems/Disorders Respiratory History: Reports: Hx Sleep Apnea Denies: Hx Asthma, Hx Chronic Obstructive Pulmonary Disease (COPD), Other Respiratory Problems/Disorders GI History: Reports: Hx Gastroesophageal Reflux Disease Denies: Hx Ulcer, Other GI Disorders History: Reports: Hx Chronic Renal Failure, Hx Dialysis, Hx Renal Disease Denies: Hx Kidney Infection, Hx Kidney Stones - STAGE 5 ON HEMODIALYSIS Musculoskeletal History: Reports: Hx Back Problems, Other Musculoskeletal History - S/P SPINAL FUSION Sensory History: Denies: Hx Contacts or Glasses, Hx Hearing Aid Opthamlomology History: Denies: Hx Contacts or Glasses Neurological History: Denies: Hx Dementia, Hx Headaches, Hx Seizures, Other Neuro Impairments/ Disorders Psychiatric History: Denies: Hx Depression, Hx Substance Abuse - Surgical History Surgery Procedure, Year, and Place: 2001 hernia REPAIR [facility] [place]. 2002 cervical spine surgery, [facility] [place]. 1994 RT wrist surgery. 2009 HERNIA REPAIR. 2014 LEFT ELBOW SURGERY. 2014 LUE FISTULA PLACED Hx Anesthesia Reactions: No - Immunization History Date of Tetanus Vaccine: unknown Date of Influenza Vaccine: no Infectious Disease History: No Infectious Disease History: Denies: Hx Clostridium Difficile, Hx Hepatitis, Hx Human Immunodeficiency Virus (HIV), Hx of Known/Suspected MRSA, Hx Shingles, Hx Tuberculosis, Hx Known/ Suspected VRE, Hx Known/Suspected VRSA, History Other Infectious Disease, Traveled Outside the [place] in Last 30 Days - Family History Known Family History: Positive: Hypertension, Diabetes Negative: Cardiac Disease, Renal Disease - Social History Alcohol Use: Rare Hx Substance Use: No Substance Use Type: Reports: None Hx Tobacco Use: Yes Smoking Status (MU): Former Smoker Type: Cigarettes Amount Used/How Often: 1/2 PPD X 20 YEARS Length of Time of Smoking/Using Tobacco: 35 YEARS Have You Smoked in the Last Year: Yes Physical Exam Triage Information Reviewed: Yes Vital Signs On Initial Exam: Initial Vitals Temp Pulse Resp BP Pulse Ox 97.6 F 74 18 177/105 86 08/07/19 15:42 08/07/19 15:42 08/07/19 15:42 08/07/19 15:42 08/07/19 15:42 Vital Signs Reviewed: Yes Diagnostics - Vital Signs Vital Signs Temp Pulse Resp BP Pulse Ox 08/07/19 15:42 97.6 F 74 18 177/105 86 - Laboratory Lab Statement: Any lab studies that have been ordered have been reviewed, and results considered in the medical decision making process. Discharge ED - Discharge Plan Referrals: Jacob Deng MD [Primary Care Provider] - - Attestation Statements Document Initiated by Scribe: Yes
[2019-08-07 16:20] LABS: ABS Basophils 0.1 10^3/ul (0-0.2); ABS Eosinophils 0.1 10^3/ul (0-0.6); ABS Lymphocytes 0.5 10^3/ul (1.0-4.8); ABS Monocytes 0.4 10^3/ul (0-0.8); ABS Neutrophils 4.8 10^3/ul (1.5-7.7); Eosinophil % 1.4 %; Hematocrit 26 % (42-52); Hemoglobin 8.5 g/dL (14.0-18.0); Lymphocyte % 8.5 %; Mean Corpuscular HGB Conc 33 g/dL (31-36); Mean Corpuscular Hemoglobin 28 pg (27-31); Mean Corpuscular Volume 85 fL (80-94); Platelet Count 164 10^3/uL (150-450); Red Blood Count 3.06 10^6 /uL (4.18-5.48); Red Cell Distribution Width 19 % (10-15); White Blood Count 5.8 10^3/uL (3.5-10.8)
[2019-08-07 16:24] LABS: INR 1.23 (0.82-1.09)
[2019-08-07 16:41] LABS: ALT 13 U/L (7-52); AST 14 U/L (13-39); Albumin 3.8 g/dL (3.2-5.2); Albumin/Globulin Ratio 1.1 (1-3); Alkaline Phosphatase 47 U/L (34-104); Anion Gap 9 mmol/L (2-11); BUN/Creatinine Ratio 4.6 (8-20); Blood Urea Nitrogen 38 mg/dL (6-24); CO2 Carbon Dioxide 29 mmol/L (22-32); Chloride 99 mmol/L (101-111); EGFR African American 8.2 (>60); EGFR Non-African American 6.7 (>60); Globulin 3.5 g/dL (2-4); Glucose 125 mg/dL (70-100); Potassium 4.2 mmol/L (3.5-5.0); Sodium 137 mmol/L (135-145); Total Protein 7.3 g/dL (6.4-8.9)
[2019-08-07 16:45] LABS: Troponin I 0.06 ng/mL (<0.04)
--- NOTE | 2019-08-07 16:49 | ED ---
Shortness of Breath - HPI Summary HPI Summary: Patient is a 54 y/o M on hemodialysis who is presenting to [facility] with complaints of HIGGINBOTHAM, BLE edema and SOB. It is reported that the patient was at hemodialysis earlier this morning. He states that he had 4.3 kilograms of fluid taken off. He reports and subsequently experienced onset of Sx. Nurse Mary Ann reports that posterior HIGGINBOTHAM. [id number] At dialysis, got off machine, felt worse, got to house had booming HIGGINBOTHAM that was off the charts feet were swelling. Took off 4.3 kilos of fluid. Missed saturaday dose. Dry weight 177, but patient believes it is more than this. Kidney transplant last february, things felt okay then wacky then okay last time, creatinine level 8, he was sent to Dr. Spivey, after two days of dialysis, creatinine dropped down to around 2.3. He states that about a month ago, he was working and "didn't feel right". Patient was evaluated, and he states that there were concerns that he might be rejecting his kidney. However, he is unsure exactly what was happening. Transplant was February 2018. eye doctor nataly, eye drops, had reacrtion, could not see, burning, Hx of HTN. no diabetes. In room, BP 211/130, o2 88-91 on RA, was 97% on 4 L. HR 69, bopana, 20 mg TID, did take today. felt weak with pain. no chest pain. did not feel SOB. He is not on o2 at home. He is on BP meds, which he took today no Hx of COPD, he is a former smoker, noets that he had chest congestion for the past week. chronically ill appearing, HIGGINBOTHAM and neck pain, well nourished, skin, moderate pain distress, bibasilar crackesl, hyperntensive in genreal, skin - dialysis permacath in right anterior chest, dressing dry and intact, 3+ pitting edema, - History of Current Complaint Chief Complaint: EDShortnessOfBreath Time Seen by Provider: 08/07/19 16:27 - Allergy/Home Medications Allergies/Adverse Reactions: Allergies Allergy/AdvReac Type Severity Reaction Status Date / Time bee venom protein (honey bee) Allergy Anaphylatic Verified 07/21/19 09:34 Shock lisinopril Allergy Anaphylatic Verified 07/21/19 09:34 Shock Penicillins Allergy Anaphylatic Verified 07/21/19 09:34 Shock shellfish derived Allergy Anaphylatic Verified 07/21/19 09:34 Shock PMH/Surg Hx/FS Hx/Imm Hx Endocrine/Hematology History: Reports: Hx Diabetes - no meds, Hx Anemia Denies: Hx Anticoagulant Therapy, Hx Thyroid Disease Cardiovascular History: Reports: Hx Congestive Heart Failure, Hx Hypertension - uncontrolled Denies: Hx Pacemaker/ICD, Other Cardiovascular Problems/Disorders Respiratory History: Reports: Hx Sleep Apnea Denies: Hx Asthma, Hx Chronic Obstructive Pulmonary Disease (COPD), Other Respiratory Problems/Disorders GI History: Reports: Hx Gastroesophageal Reflux Disease Denies: Hx Ulcer, Other GI Disorders History: Reports: Hx Chronic Renal Failure, Hx Dialysis, Hx Renal Disease Denies: Hx Kidney Infection, Hx Kidney Stones - STAGE 5 ON HEMODIALYSIS Musculoskeletal History: Reports: Hx Back Problems, Other Musculoskeletal History - S/P SPINAL FUSION Sensory History: Denies: Hx Contacts or Glasses, Hx Hearing Aid Opthamlomology History: Denies: Hx Contacts or Glasses Neurological History: Denies: Hx Dementia, Hx Headaches, Hx Seizures, Other Neuro Impairments/ Disorders Psychiatric History: Denies: Hx Depression, Hx Substance Abuse - Surgical History Surgery Procedure, Year, and Place: 2001 hernia REPAIR [facility]. 2002 cervical spine surgery, [facility] [place]. 1994 RT wrist surgery. 2009 HERNIA REPAIR. 2014 LEFT ELBOW SURGERY. 2014 LUE FISTULA PLACED Hx Anesthesia Reactions: No - Immunization History Date of Tetanus Vaccine: unknown Date of Influenza Vaccine: no Infectious Disease History: No Infectious Disease History: Denies: Hx Clostridium Difficile, Hx Hepatitis, Hx Human Immunodeficiency Virus (HIV), Hx of Known/Suspected MRSA, Hx Shingles, Hx Tuberculosis, Hx Known/ Suspected VRE, Hx Known/Suspected VRSA, History Other Infectious Disease, Traveled Outside the [place] in Last 30 Days - Family History Known Family History: Positive: Hypertension, Diabetes Negative: Cardiac Disease, Renal Disease - Social History Alcohol Use: Rare Hx Substance Use: No Substance Use Type: Reports: None Hx Tobacco Use: Yes Smoking Status (MU): Former Smoker Type: Cigarettes Amount Used/How Often: 1/2 PPD X 20 YEARS Length of Time of Smoking/Using Tobacco: 35 YEARS Have You Smoked in the Last Year: Yes Physical Exam Vital Signs On Initial Exam: Initial Vitals Temp Pulse Resp BP Pulse Ox 97.6 F 74 18 177/105 86 08/07/19 15:42 08/07/19 15:42 08/07/19 15:42 08/07/19 15:42 08/07/19 15:42 Diagnostics - Vital Signs Vital Signs Temp Pulse Resp BP Pulse Ox 08/07/19 15:42 97.6 F 74 18 177/105 86 - Laboratory Lab Results: Lab Results 08/07/19 08/07/19 Range/Units 16:01 16:01 WBC 5.8 (3.5-10.8) 10^3/uL RBC 3.06 L (4.18-5.48) 10^6 /uL Hgb 8.5 L (14.0-18.0) g/dL Hct 26 L (42-52) % MCV 85 (80-94) fL MCH 28 (27-31) pg MCHC 33 (31-36) g/dL RDW 19 H (10-15) % Plt Count 164 (150-450) 10^3/uL MPV 8.0 (7.4-10.4) fL Neut % (Auto) 82.6 % Lymph % (Auto) 8.5 % [place] % (Auto) 6.2 % Eos % (Auto) 1.4 % Baso % (Auto) 1.3 % Absolute Neuts (auto) 4.8 (1.5-7.7) 10^3/ul Absolute Lymphs (auto) 0.5 L (1.0-4.8) 10^3/ul Absolute Monos (auto) 0.4 (0-0.8) 10^3/ul Absolute Eos (auto) 0.1 (0-0.6) 10^3/ul Absolute Basos (auto) 0.1 (0-0.2) 10^3/ul Absolute Nucleated RBC 0.0 10^3/ul Nucleated RBC % 0.0 INR (Anticoag Therapy) 1.23 H (0.82-1.09) Result Diagrams: 08/07/19 16:01 08/07/19 16:01 Lab Statement: Any lab studies that have been ordered have been reviewed, and results considered in the medical decision making process. Discharge ED - Discharge Plan Referrals: Jacob Deng MD [Primary Care Provider] - - Attestation Statements Document Initiated by Scribe: Yes
[2019-08-07] MEDS ORDERED: Morphine 4 MG/ML VIAL (1 ml) 4 MG/ML VIAL IV ONE (17:30)
[2019-08-07] MEDS ORDERED: cloNIDine TAB* 0.1 MG PO ONE (17:31)
--- NOTE | 2019-08-07 17:36 | ED ---
Complex/Multi-Sys Presentation - HPI Summary HPI Summary: Patient is a 54 y/o M on hemodialysis who is presenting to [facility] with complaints of HIGGINBOTHAM, BLE edema and low o2 sats. It is reported that the patient was at hemodialysis earlier this morning from 0545 - 1130, 08/07/2019. He states that he had 4.3 kilograms of fluid taken off. He reports that he returned home and subsequently experienced onset of Sx. HIGGINBOTHAM pain is reported to be at posterior head and is noted to radiate down to his neck. Onset is described as sudden, patient characterizes the HIGGINBOTHAM as "booming" and "off the charts". He additionally notes BLE swelling and states that he felt fatigued. Nurse Mary Ann reports that the patient was 91% o2 sat on 4 L of oxygen and also notes that the patient had reported to her that he had pain between his shoulder blades that radiated across. In the room, patient is at 97% o2. When taken off of o2, he became 99-82% o2 sat on RA. Patient notes that he is not SOB at present. He additionally denies chest pain but states that he has had chest congestion for the past week. He reports receiving kidney transplant February 2018. Patient reports that he has had a handful of intermittent issues with regards to this transplant and makes note of a specific incident around a month ago where he felt his kidney "didn't feel right". Patient is unable to further elaborate on the nature of this event, however he is now back on a dialysis with a temporary catheter. He is followed by Dr. Spivey. 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 He denies Hx of COPD but endorses Hx of HTN. He is a former smoker. On triage, pain from his HIGGINBOTHAM is rated 3/10, nothing is noted to aggravate/alleviate Sx. Patient is on Opana for chronic pain. Home medications and allergies are reviewed. Allergies Allergy/AdvReac Type Severity Reaction Status Date / Time bee venom protein (honey bee) Allergy Anaphylatic Verified 07/21/19 09:34 Shock lisinopril Allergy Anaphylatic Verified 07/21/19 09:34 Shock Penicillins Allergy Anaphylatic Verified 07/21/19 09:34 Shock shellfish derived Allergy Anaphylatic Verified 07/21/19 09:34 Shock - History Of Current Complaint Chief Complaint: EDShortnessOfBreath Time Seen by Provider: 08/07/19 16:27 Hx Obtained From: Patient Onset/Duration: Sudden Onset, Still Present Timing: Constant Severity Currently: Mild Severity Initially: Severe Location: Pain At: - head, neck, shoulder blades Character: Pressure - "booming" Aggravating Factor(s): nothing Alleviating Factor(s): nothing Associated Signs And Symptoms: Positive: Headache, Edema - BLE, Other - low o2 sat, fatigue, pain between his shoulder blades, neck pain, chest congestion. Negative: SOB - no SOB at present, but he was SOB after hemodialysis, and he presented with hypoxia in the ED, Chest Pain - Allergies/Home Medications Allergies/Adverse Reactions: Allergies Allergy/AdvReac Type Severity Reaction Status Date / Time bee venom protein (honey bee) Allergy Anaphylatic Verified 08/28/19 10:11 Shock lisinopril Allergy Anaphylatic Verified 08/28/19 10:11 Shock Penicillins Allergy Anaphylatic Verified 08/28/19 10:11 Shock shellfish derived Allergy Anaphylatic Verified 08/28/19 10:11 Shock PMH/Surg Hx/FS Hx/Imm Hx Previously Healthy: No Endocrine/Hematology History: Reports: Hx Diabetes - diet controlled , Hx Anemia Denies: Hx Anticoagulant Therapy, Hx Thyroid Disease Cardiovascular History: Reports: Hx Congestive Heart Failure, Hx Hypertension - uncontrolled, Other Cardiovascular Problems/Disorders - nonischemic cardiomyopathy Denies: Hx Pacemaker/ICD Respiratory History: Reports: Hx Sleep Apnea, Other Respiratory Problems/ Disorders - pulmonary HTN Denies: Hx Asthma, Hx Chronic Obstructive Pulmonary Disease (COPD) GI History: Reports: Hx Gastroesophageal Reflux Disease Denies: Hx Ulcer, Other GI Disorders History: Reports: Hx Chronic Renal Failure, Hx Dialysis - hemodialysis via temporary catheter after failed renal transplant , Other Problems/Disorders - failed renal transplant Denies: Hx Kidney Infection, Hx Kidney Stones Musculoskeletal History: Reports: Hx Back Problems, Other Musculoskeletal History - S/P SPINAL FUSION Sensory History: Denies: Hx Contacts or Glasses, Hx Hearing Aid Opthamlomology History: Denies: Hx Contacts or Glasses Neurological History: Denies: Hx Dementia, Hx Headaches, Hx Seizures, Other Neuro Impairments/ Disorders Psychiatric History: Denies: Hx Depression, Hx Substance Abuse - Surgical History Surgical History: Yes Surgery Procedure, Year, and Place: 2001 hernia REPAIR [facility]. 2002 [place] [facility] [place] wrist surgery. 2009 HERNIA REPAIR. 2014 LEFT ELBOW SURGERY. renal transplant, failed February 2018. 2014 LUE FISTULA PLACED Hx Anesthesia Reactions: No - Immunization History Date of Tetanus Vaccine: unknown Date of Influenza Vaccine: no Infectious Disease History: No Infectious Disease History: Denies: Hx Clostridium Difficile, Hx Hepatitis, Hx Human Immunodeficiency Virus (HIV), Hx of Known/Suspected MRSA, Hx Shingles, Hx Tuberculosis, Hx Known/ Suspected VRE, Hx Known/Suspected VRSA, History Other Infectious Disease, Traveled Outside the [place] in Last 30 Days - Family History Known Family History: Positive: Hypertension, Diabetes Negative: Cardiac Disease, Renal Disease - Social History Alcohol Use: Rare Hx Substance Use: No Substance Use Type: Reports: None Hx Tobacco Use: Yes Smoking Status (MU): Former Smoker Type: Cigarettes Amount Used/How Often: 1/2 PPD X 20 YEARS Length of Time of Smoking/Using Tobacco: 35 YEARS Have You Smoked in the Last Year: Yes Review of Systems Positive: Fatigue Negative: Chest Pain Respiratory: Other - low o2 sat and chest congestion Positive: Shortness Of Breath - no SOB at present Gastrointestinal: Negative Genitourinary: Other - makes some urine Positive: Arthralgia, Myalgia - pain between shoulder blades, neck pain , Edema - BLE Skin: Negative Positive: Headache Psychological: Normal All Other Systems Reviewed And Are Negative: Yes Physical Exam - Summary Physical Exam Summary: Appearance: Ill-appearing, moderate pain distress, well-nourished, hypertensive Skin: Warm, color reflects adequate perfusion, dry; dialysis permacath in right anterior chest, dressing dry and intact Head: Normal Head/Face inspection, atraumatic Eyes: Conjunctiva clear ENT: Normal inspection Neck: Supple, no nodes, no JVD Respiratory: Bibasilar crackles, no respiratory distress Cardio: RRR, No murmur, pulses normal, brisk capillary refill Abdomen: Soft, nontender Bowel sounds: Present Musculoskeletal: 3+ BLE pitting edema. Strength Intact/ROM intact, no calf tenderness, Psychological: Normal Neuro: Alert, muscle tone normal, no focal deficit Triage Information Reviewed: Yes Vital Signs On Initial Exam: Initial Vitals Temp Pulse Resp BP Pulse Ox 97.6 F 74 18 177/105 86 08/07/19 15:42 08/07/19 15:42 08/07/19 15:42 08/07/19 15:42 08/07/19 15:42 Vital Signs Reviewed: Yes - Jami Coma Scale Best Eye Response: 4 - Spontaneous Best Motor Response: 6 - Obeys Commands Best Verbal Response: 5 - Oriented Coma Scale Total: 15 Procedures - Sedation Patient Received Moderate/Deep Sedation with Procedure: No Diagnostics - Vital Signs Vital Signs Temp Pulse Resp BP Pulse Ox 08/07/19 15:42 97.6 F 74 18 177/105 86 - Laboratory Lab Results: Lab Results 08/07/19 08/07/19 08/07/19 Range/Units 16:01 16:01 16:01 WBC 5.8 (3.5-10.8) 10^3/uL RBC 3.06 L (4.18-5.48) 10^6 /uL Hgb 8.5 L (14.0-18.0) g/dL Hct 26 L (42-52) % MCV 85 (80-94) fL MCH 28 (27-31) pg MCHC 33 (31-36) g/dL RDW 19 H (10-15) % Plt Count 164 (150-450) 10^3/uL MPV 8.0 (7.4-10.4) fL Neut % (Auto) 82.6 % Lymph % (Auto) 8.5 % [place] % (Auto) 6.2 % Eos % (Auto) 1.4 % Baso % (Auto) 1.3 % Absolute Neuts (auto) 4.8 (1.5-7.7) 10^3/ul Absolute Lymphs (auto) 0.5 L (1.0-4.8) 10^3/ul Absolute Monos (auto) 0.4 (0-0.8) 10^3/ul Absolute Eos (auto) 0.1 (0-0.6) 10^3/ul Absolute Basos (auto) 0.1 (0-0.2) 10^3/ul Absolute Nucleated RBC 0.0 10^3/ul Nucleated RBC % 0.0 INR (Anticoag Therapy) 1.23 H (0.82-1.09) Sodium 137 (135-145) mmol/L Potassium 4.2 (3.5-5.0) mmol/L Chloride 99 L (101-111) mmol/L Carbon Dioxide 29 (22-32) mmol/L Anion Gap 9 (2-11) mmol/L BUN 38 H (6-24) mg/dL Creatinine 8.28 H (0.67-1.17) mg/dL Est GFR ( Amer) 8.2 (>60) Est GFR (Non-Af Amer) 6.7 (>60) BUN/Creatinine Ratio 4.6 L (8-20) Glucose 125 H (70-100) mg/dL Calcium 8.0 L (8.6-10.3) mg/dL Total Bilirubin 1.00 (0.2-1.0) mg/dL AST 14 (13-39) U/L ALT 13 (7-52) U/L Alkaline Phosphatase 47 (34-104) U/L Troponin I 0.06 H* (<0.04) ng/mL Total Protein 7.3 (6.4-8.9) g/dL Albumin 3.8 (3.2-5.2) g/dL Globulin 3.5 (2-4) g/dL Albumin/Globulin Ratio 1.1 (1-3) Result Diagrams: 08/08/19 05:48 08/10/19 05:42 Lab Statement: Any lab studies that have been ordered have been reviewed, and results considered in the medical decision making process. - Radiology CXR Radiology Interpretation Completed By: Radiologist Summary of Radiographic Findings: IMPRESSION: Worsening central predominant airspace opacification with Nando B lines and small pleural. effusions. Constellation of findings suggestive of pulmonary edema. In the correct. clinical context infiltrate could have similar appearance. THIS REPORT WAS REVIEWED BY DR. MYLES. - CT BRAIN CT CT Interpretation Completed By: Radiologist Summary of CT Findings: IMPRESSION: No acute intracranial abnormality. Stable white matter changes. THIS REPORT WAS REVIEWED BY DR. MYLES - EKG 1553 Cardiac Rate: NL - rate of 70 BPM EKG Rhythm: Sinus Rhythm ST Segment: Non-Specific Ectopy: None EKG Comparison: No Significant Change - compared to 07/21/17 EKG Summary of EKG Findings: EKG showed NSR with rate of 70 BPM, nml AVIVCT, prolonged QTc of 517, inverted T-waves in V5-V6, flat STs throughout. No acute changes noted, no changes compared to 07/21/17 EKG. ED physician has reviewed and interpreted this EKG. Re-Evaluation - Re-Evaluation First Eval Re-Evaluation Time: 19:30 Change: Unchanged Comment: Pt continues to c/o HIGGINBOTHAM and neck pain. BP remains elevated, but less so with different cuff on biceps. Will give hydralazine 5mg IV. Will also give Opana 10mg po. Pt's usual pain med is Opana 20mg qid prn for chronic pain. Pt has already had morphine 2mg IV with minimal effect. Complex Multi-Symp Course/Dx Course Of Treatment: Patient is a 54 y/o M on hemodialysis who is presenting to [facility] with complaints of HIGGINBOTHAM, BLE edema and low o2 sats. It is reported that the patient was at hemodialysis earlier this morning from 0545 - 1130, 08/07/2019 where they removed 4.3 liters. He is s/p failed renal transplant, and pt missed dialysis 3 days ago. He reports that he returned home after HD and subsequently experienced sudden onset of Sx. HIGGINBOTHAM onset is described as sudden, patient characterizes the HIGGINBOTHAM as "booming" and "off the charts". He additionally notes BLE swelling and states that he felt fatigued. Nurse Mary Ann reports that the patient was 91% o2 sat on 4 L of oxygen and also notes that the patient had reported to her that he had pain between his shoulders that radiated across. In the room, patient is at 97% o2. When taken off of o2, he became 99-82% o2 sat on RA. Patient notes that he is not SOB at present. He additionally denies chest pain but states that he has had chest congestion for the past week with productive cough. He reports receiving kidney transplant February 2018. He denies Hx of COPD but endorses Hx of HTN. He is a former smoker. On physical exam, patient is noted to be chronically ill-appearing and in moderate pain distress. He is hypertensive. He has bibasilar crackles. There is a dialysis permacatheter in the right anterior chest with dry and intact dressing. 3+ pitting edema BLE noted. EKG showed NSR with rate of 70 BPM, nml AVIVCT, prolonged QTc of 517, inverted T-waves in V5-V6, flat STs throughout. No acute changes noted, no changes compared to 07/21/17 EKG. Bloodwork was obtained. Abnormal values include trop of 0.06,RBC 3.06, Hgb 8.5, Hct 26, RDW 19, absolute lymphs 0.5, INR 1.23, chloride 99, BUN 38, creatinine 8.28, BUN/ creatinine ratio 4.6, glucose 125, calcium 8. During ED course, patient received morphine 2 mg IV and clonidine 0.2 mg PO, then opana 10mg po and hydralzine 5mg IV. Second trop was 0.06. Pt has had elevated troponins in the past. Influenza A and B were negative. CXR IMPRESSION: Worsening central predominant airspace opacification with Nando B lines and small pleural effusions. Constellation of findings suggestive of pulmonary edema. In the correct clinical context infiltrate could have similar appearance.Dr. Myles has reviewed this report. CT brain: No acute intracranial abnormality. Stable white matter changes. Dr. Myles has reviewed this report. 2006 - Patient's case was discussed with Dr. Ortega, who states that no cardiac intervention is indicated for the patient at this time. Patient to be admitted. 2053 - Patient's case was discussed with Dr. Bass, he accepts the patient for admission. - Diagnoses Provider Diagnoses: Hypertensive emergency, Elevated troponin, CHF (congestive heart failure), End stage renal disease on dialysis, Hypoxia, Anemia - Physician Notifications Discussed Care Of Patient With: Walter Bass Time Discussed With Above Provider: 20:54 Instructed by Provider To: Other - 2006 - Patient's case was discussed with Dr. Ortega, who states that no intervention is indicated for the patient at this time. Patient to be admitted. 2053 - Patient's case was discussed with Dr. Bass , he accepts the patient for admission. - Critical Care Time Critical Care Time: 30-74 min - 30 minutes Discharge ED - Sign-Out/Discharge Documenting (check all that apply): Patient Departure - admit All imaging exams completed and their final reports reviewed: Yes - Discharge Plan Condition: Stable Disposition: ADMITTED TO [facility] - Billing Disposition and Condition Condition: STABLE Disposition: Admitted to [facility] - Attestation Statements Document Initiated by Scribe: Yes Documenting Scribe: ANGELO JUSTICE Provider For Whom Scribe is Documenting (Include Credential): PALMER MYLES MD Scribe Attestation: ANGELO Arreguin, scribed for PALMER MYLES MD on 08/30/19 at 2238. Scribe Documentation Reviewed: Yes Provider Attestation: The documentation as recorded by the scribeANGELO accurately reflects the service I personally performed and the decisions made by me, PALMER MYLES MD Status of Scribe Document: Viewed
[2019-08-07 19:18] LABS: Troponin I 0.06 ng/mL (<0.04)
[2019-08-07] MEDS ORDERED: Diltiazem IV push/loading dose 5 MG/ML 5 ML vial (25 mg) IV SLOW PU ONE (19:21)
[2019-08-07 19:24] LABS: Influenza A Molecular NEGATIVE (Negative); Influenza B Molecular NEGATIVE (Negative)
[2019-08-07] MEDS ORDERED: hydrALAZINE IV* 20 MG/ML VIAL IV SLOW PU ONE (19:28)
[2019-08-07] MEDS ORDERED: Oxymorphone (NF) 10 MG TAB PO ONE (19:29)
[2019-08-07] MEDS ORDERED: Oxymorphone IR (NF) 5 MG TAB PO ONE (19:47)
[2019-08-07 22:46] LABS: Troponin I 0.07 ng/mL (<0.04)
[2019-08-07 23:09] LABS: ABS Basophils 0.1 10^3/ul (0-0.2); ABS Eosinophils 0.2 10^3/ul (0-0.6); ABS Lymphocytes 0.6 10^3/ul (1.0-4.8); ABS Monocytes 0.4 10^3/ul (0-0.8); ABS Neutrophils 3.6 10^3/ul (1.5-7.7); Eosinophil % 3.4 %; Hematocrit 24 % (42-52); Hemoglobin 7.7 g/dL (14.0-18.0); Lymphocyte % 11.7 %; Mean Corpuscular HGB Conc 32 g/dL (31-36); Mean Corpuscular Hemoglobin 27 pg (27-31); Mean Corpuscular Volume 85 fL (80-94); Platelet Count 152 10^3/uL (150-450); Red Blood Count 2.88 10^6 /uL (4.18-5.48); Red Cell Distribution Width 19 % (10-15); White Blood Count 4.7 10^3/uL (3.5-10.8)
[2019-08-07 23:24] LABS: EGFR African American 7.6 (>60); EGFR Non-African American 6.3 (>60)
[2019-08-08] MEDS: hydrALAZINE IV* 20 MG/ML VIAL IV SLOW PU PRN ×2 (00:49→13:51)
--- NOTE | 2019-08-08 00:51 | HP ---
CC: Dr. Deng; Dr. Jalen Venegas. * ADMISSION HISTORY AND PHYSICAL: DATE OF ADMISSION: 08/07/19. CHIEF COMPLAINT: Not feeling well. PRIMARY CARE PHYSICIAN: Dr. Deng. CONSULTING APERTURE MASK ETCHER: Dr. Jalen Venegas. HISTORY OF PRESENT ILLNESS: This is a 54-year-old male with a past medical history of end-stage renal disease, status post kidney transplant, which is in failure, back on dialysis, missed his dialysis session on Tuesday, had a dialysis session this morning, but since then he has been feeling unwell. Stated that he is having some nonspecific complaints including headache, nausea , fatigue, shortness of breath and felt like his chest was congested with fluid. He has been having cough for the last few days with yellowish sputum. As mentioned, he did miss his hemodialysis session on Tuesday and this morning , he had a hemodialysis session with 4.3 L of fluid removed. He denies any chest pain or any vomiting or diarrhea or any other fever or chills. PAST MEDICAL HISTORY: As mentioned: 1. End-stage renal disease, secondary to high blood pressure and diabetes. He did have a renal transplant in February 2018 with evidence of failure by April and recently was resumed on dialysis for failure of graft. 2. History of nonischemic cardiomyopathy. 3. Severe pulmonary hypertension. 4. Essential hypertension. 5. Type 2 diabetes, diet controlled. 6. Chronic pain. PAST SURGICAL HISTORY: Includes history of spinal surgeries x2, kidney transplant placement in February 2018, history of ventral hernia repair x2, and right wrist and hand reconstruction. HOME MEDICATIONS: The patient is on: 1. Opana 20 mg 4 times a day. 2. Nifedipine 30 mg b.i.d. 3. Lasix 40 mg p.o. b.i.d. 4. Coreg 25 mg p.o. b.i.d. 5. PhosLo 1 tablet p.o. t.i.d. 6. Hydralazine 25 mg oral p.o. b.i.d. 7. Catapres 0.2 mg p.o. t.i.d. 8. Amlodipine 10 mg p.o. q.a.m. 9. Tacrolimus 5 mg p.o. b.i.d., but has not taken it in many weeks. 10. Opana 40 mg p.o. b.i.d. 11. Prednisone 10 mg oral daily. 12. Sodium bicarb 648 mg p.o. daily. ALLERGIES: The patient is allergic to BEES, LISINOPRIL, PENICILLIN and SHELLFISH. FAMILY HISTORY: Father and mother both had diabetes. SOCIAL HISTORY: The patient has [id number] history of smoking, quit 9 months ago, but still smokes occasionally. Denies any alcohol or drug use. Lives with his brother and his family. He is full code and his brother is his surrogate decision maker in the event of any emergency. REVIEW OF SYSTEMS: A 14-point review of systems did not reveal any new information other than the ones stated in the HPI. PHYSICAL EXAMINATION GENERAL: The patient is awake, alert, and oriented x3. Does not appear to be in any acute distress. VITAL SIGNS: In the ER, BP was noted to be elevated to 217/134 requiring multiple IV medications to control his blood pressure, temperature was noted to be 97.6, heart rate 67, respiration rate 17, saturating 93% on 2 L nasal cannula. HEAD AND NECK: Atraumatic and normocephalic. Bilateral pupils are reactive. Oral mucosa was moist. NECK: Supple. No jugular venous distention. LUNGS: The patient had bibasilar crackles. HEART: S1 and S2, regular rate and rhythm. ABDOMEN: Obese, soft, nontender. EXTREMITIES: The patient had bilateral lower extremities pitting edema. DIAGNOSTIC STUDIES/LAB DATA: CBC was remarkable for some mild anemia with hemoglobin 8.5, hematocrit 26, RDW of 19. Coagulation profile shows elevated INR at 1.23. Comprehensive metabolic panel was showing elevated creatinine and minimally elevated troponin of 0.06. Influenza A and B were both noted to be negative. Chest x-ray was showing worsening central prominence air space opacification with small pleural effusion, constellation of findings suggestive of pulmonary edema. CT brain shows no acute intracranial abnormalities, stable white matter changes. EKG shows sinus rhythm at 70 beats per minute without any ST elevation. There were a few T-wave inversions noted, but this was noted to be present in the previous EKG from 07/21/19. IMPRESSION: This is a 54-year-old male with history of end-stage renal disease noncompliance with a failed renal transplant, here due to nonspecific symptoms and noted to have elevated blood pressure and congestive heart failure. ASSESSMENT: 1. Hypertensive urgency with congestive heart failure, likely needs another hemodialysis session to improve his fluid overload status. I will also start the patient on IV hydralazine to control the blood pressure more rapidly. I have already spoken with meat manager and suggested maybe a dialysis session tomorrow would benefit the patient by removing another few liters of fluid from him. In the meantime, we will also restart his blood pressure medications from home. 2. Minimally elevated troponin, likely due to decreased clearance from his renal dysfunction rather than any acute coronary event. 3. History of hypertension, as mentioned we will restart home medications. 4. Anemia, chronic, due to end-stage renal disease and anemia of chronic disease. We will monitor hemoglobin for now. 5. DVT prophylaxis with subcu heparin. 6. Code status: Full code with his brother, Hermann Bedolla as surrogate decision maker. [id number]/CPS #: [id number] MTDD
[2019-08-08] MEDS: Oxymorphone IR (NF) 5 MG TAB PO PRN (02:22)
[2019-08-08 07:31] LABS: ABS Basophils 0.1 10^3/ul (0-0.2); ABS Eosinophils 0.2 10^3/ul (0-0.6); ABS Lymphocytes 0.6 10^3/ul (1.0-4.8); ABS Monocytes 0.4 10^3/ul (0-0.8); ABS Neutrophils 4.5 10^3/ul (1.5-7.7); Eosinophil % 3.6 %; Hematocrit 26 % (42-52); Hemoglobin 8.4 g/dL (14.0-18.0); Lymphocyte % 9.6 %; Mean Corpuscular HGB Conc 33 g/dL (31-36); Mean Corpuscular Hemoglobin 28 pg (27-31); Mean Corpuscular Volume 85 fL (80-94); Mean Platelet Volume 7.7 fL (7.4-10.4); Platelet Count 154 10^3/uL (150-450); Red Blood Count 3.06 10^6 /uL (4.18-5.48); Red Cell Distribution Width 19 % (10-15); White Blood Count 5.8 10^3/uL (3.5-10.8)
[2019-08-08 07:39] LABS: BUN/Creatinine Ratio 4.8 (8-20); Calcium 7.8 mg/dL (8.6-10.3); EGFR African American 7.1 (>60); EGFR Non-African American 5.8 (>60); Potassium 4.2 mmol/L (3.5-5.0)
[2019-08-08] MEDS: hydrALAZINE TAB* 25 MG PO SCH ×2 (08:36→21:06)
[2019-08-08] MEDS: cloNIDine TAB* 0.1 MG PO SCH ×3 (08:36→21:05)
[2019-08-08] MEDS: Calcium Acetate CAP* 667 MG PO SCH ×3 (08:36→21:05)
[2019-08-08] MEDS: amLODIPine TAB* 5 MG PO SCH (08:36)
[2019-08-08] MEDS: Carvedilol TAB* 25 MG PO SCH ×2 (08:36→21:05)
[2019-08-08] MEDS: Sodium Bicarbonate (ANTACID)* 650 MG TAB PO SCH (08:37)
[2019-08-08] MEDS: Furosemide TAB* 40 MG PO SCH ×2 (08:37→21:05)
[2019-08-08] MEDS: Tacrolimus CAP(*) 1 MG PO SCH ×2 (08:37→21:07)
[2019-08-08] MEDS: Heparin VIAL(*) 5000 UNITS/ML VIAL (FIVE THOUSAND) SUBCUT SCH ×2 (08:41→21:08)
--- NOTE | 2019-08-08 08:54 | CONSULT ---
Consult Consult: InPatient Nephrology Consult By: Dr. Amanda Venegas, [facility] Nephrology Consult requested by: Hospitalist service Consult requested for ESRD on HD. Fluid overload HPI: 54 yo AAM Admitted with H[place], BLE edema & Hypoxia. Missed HD on Tuesday. Had HD yesterday with 4 L UF. Came back to ER with severe SOB & very high BP Hx of Kidney Tx 02/2018, failed due to lack of Compliance. PMH: ESRD HTN Failed Renal Transplant ESRD on HD-TTS Chronic anemia Failed Renal Transplant Poor compliance to HD Rx & ISDs Hospital Meds: Amlodipine 10 qd Calcium Acetate TID Carvedilol 25 BID Clonidine 0.2 TID Furosemide 40 BID Heparin 5,000 BID Hydralazine 25 BID Hydralazine 10 IV QID Oxymorphone Prednisone 10 qd Sodium Bicarbonate Tacrolimus 3 BID Allergies: PCN, Shellfish, Lisinopril, Honey Bee bee venom protein (honey bee) Allergy (Verified 07/21/19 09:34) Anaphylatic Shock lisinopril Allergy (Verified 07/21/19 09:34) Anaphylatic Shock Penicillins Allergy (Verified 07/21/19 09:34) Anaphylatic Shock shellfish derived Allergy (Verified 07/21/19 09:34) Anaphylatic Shock Surgical History 2002 hernia REPAIR [facility]. 2002 cervical spine surgery, [facility] [place]. 1994 RT wrist surgery. 2009 HERNIA REPAIR. 2014 LEFT ELBOW SURGERY. 2014 LUE FISTULA PLACED Family History Hypertension, Diabetes Social History Hx Tobacco Use: Yes Smoking Status (MU): Former Smoker Type: Cigarettes Amount Used/How Often: 1/2 PPD X 20 YEARS Length of Time of Smoking/Using Tobacco: 35 YEARS Have You Smoked in the Last Year: Yes 12 Point ROS obtained: SOB, edema, Weakness, fatigue, [place], Nausea Constitutional no fever no weight loss Eyes No blurry vision CV shortness of breath no chest pain no syncope. ++ edema Resp shortness of breath no cough no wheezing G.I. no diarrhea no nausea no vomiting no pain no blood per rectum no burning no obstruction symptoms Skin no rash Neurology No seizures or neurologic deficit. Mild-Moderate [place] Endocrine no diabetes Hem/Lymp no bleeding no lymph nodes Immun/Allergy no allergic actions Musculoskeletal no Arthritis no swelling no pain Psych no anxiety no depression no hallucination Inpatient Meds: A[facility]od[facility]ine [facility] ([facility]*) [facility] [place] Last Admin: 08/08/19 08:36 Dose: 10 mg Calcium Acetate (Phoslo Cap*) 667 mg PO TID [facility] Last Admin: 08/08/19 08:36 Dose: 667 mg Carvedilol (Coreg Tab*) 25 mg PO BID [facility] Last Admin: 08/08/19 08:36 Dose: 25 mg Clonidine HCl (Catapres Tab*) 0.2 mg PO TID [facility] Last Admin: 08/08/19 08:36 Dose: 0.2 mg Furosemide (Lasix Tab*) 40 mg PO BID [facility] Last Admin: 08/08/19 08:37 Dose: 40 mg Heparin Sodium (Porcine) (Heparin Vial(*)) 5,000 units SUBCUT Q12HR [facility] Last Admin: 08/08/19 08:41 Dose: Not Given Hydralazine HCl (Apresoline Tab*) 25 mg PO BID [facility] Last Admin: 08/08/19 08:36 Dose: 25 mg Hydralazine HCl (Apresoline Iv*) 10 mg IV SLOW PU Q6H PRN PRN Reason: Systolic Bp Greater Than:160 Last Admin: 08/08/19 00:49 Dose: 10 mg Oxymorphone HCl (Opana Ir (Nf)) 20 mg PO QID PRN PRN Reason: PAIN Last Admin: 08/08/19 02:22 Dose: 20 mg Oxymorphone HCl (Opana Er (Nf)) 40 mg PO BID [facility] Prednisone (Deltasone Tab*) 10 mg PO DAILY [facility] Last Admin: 08/08/19 08:36 Dose: 10 mg Sodium Bicarbonate (Sodium Bicarbonate (Antacid)*) 650 mg PO DAILY [facility] Last Admin: 08/08/19 08:37 Dose: 650 mg Tacrolimus (Prograf Cap(*)) 3 mg PO BID [facility] Last Admin: 08/08/19 08:37 Dose: 3 mg O/E: 10 Pointmulti systemexam: Negative except pertinent positive Temp Pulse Resp BP Pulse Ox 99 F 74 20 192/104 94 08/08/19 08:00 08/08/19 08:00 08/08/19 08:00 08/08/19 08:00 08/08/19 08:00 Constitutional Alert Oriented x 3 Abdomen SoftAbdomen No Ascites Heart: NSR,Trace LE Edema, No murmur Lungs: Clear to auscultation, ++ Crackles Extremities: No edema, rash Labs: Sodium 138 mmol/L (135-145) 08/08/19 05:48 Potassium 4.2 mmol/L (3.5-5.0) 08/08/19 05:48 BUN 45 mg/dL (6-24) H 08/08/19 05:48 Creatinine 9.37 mg/dL (0.67-1.17) H 08/08/19 05:48 Calcium 7.8 mg/dL (8.6-10.3) L 08/08/19 05:48 AST 14 U/L (13-39) 08/07/19 16:01 ALT 13 U/L (7-52) 08/07/19 16:01 1.ESRD: HD today, for Fluid oveload. UF 3-4 L as tolerated. 2.HTN: elevated. Fluid overload related 3.Volume: Continue Lasix 40 BID 4.Lytes: Na, K, CO3 Ok. Stop Na Bicarb
[2019-08-08] MEDS ORDERED: OXYMORPHONE 20 MG PO SCH (09:00)
[2019-08-08] MEDS: OXYMORPHONE 20 MG PO SCH ×2 (09:13→21:06)
[2019-08-08] MEDS ORDERED: Heparin DIALYSIS ONLY(*) 1,000 UNITS/ML VIAL DIALYSIS ONE (11:00)
[2019-08-08 11:41] LABS: Troponin I 0.06 ng/mL (<0.04)
[2019-08-08] MEDS ORDERED: Metoprolol Tartrate IV* 1 MG/ML 5 ML VIAL IV PRN (15:13)
[2019-08-08] MEDS ORDERED: hydrALAZINE IV* 20 MG/ML VIAL IV SLOW PU PRN (15:15)
[2019-08-08] MEDS: Metoprolol Tartrate IV* 1 MG/ML 5 ML VIAL IV PRN (15:25)
[2019-08-08] MEDS ORDERED: hydrALAZINE IV* 20 MG/ML VIAL IV SLOW PU ONE (15:52)
[2019-08-08] MEDS ORDERED: cloNIDine TAB* 0.1 MG PO ONE (17:27)
--- NOTE | 2019-08-08 19:27 | PN ---
Subjective Date of Service: 08/08/19 Interval History: Patient agreeable to staying for additional dialysis tomorrow. Is surprised that missing one dialysis session has caused this issue. Denies headaches, visual changes, chest pain, difficulty breathing, abd pain. Objective Active Medications: Amlodipine Besylate (Norvasc Tab*) 10 mg PO QAM [facility] Last Admin: 08/08/19 08:36 Dose: 10 mg Calcium Acetate (Phoslo Cap*) 667 mg PO TID [facility] Last Admin: 08/08/19 13:50 Dose: 667 mg Carvedilol (Coreg Tab*) 25 mg PO BID [facility] Last Admin: 08/08/19 08:36 Dose: 25 mg Clonidine HCl (Catapres Tab*) 0.2 mg PO TID [facility] Last Admin: 08/08/19 13:51 Dose: 0.2 mg Furosemide (Lasix Tab*) 40 mg PO BID [facility] Last Admin: 08/08/19 08:37 Dose: 40 mg Heparin Sodium (Porcine) (Heparin Vial(*)) 5,000 units SUBCUT Q12HR [facility] Last Admin: 08/08/19 08:41 Dose: Not Given Hydralazine HCl (Apresoline Tab*) 25 mg PO BID [facility] Last Admin: 08/08/19 08:36 Dose: 25 mg Hydralazine HCl (Apresoline Iv*) 15 mg IV SLOW PU Q4H PRN PRN Reason: Systolic Bp Greater Than:160 Metoprolol Tartrate (Lopressor Iv*) 5 mg IV Q6H PRN PRN Reason: BLOOD PRESSURE Last Admin: 08/08/19 15:25 Dose: 5 mg Oxymorphone HCl (Opana Ir (Nf)) 20 mg PO QID PRN PRN Reason: PAIN Last Admin: 08/08/19 02:22 Dose: 20 mg Oxymorphone HCl (Opana Er (Nf)) 40 mg PO BID [facility] Last Admin: 08/08/19 09:13 Dose: 40 mg Prednisone (Deltasone Tab*) 10 mg PO DAILY [facility] Last Admin: 08/08/19 08:36 Dose: 10 mg Sodium Bicarbonate (Sodium Bicarbonate (Antacid)*) 650 mg PO DAILY [facility] Last Admin: 08/08/19 08:37 Dose: 650 mg Tacrolimus (Prograf Cap(*)) 3 mg PO BID [facility] Last Admin: 08/08/19 08:37 Dose: 3 mg Vital Signs - 8 hr 08/08/19 08/08/19 08/08/19 13:36 15:23 15:45 Temperature 98.4 F 97.6 F Pulse Rate 72 65 66 Respiratory 20 16 Rate Blood Pressure 183/98 212/110 197/112 (mmHg) O2 Sat by Pulse 92 98 Oximetry 08/08/19 16:25 Temperature Pulse Rate 69 Respiratory Rate Blood Pressure 194/115 (mmHg) O2 Sat by Pulse Oximetry Oxygen Devices in Use Now: Nasal Cannula Appearance: Middle aged, black male, sitting in bed, appearing in NAD Eyes: No Scleral Icterus, PERRLA Ears/Nose/Mouth/Throat: Mucous Membranes Moist Neck: NL Appearance and Movements; NL JVP Respiratory: Symmetrical Chest Expansion and Respiratory Effort, - - faint crackles in bilateral lung bases Cardiovascular: NL Sounds; No Murmurs; No JVD, RRR Abdominal: - - abd soft, nontender, nondistended Extremities: No Edema, No Clubbing, Cyanosis Skin: No Rash or Ulcers Neurological: Alert and Oriented x 3, NL Muscle Strength and Tone Result Diagrams: 08/08/19 05:48 08/08/19 05:48 Additional Lab and Data: Lab Results 08/07/19 08/07/19 08/07/19 Range/Units 16:01 16:01 16:01 WBC 5.8 (3.5-10.8) 10^3/uL RBC 3.06 L (4.18-5.48) 10^6 /uL Hgb 8.5 L (14.0-18.0) g/dL Hct 26 L (42-52) % MCV 85 (80-94) fL MCH 28 (27-31) pg MCHC 33 (31-36) g/dL RDW 19 H (10-15) % Plt Count 164 (150-450) 10^3/uL MPV 8.0 (7.4-10.4) fL Neut % (Auto) 82.6 % Lymph % (Auto) 8.5 % [place] % (Auto) 6.2 % Eos % (Auto) 1.4 % Baso % (Auto) 1.3 % Absolute Neuts (auto) 4.8 (1.5-7.7) 10^3/ul Absolute Lymphs (auto) 0.5 L (1.0-4.8) 10^3/ul Absolute Monos (auto) 0.4 (0-0.8) 10^3/ul Absolute Eos (auto) 0.1 (0-0.6) 10^3/ul Absolute Basos (auto) 0.1 (0-0.2) 10^3/ul Absolute Nucleated RBC 0.0 10^3/ul Nucleated RBC % 0.0 INR (Anticoag Therapy) 1.23 H (0.82-1.09) Sodium 137 (135-145) mmol/L Potassium 4.2 (3.5-5.0) mmol/L Chloride 99 L (101-111) mmol/L Carbon Dioxide 29 (22-32) mmol/L Anion Gap 9 (2-11) mmol/L BUN 38 H (6-24) mg/dL Creatinine 8.28 H (0.67-1.17) mg/dL Est GFR ( Amer) 8.2 (>60) Est GFR (Non-Af Amer) 6.7 (>60) BUN/Creatinine Ratio 4.6 L (8-20) Glucose 125 H (70-100) mg/dL Calcium 8.0 L (8.6-10.3) mg/dL Total Bilirubin 1.00 (0.2-1.0) mg/dL AST 14 (13-39) U/L ALT 13 (7-52) U/L Alkaline Phosphatase 47 (34-104) U/L Troponin I 0.06 H* (<0.04) ng/mL Total Protein 7.3 (6.4-8.9) g/dL Albumin 3.8 (3.2-5.2) g/dL Globulin 3.5 (2-4) g/dL Albumin/Globulin Ratio 1.1 (1-3) Assess/Plan/Problems-Billing Assessment: 54 yo black male with PMHx ESRD, s/p kidney transplant with subsequent rejection , nonischemic cardiomyopathy, pulmonary HTN, DMT2, and chronic pain who presents with shortness of breath. - Patient Problems (1) Shortness of breath Current Visit: Yes Status: Acute Code(s): R06.02 - SHORTNESS OF BREATH SNOMED Code(s): 385636525 Comment: -CXR demonstreates small pleural effusions and pulmonary edema, likely related to fluid overload due to missing dialysis session -patient feels symptomatically improved after dialysis session today, but nephrology agrees patient should receive additional dialysis at the hospital tomorrow instead of outpatient due to persistent hypertension -appreciate nephrology consult -SOB is improved, patient with good saturations on 2L, will wean (2) Hypertensive urgency Current Visit: No Status: Acute Code(s): I16.0 - HYPERTENSIVE URGENCY SNOMED Code(s): 279149441 Comment: - SBP up to 210 today despite IV hydralazine - Continue lasix, clonidine, po hydralazine, carvedilol, amlodipine - Increased dose and frequency of IV hydralazine, increased po clonidine - Will continue to monitor - Patient is on two calcium channel blockers at home which is not appropriate, but may need to reconsidering restarting his home nifedipine if no improvement after dialysis tomorrow (3) ESRD (end stage renal disease) on dialysis Current Visit: No Status: Acute Priority: High Code(s): N18.6 - END STAGE RENAL DISEASE; Z99.2 - DEPENDENCE ON RENAL DIALYSIS SNOMED Code(s): 157924994 Comment: - Presents with fluid overload and hypertensive urgency in setting of missing outpatient dialysis session - Had emergent dialysis today, will receive routine session tomorrow - Continue sodium bicarb - Continue prednisone and tacrolimus for s/p transplant (4) Diabetes mellitus type 2 in nonobese Current Visit: Yes Status: Acute Code(s): E11.9 - TYPE 2 DIABETES MELLITUS WITHOUT COMPLICATIONS SNOMED Code(s): 457790253 Comment: -diet controlled -good glucoses on BMPs (5) DVT prophylaxis Current Visit: No Status: Acute Code(s): Z29.9 - ENCOUNTER FOR PROPHYLACTIC MEASURES, UNSPECIFIED SNOMED Code(s): 808060610 Comment: - Heparin SQ (6) Full code status Current Visit: No Status: Acute Code(s): Z78.9 - OTHER SPECIFIED HEALTH STATUS SNOMED Code(s): 253529915 Comment: Status and Disposition: Remains inpatient to monitor hypertension and for additional dialysis
[2019-08-09] MEDS: hydrALAZINE IV* 20 MG/ML VIAL IV SLOW PU PRN ×2 (02:08→06:08)
[2019-08-09] MEDS: Metoprolol Tartrate IV* 1 MG/ML 5 ML VIAL IV PRN (03:34)
[2019-08-09] MEDS ORDERED: MinoXIDil TAB* 2.5 MG TAB PO SCH (04:00)
[2019-08-09 06:17] LABS: BUN/Creatinine Ratio 4.2 (8-20); EGFR African American 9.6 (>60); EGFR Non-African American 7.9 (>60); Phosphorus 4.5 mg/dL (2.5-5.0); Potassium 3.9 mmol/L (3.5-5.0)
[2019-08-09] MEDS: Sodium Bicarbonate (ANTACID)* 650 MG TAB PO SCH (10:24)
[2019-08-09] MEDS: MinoXIDil TAB* 2.5 MG TAB PO SCH (10:24)
[2019-08-09] MEDS: Tacrolimus CAP(*) 1 MG PO SCH ×2 (10:24→20:59)
[2019-08-09] MEDS: Calcium Acetate CAP* 667 MG PO SCH ×3 (10:25→21:00)
[2019-08-09] MEDS: amLODIPine TAB* 5 MG PO SCH (10:25)
[2019-08-09] MEDS: hydrALAZINE TAB* 25 MG PO SCH ×2 (10:25→21:00)
[2019-08-09] MEDS: Furosemide TAB* 40 MG PO SCH ×2 (10:25→21:00)
[2019-08-09] MEDS: cloNIDine TAB* 0.1 MG PO SCH ×3 (10:26→21:00)
[2019-08-09] MEDS: Carvedilol TAB* 25 MG PO SCH ×2 (10:26→21:00)
[2019-08-09] MEDS: Heparin VIAL(*) 5000 UNITS/ML VIAL (FIVE THOUSAND) SUBCUT SCH ×2 (10:44→21:02)
[2019-08-09] MEDS ORDERED: Cetirizine* 10 MG TAB PO SCH (11:00)
[2019-08-09] MEDS ORDERED: CMC:LoraTADine TAB(NF) 10 MG TAB PO SCH (11:00)
[2019-08-09] MEDS: OXYMORPHONE 20 MG PO SCH ×2 (11:07→21:02)
[2019-08-09] MEDS: guaiFENesin ER TAB 600 MG PO SCH ×2 (11:28→20:59)
[2019-08-09] MEDS ORDERED: Heparin DIALYSIS ONLY(*) 1,000 UNITS/ML VIAL DIALYSIS ONE (12:00)
[2019-08-09] MEDS ORDERED: EPOETIN ALFA-EPBX * 4,000 UNIT/ML VIAL IV ONE (12:00)
--- NOTE | 2019-08-09 12:04 | PN ---
Progress Note - Progress Note Date of Service: 08/09/19 Note: InPatient Nephrology/Acute HD Note By Dr. Amanda Venegas, [facility] Nephrology He still c/c of stuffiness, secretions, cough with phlegm. He initially refused to have HD today, but agreed after I spoke to him. Better [place]. But BP emains elevated. HD yesterday with 3 L UF. He was urged to have better compliance, especially if he wants to pursue a future renal transplant. Compliance with dialysis sessions, medications and fluid restriction. Hospital medications: Amlodipine Besylate (Norvasc Tab*) 10 mg PO QAM [facility] Last Admin: 08/09/19 10:25 Dose: 10 mg Calcium Acetate (Phoslo Cap*) 667 mg PO TID [facility] Last Admin: 08/09/19 10:25 Dose: 667 mg Carvedilol (Coreg Tab*) 25 mg PO BID [facility] Last Admin: 08/09/19 10:26 Dose: 25 mg Clonidine HCl (Catapres Tab*) 0.2 mg PO TID [facility] Last Admin: 08/09/19 10:26 Dose: 0.2 mg Furosemide (Lasix Tab*) 40 mg PO BID [facility] Last Admin: 08/09/19 10:25 Dose: 40 mg Guaifenesin (Mucinex*) 600 mg PO BID [facility] Last Admin: 08/09/19 11:28 Dose: 600 mg Heparin Sodium (Porcine) (Heparin Vial(*)) 5,000 units SUBCUT Q12HR [facility] Last Admin: 08/09/19 10:44 Dose: Not Given Hydralazine HCl (Apresoline Tab*) 25 mg PO BID [facility] Last Admin: 08/09/19 10:25 Dose: 25 mg Hydralazine HCl (Apresoline Iv*) 15 mg IV SLOW PU Q4H PRN PRN Reason: Systolic Bp Greater Than:160 Last Admin: 08/09/19 06:08 Dose: 15 mg Loratadine (Claritin Tab(Nf)) 10 mg PO EVERY OTHER DAY [facility] Metoprolol Tartrate (Lopressor Iv*) 5 mg IV Q6H PRN PRN Reason: BLOOD PRESSURE Last Admin: 08/09/19 03:34 Dose: 5 mg Minoxidil (Loniten Tab*) 2.5 mg PO DAILY [facility] Last Admin: 08/09/19 10:24 Dose: 2.5 mg Oxymorphone HCl (Opana Ir (Nf)) 20 mg PO QID PRN PRN Reason: PAIN Last Admin: 08/08/19 02:22 Dose: 20 mg Oxymorphone HCl (Opana Er (Nf)) 40 mg PO BID [facility] Last Admin: 08/09/19 11:07 Dose: Not Given Prednisone (Deltasone Tab*) 10 mg PO DAILY [facility] Last Admin: 08/09/19 10:24 Dose: 10 mg Sodium Bicarbonate (Sodium Bicarbonate (Antacid)*) 650 mg PO DAILY [facility] Last Admin: 08/09/19 10:24 Dose: 650 mg Tacrolimus (Prograf Cap(*)) 3 mg PO BID [facility] Last Admin: 08/09/19 10:24 Dose: 3 mg O/E: Temp Pulse Resp BP Pulse Ox 98.7 F 76 24 175/86 94 08/09/19 10:06 08/09/19 10:06 08/09/19 10:06 08/09/19 10:06 08/09/19 10:06 Constitutional Alert Oriented x 3 Abdomen SoftAbdomen No Ascites Heart: NSR,Trace LE Edema, No murmur Lungs: ++ Crackles Labs: Sodium 135 mmol/L (135-145) 08/09/19 05:49 Potassium 3.9 mmol/L (3.5-5.0) 08/09/19 05:49 BUN 30 mg/dL (6-24) H 08/09/19 05:49 Creatinine 7.21 mg/dL (0.67-1.17) H 08/09/19 05:49 Calcium 8.0 mg/dL (8.6-10.3) L 08/09/19 05:49 AST 14 U/L (13-39) 08/07/19 16:01 ALT 13 U/L (7-52) 08/07/19 16:01 1.ESRD: HD today, part of TTS routine 2.HD x 3 Hr: Goal UF 3-4 L as tolerated. 2K Bath and 2.5 Ca Bath. 2.HTN: elevated. Fluid overload related. Needs to adjust dry weight after d/c. Compliance to medications, dialysis and fluid restriction is of utmost significance 3.Volume: Continue Lasix 40 BID after d/c, even he makes only a small amount of urine 4.Lytes: Na, K, CO3 Ok. Stop Na Bicarb
[2019-08-09 15:56] LABS: Magnesium 1.9 mg/dL (1.9-2.7)
[2019-08-09] MEDS ORDERED: Calcium Gluconate INJ* 1 GM in NS 0.9% 50 ML* 50 ML IVPB ONE (16:00)
[2019-08-09 18:08] LABS: BUN/Creatinine Ratio 3.8 (8-20); Calcium 8.4 mg/dL (8.6-10.3); EGFR African American 15.6 (>60); EGFR Non-African American 12.9 (>60); Magnesium 1.9 mg/dL (1.9-2.7); Potassium 4.1 mmol/L (3.5-5.0)
[2019-08-09] MEDS ORDERED: Magnesium Oxide TAB* 400 MG PO ONE (18:22)
--- NOTE | 2019-08-09 18:29 | PN ---
Subjective Date of Service: 08/09/19 Interval History: Patient initially refusing dialysis because he feels unwell. C/o nasal congestion, cough, generalized weakness. Denies fever/chills, difficulty breathing, chest pain, abd pain, nausea/vomiting. Denies headache/visual changes. Ultimately agreed to dialysis session when discussed with Dr. Venegas. Later in the day several hours after dialysis session, patient had 26 beat run of Vtach which was not symptomatic. Objective Active Medications: Amlodipine Besylate (Norvasc Tab*) 10 mg PO QAM [facility] Last Admin: 08/09/19 10:25 Dose: 10 mg Calcium Acetate (Phoslo Cap*) 667 mg PO TID [facility] Last Admin: 08/09/19 15:10 Dose: Not Given Carvedilol (Coreg Tab*) 25 mg PO BID [facility] Last Admin: 08/09/19 10:26 Dose: 25 mg Clonidine HCl (Catapres Tab*) 0.2 mg PO TID [facility] Last Admin: 08/09/19 15:10 Dose: Not Given Furosemide (Lasix Tab*) 40 mg PO BID [facility] Last Admin: 08/09/19 10:25 Dose: 40 mg Guaifenesin (Mucinex*) 600 mg PO BID [facility] Last Admin: 08/09/19 11:28 Dose: 600 mg Heparin Sodium (Porcine) (Heparin Vial(*)) 5,000 units SUBCUT Q12HR [facility] Last Admin: 08/09/19 10:44 Dose: Not Given Hydralazine HCl (Apresoline Iv*) 15 mg IV SLOW PU Q4H PRN PRN Reason: Systolic Bp Greater Than:160 Last Admin: 08/09/19 06:08 Dose: 15 mg Hydralazine HCl (Apresoline Tab*) 25 mg PO QID [facility] Loratadine (Claritin Tab(Nf)) 10 mg PO EVERY OTHER DAY [facility] Last Admin: 08/09/19 15:10 Dose: Not Given Magnesium Oxide (Magox 400 Tab*) 400 mg PO ONCE ONE Stop: 08/09/19 18:23 Minoxidil (Loniten Tab*) 2.5 mg PO DAILY [facility] Last Admin: 08/09/19 10:24 Dose: 2.5 mg Oxymorphone HCl (Opana Ir (Nf)) 20 mg PO QID PRN PRN Reason: PAIN Last Admin: 08/08/19 02:22 Dose: 20 mg Oxymorphone HCl (Opana Er (Nf)) 40 mg PO BID [facility] Last Admin: 08/09/19 11:07 Dose: Not Given Prednisone (Deltasone Tab*) 10 mg PO DAILY [facility] Last Admin: 08/09/19 10:24 Dose: 10 mg Sodium Bicarbonate (Sodium Bicarbonate (Antacid)*) 650 mg PO DAILY [facility] Last Admin: 08/09/19 10:24 Dose: 650 mg Tacrolimus (Prograf Cap(*)) 3 mg PO BID [facility] Last Admin: 08/09/19 10:24 Dose: 3 mg Vital Signs - 8 hr 08/09/19 08/09/19 14:33 15:32 Temperature 98.1 F 97.9 F Pulse Rate 70 76 Respiratory 20 18 Rate Blood Pressure 167/82 184/87 (mmHg) O2 Sat by Pulse 98 99 Oximetry Oxygen Devices in Use Now: Nasal Cannula Appearance: Middle age, black male, sitting upright on side of bed, appearing in NAD Eyes: No Scleral Icterus, PERRLA Ears/Nose/Mouth/Throat: Mucous Membranes Moist, - - frontal and maxillary sinuses nontender to palpation Neck: NL Appearance and Movements; NL JVP Respiratory: Symmetrical Chest Expansion and Respiratory Effort, Clear to Auscultation Cardiovascular: NL Sounds; No Murmurs; No JVD, RRR Abdominal: - - abd soft, nontender, nondistended Extremities: No Edema, No Clubbing, Cyanosis Skin: No Rash or Ulcers Neurological: Alert and Oriented x 3, NL Muscle Strength and Tone Result Diagrams: 08/08/19 05:48 08/09/19 17:38 Additional Lab and Data: Lab Results 08/07/19 08/07/19 08/07/19 Range/Units 16:01 16:01 16:01 WBC 5.8 (3.5-10.8) 10^3/uL RBC 3.06 L (4.18-5.48) 10^6 /uL Hgb 8.5 L (14.0-18.0) g/dL Hct 26 L (42-52) % MCV 85 (80-94) fL MCH 28 (27-31) pg MCHC 33 (31-36) g/dL RDW 19 H (10-15) % Plt Count 164 (150-450) 10^3/uL MPV 8.0 (7.4-10.4) fL Neut % (Auto) 82.6 % Lymph % (Auto) 8.5 % Glynn % (Auto) 6.2 % Eos % (Auto) 1.4 % Baso % (Auto) 1.3 % Absolute Neuts (auto) 4.8 (1.5-7.7) 10^3/ul Absolute Lymphs (auto) 0.5 L (1.0-4.8) 10^3/ul Absolute Monos (auto) 0.4 (0-0.8) 10^3/ul Absolute Eos (auto) 0.1 (0-0.6) 10^3/ul Absolute Basos (auto) 0.1 (0-0.2) 10^3/ul Absolute Nucleated RBC 0.0 10^3/ul Nucleated RBC % 0.0 INR (Anticoag Therapy) 1.23 H (0.82-1.09) Sodium 137 (135-145) mmol/L Potassium 4.2 (3.5-5.0) mmol/L Chloride 99 L (101-111) mmol/L Carbon Dioxide 29 (22-32) mmol/L Anion Gap 9 (2-11) mmol/L BUN 38 H (6-24) mg/dL Creatinine 8.28 H (0.67-1.17) mg/dL Est GFR ( Amer) 8.2 (>60) Est GFR (Non-Af Amer) 6.7 (>60) BUN/Creatinine Ratio 4.6 L (8-20) Glucose 125 H (70-100) mg/dL Calcium 8.0 L (8.6-10.3) mg/dL Total Bilirubin 1.00 (0.2-1.0) mg/dL AST 14 (13-39) U/L ALT 13 (7-52) U/L Alkaline Phosphatase 47 (34-104) U/L Troponin I 0.06 H* (<0.04) ng/mL Total Protein 7.3 (6.4-8.9) g/dL Albumin 3.8 (3.2-5.2) g/dL Globulin 3.5 (2-4) g/dL Albumin/Globulin Ratio 1.1 (1-3) Assess/Plan/Problems-Billing Assessment: 54 yo black male with PMHx ESRD, s/p kidney transplant with subsequent rejection , nonischemic cardiomyopathy, pulmonary HTN, DMT2, and chronic pain who presents with shortness of breath. - Patient Problems (1) Ventricular tachycardia Current Visit: Yes Status: Acute Code(s): I47.2 - VENTRICULAR TACHYCARDIA SNOMED Code(s): 99978190 Comment: -patient had 26 beat run of asymptomatic Vtach -BMP repeated, mag is minimally decreased and replacing with po mag oxide. K is >4 already -ionized calcium was low in the AM prior to dialysis and replaced with IV calcium gluconate -will monitor on telemetry overnight (2) Shortness of breath Current Visit: Yes Status: Acute Code(s): R06.02 - SHORTNESS OF BREATH SNOMED Code(s): 140644279 Comment: -CXR demonstreates small pleural effusions and pulmonary edema, likely related to fluid overload due to missing dialysis session -Patient had dialysis yesterday as well as today. He is on TuThSat schedule outpatient. -this is symptomatically improved. Patient has good saturations on 2L, will wean -appreciate nephrology consult (3) Viral URI Current Visit: Yes Status: Acute Code(s): J06.9 - ACUTE UPPER RESPIRATORY INFECTION, UNSPECIFIED SNOMED Code(s): 286871517 Comment: -patient c/o nasal congestion and cough for 5-7 days -afebrile during this entire period of time including in hospital -cough is likely postnasal drip -started mucinex, steroid nasal spray, and every other day loratadine (ESRD dosing) (4) Hypertensive urgency Current Visit: No Status: Acute Code(s): I16.0 - HYPERTENSIVE URGENCY SNOMED Code(s): 054352542 Comment: - SBP improved today, 160s-180s - Continue lasix, carvedilol, amlodipine - Better control with increased dose of clonidine - Patient takes po hydralazine only BID, which should probably be QID for better control and I will change this - Will continue to monitor - Patient is on two calcium channel blockers at home which does not seem appropriate (amlodipine plus nifedipine) (5) ESRD (end stage renal disease) on dialysis Current Visit: No Status: Acute Priority: High Code(s): N18.6 - END STAGE RENAL DISEASE; Z99.2 - DEPENDENCE ON RENAL DIALYSIS SNOMED Code(s): 265951136 Comment: - Presents with fluid overload and hypertensive urgency in setting of missing outpatient dialysis session - Had emergent dialysis yesterday, and back on dialysis schedule today - Continue sodium bicarb - Continue prednisone and tacrolimus for s/p transplant (6) Diabetes mellitus type 2 in nonobese Current Visit: Yes Status: Acute Code(s): E11.9 - TYPE 2 DIABETES MELLITUS WITHOUT COMPLICATIONS SNOMED Code(s): 432982130 Comment: -diet controlled -good glucoses on BMPs (7) DVT prophylaxis Current Visit: No Status: Acute Code(s): Z29.9 - ENCOUNTER FOR PROPHYLACTIC MEASURES, UNSPECIFIED SNOMED Code(s): 931852230 Comment: - Heparin SQ (8) Full code status Current Visit: No Status: Acute Code(s): Z78.9 - OTHER SPECIFIED HEALTH STATUS SNOMED Code(s): 346594056 Comment: Status and Disposition: Remains inpatient for continued telemetry monitoring due to Vtach, will likely be safe for d/c tomorrow
[2019-08-09] MEDS: Fluticasone NASAL SPRAY 50MCG* 16 gm SPRAY BTL BOTH NARES SCH (19:07)
[2019-08-09] MEDS: Oxymorphone IR (NF) 5 MG TAB PO PRN (19:45)
[2019-08-10 06:34] LABS: BUN/Creatinine Ratio 4.3 (8-20); Calcium 8.2 mg/dL (8.6-10.3); EGFR African American 11.9 (>60); EGFR Non-African American 9.8 (>60); Magnesium 2.1 mg/dL (1.9-2.7); Phosphorus 4.3 mg/dL (2.5-5.0)
[2019-08-10] MEDS: Fluticasone NASAL SPRAY 50MCG* 16 gm SPRAY BTL BOTH NARES SCH (10:01)
[2019-08-10] MEDS: amLODIPine TAB* 5 MG PO SCH (10:01)
[2019-08-10] MEDS: Sodium Bicarbonate (ANTACID)* 650 MG TAB PO SCH (10:01)
[2019-08-10] MEDS: hydrALAZINE TAB* 25 MG PO SCH ×2 (10:02→13:53)
[2019-08-10] MEDS: OXYMORPHONE 20 MG PO SCH (10:02)
[2019-08-10] MEDS: MinoXIDil TAB* 2.5 MG TAB PO SCH (10:02)
[2019-08-10] MEDS: guaiFENesin ER TAB 600 MG PO SCH (10:02)
[2019-08-10] MEDS: Furosemide TAB* 40 MG PO SCH (10:03)
[2019-08-10] MEDS: Calcium Acetate CAP* 667 MG PO SCH ×2 (10:04→13:53)
[2019-08-10] MEDS: Tacrolimus CAP(*) 1 MG PO SCH (10:04)
[2019-08-10] MEDS: Carvedilol TAB* 25 MG PO SCH (10:04)
[2019-08-10] MEDS: cloNIDine TAB* 0.1 MG PO SCH ×2 (10:04→13:53)
[2019-08-10] MEDS: Heparin VIAL(*) 5000 UNITS/ML VIAL (FIVE THOUSAND) SUBCUT SCH (10:07)
[2019-08-10 11:45] VITALS: BP 153/87
--- NOTE | 2019-08-10 18:11 | DS ---
CC: Dr. Jacob Deng; Dr. Jalen Venegas * DISCHARGE SUMMARY: DATE OF ADMISSION: 08/07/19 DATE OF DISCHARGE: 08/10/19 PRIMARY CARE PROVIDER: Dr. Jacob Deng. APPLICATION DESIGNER: Dr. Jalen Venegas. ATTENDING PHYSICIAN: Dr. Arjun Booker.* (DICTATED BY CAROLINA BUTLER NP) PRIMARY DIAGNOSES: 1. Fluid volume overload secondary to missed hemodialysis. 2. Hypertensive urgency. 3. Nonsustained ventricular tachycardia. 4. Viral upper respiratory infection. SECONDARY DIAGNOSES: 1. End-stage renal disease, on hemodialysis. 2. Diabetes mellitus type 2. 3. Chronic pain. 4. Non-ischemic cardiomyopathy. STUDIES WHILE IN THE HOSPITAL: 1. EKG on 08/07/19 showed normal sinus rhythm with a rate of 70. QTc 517, inverted T-waves in I, V5 and V6. 2. Chest x-ray on 08/07/19, results: Worsening central predominant air space opacification with Nando B lines and small pleural effusion. Constellation of findings suggestive of pulmonary edema. In the correct clinical context, infiltrate could have similar appearing. 3. Brain CT on 08/07/19, results: No acute intracranial abnormality. Stable white matter changes. 4. EKG on 08/08/19 shows normal sinus rhythm with a rate of 55, QTc 495. Inverted T-waves in I, and V2 through V6. HISTORY OF PRESENT ILLNESS AND HOSPITAL COURSE: Mr. Roman is a 54-year-old male with past medical history of end stage renal disease, on hemodialysis, failed renal transplant, non-ischemic cardiomyopathy, pulmonary hypertension, hypertension, diabetes mellitus type 2 on chronic pain who presented to the emergency room on 08/07/19 with complaints of malaise. Please see the history and physical by Dr. Bass for complete summary of the events leading up to this hospitalization. In short, the patient had missed his dialysis on 08/04/19 and after that began developing headache, nausea, fatigue and shortness of breath. He did have hemodialysis on the day of admission during which time 4.3 L of fluid was removed. In the emergency room, the patient was noted to have anemia consistent with his baseline, elevated creatinine consistent with his baseline and an elevated troponin at 0.06. Because of the concern for volume overload, the patient was admitted by the hospitalist service. He was noted to be quite hypertensive on admission with systolic pressures up into the 220s. He was started on IV hydralazine for blood pressure control. He was seen in consultation by Dr. Venegas from Nephrology on 08/08/19 who at that point did not recommend any further changes from a nephrology standpoint. He did receive hemodialysis yesterday on 08/09/19 and symptoms significantly improved. There were still issues with blood pressure control and even last night the patient had systolic pressures into the 180s. Hydralazine dosing had been increased although this morning I increased the patient's clonidine dosing and since that time systolic pressures have been in the 150s. Regarding his elevated troponin, that was noted to be stable and is suspected secondary to demand ischemia and not acute coronary syndrome. I did speak with Dr. Venegas today who was comfortable with discharge from a nephrology standpoint. This morning, the patient reports feeling fine. He offers no complaints although does report being tired and is not willing to participate in any meaningful conversation with me. There was some consideration for the patient to be discharged yesterday though after his dialysis session he was noted to have a 26 -beat run of ventricular tachycardia. He was asymptomatic during that time and it was decided that the patient would remain in the hospital another night for further telemetry monitoring to ensure that he did not have any further ventricular tachycardia. Telemetry overnight reveals no ventricular tachycardia or any other arrhythmias. PHYSICAL EXAMINATION: On exam, he is alert and oriented x4 and has no focal neurological deficits. His heart has a regular rate and rhythm without murmurs , rubs or gallops. His lungs are clear to auscultation, without rhonchi, wheezes or rales. There is no significant edema. Abdomen is soft and nontender. Physical exam was otherwise benign. Mr. Roman is stable for discharge today. Vital signs are as follows: Temp 97.5, heart rate 61, respiratory rate 20, oxygen saturation 100% on room air. Blood pressure 153/87. DISCHARGE MEDICATIONS: New medication: 1. Minoxidil 2.5 mg p.o. daily. Changed medications 1. Clonidine 0.3 mg p.o. t.i.d. (previously was 0.2 mg t.i.d.) 2. Hydralazine 25 mg p.o. q.i.d. (previously was 25 mg b.i.d.) Continued medications 1. Amlodipine 10 mg p.o. daily. 2. Calcium acetate 667 mg p.o. t.i.d. 3. Carvedilol 25 mg p.o. b.i.d. 4. Furosemide 40 mg p.o. b.i.d. 5. Oxymorphone 20 mg p.o. q.i.d. p.r.n. pain. 6. Oxymorphone ER 40 mg p.o. b.i.d. 7. Prednisone 10 mg p.o. daily. 8. Sodium bicarb 648 mg p.o. daily. 9. Tacrolimus 3 mg p.o. b.i.d. Discontinued Medication: 1. Nifedipine. DISCHARGE PLAN: Mr. Vidales will be discharged home. Activity will be as tolerated. Diet will be renal. He should resume his usual fluid restriction as perviously instructed. Medications are noted above. His hydralazine and clonidine have been increased for his blood pressure control and minoxidil has been added. The patient has been taken off nifedipine as it was noted that he was oddly on 2 calcium channel blockers, nifedipine and amlodipine. He can continue his other usual medications as noted above. It was strongly advised the patient not miss any further dialysis sessions as he is someone who will obviously decompensate quite quickly due to fluid volume overload. He will need to follow up closely with his rating officer as previously instructed and should resume dialysis Tuesday, , Tuesday. He will have his next dialysis session tomorrow 08/11/19, and this was confirmed with Dr. Venegas from Nephrology. The patient should also follow up with his primary care provider in the next 4 to 7 days. He should return to the emergency room or nearest hospital for any worsening of symptoms, shortness of breath, lightheadedness, dizziness, chest discomfort, high fevers, chills, night seats, loss of consciousness or any other worrisome signs or symptoms. DISCHARGE CONDITION: Stable. DISCHARGE DISPOSITION: Home. This is a summarized report of a complex medical history and hospital stay. For further details, please see the entire medical record. TIME SPENT: Approximately 45 minutes was spent on this discharge. CAROLINA BUTLER, TRAIN INSPECTOR [id number]/[facility] #: [id number] JOCY
== END 2019-08-10 17:15 | disposition home or self-care (01) | DRG 640 ==
LOC: ED 15:40 → MEDTELE 22:37
PROVIDERS: ADMIT Internal Medicine; ATTEND Internal Medicine
PROC: 5A1D70Z Performance of Urinary Filtration, Intermittent, Less than 6 Hours Per Day (ICD-10-PCS; principal; 2019-08-08)
DX: E87.79 Other fluid overload (principal); N18.6 End stage renal disease; I13.2 Hypertensive heart and chronic kidney disease with heart failure and with stage 5 chronic kidney disease, or end stage renal disease; I16.1 Hypertensive emergency; I42.8 Other cardiomyopathies; T86.12 Kidney transplant failure; Z94.0 Kidney transplant status; I47.2 Ventricular tachycardia; I16.0 Hypertensive urgency; R79.89 Other specified abnormal findings of blood chemistry; E11.22 Type 2 diabetes mellitus with diabetic chronic kidney disease; G89.29 Other chronic pain; I27.20 Pulmonary hypertension, unspecified; F17.210 Nicotine dependence, cigarettes, uncomplicated; D63.1 Anemia in chronic kidney disease; I11.0 Hypertensive heart disease with heart failure; I50.9 Heart failure, unspecified; J06.9 Acute upper respiratory infection, unspecified; G47.30 Sleep apnea, unspecified; K21.9 Gastro-esophageal reflux disease without esophagitis; Z88.8 Allergy status to other drugs, medicaments and biological substances; Z91.030 Bee allergy status; Z91.013 Allergy to seafood; Z99.2 Dependence on renal dialysis; Z91.15 Patient's noncompliance with renal dialysis; Z98.1 Arthrodesis status; Z79.52 Long term (current) use of systemic steroids
CPT/HCPCS: 36415; 70450; 71045; 80048; 80053; 82330; 82565; 83735; 83880; 84100; 84484; 85025; 85610; 93005; 96374; 96375; 99285; A9270-GY; J0360; J0610; J1644; J2270; J3490; J7507; J7512; Q5106

== ENCOUNTER 2019-08-27 11:31 | Emergency (ER) | payer OTHER, MEDICARE, MEDICAID ==
[2019-08-27] MEDS ORDERED: Fluorescein Sodium TOPICAL* 1 MG TEST STRIP OPHTHALMIC ONE (12:54)
[2019-08-27] MEDS ORDERED: HYDROcodone/ACETAMIN 5-325 MG* 1 TAB PO ONE (13:11)
--- NOTE | 2019-08-27 13:58 | ED ---
Skin Complaint - HPI Summary HPI Summary: Pt with a hx of ESRD currently on HD (//) x 1 mos after a failed kidney transplant in Jun 2018, presents with R sided facial, ear and neck vesicular lesions present x 2 days. Sxs worse with palpation and light touch, better with nothing. Endorses no open areas of the lesions. No drainage. No fevers , sweats or chills. Endorses blurry vision to the R eye without associated pain or conjunctival injection - - this pain just started this morning and was not present during onset of lesions. No hx of shingles vaccine. Positive chicken pox as child. - History of Current Complaint Chief Complaint: EDRashSkinAbscess Time Seen by Provider: 08/27/19 12:03 Stated Complaint: RASH, NECK PAIN Hx Obtained From: Patient Onset/Duration: Started Days Ago - 2 days Skin Exposure Onset/Duration: Days Ago Timing: Constant Current Severity: Severe Pain Intensity: 8 Pain Scale Used: 0-10 Numeric Skin Location: Other: - right sided neck and facial pain Aggravating Symptom(s): Touch Alleviating Symptom(s): Nothing - Additional Pertinent History Primary Care Physician: EMILIE - Allergy/Home Medications Allergies/Adverse Reactions: Allergies Allergy/AdvReac Type Severity Reaction Status Date / Time bee venom protein (honey bee) Allergy Anaphylatic Verified 08/27/19 11:40 Shock lisinopril Allergy Anaphylatic Verified 08/27/19 11:40 Shock Penicillins Allergy Anaphylatic Verified 08/27/19 11:40 Shock shellfish derived Allergy Anaphylatic Verified 08/27/19 11:40 Shock Home Medications: Home Medications Carvedilol TAB* [Coreg TAB*] 25 mg PO TID 08/27/19 [History Confirmed 08/27/19] Cinacalcet TAB* [Sensipar TAB*] 30 mg PO DAILY 08/27/19 [History Confirmed 08/27] Oxymorphone (NF) [Opana (NF)] 20 mg PO QID 08/27/19 [History Confirmed 08/27/19] Sildenafil (NF) [Viagra (NF)] 25 mg PO ONCE PRN 08/27/19 [History Confirmed ] cloNIDine HCl [Clonidine HCl 0.3 MG] 0.1 mg PO TID 08/27/19 [History Confirmed 08/27/19] hydrALAZINE TAB* [Apresoline TAB*] 25 mg PO BID 08/27/19 [History Confirmed ] PMH/Surg Hx/FS Hx/Imm Hx Previously Healthy: No - ESRD ON DIALYSIS, HTN Endocrine/Hematology History: Reports: Hx Diabetes - no meds, Hx Anemia Denies: Hx Anticoagulant Therapy, Hx Thyroid Disease Cardiovascular History: Reports: Hx Congestive Heart Failure, Hx Hypertension - uncontrolled Denies: Hx Pacemaker/ICD, Other Cardiovascular Problems/Disorders Respiratory History: Reports: Hx Sleep Apnea Denies: Hx Asthma, Hx Chronic Obstructive Pulmonary Disease (COPD), Other Respiratory Problems/Disorders GI History: Reports: Hx Gastroesophageal Reflux Disease Denies: Hx Ulcer, Other GI Disorders History: Reports: Hx Chronic Renal Failure, Hx Dialysis, Hx Renal Disease Denies: Hx Kidney Infection, Hx Kidney Stones - STAGE 5 ON HEMODIALYSIS Musculoskeletal History: Reports: Hx Back Problems, Other Musculoskeletal History - S/P SPINAL FUSION Sensory History: Denies: Hx Contacts or Glasses, Hx Hearing Aid Opthamlomology History: Denies: Hx Contacts or Glasses Neurological History: Denies: Hx Dementia, Hx Headaches, Hx Seizures, Other Neuro Impairments/ Disorders Psychiatric History: Denies: Hx Depression, Hx Substance Abuse - Surgical History Surgery Procedure, Year, and Place: 2001 hernia REPAIR [facility]. 2002 cervical spine surgery, [facility]. 1994 RT wrist surgery. 2009 HERNIA REPAIR. 2014 LEFT ELBOW SURGERY. 2014 LUE FISTULA PLACED Hx Anesthesia Reactions: No - Immunization History Date of Tetanus Vaccine: unknown Date of Influenza Vaccine: no Hx Pertussis Vaccination: No Immunizations Up to Date: Yes Infectious Disease History: No Infectious Disease History: Denies: Hx Clostridium Difficile, Hx Hepatitis, Hx Human Immunodeficiency Virus (HIV), Hx of Known/Suspected MRSA, Hx Shingles, Hx Tuberculosis, Hx Known/ Suspected VRE, Hx Known/Suspected VRSA, History Other Infectious Disease, Traveled Outside the [place] in Last 30 Days - Family History Known Family History: Positive: Hypertension, Diabetes Negative: Cardiac Disease, Renal Disease - Social History Occupation: Unemployed Lives: Alone Alcohol Use: None Hx Substance Use: No Substance Use Type: Reports: None Hx Tobacco Use: Yes Smoking Status (MU): Former Smoker Type: Cigarettes Amount Used/How Often: 1/2 PPD X 20 YEARS Length of Time of Smoking/Using Tobacco: 35 YEARS Have You Smoked in the Last Year: Yes Review of Systems Negative: Fever, Chills, Fatigue, Skin Diaphoresis Positive: Blurred Vision, Erythema. Negative: Diplopia, Drainage Negative: Dental Pain, Sore Throat, Ear Ache Negative: Palpitations, Chest Pain Negative: Shortness Of Breath, Cough Positive: Myalgia - RIGHT SIDED NECK AND SHOULDER PAIN OVER VESICULAR PATTERN Positive: Other - large amount of confluent vesicles without crusting or drainage to the R forehead, cheek, ear and R lateral portion of the neck following V3 mandibular division with auricle of ear involvment. no alicea bruce. no hutchingson sign. Negative: Headache, Weakness, Paresthesia, Numbness, Syncope, Slurred Speech Psychological: Normal All Other Systems Reviewed And Are Negative: Yes Physical Exam Triage Information Reviewed: Yes Vital Signs On Initial Exam: Initial Vitals Temp Pulse Resp BP Pulse Ox 98.3 F 69 18 101/50 96 08/27/19 11:34 08/27/19 11:34 08/27/19 11:34 08/27/19 11:34 08/27/19 11:34 Vital Signs Reviewed: Yes Appearance: Positive: Pain Distress Skin: Positive: Other - large amount of vesicles (see course of treatment) Head/Face: Positive: Other - right sided facial and neck apin Eyes: Positive: Other: - no injection noted on first exam, pt refusing visual acuity. Negative: Discharge ENT: Positive: Other - no alicea bruce, no hutchingson sign Neck: Positive: Other: - tednerness over area of vesicular eruption Respiratory/Lung Sounds: Positive: Breath Sounds Present Cardiovascular: Positive: RRR, Pulses are Symmetrical in both Upper and Lower Extremities Musculoskeletal: Positive: Strength/ROM Intact Neurological: Positive: Speech Normal Psychiatric: Positive: Affect/Mood Appropriate AVPU Assessment: Verbal (Reponds To) - [place] Coma Scale Best Eye Response: 4 - Spontaneous Best Motor Response: 6 - Obeys Commands Best Verbal Response: 5 - Oriented Coma Scale Total: 15 Procedures - Sedation Patient Received Moderate/Deep Sedation with Procedure: No - Eye Procedure Right eye Alcaine Drops Administered: Yes - fluoroscein uptake Antibiotic Ointment/Drps Admin: right eye Diagnostics - Vital Signs Vital Signs Temp Pulse Resp BP Pulse Ox 08/27/19 11:34 98.3 F 69 18 101/50 96 - Laboratory Lab Statement: Any lab studies that have been ordered have been reviewed, and results considered in the medical decision making process. Course/Dx - Course Course Of Treatment: Distribution is most prominent to the mandibluar branch of the trigeminal nerve V3 with no involvement of the V2 or V1 involving the eye. However, pt has been complaining of [place] and R sided blurred vision since the vesicular eruption first discovered on Tuesday morning (2 days ago.) Pt has ear involvement but there are no lesions inside the ear and the vesicles remain on the auricle of the ear as well as behind the ear. No Lopez sign and evidence of Alicea Bruce. No facial paralysis. No tinnitus, hearing loss or vertigo symptoms. No pain to the posterior cervical spine or meningeal sxs. No tremors of the eyelid, tongue or extremities. No parotitis. Pain is rated a 10/10 and worse with any type of movement of touching of the skin around the lesions. There is one lesion to the nape of the neck that appears to have been opened, but there is no crusting or fluid drainage. D/t dizziness and eye pain per patient, fluoroscien uptake with cruz lamp eye examination completed. Reveals round, ulcer-like lesion to the inferior medial conjunctiva without affecting vision. Pt refusing visual acuity. No dendritic lesions present. Pt was also discussed with and seen by Dr. Irwin. This does not appear to be a complicated course of shingles, however d/t small ulceration involvement of the eye, discussed with Dr. Child. Able to see in office tomorrow and recommend antivirals. Discussed with Dr. Ruffin who suggested Acyclovir 800mg BID dosing for ESRD dialysis dose adjustment. Pt given hydrocodone while in the ED and OK for discharge at this time. Follow up referral to Dr. Child given and pt will f/u at 11:15am tomorow. - Differential Diagnoses - Skin Complaint Differential Diagnoses: Varicella Zoster, Other - herpetic zoster opthalmicus, shingles, rash, vesicular lesions, ophthalmicusRight sided facial pain - Diagnoses Provider Diagnoses: Shingles - Physician Notifications Discussed Care Of Patient With: Sajan Child Instructed by Provider To: Other - appt tomorrow AM at 11:15am Discharge ED - Sign-Out/Discharge Documenting (check all that apply): Patient Departure - Discharge Plan Condition: Stable Disposition: HOME Prescriptions: Acyclovir* [Zovirax 400 MG TAB*] 800 mg PO TID #30 tab Hydrocodone/Acetamin 10/325(NF [[place] 10/325 (NF)] 1 tab PO Q6H #12 tab MDD 4 Patient Education Materials: Shingles (ED) Referrals: Saul Espinal [Medical Doctor] - 1 Day (possible eye involvment from herpetic zoster) Jacob Deng MD [Primary Care Provider] - Additional Instructions: 11:[address] ESPINAL TOMORROW GO AT 11 AM TO FILL OUT PAPERWORK AT THE OFFICE Hydrocodone as needed for pain - do not exceed four times daily Acyclovir twice daily x 10 days On days you have dialysis, take this medication AFTER DIALYSIS, and again that EVENING On days you do not have dialysis, take this medication in the MORNING and in the EVENING - Billing Disposition and Condition Condition: STABLE Disposition: Home
[2019-08-27 14:56] VITALS: BP 109/47
== END 2019-08-27 14:54 | disposition home or self-care (01) ==
LOC: ED 11:31
DX: B02.9 Zoster without complications (principal); E11.22 Type 2 diabetes mellitus with diabetic chronic kidney disease; I13.2 Hypertensive heart and chronic kidney disease with heart failure and with stage 5 chronic kidney disease, or end stage renal disease; I50.9 Heart failure, unspecified; N18.6 End stage renal disease; Z99.2 Dependence on renal dialysis; Z94.0 Kidney transplant status; D63.1 Anemia in chronic kidney disease; K21.9 Gastro-esophageal reflux disease without esophagitis; Z87.891 Personal history of nicotine dependence; Z79.899 Other long term (current) drug therapy; Z88.0 Allergy status to penicillin; Z88.8 Allergy status to other drugs, medicaments and biological substances
CPT/HCPCS: 99282; A9270-GY

== ENCOUNTER 2019-08-28 09:54 | Emergency (ER) | payer OTHER, MEDICAID ==
[2019-08-28] MEDS ORDERED: HYDROcodone/ACETAMIN 5-325 MG* 1 TAB PO ONE (10:46)
[2019-08-28 10:48] VITALS: BP 135/71
--- NOTE | 2019-08-28 10:50 | ED ---
Headache - HPI Summary HPI Summary: Pt is a 54 y/o M presenting to the ED with a chief complaint of hypotension. He states he was seen here yesterday and he was given an antiviral medication. He took his pain medication and antiviral med before bed last night, but he did not take one this morning before his dialysis appointment. He took his blood pressure medication around 0400 this morning, as he does every morning. His BP was low at dialysis. He reports pain in his head. - History Of Current Complaint Chief Complaint: EDGeneral Stated Complaint: POSS SHINGLES PER PT Time Seen by Provider: 08/28/19 10:18 Hx Obtained From: Patient Onset/Duration: Gradual Onset, Started hours ago, Still Present Initially Headache Was: Moderate Currently Pain Is: Moderate Timing: Constant, Hours Location of Headache: Diffuse Aggravating Factor: Nothing Allevating Factors: Nothing Associated Signs And Symptoms: Negative - Allergies/Home Medications Allergies/Adverse Reactions: Allergies Allergy/AdvReac Type Severity Reaction Status Date / Time bee venom protein (honey bee) Allergy Anaphylatic Verified 08/28/19 10:11 Shock lisinopril Allergy Anaphylatic Verified 08/28/19 10:11 Shock Penicillins Allergy Anaphylatic Verified 08/28/19 10:11 Shock shellfish derived Allergy Anaphylatic Verified 08/28/19 10:11 Shock PMH/Surg Hx/FS Hx/Imm Hx Previously Healthy: Yes Endocrine/Hematology History: Reports: Hx Diabetes - no meds, Hx Anemia Denies: Hx Anticoagulant Therapy, Hx Thyroid Disease Cardiovascular History: Reports: Hx Congestive Heart Failure, Hx Hypertension - uncontrolled Denies: Hx Pacemaker/ICD, Other Cardiovascular Problems/Disorders Respiratory History: Reports: Hx Sleep Apnea Denies: Hx Asthma, Hx Chronic Obstructive Pulmonary Disease (COPD), Other Respiratory Problems/Disorders GI History: Reports: Hx Gastroesophageal Reflux Disease Denies: Hx Ulcer, Other GI Disorders History: Reports: Hx Chronic Renal Failure, Hx Dialysis, Hx Renal Disease Denies: Hx Kidney Infection, Hx Kidney Stones - STAGE 5 ON HEMODIALYSIS Musculoskeletal History: Reports: Hx Back Problems, Other Musculoskeletal History - S/P SPINAL FUSION Sensory History: Denies: Hx Contacts or Glasses, Hx Hearing Aid Opthamlomology History: Denies: Hx Contacts or Glasses Neurological History: Denies: Hx Dementia, Hx Headaches, Hx Seizures, Other Neuro Impairments/ Disorders Psychiatric History: Denies: Hx Depression, Hx Substance Abuse - Surgical History Surgery Procedure, Year, and Place: 2001 hernia REPAIR [facility] [place]. 2002 cervical spine surgery, [facility] [place]. 1994 RT wrist surgery. 2009 HERNIA REPAIR. 2014 LEFT ELBOW SURGERY. 2014 LUE FISTULA PLACED Hx Anesthesia Reactions: No - Immunization History Date of Tetanus Vaccine: unknown Date of Influenza Vaccine: no Infectious Disease History: Yes Infectious Disease History: Denies: Hx Clostridium Difficile, Hx Hepatitis, Hx Human Immunodeficiency Virus (HIV), Hx of Known/Suspected MRSA, Hx Shingles, Hx Tuberculosis, Hx Known/ Suspected VRE, Hx Known/Suspected VRSA, History Other Infectious Disease, Traveled Outside the [place] in Last 30 Days - Family History Known Family History: Positive: Hypertension, Diabetes Negative: Cardiac Disease, Renal Disease - Social History Alcohol Use: None Hx Substance Use: No Substance Use Type: Reports: None Hx Tobacco Use: Yes Smoking Status (MU): Former Smoker Type: Cigarettes Amount Used/How Often: 1/2 PPD X 20 YEARS Length of Time of Smoking/Using Tobacco: 35 YEARS Have You Smoked in the Last Year: Yes Review of Systems Positive: Other - low blood pressure Positive: Headache All Other Systems Reviewed And Are Negative: Yes Physical Exam - Summary Physical Exam Summary: Constitutional: Well-developed, Well-nourished, Alert. (-) Distressed Skin: Warm, Dry HENT: Normocephalic; Atraumatic Eyes: Conjunctiva normal Neck: Musculoskeletal ROM normal neck. (-) JVD, (-) Stridor, (-) Tracheal deviation Cardio: Rhythm regular, rate normal, Heart sounds normal; Intact distal pulses; Radial pulses are 2+ and symmetric. (-) Murmur Pulmonary/Chest wall: Effort normal. (-) Respiratory distress, (-) Wheezes, (-) Rales Abd: Soft, (-) tenderness, (-) Distension, (-) Guarding, (-) Rebound Musculoskeletal: (-) Edema Lymph: (-) Cervical adenopathy Neuro: Alert, Oriented x3 Psych: Mood and affect Normal Triage Information Reviewed: Yes Vital Signs On Initial Exam: Initial Vitals Temp Pulse Resp BP Pulse Ox 98 F 69 20 126/64 95 08/28/19 10:06 08/28/19 10:06 08/28/19 10:06 08/28/19 10:06 08/28/19 10:06 Vital Signs Reviewed: Yes Procedures - Sedation Patient Received Moderate/Deep Sedation with Procedure: No Diagnostics - Vital Signs Vital Signs Temp Pulse Resp BP Pulse Ox 08/28/19 10:06 98 F 69 20 126/64 95 - Laboratory Lab Statement: Any lab studies that have been ordered have been reviewed, and results considered in the medical decision making process. Headache Course/Dx - Course Course Of Treatment: Patient is here with an episode of hypotension at the end of dialysis that has resolved. Patient is asymptomatic in that regard. Patient was seen here yesterday and diagnosed with shingles and started on acyclovir. Patient has an ophthalmology appointment at 11:15 as he had some lesions present on his eyes. Patient had no concerning symptoms for his hypotension and was likely due to dialysis. Patient was given pain medicine here for shingles and sent straight to the ophthalmology office for his appointment - Diagnoses Provider Diagnoses: Transient hypotension, End stage renal disease, Shingles Discharge ED - Sign-Out/Discharge Documenting (check all that apply): Patient Departure - Discharge Plan Condition: Stable Disposition: HOME Patient Education Materials: Shingles (ED), Hypotension (ED) Referrals: Jacob Deng MD [Primary Care Provider] - Sajan Child MD [Medical Doctor] - Additional Instructions: Go immediately to your eye doctor appointment. It is at 11:15am with Dr. Child. Please continue to take your antiviral medication as instructed. It may be 10- 14 days before you feel relief from the shingles. - Billing Disposition and Condition Condition: STABLE Disposition: Home - Attestation Statements Document Initiated by Yarie: Yes Documenting Scribe: Jennifer Perez Provider For Whom Duy is Documenting (Include Credential): Marcelino Gutierrez MD. Scribe Attestation: Jennifer Arreguin, scribed for Marcelino Gutierrez MD. on 08/28/19 at 1105. Scribe Documentation Reviewed: Yes Provider Attestation: The documentation as recorded by the Jennifer mota accurately reflects the service I personally performed and the decisions made by me, Marcelino Gutierrez MD. Status of Scribe Document: Viewed
== END 2019-08-28 10:56 | disposition home or self-care (01) ==
LOC: ED 09:54
DX: I95.9 Hypotension, unspecified (principal); I13.2 Hypertensive heart and chronic kidney disease with heart failure and with stage 5 chronic kidney disease, or end stage renal disease; N18.6 End stage renal disease; I50.9 Heart failure, unspecified; I10 Essential (primary) hypertension; Z87.891 Personal history of nicotine dependence; E11.22 Type 2 diabetes mellitus with diabetic chronic kidney disease; Z99.2 Dependence on renal dialysis; B02.9 Zoster without complications
CPT/HCPCS: 99281

== ENCOUNTER 2019-10-14 11:10 | Inpatient (IN) | payer MEDICARE, MEDICAID, OTHER ==
[2019-10-14] MEDS ORDERED: HYDROmorphone INJ* 0.5 MG/0.5 ML SYRINGE IV ONE ×2 (11:45→16:46)
--- NOTE | 2019-10-14 11:47 | ED ---
Abdominal Pain/Male - HPI Summary HPI Summary: Renal failure/transplant patient presents with acute on chronic right-sided flank and abdomen pain. Associated symptoms include nausea which he does not typically have. He denies fevers or chills however is wrapped in multiple warm blankets. Reports the swelling in his lower extremities is better than it usually is. Denies chest pain, shortness of breath, cough, vomiting or diarrhea. He's been having normal bowel movements. He does not urinate as he has bilateral renal failure and had a transplant last year that was not effective (placed 14 months ago) - unclear of why this was not effective - pt states he only missed a few days of anti-rejection meds here and there. He receives dialysis now and per pt is due to have this (last dialysis was yesterday). Furthermore he reports he is due to have a fistula placed this Tuesday - in the meantime he's been using a chest catheter. Was following with Dr. Spivey however he is now following with a new director consumer since doctor has retired.Mentions he was scheduled for an U/S this week as well but couldn't wait until then d/t pain so came in today. Admits he has not taken any of his medications this morning due to severe pain. Drove himself here from home. BP is poorly controlled. Reviewed med list with pt and reports he's taking 4 anti-hypertensive meds as well as oxymorphone 40mg BID and an additional 20mg QID PRN at this time. - History of Current Complaint Chief Complaint: EDAbdPain Stated Complaint: SOB/PELVIC PAIN PER PT Time Seen by Provider: 10/14/19 11:26 Hx Obtained From: Patient Pain Intensity: 10 - Allergies/Home Medications Allergies/Adverse Reactions: Allergies Allergy/AdvReac Type Severity Reaction Status Date / Time bee venom protein (honey bee) Allergy Anaphylatic Verified 08/28/19 10:11 Shock lisinopril Allergy Anaphylatic Verified 08/28/19 10:11 Shock Penicillins Allergy Anaphylatic Verified 08/28/19 10:11 Shock shellfish derived Allergy Anaphylatic Verified 08/28/19 10:11 Shock PMH/Surg Hx/FS Hx/Imm Hx Previously Healthy: No - renal failure pt Endocrine/Hematology History: Reports: Hx Diabetes - no meds, Hx Anemia Denies: Hx Anticoagulant Therapy, Hx Thyroid Disease Cardiovascular History: Reports: Hx Congestive Heart Failure, Hx Hypertension - uncontrolled, on meds Denies: Hx Pacemaker/ICD, Other Cardiovascular Problems/Disorders Respiratory History: Reports: Hx Sleep Apnea Denies: Hx Asthma, Hx Chronic Obstructive Pulmonary Disease (COPD), Other Respiratory Problems/Disorders GI History: Reports: Hx Gastroesophageal Reflux Disease Denies: Hx Ulcer, Other GI Disorders History: Reports: Hx Chronic Renal Failure, Hx Dialysis, Hx Renal Disease - STAGE 5 ON HEMODIALYSIS; transplant placed and failed Denies: Hx Kidney Infection, Hx Kidney Stones Musculoskeletal History: Reports: Hx Back Problems, Other Musculoskeletal History - S/P SPINAL FUSION Sensory History: Denies: Hx Contacts or Glasses, Hx Hearing Aid Opthamlomology History: Denies: Hx Contacts or Glasses Neurological History: Denies: Hx Dementia, Hx Headaches, Hx Seizures, Other Neuro Impairments/ Disorders Psychiatric History: Denies: Hx Depression, Hx Substance Abuse - Surgical History Surgery Procedure, Year, and Place: 2001 hernia REPAIR [facility]. 2002 cervical spine surgery, [facility]. 1994 RT wrist surgery. 2009 HERNIA REPAIR. 2014 LEFT ELBOW SURGERY. 2014 LUE FISTULA PLACED Hx Anesthesia Reactions: No - Immunization History Date of Tetanus Vaccine: unknown Date of Influenza Vaccine: no Infectious Disease History: No Infectious Disease History: Denies: Hx Clostridium Difficile, Hx Hepatitis, Hx Human Immunodeficiency Virus (HIV), Hx of Known/Suspected MRSA, Hx Shingles, Hx Tuberculosis, Hx Known/ Suspected VRE, Hx Known/Suspected VRSA, History Other Infectious Disease, Traveled Outside the [place] in Last 30 Days - Family History Known Family History: Positive: Hypertension, Diabetes Negative: Cardiac Disease, Renal Disease - Social History Alcohol Use: None Hx Substance Use: No Substance Use Type: Reports: None Hx Tobacco Use: Yes Smoking Status (MU): Former Smoker Type: Cigarettes Amount Used/How Often: 1/2 PPD X 20 YEARS Length of Time of Smoking/Using Tobacco: 35 YEARS Have You Smoked in the Last Year: Yes Review of Systems Constitutional: Other - as in HPI Eyes: Negative ENT: Negative Cardiovascular: Negative Respiratory: Negative Positive: Abdominal Pain, Nausea. Negative: Vomiting, Diarrhea Positive: no symptoms reported Negative: Weakness, Paresthesia, Numbness, Syncope, Slurred Speech Psychological: Other - concerned All Other Systems Reviewed And Are Negative: Yes Physical Exam Triage Information Reviewed: Yes Vital Signs On Initial Exam: Initial Vitals Temp Pulse Resp BP Pulse Ox 98.9 F 90 20 222/120 94 10/14/19 11:16 12 11:16 12 11:16 10/14/19 11:16 10/14/19 11:16 Vital Signs Reviewed: Yes Appearance: Positive: Pain Distress - pt complaining of pain - answers questions in between cursing his pain Skin: Positive: Warm, Skin Color Reflects Adequate Perfusion, Dry Head/Face: Positive: Normal Head/Face Inspection Eyes: Positive: EOMI, Conjunctiva Clear ENT: Positive: Hearing grossly normal Respiratory/Lung Sounds: Positive: Breath Sounds Present. Negative: Rales, Rhonchi, Stridor, Wheezes, Fatigue Cardiovascular: Positive: RRR, Pulses are Symmetrical in both Upper and Lower Extremities, Leg Edema Left, Leg Edema Right - + 1 equal B/L - no lesions/open wounds/skin breakdown Abdomen Description: Positive: Distended, Other: - TTP throughout but moreso over Rt side and dense to palpation compared to Lt side which is tympanic Bowel Sounds: Positive: Present Male Genital Exam: Positive: Other - deferred Musculoskeletal: Positive: Strength/ROM Intact - moving about w/o restriction/ anupam weakness Neurological: Positive: Alert, Oriented to Person Place, Time Psychiatric: Positive: Anxious - fixated on pain and anxious - Jami Coma Scale Best Eye Response: 4 - Spontaneous Best Motor Response: 6 - Obeys Commands Best Verbal Response: 5 - Oriented Coma Scale Total: 15 Diagnostics - Vital Signs Vital Signs Temp Pulse Resp BP Pulse Ox 10/14/19 11:16 98.9 F 90 20 222/120 94 - Laboratory Result Diagrams: 10/14/19 11:45 10/14/19 11:45 Lab Statement: Any lab studies that have been ordered have been reviewed, and results considered in the medical decision making process. Re-Evaluation - Re-Evaluation First Eval Change: Improved - pain improved w/ dilaudid - unfortunately pt's pulse ox dropped so 2L NC was added and pulse ox improved (pt admits he uses O2 at home at times) - BP poorly controlled and he reported he didn't take any of his regularly scheduled medications prior to arrival so provided with IV labetalol and his PO meds from home (minus beta mai) for better control. Does not appear septic.Discussed case w/ Dr. Venegas who reports pt was fluid overloaded at last eval and was supposed to get additional dialysis - discussed this w/ pt who became agitated and states "they keep telling me all of this is because I need dialysis!" - he is upset with this piece of information and states he felt fine after dialysis yesterday - swelling in legs is better than usual. Will keep pt on restricted oral fluids - sips w/ meds and ice chips PRN Second Eval Change: Worse - Pt reports pain is worse again after U/S - will provide smaller supply of dilaudid and add prednisone per Dr. Venegas to reduce swelling of his kidney which is most likely the source of his acute pain today Third Eval Change: Worse Comment: attempted to ambulate but o2 continues to drop patient is not completely alert at this time so will wait and reevaulate Fourth Eval Comment: patient is now ambulating but o2 is down to 78 when ambulates Fifth Eval Re-Evaluation Time: 23:25 Comment: still requiring 2 liter of oxygen, chest xray looks like fluid overload. Abdominal Pain Male Course/Dx - Course Course Of Treatment: Patient presents with acute on chronic right-sided pain. He reports he felt well after dialysis yesterday however last night, developed acute/worse pain than usual on Rt side of ab/flank. Was taking tacromilus 1mg 6 caps BID per pharmacy along with prednisone however he stopped about a week ago due to running out of medication. He reports he called [facility] transplant service to have his meds refilled however they "refused" and "cut him off". He is upset as he feels everyone thinks the answer to his problem is always dialysis. He had relief of pain with 1st round of Dilaudid however blood pressure was quite elevated. Patient had not taken any of his medications prior to arrival today so most were given here. His blood pressure was eventually controlled. He has been requesting fluids while here as well as food. Dr. Venegas did report he had extra fluid and was supposed ot schedule additional dialysis which he did not attend. Reinforced the importance of follow -up for these issues. Had running conversation with Dr. Rodriguez nephrology, regarding patient's case. After labs and ultrasound were reviewed, it was decided that his pain is most likely due to inflammation of the transplanted kidney from recent cessation of prednisone and tacrolimus. We'll provide 500 mg of solu-Medrol here in the ED and taper patient outpatient as well as restart tacrolimus which nephrology will continue to taper for him. Advised patient danger signs and symptoms of when to return to the emergency department. In the meantime he is to follow his medication regimen as directed. Also had a conversation about the significance of his kidney swelling with potential rupture if he is not careful with his medications moving forward. Pt's additional dose of dilaudid reduced his oxygen once again and he is using oxygen to recover. Will continue to monitor until he is stable for discharge on RA. Prednisone taper and tacromilus sent to pharmacy. Signed out to Nohemi Thornton PA-C - Diagnoses Provider Diagnoses: Kidney transplant rejection, Hypertensive emergency, Hypoxia, Fluid overload Discharge ED - Sign-Out/Discharge Documenting (check all that apply): Sign-Out Patient Signing out patient TO: Cassy Thornton - Discharge Plan Condition: Stable Disposition: ADMITTED TO [facility] - Billing Disposition and Condition Condition: STABLE Disposition: Admitted to [facility]
[2019-10-14 12:23] LABS: ABS Basophils 0.1 10^3/ul (0-0.2); ABS Eosinophils 0.4 10^3/ul (0-0.6); ABS Lymphocytes 0.7 10^3/ul (1.0-4.8); ABS Monocytes 0.7 10^3/ul (0-0.8); ABS Neutrophils 5.3 10^3/ul (1.5-7.7); Eosinophil % 4.9 %; Hematocrit 26 % (42-52); Hemoglobin 8.2 g/dL (14.0-18.0); Lymphocyte % 9.8 %; Mean Corpuscular HGB Conc 32 g/dL (31-36); Mean Corpuscular Hemoglobin 26 pg (27-31); Mean Corpuscular Volume 83 fL (80-94); Mean Platelet Volume 7.2 fL (7.4-10.4); Platelet Count 232 10^3/uL (150-450); Red Blood Count 3.11 10^6 /uL (4.18-5.48); Red Cell Distribution Width 17 % (10-15); White Blood Count 7.2 10^3/uL (3.5-10.8)
[2019-10-14 12:40] LABS: Albumin 3.4 g/dL (3.2-5.2); Albumin/Globulin Ratio 0.9 (1-3); BUN/Creatinine Ratio 6.6 (8-20); Calcium 8.2 mg/dL (8.6-10.3); EGFR African American 9.1 (>60); EGFR Non-African American 7.5 (>60); Globulin 3.7 g/dL (2-4); Potassium 4.8 mmol/L (3.5-5.0); Total Bilirubin 0.5 mg/dL (0.2-1.0); Total Protein 7.1 g/dL (6.4-8.9)
[2019-10-14] MEDS ORDERED: Labetalol IV* 5 MG/ML 20 ML VIAL IV PUSH ONE (13:43)
[2019-10-14] MEDS ORDERED: hydrALAZINE TAB* 25 MG PO ONE (14:10)
[2019-10-14] MEDS ORDERED: cloNIDine TAB* 0.1 MG PO ONE (14:10)
[2019-10-14] MEDS ORDERED: NIFEdipine CAP* 10 MG PO ONE (14:12)
[2019-10-14] MEDS ORDERED: NIFEdipine ER TAB* 60 MG PO ONE (16:00)
[2019-10-14] MEDS ORDERED: methylPREDNISolone 125 MG* 2 ML VIAL IV ONE (16:45)
[2019-10-14 22:38] LABS: Influenza A Molecular NEGATIVE (Negative); Influenza B Molecular NEGATIVE (Negative)
--- NOTE | 2019-10-14 23:10 | ED ---
Progress - Results/Orders Results/Orders: chest xray shows fluid overload Re-Evaluation - Re-Evaluation First Eval Change: Improved - pain improved w/ dilaudid - unfortunately pt's pulse ox dropped so 2L NC was added and pulse ox improved (pt admits he uses O2 at home at times) - BP poorly controlled so provided with IV labetalol and his PO meds from home (minus beta mai) for better control. Does not appear septic. Second Eval Change: Worse - Pt reports pain is worse again after U/S - will provide smaller supply of dilaudid and add prednisone per Dr. Gaytan to reduce swelling of his kidney which is most likely the source of his pain Third Eval Change: Worse Comment: attempted to ambulate but o2 continues to drop patient is not completely alert at this time so will wait and reevaulate Fourth Eval Comment: patient is now ambulating but o2 is down to 78 when ambulates Fifth Eval Re-Evaluation Time: 23:25 Comment: still requiring 2 liter of oxygen, chest xray looks like fluid overload. Course/Dx - Course Course Of Treatment: Patient presents with acute on chronic right-sided pain. He reports he felt well after dialysis yesterday however last night, developed acute/worse pain than usual. Was taking tacromilus 1mg 6 caps BID per pharmacy along with prednisone however he stopped about a week ago due to running out of medication. He reports he called [facility] transplant service to have his meds refilled however they "refused" and "cut him off". He is upset as he feels everyone thinks the answer to his problem is always dialysis. He had relief of pain with Dilaudid however blood pressure was quite elevated. Patient had not taken any of his medications prior to arrival today so most were given here. His blood pressure was eventually controlled. He has been requesting fluids while here as well as food. Dr. Gaytan did report he had extra fluid and was supposed ot schedule aditional dialysis which he did not attend. Reinforced the importance of follow-up for these issues. Had running conversation with Dr. Rodriguez nephrology, regarding patient's case. After labs and ultrasound were reviewed, it was decided that his pain is most likely due to inflammation of the transplanted kidney from recent cessation of prednisone and tacrolimus. We' ll provide 500 mg of Cipro Medrol here in the ED and taper patient outpatient as well as restart tacrolimus which nephrology will continue to taper for him. Pt's additional dose of dilaudid reduced his oxygen once again and he is using oxygen to recover. Will continue to monitor until he is stable for discharge on RA. Prednisone taper and tacromilus sent to pharmacy. patient was suppose to be discharge home but oxygen stat would not improve. when attempted to ambulate would drop to 78. chest xray shows fluid overload. spoke with dr gaytan who said that is set up for dialysis tomorrow and can be admitted if needed for dialysis tomorrow. abg just shows hypoxia. no A-a02 gradient so PE less likely. discussed case with dr senior. spoke with dr garrett who agrees to admit. - Diagnoses Provider Diagnoses: Kidney transplant rejection, Hypertensive emergency, Hypoxia, Fluid overload Discharge ED - Sign-Out/Discharge Documenting (check all that apply): Patient Departure, Receiving Sign-Out Receiving patient FROM: Roseanne Valadez - Discharge Plan Condition: Stable Disposition: ADMITTED TO [facility] Prescriptions: predniSONE TAB* [Deltasone 10 MG TAB*] 60 mg PO DAILY #147 tab Tacrolimus CAP(*) [Prograf CAP(*)] 6 mg PO BID #84 cap Referrals: Jalen Gaytan MD [Medical Doctor] - Jacob Deng MD [Primary Care Provider] - - Billing Disposition and Condition Condition: STABLE Disposition: Admitted to [facility]
[2019-10-15] MEDS ORDERED: Acetaminophen TAB* 325 MG PO PRN (01:00)
[2019-10-15] MEDS ORDERED: Hydrocodone/Acetamin 10/325 MG 1 TAB PO PRN (01:03)
[2019-10-15] MEDS: hydrALAZINE IV* 20 MG/ML VIAL IV SLOW PU PRN ×3 (03:05→05:58)
[2019-10-15] MEDS ORDERED: Labetalol IV* 5 MG/ML 20 ML VIAL IV PUSH PRN (03:59)
[2019-10-15] MEDS: Heparin VIAL(*) 5000 UNITS/ML VIAL (FIVE THOUSAND) SUBCUT SCH ×3 (05:39→20:12)
[2019-10-15] MEDS ORDERED: fentaNYL* 50 MCG/ML 2 ML VIAL (100 MCG VIAL) IV SLOW PU ONE (05:43)
[2019-10-15] MEDS ORDERED: cloNIDine TAB* 0.1 MG PO SCH ×4 (05:45→09:00)
--- NOTE | 2019-10-15 06:03 | HP ---
History of Present Illness - History of Present Illness Reason for Visit: abdominal pain History of Present Illness: 54 yo male with hx of HTN, ESRD on dialysis who came in with severe abdominal pain. He had a renal transplant last year that recently failed in july and has been on dialysis since. Per pharmacy pt should be on tacrolimus 1mg 6 caps BID and prednisone. Pt has not taken these medications in a week, he said he ran out. Lastly he was to have 2 sessions of dialysis back to back, 1 yesterday and 1 today for fluid overload. He was a no show today. He comes to the ER now with severe abdominal pain, no associated vomiting, no nausea, has normal BM. Pt had an US done which showed an edematous kidney. Nephrology was consulted and said patient is experiencing an acute rejection. He recommended a loading dose of steroids in the ED and dischargee on a tapered dose of steroids and tacrolimus to be followed outpatient. Unfortunately pt could not be discharged due to hypoxemia related to dilaudid. Nephrology was made aware and was okay with patient being placed on observation with plan for his scheduled dialysis tomorrow. Spoke with nephrology myself again who is okay with only steroids for now and will see the patient in the am. Of note, he did not take his blood pressure medications and have been hypertensive. - Past Medical History Cardiac: HTN, Hyperlipidemia Renal/: Chronic renal failure - Past Surgical History Past Surgical History: Hernia Repair - Past Family History Family History: CAD, Hypertension - Past Social History Smoke: No Alcohol: None Drugs: None Lives: Alone Review of Systems - Measurements Intake and Output: Intake and Output Last 24 Hours 10/12/19 10/13/19 10/14/19 10/15/19 06:59 06:59 06:59 06:59 Weight 195 lb - Review of Systems Constitutional Symptoms: Negative: Weight Gain, Weight Loss, Weakness, Fatigue, Fever, Night Sweats, Unexplained Falls, Other Dermatology: Negative: Normal, Rash, Skin Lesions, Cancer, Skin Lumps, Other HEENT: Negative: Normal, Change in Hearing, Vertigo, Dental Problems, Tinnitus, Sinus Problem, Other Eyes: Negative: Normal, Change in Vision, Double Vision, Eye Pain, Glaucoma, Cataract, Contacts or Glasses, Other Thyroid: Negative: Normal, Goiter, Thyroid Nodule, Cold Intolerance, Heat Intolerance , Sweatiness, Tremor, Frequent Defecation, Constipation, Palpitations, Primary Hypothyroidism, Primary Hyperthyroidism, Weight Loss, Weight Gain, Change in Skin/Hair, Change in Menstruation, Radiation Exposure, Other Pulmonary: Negative: Normal, Cough, Sputum, Hemoptysis, Wheezing, Respiratory Distress, Shortness of Breath, COPD, Asthma, Exercise Intolerance, Home Oxygen, Other Cardiology: Negative: Normal, Chest Pain, Shortness of Breath, Palpitations, Swelling of Ankles, Peripheral Vascular Dis, Edema, Faintness, Syncope, Claudication, Proximal NocturnalDyspnea, Orthopnoea, Other Gastroenterology: Positive: Abdominal Pain Negative: Normal, Nausea, Vomiting, Anorexia, Indigestion, Difficulty Swallowing, Heartburn, Constipation, Diarrhea, Blood in Stools, Change in Bowel Habits, Haematemesis, Melena, Other Genital - Urinary: Negative: Normal, Dysuria, Hematuria, Polyuria, Nocturia, Other Musculoskeletal: Negative: Joint Pain, Joint Stiffness, Arthritis, Osteoporosis, Low Back Pain , Sciatica, Joint Deformities, Kyphoscoliosis, Other Objective Active Medications: Acetaminophen (Tylenol Tab*) 650 mg PO Q4H PRN PRN Reason: MILD PAIN or TEMP > 100.4 Hydrocodone Bitart/Acetaminophen ([place] 10/325 (Nf)) 1 tab PO Q6H PRN PRN Reason: PAIN - MILD Last Admin: 10/15/19 05:24 Dose: 1 tab Carvedilol (Coreg Tab*) 25 mg PO TID [facility] Cinacalcet (Sensipar Tab*) 30 mg PO DAILY [facility] Clonidine HCl (Catapres Tab*) 0.3 mg PO TID [facility] Heparin Sodium (Porcine) (Heparin Vial(*)) 5,000 units SUBCUT Q8HR [facility] Last Admin: 10/15/19 05:39 Dose: Not Given Hydralazine HCl (Apresoline Tab*) 25 mg PO BID [facility] Hydralazine HCl (Apresoline Iv*) 10 mg IV SLOW PU Q8HR PRN PRN Reason: Systolic Bp Greater Than: 180 Last Admin: 10/15/19 05:58 Dose: 10 mg Labetalol HCl (Trandate Iv*) 10 mg IV PUSH Q6H PRN PRN Reason: BLOOD PRESSURE Last Admin: 10/15/19 05:39 Dose: 10 mg Oxymorphone HCl (Opana (Nf)) 20 mg PO QID [facility] Vital Signs - 8 hr 10/14/19 10/14/19 10/14/19 22:02 22:03 22:32 Temperature Pulse Rate 77 76 79 Respiratory Rate Blood Pressure 176/89 164/84 (mmHg) O2 Sat by Pulse 93 94 93 Oximetry 10/14/19 10/14/19 10/14/19 23:00 23:02 23:33 Temperature Pulse Rate 80 79 Respiratory Rate Blood Pressure 183/90 183/100 (mmHg) O2 Sat by Pulse 94 97 Oximetry 10/15/19 10/15/19 10/15/19 01:17 01:18 01:33 Temperature Pulse Rate 80 80 80 Respiratory Rate Blood Pressure 193/106 189/98 (mmHg) O2 Sat by Pulse 95 94 96 Oximetry 10/15/19 10/15/19 10/15/19 02:00 02:03 02:17 Temperature Pulse Rate 80 Respiratory 17 Rate Blood Pressure 188/99 (mmHg) O2 Sat by Pulse 100 Oximetry 10/15/19 10/15/19 10/15/19 02:33 03:03 03:19 Temperature Pulse Rate Respiratory Rate Blood Pressure 206/108 201/106 186/96 (mmHg) O2 Sat by Pulse Oximetry 10/15/19 10/15/19 10/15/19 03:23 03:30 05:21 Temperature 98.9 F 97.7 F Pulse Rate 80 84 90 Respiratory 17 17 Rate Blood Pressure 186/96 202/105 240/117 (mmHg) O2 Sat by Pulse 92 93 95 Oximetry 10/15/19 05:24 Temperature Pulse Rate Respiratory 17 Rate Blood Pressure (mmHg) O2 Sat by Pulse Oximetry Oxygen Devices in Use Now: Nasal Cannula Eyes: No Scleral Icterus, PERRLA Ears/Nose/Mouth/Throat: NL Teeth, Lips, Gums, Mucous Membranes Moist Neck: NL Appearance and Movements; NL JVP, Trachea Midline Respiratory: Symmetrical Chest Expansion and Respiratory Effort, Clear to Auscultation, Clear to Percussion Cardiovascular: NL Sounds; No Murmurs; No JVD, - - trace edema Abdominal: - - flank tenderness Lymphatic: No Cervical Adenopathy Skin: No Rash or Ulcers Neurological: Alert and Oriented x 3, NL Muscle Strength and Tone Result Diagrams: 10/14/19 11:45 10/14/19 11:45 Assess/Plan/Problems-Billing Assessment: - Patient Problems (1) Renal transplant rejection Current Visit: Yes Status: Acute Comment: acute rejection secondary to noncompliance. PT has not been taking his prednisone and tacrolimus in 1 week. Presenting with severe abdominal pain radiating to the back .US showed edematous kidney. Nephrology consulted and recommended steroids, will give another dose of IV methylprednisolone as he is still in severe pain. (2) ESRD (end stage renal disease) on dialysis Current Visit: No Status: Acute Priority: High Code(s): N18.6 - END STAGE RENAL DISEASE; Z99.2 - DEPENDENCE ON RENAL DIALYSIS SNOMED Code(s): 079201517 Comment: dialysis today Nephrology on board (3) Hypertensive urgency Current Visit: No Status: Acute Code(s): I16.0 - HYPERTENSIVE URGENCY SNOMED Code(s): 410327237 Comment: Did not take his medications today, now with urgency. Restart home meds Hydralazine, labetolol prn pain also contributing to elevated pressure (4) DVT prophylaxis Current Visit: No Status: Acute Code(s): Z29.9 - ENCOUNTER FOR PROPHYLACTIC MEASURES, UNSPECIFIED SNOMED Code(s): 654943992 Comment: - Heparin SQ (5) Full code status Current Visit: No Status: Acute Code(s): Z78.9 - OTHER SPECIFIED HEALTH STATUS SNOMED Code(s): 575710979 Comment: (6) Diabetes mellitus type 2 in nonobese Current Visit: No Status: Acute Code(s): E11.9 - TYPE 2 DIABETES MELLITUS WITHOUT COMPLICATIONS SNOMED Code(s): 577331780 Comment: -diet controlled -good glucoses on BMPs
[2019-10-15] MEDS ORDERED: methylPREDNISolone 125 MG* 2 ML VIAL IV ONE (06:25)
[2019-10-15] MEDS: cloNIDine TAB* 0.1 MG PO SCH ×4 (07:36→20:14)
[2019-10-15] MEDS: Carvedilol TAB* 25 MG PO SCH ×4 (07:54→20:15)
[2019-10-15] MEDS: Cinacalcet TAB* 30 MG PO SCH (08:34)
[2019-10-15] MEDS: Oxymorphone IR (NF) 5 MG TAB PO SCH ×4 (08:34→23:38)
[2019-10-15] MEDS: hydrALAZINE TAB* 25 MG PO SCH ×2 (08:35→20:15)
[2019-10-15] MEDS ORDERED: Carvedilol TAB* 25 MG PO SCH (09:00)
[2019-10-15] MEDS ORDERED: Heparin DIALYSIS ONLY(*) 1,000 UNITS/ML VIAL DIALYSIS ONE (10:00)
[2019-10-15] MEDS ORDERED: Tacrolimus CAP(*) 1 MG PO SCH (17:00)
[2019-10-15] MEDS ORDERED: Dextrose 50% VIAL 50 ml IV PUSH PRN (17:01)
--- NOTE | 2019-10-15 17:01 | PN ---
Subjective Date of Service: 10/15/19 Interval History: Stil much pain R abdomen. Ate OK, no bowel c/o, walked in [place]. Objective Active Medications: Acetaminophen (Tylenol Tab*) 650 mg PO Q4H PRN PRN Reason: MILD PAIN or TEMP > 100.4 Hydrocodone Bitart/Acetaminophen ([place] 10/325 (Nf)) 1 tab PO Q6H PRN PRN Reason: PAIN - MILD Last Admin: 10/15/19 05:24 Dose: 1 tab Carvedilol (Coreg Tab*) 25 mg PO TID [facility] Last Admin: 10/15/19 14:01 Dose: 25 mg Cinacalcet (Sensipar Tab*) 30 mg PO DAILY [facility] Last Admin: 10/15/19 08:34 Dose: 30 mg Clonidine HCl (Catapres Tab*) 0.3 mg PO TID [facility] Last Admin: 10/15/19 14:01 Dose: 0.3 mg Heparin Sodium (Porcine) (Heparin Vial(*)) 5,000 units SUBCUT Q8HR [facility] Last Admin: 10/15/19 14:01 Dose: Not Given Hydralazine HCl (Apresoline Tab*) 25 mg PO BID [facility] Last Admin: 10/15/19 08:35 Dose: 25 mg Hydralazine HCl (Apresoline Iv*) 10 mg IV SLOW PU Q8HR PRN PRN Reason: Systolic Bp Greater Than: 180 Last Admin: 10/15/19 05:58 Dose: 10 mg Methylprednisolone Sodium Succinate 250 mg/ Sodium Chloride 100 mls @ 100 mls/ hr IVPB DAILY [facility] Labetalol HCl (Trandate Iv*) 10 mg IV PUSH Q6H PRN PRN Reason: BLOOD PRESSURE Last Admin: 10/15/19 05:39 Dose: 10 mg Oxymorphone HCl (Opana Ir (Nf)) 20 mg PO QID [facility] Last Admin: 10/15/19 13:59 Dose: 20 mg Tacrolimus (Prograf Cap(*)) 1 mg PO 0900,2100 [facility] Vital Signs - 8 hr 10/15/19 10/15/19 10/15/19 13:16 13:59 15:40 Temperature 98.0 F 97.8 F Pulse Rate 73 75 Respiratory 16 18 17 Rate Blood Pressure 182/89 184/83 (mmHg) O2 Sat by Pulse 98 95 Oximetry Oxygen Devices in Use Now: Nasal Cannula Appearance: Alert, on R side in bed. In fair spirits. Looks fatigued. Eyes: No Scleral Icterus Abdominal: - - obese, soft, very tender R abd. Nl BS. Extremities: No Edema, No Clubbing, Cyanosis, - Skin: No Rash or Ulcers, No Nodules or Sclerosis, - Neurological: Alert and Oriented x 3, NL Sensation Result Diagrams: 10/14/19 11:45 10/14/19 11:45 Microbiology and Other Data: Microbiology 10/15/19 05:15 Nasal Screen MRSA (PCR) - Final Nasal Mrsa Detected Assess/Plan/Problems-Billing Assessment: - Patient Problems (1) ESRD (end stage renal disease) on dialysis Current Visit: No Status: Acute Priority: High Code(s): N18.6 - END STAGE RENAL DISEASE; Z99.2 - DEPENDENCE ON RENAL DIALYSIS SNOMED Code(s): 645853581 Comment: dialysis MWF in hospital (2) Renal transplant rejection Current Visit: Yes Status: Acute Comment: acute rejection secondary to noncompliance. PT has not been taking his prednisone and tacrolimus in 1 week. Presenting with severe abdominal pain radiating to the back .US showed edematous kidney. Nephrology consulted. Received 500 mg IV methylporednisolone , will start 250 mg q 24 h 1700 hr 10/15, start tacrolimus 1 mg bid, 32 doses 10/15. (3) Diabetes mellitus type 2 in nonobese Current Visit: No Status: Acute Code(s): E11.9 - TYPE 2 DIABETES MELLITUS WITHOUT COMPLICATIONS SNOMED Code(s): 680013787 Comment: -diet controlled -good glucoses on BMPs Will order Lispro SS achs in case steroids exacerbate diabetes.
--- NOTE | 2019-10-15 17:58 | CONSULT ---
Consult Consult: Chief complaint: Acute abdominal pain and end-stage renal disease patient with failed kidney transplant History of present illness: The patient is a 54-year-old -[place] male who was admitted last night for abdominal pain. History is taken from the patient and review of medical records. At my visit patient is lying in bed, sleeping comfortably. I was able to awake him and during my visit he remained lying flat in bed with his eyes closed. He is a fair historian, he does not remember a lot of details. He has end-stage kidney disease probably due to hypertension, and received a kidney transplant about a year ago at [facility] in [place]. Kidney failed from what I can understand from discussing with my nephrology colleagues and the dialysis staff from nonadherence to antirejection medications. He restarted hemodialysis 2 months ago. Patient tells me that he asked the dialysis nurses to call the transplant center to clarify his immunosuppression medication and he was told to stop his immunosuppression medications. He did so about 2 weeks ago. Patient states that he has had abdominal pain on and off for many years, but it worsened significantly when he was not taking antirejection medicines. It was not associated with nausea, vomiting, diarrhea, or constipation. Per H&P he stated that he ran out of his antirejection medications. He states that he does not make any urine. He denies suprapubic pain. All the pain is on the right side of his abdomen. His transplanted kidney is in the right lower quadrant. He was given Dilaudid in the emergency room and he became hypoxemic. He received Solu-Medrol 500 mg last night. This morning he was still complaining of abdominal pain. He received another dose of 125 mg this morning. He remains in pain. He states that the medications are just a patch, not taking care of the problem. He wants the kidney removed. It seems that he did not take his blood pressure medications either so he was hypertensive at the time of admission. He is on intermittent hemodialysis Tuesday. I arranged for him to get hemodialysis this morning, as he was scheduled as an outpatient to get an additional dialysis treatment for volume management , which he received without any complications per the dialysis nurse. Blood pressure indeed is remaining elevated. A workup in the emergency room was negative for elevated white blood cell count or fever. A kidney ultrasound was done and showed enlarged edematous kidney. I reviewed with images myself and I agree with radiologists reading. Review of systems: Constitutional: Subjective fevers and chills at home, distress due to abdominal pain, appetite remains good and he did not have any weight loss Respiratory: No shortness of breath, sputum, or edema disease, or wheezing Cardiovascular: No chest pain, shortness of breath, palpitations, PND GI: Abdominal pain as above. No nausea, vomiting, constipation or diarrhea. All systems were reviewed and they were all negative unless otherwise specified Past medical history significant for end-stage kidney disease most probably secondary to hypertension, kidney transplant about a year ago, kidney transplant rejection, hypertension, hyperlipidemia Past surgical history significant for transplant surgery last year. He also had a hernia repair. Family history: Significant for coronary artery disease and hypertension in both parents. Social history: He does not work at this time, lives alone, denies smoking and alcohol Current medications: Acetaminophen 650 mg by mouth every 4 hours as needed for pain, hydrocodone/acetaminophen 10/325 mg by mouth every 6 hours when necessary pain, carvedilol 25 mg by mouth 3 times a day, cinacalcet 30 mg daily, clonidine 0.3 mg by mouth 3 times a day, heparin subcu 5000 units every 3 hours , hydralazine IV as needed for high blood pressure, hydralazine scheduled as 24 mg by mouth twice a day, insulin per sliding scale. At home he used to be on tacrolimus 6 mg by mouth twice a day and prednisone. I am not sure about the prednisone dose. Physical exam patient refuses to be examined he just lets me slightly palpate his abdomen. Blood pressure is 184/83, oxygen saturation is 95% on 2 L, heart rate is 75 bpm , temperature is 97.8F. Constitutional he does not seem to be in any acute distress. Abdomen is distended, soft on the left side a little bit more harder on the right side. Right side of the abdomen is extremely painful just about a very slight palpation. Extremities he has trace to +1 edema. Labs were done yesterday on admission. Hemoglobin was 8.2 g/dL. Platelets 232 , white blood cell count 7.2, no significant increase in the neutrophils, lactic acid 0.8, calcium 8.2, albumin 3.4, sodium 138, potassium 4.8, total CO2 25, BUN 50, creatinine 7.55. Assessment and plan: Indra Roman is a 54-year-old -[place] male with end-stage kidney disease secondary to hypertension with a failed kidney transplant because of nonadherence with his immunosuppressive medications admitted with severe right- sided abdominal pain week after he quit taking his antirejection medications 1. Acute abdominal pain most probably is due to acute kidney rejection, as his kidney ultrasound shows a very edematous kidney. Pain started after not taking immunosuppressive medications for a week. Differential diagnosis includes pyelonephritis, but the patient is afebrile, without a white blood cell count and a normal lactic acid. It does not seem that the pain is coming from any other source than the transplanted kidney. Continue Solu-Medrol 250 mg daily. Agree with starting tacrolimus 1 milligram by mouth twice a day as the patient seems to be in severe pain. Usually for this kind of scenarios we can just start the patient on a lower dose of prednisone which we taper gradually. Because of his significant pain would be more aggressive in treating rejection. I will discuss with his transplant center tomorrow for possible transplant nephrectomy. 2. End-stage kidney disease. Patient received an additional dialysis treatment today because of volume overload. He was scheduled to receive additional treatment anyway as an outpatient. 3. Hypertension. Blood pressure remains elevated despite fluid removal. I think there about 4 L removed with dialysis today. He tolerated a 4 hour treatment. If blood pressure remains elevated we can add nifedipine XL 30 mg by mouth daily. I discussed the plan with his admitting hospitalist, Dr. Rausch
[2019-10-15] MEDS: METHYLPREDNISOLONE SOD SUCC IVPB SCH (18:41)
[2019-10-15] MEDS: NS 0.9% IVPB SCH (18:41)
[2019-10-15] MEDS: Insulin LISPRO* 1 UNITS UNIT SUBCUT SCH (20:14)
[2019-10-15] MEDS: Tacrolimus CAP(*) 1 MG PO SCH (20:19)
[2019-10-16] MEDS: hydrALAZINE IV* 20 MG/ML VIAL IV SLOW PU PRN (00:56)
[2019-10-16] MEDS: Heparin VIAL(*) 5000 UNITS/ML VIAL (FIVE THOUSAND) SUBCUT SCH ×3 (04:53→20:37)
[2019-10-16 06:17] LABS: ABS Lymphocytes 0.2 10^3/ul (1.0-4.8); ABS Monocytes 0.2 10^3/ul (0-0.8); ABS Neutrophils 9.3 10^3/ul (1.5-7.7); Hematocrit 24 % (42-52); Hemoglobin 7.7 g/dL (14.0-18.0); Lymphocyte % 2.4 %; Mean Corpuscular HGB Conc 32 g/dL (31-36); Mean Corpuscular Hemoglobin 26 pg (27-31); Mean Corpuscular Volume 83 fL (80-94); Mean Platelet Volume 7.4 fL (7.4-10.4); Platelet Count 239 10^3/uL (150-450); Red Blood Count 2.92 10^6 /uL (4.18-5.48); Red Cell Distribution Width 17 % (10-15); White Blood Count 9.8 10^3/uL (3.5-10.8)
[2019-10-16 06:34] LABS: BUN/Creatinine Ratio 7.5 (8-20); Calcium 8.1 mg/dL (8.6-10.3); EGFR African American 11.8 (>60); EGFR Non-African American 9.7 (>60)
[2019-10-16 06:37] LABS: Potassium 5.8 mmol/L (3.5-5.0)
[2019-10-16] MEDS: Insulin LISPRO* 1 UNITS UNIT SUBCUT SCH ×4 (07:48→20:35)
[2019-10-16] MEDS ORDERED: NIFEdipine ER TAB* 30 MG PO SCH (09:00)
[2019-10-16] MEDS ORDERED: NS 0.9% IVPB SCH (09:00)
[2019-10-16] MEDS ORDERED: METHYLPREDNISOLONE SOD SUCC IVPB SCH (09:00)
[2019-10-16] MEDS: Carvedilol TAB* 25 MG PO SCH ×3 (09:06→20:35)
[2019-10-16] MEDS: Tacrolimus CAP(*) 1 MG PO SCH ×2 (09:06→20:36)
[2019-10-16] MEDS: Cinacalcet TAB* 30 MG PO SCH (09:07)
[2019-10-16] MEDS: Oxymorphone IR (NF) 5 MG TAB PO SCH ×4 (09:07→23:31)
[2019-10-16] MEDS: cloNIDine TAB* 0.1 MG PO SCH ×3 (09:07→20:35)
[2019-10-16] MEDS: hydrALAZINE TAB* 25 MG PO SCH ×2 (09:07→20:35)
[2019-10-16] MEDS ORDERED: Heparin DIALYSIS ONLY(*) 1,000 UNITS/ML VIAL DIALYSIS ONE (16:00)
[2019-10-16] MEDS ORDERED: EPOETIN ALFA-EPBX * 3,000 UNIT/ML VIAL IV ONE (16:00)
--- NOTE | 2019-10-16 16:15 | PN ---
Subjective Date of Service: 10/16/19 Interval History: HOSPITALIST PROGRESS NOTE Patient seen and examined at bedside. Care reviewed and d/w Viji Jhaveri RN. He states his abdominal pain is improved today. He verbalizes frustration with [facility] which he blames for his renal misadventures. Family History: Unchanged from Admission Social History: Unchanged from Admission Past Medical History: Unchanged from Admission Objective Active Medications: Acetaminophen (Tylenol Tab*) 650 mg PO Q4H PRN PRN Reason: MILD PAIN or TEMP > 100.4 Hydrocodone Bitart/Acetaminophen ([place] 10/325 (Nf)) 1 tab PO Q6H PRN PRN Reason: PAIN - MILD Last Admin: 10/15/19 05:24 Dose: 1 tab Carvedilol (Coreg Tab*) 25 mg PO TID [facility] Last Admin: 10/16/19 13:52 Dose: 25 mg Cinacalcet (Sensipar Tab*) 30 mg PO DAILY [facility] Last Admin: 10/16/19 09:07 Dose: 30 mg Clonidine HCl (Catapres Tab*) 0.3 mg PO TID [facility] Last Admin: 10/16/19 13:52 Dose: 0.3 mg Dextrose (Dextrose 50% Vial 50 Ml*) 25 ml IV PUSH .FOR FS < 60 - SS PRN PRN Reason: FS < 60 Heparin Sodium (Porcine) (Heparin Vial(*)) 5,000 units SUBCUT Q8HR [facility] Last Admin: 10/16/19 13:52 Dose: Not Given Hydralazine HCl (Apresoline Tab*) 25 mg PO BID [facility] Last Admin: 10/16/19 09:07 Dose: 25 mg Hydralazine HCl (Apresoline Iv*) 10 mg IV SLOW PU Q8HR PRN PRN Reason: Systolic Bp Greater Than: 180 Last Admin: 10/16/19 00:56 Dose: 10 mg Methylprednisolone Sodium Succinate 250 mg/ Sodium Chloride 100 mls @ 100 mls/ hr IVPB Q24H [facility] Last Admin: 10/15/19 18:41 Dose: 100 mls/hr Insulin Human Lispro (Humalog*) 0 units SUBCUT ACHS [facility]; Protocol Last Admin: 10/16/19 12:30 Dose: Not Given Labetalol HCl (Trandate Iv*) 10 mg IV PUSH Q6H PRN PRN Reason: BLOOD PRESSURE Last Admin: 10/15/19 05:39 Dose: 10 mg Nifedipine (Procardia Xl Tab*) 30 mg PO DAILY [facility] Last Admin: 10/16/19 09:07 Dose: 30 mg Oxymorphone HCl (Opana Ir (Nf)) 20 mg PO QID [facility] Last Admin: 10/16/19 13:51 Dose: 20 mg Tacrolimus (Prograf Cap(*)) 1 mg PO BID [facility] Last Admin: 10/16/19 09:06 Dose: 1 mg Vital Signs - 8 hr 10/16/19 10/16/19 13:51 13:53 Pulse Rate 65 Respiratory 16 16 Rate Blood Pressure 187/92 (mmHg) O2 Sat by Pulse 100 Oximetry Oxygen Devices in Use Now: None Appearance: Middle aged gentleman sitting up in a chair in NAD Eyes: No Scleral Icterus Ears/Nose/Mouth/Throat: Mucous Membranes Moist Neck: Trachea Midline Extremities: No Edema Neurological: Alert and Oriented x 3, NL Muscle Strength and Tone Result Diagrams: 10/16/19 05:33 10/16/19 15:23 Assess/Plan/Problems-Billing Assessment: Mr Roman is a 54yo M with PMH of ESRD on HD (likely secondary to HTN), s/p failed renal transplant (?secondary to non compliance), type 2 DM (diet controlled); who presented to ED with c/o abdominal pain, likely secondary to acute kidney rejection as he ran out of anti-rejection meds. - Patient Problems (1) Abdominal pain Comment: - Nephrology consult appreciated - suspect acute kidney rejection due to non compliance with anti-rejection meds. Patient states dyalisis nurse contacted [facility] but he was not able to get the medications. - Continue Solumedrol and Tacrolimus. - Awaiting Nephrology decision re: possible transplant nephrectomy. (2) ESRD (end stage renal disease) on dialysis Comment: - Continue dyalisis as scheduled. (3) HTN (hypertension) Comment: - Uncontrolled. - Continue Carvedilol, Clonidine, increase hydralazine. - Nifedipine XL added. - Continue to monitor. (4) Diabetes mellitus type 2 in nonobese Comment: - Diet controlled. - A1c was 5.1 in July. - Continue fingersticks with Lispro SS ACHS as steroids may exacerbate his diabetes. (5) DVT prophylaxis Comment: - Heparin SQ (6) Full code status Comment: Status and Disposition: Change to inpatient.
--- NOTE | 2019-10-16 18:10 | PN ---
Progress Note - Progress Note Date of Service: 10/16/19 Note: Chief complaint: End-stage kidney disease, abdominal pain due to acute rejection of the kidney transplant. History of present illness patient had hemodialysis today. He denied with his regular dialysis day. Potassium was high despite dialysis on a 2K bath yesterday. He states that he ate a big serving of mashed potatoes last night. The right lower abdominal pain is improved but still present. He states that he wants the kidney out, but does not want to go to [place]. Review of systems: Denies nausea, vomiting, constipation, diarrhea, chest pain, shortness of breath , fevers and chills. Past medical, social, family, surgical history were reviewed and they are unchanged. Labs: Revealed hyperkalemia with a potassium of 5.8. Repeated was 5.7. Hemoglobin is 7.7 mg/dL. Physical exam: Blood pressure 173/87, heart rate is 71 bpm, oxygen saturation 95 % on room air The patient allows me to just listen to his heart and lungs. Constitutional: No acute distress , conversant. obese. Chest is clear to auscultation with good respiratory effort. Heart exam shows S1-S2 regular rate and rhythm no murmurs rubs or gallops. Extremities with no lower extremities edema that I can visually appreciate Meds reviewed. Assessment and plan. End-stage renal disease patient who received a kidney transplant earlier in the year. He is from possible and has failed. He is admitted with acute rejection of the failed kidney. 1. End-stage kidney disease. Dialysis today 2. Acute transplant rejection. Can switch to prednisone 60 mg daily and I would increase his tacrolimus to his previous dose of 6 mg by mouth twice a day. 3. Hypertension nifedipine XL 30 mg was added today. We will continue to follow. 4. Anemia of stage kidney disease. He received Epogen with dialysis.
[2019-10-16] MEDS: NS 0.9% IVPB SCH (18:58)
[2019-10-16] MEDS: METHYLPREDNISOLONE SOD SUCC IVPB SCH (18:58)
[2019-10-17] MEDS: Heparin VIAL(*) 5000 UNITS/ML VIAL (FIVE THOUSAND) SUBCUT SCH ×3 (05:06→20:36)
[2019-10-17] MEDS: Insulin LISPRO* 1 UNITS UNIT SUBCUT SCH ×4 (08:28→20:27)
[2019-10-17 08:35] LABS: BUN/Creatinine Ratio 8.8 (8-20); EGFR African American 13.6 (>60); EGFR Non-African American 11.2 (>60)
[2019-10-17 08:37] LABS: Potassium 6.4 mmol/L (3.5-5.0)
[2019-10-17] MEDS ORDERED: Calcium Gluconate INJ* 1 GM in NS 0.9% 50 ML* 50 ML IVPB ONE (08:40)
[2019-10-17] MEDS ORDERED: Patiromer POWDER* 8.4 GM PAK PO STA (08:41)
[2019-10-17] MEDS ORDERED: Insulin REGULAR(*) 1 UNITS UNIT IV PUSH STA (08:42)
[2019-10-17] MEDS ORDERED: Dextrose 50% Syringe 50 ML* 25 GM/50 ML SYRINGE IV PUSH STA (08:42)
[2019-10-17] MEDS ORDERED: Dextrose 50% VIAL 50 ml IV STA (08:55)
[2019-10-17] MEDS: Tacrolimus CAP(*) 1 MG PO SCH ×2 (10:14→20:16)
[2019-10-17] MEDS: NIFEdipine ER TAB* 30 MG PO SCH (10:15)
[2019-10-17] MEDS: hydrALAZINE TAB* 25 MG PO SCH ×3 (10:15→20:17)
[2019-10-17] MEDS: Cinacalcet TAB* 30 MG PO SCH (10:15)
[2019-10-17] MEDS: cloNIDine TAB* 0.1 MG PO SCH ×3 (10:15→20:16)
[2019-10-17] MEDS: Oxymorphone IR (NF) 5 MG TAB PO SCH ×4 (10:15→20:16)
[2019-10-17] MEDS: Carvedilol TAB* 25 MG PO SCH ×3 (10:15→20:17)
--- NOTE | 2019-10-17 15:32 | PN ---
Subjective Date of Service: 10/17/19 Interval History: HOSPITALIST PROGRESS NOTE Patient seen and examined at bedside. Care reviewed and d/w Emily Garcia RN. He offers no complaints today. States abdominal pain is 6/10 but down to "comfortable" with pain medications. Denies CP, palpitations. Family History: Unchanged from Admission Social History: Unchanged from Admission Past Medical History: Unchanged from Admission Objective Active Medications: Acetaminophen (Tylenol Tab*) 650 mg PO Q4H PRN PRN Reason: MILD PAIN or TEMP > 100.4 Hydrocodone Bitart/Acetaminophen ([place] [address] (Nf)) 1 tab PO Q6H PRN PRN Reason: PAIN - MILD Last Admin: 10/15/19 05:24 Dose: 1 tab Carvedilol (Coreg Tab*) 25 mg PO TID [facility] Last Admin: 10/17/19 10:15 Dose: 25 mg Cinacalcet (Sensipar Tab*) 30 mg PO DAILY [facility] Last Admin: 10/17/19 10:15 Dose: 30 mg Clonidine HCl (Catapres Tab*) 0.3 mg PO TID [facility] Last Admin: 10/17/19 10:15 Dose: 0.3 mg Dextrose (Dextrose 50% Vial 50 Ml*) 25 ml IV PUSH .FOR FS < 60 - SS PRN PRN Reason: FS < 60 Heparin Sodium (Porcine) (Heparin Vial(*)) 5,000 units SUBCUT Q8HR [facility] Last Admin: 10/17/19 13:14 Dose: Not Given Hydralazine HCl (Apresoline Iv*) 10 mg IV SLOW PU Q8HR PRN PRN Reason: Systolic Bp Greater Than: 180 Last Admin: 10/16/19 00:56 Dose: 10 mg Hydralazine HCl (Apresoline Tab*) 25 mg PO TID [facility] Last Admin: 10/17/19 10:15 Dose: 25 mg Methylprednisolone Sodium Succinate 250 mg/ Sodium Chloride 100 mls @ 100 mls/ hr IVPB Q24H [facility] Last Admin: 10/16/19 18:58 Dose: 100 mls/hr Insulin Human Lispro (Humalog*) 0 units SUBCUT ACHS [facility]; Protocol Last Admin: 10/17/19 11:57 Dose: Not Given Labetalol HCl (Trandate Iv*) 10 mg IV PUSH Q6H PRN PRN Reason: BLOOD PRESSURE Last Admin: 10/15/19 05:39 Dose: 10 mg Nifedipine (Procardia Xl Tab*) 90 mg PO DAILY [facility] Last Admin: 10/17/19 10:15 Dose: 90 mg Oxymorphone HCl (Opana Ir (Nf)) 20 mg PO QID [facility] Last Admin: 10/17/19 13:14 Dose: Not Given Tacrolimus (Prograf Cap(*)) 6 mg PO BID [facility] Last Admin: 10/17/19 10:14 Dose: 6 mg Vital Signs - 8 hr 10/17/19 10/17/19 10/17/19 07:53 08:55 10:15 Temperature 98.0 F Pulse Rate Respiratory 20 18 Rate Blood Pressure (mmHg) O2 Sat by Pulse Oximetry 10/17/19 10/17/19 11:00 14:32 Temperature 98.3 F Pulse Rate 68 Respiratory 20 18 Rate Blood Pressure 195/100 (mmHg) O2 Sat by Pulse 99 Oximetry Oxygen Devices in Use Now: None Appearance: Middle aged gentleman sitting up in a chair in NAD Eyes: No Scleral Icterus Ears/Nose/Mouth/Throat: Mucous Membranes Moist Neck: Trachea Midline Respiratory: Symmetrical Chest Expansion and Respiratory Effort, Clear to Auscultation Cardiovascular: RRR - Normal S1 and S2 Abdominal: NL Sounds; No Tenderness; No Distention Neurological: Alert and Oriented x 3, NL Muscle Strength and Tone Result Diagrams: 10/16/19 05:33 10/17/19 08:10 Assess/Plan/Problems-Billing Assessment: Mr Roman is a 54yo M with PMH of ESRD on HD (likely secondary to HTN), s/p failed renal transplant (?secondary to non compliance), type 2 DM (diet controlled); who presented to ED with c/o abdominal pain, likely secondary to acute kidney rejection as he ran out of anti-rejection meds. - Patient Problems (1) Hyperkalemia Comment: - Potassium up to 6.4 today. - Patient is aware his potassium is high because he ate potatoes. - EKG shows prolonged QTc, no peaked T waves. - I explained the risks of hyperkalemia, including but not limited too arrhythmia and . He is agreeable with treatment, including insulin IV, but does not accept Telemetry, even after I explained the reasoning for it. - Calcium gluconate IV, dextrose+insulin IV, Patiromer and monitor potassium. (2) Abdominal pain Comment: - Nephrology consult appreciated - suspect acute kidney rejection due to non compliance with anti-rejection meds. Patient states dyalisis nurse contacted [facility] but he was not able to get the medications. - Continue Solumedrol and Tacrolimus - plan to d/c home on prednisone 60mg and Tacrolimus 6mg BID. - He'll follow up with Nephrology as outpatient and will be referred to [facility] for transplant nephrectomy. - He had AV fistula scheduled for 10/19/[address] Andrew, who called to cancel the procedure, as high dose steroids increase risk of infection and fistula failure. (3) ESRD (end stage renal disease) on dialysis Comment: - Continue dyalisis as scheduled. (4) HTN (hypertension) Comment: - Still uncontrolled. - Continue Carvedilol, Clonidine, hydralazine. - Increase Nifedipine XL. - Continue to monitor. (5) Diabetes mellitus type 2 in nonobese Comment: - Diet controlled. - A1c was 5.1 in July. - Continue fingersticks with Lispro SS ACHS as steroids may exacerbate his diabetes. (6) DVT prophylaxis Comment: - Heparin SQ (7) Full code status Comment: Status and Disposition: Inpatient.
--- NOTE | 2019-10-17 15:50 | PN ---
Progress Note - Progress Note Date of Service: 10/17/19 Note: Chief complaint: End-stage renal disease, acute symptomatic rejection of the transplanted kidney History of present illness: I saw the patient in his room in the morning. He looked much improved. He was up trying to tidy up his belongings. He stated that the abdominal pain is present but much improved. He has no nausea or vomiting. He states that he wants his kidney out and does not want to go to [place]. Review of systems: Constitutional: No fevers, chills, loss of appetite GI: Minimal abdominal pain, no nausea, no vomiting, no constipation or diarrhea : No dysuria or hematuria. Cardiovascular: No chest pain, shortness of breath, palpitations Respiratory: No cough no sputum no wheezing Labs: Sodium 133, potassium 6.4, BUN 47, creatinine 5.32, glucose 156. Physical exam: Blood pressure 172/98, heart rate 63 bpm, oxygen saturation 100% on room air respiratory rate 20/min, temperature is 98 Fahrenheit. Constitutional: No acute distress, conversant. Extremities: No clubbing, cyanosis or edema Psychiatric: Alert and oriented 3, mood is less irritated today Medications: [place] 10/325 1 by mouth every 6 hours as needed Carvedilol 25 mg by mouth 3 times a day Sensipar 30 mg daily Clonidine 0.3 mg by mouth 3 times a day Hydralazine 10 mg IV every 8 hours as needed for high blood pressure Hydralazine 25 mg by mouth 3 times a day insulin lispro per sliding scale Labetalol as needed for high blood pressure Solu-Medrol 250 mg IV daily Nifedipine XL 30 mg daily Tacrolimus 6 mg by mouth twice a day Assessment and plan: 1. Symptomatic acute kidney allograft rejection. On admission day ultrasound showed that the kidney was extremely enlarged and edematous. Symptoms have improved significantly with Solumedrol 500 X1 then 250 mg daily. a. Can try to switch to Prednisone 60 mg daily and continue tacrolimus 6 mg by mouth every 12 hours b. Will refer patient to [facility] for transplant nephrectomy. 2. Hyperkalemia. He was dialyzed on Tuesday and Tuesday with a 2K bath. I placed an order for a low K diet yesterday. Despite this, his serum potassium is elevated at 6.4 mEq/L today. He received a dose of Patiromer, calcium gluconate, insulin and dextrose. a. Will recheck stat K now. b. He may need to continue Patiromer daily 3. ESRD. HD tomorrow. He dialyzes through a tunneled catheter. He is scheduled to have an AV fistula placed on Tuesday. He is requesting to stay in the hospital until Tuesday. This note was dictated using [employer]. It was reviewed for major inaccuracies, butI may have missed some minor ones. Still working on training my Josselin.
[2019-10-17] MEDS: METHYLPREDNISOLONE SOD SUCC IVPB SCH (18:33)
[2019-10-17] MEDS: NS 0.9% IVPB SCH (18:33)
[2019-10-17 18:47] LABS: Calcium 7.8 mg/dL (8.6-10.3); EGFR African American 11.6 (>60); EGFR Non-African American 9.6 (>60)
[2019-10-17 18:54] LABS: Potassium 5.4 mmol/L (3.5-5.0)
--- NOTE | 2019-10-17 20:58 | PN ---
Hospitalist Progress Note Date of Service: 10/17/19 HOSPITALIST ADDENDUM Potassium down to 5.4. EKG still shows QTC prolongation, some ST elevation likely secondary to LVH. Will continue to monitor.
[2019-10-18] MEDS: Heparin VIAL(*) 5000 UNITS/ML VIAL (FIVE THOUSAND) SUBCUT SCH ×3 (05:42→20:43)
[2019-10-18 06:40] LABS: ABS Lymphocytes 0.2 10^3/ul (1.0-4.8); ABS Monocytes 0.2 10^3/ul (0-0.8); ABS Neutrophils 9.9 10^3/ul (1.5-7.7); Hematocrit 25 % (42-52); Hemoglobin 8.3 g/dL (14.0-18.0); Lymphocyte % 2.3 %; Mean Corpuscular HGB Conc 33 g/dL (31-36); Mean Corpuscular Hemoglobin 27 pg (27-31); Mean Corpuscular Volume 82 fL (80-94); Mean Platelet Volume 7.3 fL (7.4-10.4); Platelet Count 304 10^3/uL (150-450); Red Blood Count 3.05 10^6 /uL (4.18-5.48); Red Cell Distribution Width 17 % (10-15); White Blood Count 10.4 10^3/uL (3.5-10.8)
[2019-10-18 07:14] LABS: Potassium 6.3 mmol/L (3.5-5.0)
[2019-10-18 08:00] LABS: Calcium 7.7 mg/dL (8.6-10.3)
[2019-10-18 08:06] LABS: BUN/Creatinine Ratio 10.2 (8-20); EGFR African American 10.2 (>60); EGFR Non-African American 8.4 (>60)
[2019-10-18] MEDS: hydrALAZINE TAB* 25 MG PO SCH ×3 (08:17→20:41)
[2019-10-18] MEDS: Tacrolimus CAP(*) 1 MG PO SCH ×2 (08:18→20:41)
[2019-10-18] MEDS: Cinacalcet TAB* 30 MG PO SCH (08:19)
[2019-10-18] MEDS: cloNIDine TAB* 0.1 MG PO SCH ×3 (08:20→20:41)
[2019-10-18] MEDS: NIFEdipine ER TAB* 30 MG PO SCH (08:21)
[2019-10-18] MEDS: Carvedilol TAB* 25 MG PO SCH ×3 (08:58→20:41)
[2019-10-18] MEDS: Oxymorphone IR (NF) 5 MG TAB PO SCH ×4 (08:59→20:40)
[2019-10-18] MEDS: Insulin LISPRO* 1 UNITS UNIT SUBCUT SCH ×4 (09:00→21:04)
[2019-10-18] MEDS ORDERED: EPOETIN ALFA-EPBX * 3,000 UNIT/ML VIAL IV ONE (11:00)
[2019-10-18] MEDS ORDERED: Heparin DIALYSIS ONLY(*) 1,000 UNITS/ML VIAL DIALYSIS ONE (11:00)
[2019-10-18] MEDS: Patiromer POWDER* 8.4 GM PAK PO SCH (14:13)
--- NOTE | 2019-10-18 16:51 | PN ---
Subjective Date of Service: 10/18/19 Interval History: Mr. Vidales was dismissive of me when I attempted to examine him today. He was eating lunch and insisted that he did not want to be bothered. No concerns from nursing. Family History: Unchanged from Admission Social History: Unchanged from Admission Past Medical History: Unchanged from Admission Objective Active Medications: Acetaminophen (Tylenol Tab*) 650 mg PO Q4H PRN MILD PAIN or TEMP > 100.4 Hydrocodone Bitart/Acetaminophen ([place] 10/325 (Nf)) 1 tab PO Q6H PRN PAIN - MILD Carvedilol (Coreg Tab*) 25 mg PO TID [facility] Cinacalcet (Sensipar Tab*) 30 mg PO DAILY [facility] Clonidine HCl (Catapres Tab*) 0.3 mg PO TID [facility] Dextrose (Dextrose 50% Vial 50 Ml*) 25 ml IV PUSH .FOR FS < 60 - SS PRN FS < 60 Heparin Sodium (Porcine) (Heparin Vial(*)) 5,000 units SUBCUT Q8HR [facility] Hydralazine HCl (Apresoline Iv*) 10 mg IV SLOW PU Q8HR PRN Systolic Bp Greater Than: 180 Hydralazine HCl (Apresoline Tab*) 25 mg PO TID [facility] Methylprednisolone Sodium Succinate 250 mg/ Sodium Chloride 100 mls @ 100 mls/ hr IVPB Q24H [facility] Insulin Human Lispro (Humalog*) 0 units SUBCUT ACHS [facility]; Protocol Labetalol HCl (Trandate Iv*) 10 mg IV PUSH Q6H PRN BLOOD PRESSURE Nifedipine (Procardia Xl Tab*) 90 mg PO DAILY [facility] Oxymorphone HCl (Opana Ir (Nf)) 20 mg PO QID [facility] Patiromer (Veltassa Powder*) 8.4 gm PO DAILY [facility] Tacrolimus (Prograf Cap(*)) 6 mg PO BID [facility] Vital Signs - 8 hr 10/18/19 10/18/19 08:59 14:11 Respiratory 18 18 Rate Oxygen Devices in Use Now: None Appearance: Middle-aged male sitting in chair in NAD Neck: NL Appearance and Movements; NL JVP Respiratory: Symmetrical Chest Expansion and Respiratory Effort Neurological: Alert and Oriented x 3 Lines/Tubes/Other Access: Clean, Dry and Intact Peripheral IV Nutrition: Taking PO's Result Diagrams: 10/18/19 05:56 12/12/19 05:56 Assess/Plan/Problems-Billing Assessment: Mr. Roman is a 54 yo M with PMH of ESRD on HD (likely secondary to HTN), s/p failed renal transplant (?secondary to non compliance), type 2 DM (diet controlled); who presented to ED with c/o abdominal pain, likely secondary to acute kidney rejection as he ran out of anti-rejection meds. - Patient Problems (1) Hyperkalemia Code(s): E87.5 - HYPERKALEMIA Comment: - Potassium up again today - Patient is aware his potassium is high because he ate potatoes - EKG shows prolonged QTc, no peaked T waves - Patient refusing telemetry - Dialysis today - Start Patiromer daily (2) Abdominal pain Code(s): R10.9 - UNSPECIFIED ABDOMINAL PAIN Comment: - Suspect acute kidney rejection due to non compliance with anti-rejection meds , was not able to get the medications - Nephrology consult appreciated - Follow up with Nephrology as outpatient and will be referred to [facility] for transplant nephrectomy - Had AV fistula scheduled for 10/19/[address] Andrew, who called to cancel the procedure, as high dose steroids increase risk of infection and fistula failure - Continue Solu-Medrol and tacrolimus; plan to d/c home on prednisone 60mg and tacrolimus 6mg BID (3) ESRD (end stage renal disease) on dialysis Code(s): N18.6 - END STAGE RENAL DISEASE; Z99.2 - DEPENDENCE ON RENAL DIALYSIS Comment: - Dialysis today (4) HTN (hypertension) Code(s): I10 - ESSENTIAL (PRIMARY) HYPERTENSION Comment: - Occasional hypertension - Continue carvedilol, clonidine, hydralazine, nifedipine (5) Diabetes mellitus type 2 in nonobese Code(s): E11.9 - TYPE 2 DIABETES MELLITUS WITHOUT COMPLICATIONS Comment: - Diet controlled. - A1c was 5.1 in July - Continue fingersticks with Lispro SS ACHS as steroids may exacerbate his diabetes (6) DVT prophylaxis Code(s): Z29.9 - ENCOUNTER FOR PROPHYLACTIC MEASURES, UNSPECIFIED Comment: - Heparin SQ (7) Full code status Code(s): Z78.9 - OTHER SPECIFIED HEALTH STATUS Comment: Status and Disposition: Inpatient. Anticipate d/c home when medically stable. Attending: Naye Calhoun
--- NOTE | 2019-10-18 17:11 | PN ---
Progress Note - Progress Note Date of Service: 10/18/19 Note: Chief complaint: End-stage renal disease on hemodialysis history of present illness: Patient is admitted for acute kidney transplant rejection. Pain is much better controlled. Today is his regular dialysis day. I saw the patient during maintenance hemodialysis. He was stable hemodynamically. Patient is not interested in interacting with me. Labs reviewed potassium remains elevated at 6.3 mEq/L. On physical exam vitals are stable and he has +1 lower extremities edema. We will continue to educate the patient on the importance of low potassium diet. Continue maintenance hemodialysis well remaining inpatient.
[2019-10-18] MEDS: NS 0.9% IVPB SCH (17:39)
[2019-10-18] MEDS: METHYLPREDNISOLONE SOD SUCC IVPB SCH (17:39)
[2019-10-18] MEDS: Docusate CAP* 100 MG PO PRN (20:41)
[2019-10-19] MEDS: Heparin VIAL(*) 5000 UNITS/ML VIAL (FIVE THOUSAND) SUBCUT SCH (04:38)
[2019-10-19 07:47] LABS: BUN/Creatinine Ratio 10.8 (8-20); Calcium 7.8 mg/dL (8.6-10.3); EGFR African American 12.2 (>60); EGFR Non-African American 10.1 (>60)
[2019-10-19 07:51] LABS: Potassium 5.7 mmol/L (3.5-5.0)
[2019-10-19] MEDS: Oxymorphone IR (NF) 5 MG TAB PO SCH (08:45)
[2019-10-19] MEDS: NIFEdipine ER TAB* 30 MG PO SCH (08:46)
[2019-10-19] MEDS: Tacrolimus CAP(*) 1 MG PO SCH (08:47)
[2019-10-19] MEDS: cloNIDine TAB* 0.1 MG PO SCH (08:47)
[2019-10-19] MEDS: Carvedilol TAB* 25 MG PO SCH (08:49)
[2019-10-19] MEDS: Cinacalcet TAB* 30 MG PO SCH (08:49)
[2019-10-19] MEDS: Insulin LISPRO* 1 UNITS UNIT SUBCUT SCH ×2 (08:50→15:09)
[2019-10-19] MEDS: hydrALAZINE TAB* 25 MG PO SCH (08:50)
[2019-10-19] MEDS: Docusate CAP* 100 MG PO PRN (08:55)
[2019-10-19 09:20] VITALS: BP 171/73
--- NOTE | 2019-10-19 11:15 | PN ---
Subjective Date of Service: 10/19/19 Interval History: Patient has pain on right aspect of abdomen but reports the pain is controlled. Denies chest pain, difficulty breathing, fever/chills. He had a small BM overnight, no diarrhea. He refuses telemetry and states "do not ask me why." Family History: Unchanged from Admission Social History: Unchanged from Admission Past Medical History: Unchanged from Admission Objective Active Medications: Acetaminophen (Tylenol Tab*) 650 mg PO Q4H PRN PRN Reason: MILD PAIN or TEMP > 100.4 Hydrocodone Bitart/Acetaminophen ([place] 10/325 (Nf)) 1 tab PO Q6H PRN PRN Reason: PAIN - MILD Last Admin: 10/15/19 05:24 Dose: 1 tab Carvedilol (Coreg Tab*) 25 mg PO TID [facility] Last Admin: 10/19/19 08:49 Dose: 25 mg Cinacalcet (Sensipar Tab*) 30 mg PO DAILY [facility] Last Admin: 10/19/19 08:49 Dose: 30 mg Clonidine HCl (Catapres Tab*) 0.3 mg PO TID [facility] Last Admin: 10/19/19 08:47 Dose: 0.3 mg Dextrose (Dextrose 50% Vial 50 Ml*) 25 ml IV PUSH .FOR FS < 60 - SS PRN PRN Reason: FS < 60 Docusate Sodium (Colace Cap*) 100 mg PO BID PRN PRN Reason: CONSTIPATION Last Admin: 10/19/19 08:55 Dose: 100 mg Heparin Sodium (Porcine) (Heparin Vial(*)) 5,000 units SUBCUT Q8HR [facility] Last Admin: 10/19/19 04:38 Dose: Not Given Hydralazine HCl (Apresoline Iv*) 10 mg IV SLOW PU Q8HR PRN PRN Reason: Systolic Bp Greater Than: 180 Last Admin: 10/16/19 00:56 Dose: 10 mg Hydralazine HCl (Apresoline Tab*) 25 mg PO TID [facility] Last Admin: 10/19/19 08:50 Dose: 25 mg Methylprednisolone Sodium Succinate 250 mg/ Sodium Chloride 100 mls @ 100 mls/ hr IVPB Q24H [facility] Last Admin: 10/18/19 17:39 Dose: 100 mls/hr Insulin Human Lispro (Humalog*) 0 units SUBCUT [facility]; Protocol Last Admin: 10/19/19 08:50 Dose: 2 unit Labetalol HCl (Trandate Iv*) 10 mg IV PUSH Q6H PRN PRN Reason: BLOOD PRESSURE Last Admin: 10/15/19 05:39 Dose: 10 mg Nifedipine (Procardia Xl Tab*) 90 mg PO DAILY [facility] Last Admin: 10/19/19 08:46 Dose: 90 mg Oxymorphone HCl (Opana Ir (Nf)) 20 mg PO QID [facility] Last Admin: 10/19/19 08:45 Dose: 20 mg Patiromer (Veltassa Powder*) 8.4 gm PO DAILY [facility] Last Admin: 10/18/19 14:13 Dose: 8.4 gm Tacrolimus (Prograf Cap(*)) 6 mg PO BID [facility] Last Admin: 10/19/19 08:47 Dose: 6 mg Vital Signs - 8 hr 10/19/19 10/19/19 10/19/19 07:38 08:00 08:45 Temperature 97.6 F Pulse Rate 69 Respiratory 18 16 18 Rate Blood Pressure 171/73 (mmHg) O2 Sat by Pulse 100 Oximetry Oxygen Devices in Use Now: Nasal Cannula Result Diagrams: 10/18/19 05:56 10/19/19 06:44 Microbiology and Other Data: Microbiology 10/15/19 05:15 Nasal Screen MRSA (PCR) - Final Nasal Mrsa Detected Assess/Plan/Problems-Billing Assessment: Mr. Roman is a 54 yo M with PMH of ESRD on HD (likely secondary to HTN), s/p failed renal transplant (?secondary to non compliance), type 2 DM (diet controlled); who presented to ED with c/o abdominal pain, likely secondary to acute kidney rejection as he ran out of anti-rejection meds. Status and Disposition: Inpatient. Anticipate d/c home when medically stable.
[2019-10-19] MEDS ORDERED: Senna TAB 8.6 mg* TAB PO SCH (12:00)
[2019-10-19] MEDS: Patiromer POWDER* 8.4 GM PAK PO SCH (13:11)
--- NOTE | 2019-10-19 21:09 | DS ---
CC: Dr. Deng * DISCHARGE SUMMARY: DATE OF ADMISSION: 10/15/19 DATE OF DISCHARGE: 10/19/19 PRIMARY CARE PROVIDER: Dr. Deng. ATTENDING PROVIDER: Naye Calhoun MD * (DICTATED BY JACKIE ADRIAN) PRIMARY DIAGNOSES: 1. Acute kidney transplant rejection. 2. Hyperkalemia secondary to endstage renal disease. 3. Hypertensive urgency, likely related to poor medication adherent. SECONDARY DIAGNOSES: 1. Diabetes mellitus type 2. 2. Hypertension. 3. Endstage renal disease, on hemodialysis Tuesday, , Tuesday. STUDIES WHILE IN THE HOSPITAL: Renal ultrasound on 10/14/19, impression: Enlarged edematous transplanted kidney. Mild hydronephrosis. Trace ascites with no large organized perirenal collection. Incomplete vascular evaluation. Elevated resistive index 0.9 was detected in either distal renal artery or proximal segmented artery. The patient terminated exam due to intolerance. EKG on 10/17/19: Minimally peaked T waves in V4 and V5, otherwise T waves appear within normal limits. Significant labs: Potassium 5.7 on day of discharge. HISTORY OF PRESENT ILLNESS/HOSPITAL COURSE: Indra Roman is a 54-year-old male with past medical history significant for endstage renal disease, status post renal transplant; diabetes mellitus type 2; hypertension, who presented to the emergency department on 10/18/19 due to abdominal pain. He was admitted on 10/19/19 under the suspicion of acute rejection of his kidney transplant. For further details regarding his admission, please see admitting history and physical written by Dr. Malgorzata Hartman. The patient was seen in consultation by our card player Dr. Bangura. He was dialyzed during his hospital stay and was started on tacrolimus and prednisone. He had persistent hyperkalemia, which worsened and peaked to the point of 6.4. The patient's hyperkalemia was likely related to diet as the patient was known to go to the cafeteria and eat foods not recommended by renal diet. The patient refused telemetry during his hospitalization. He was started on patiromer and he did have a bowel movement which did lower his potassium. Additionally throughout his hospital stay, he was hypertensive. He was quite hypertensive at admission with a blood pressure in the 200s/100s and the patient admitted to poor adherence to his home medications. Additionally, this was the likely reason for his kidney rejection as he was not taking his tacrolimus. He was started on nifedipine during his hospital stay which should help control his blood pressure. He did frequently needed p.r.n. hydralazine which is why it was started despite continuing his home medication. On date of discharge, the patient's abdominal pain was improved and he was comfortable. He had dialysis on 10/18/19. Dr. Bangura agreed with discharge today. PHYSICAL EXAMINATION ON DAY OF DISCHARGE: General: Middle aged black male, appears comfortable, in no acute distress. Abdomen: Minimally tender in the right lower quadrant and right upper quadrant. Otherwise, no distention and abdomen is soft. Normoactive bowel sounds x4 quadrants. Chest: Regular rate and rhythm without murmurs, rubs or gallops. Lungs are clear to auscultation throughout. Extremities: No clubbing, cyanosis, or edema. Skin: Warm, dry and intact. DISCHARGE PLAN: Diet: Dialysis diet. Activity: The patient may return to normal activity as tolerated. The patient should follow up with Dr. Bangura. The patient additionally follow up with primary care provider, Dr. Deng and have repeat labs. He was advised to report to dialysis tomorrow. He was advised to adhere to his renal diet. He will be referred to [facility] for transplant nephrectomy which has been recommended by Dr. Bangura. Dr. Bangura recommended continuing the patient's patiromer on discharge. The patient was advised to return to the hospital if he experience any fever or chills, severe abdominal pain, severe headache, visual changes. He was advised to call his primary care doctor's office to get refills on any medications that are needed. I have ordered the patient a blood pressure kit to his pharmacy. He was advised to check his blood pressures and record it so that he may have data for followup with Dr. Deng. DISCHARGE MEDICATIONS: New medications: 1. Tacrolimus 6 mg p.o. b.i.d. 2. Prednisone 60 mg p.o. daily. 3. Senna 1 tab p.o. daily p.r.n. constipation. 4. Patiromer 8.4 g p.o. daily. 5. Nifedipine 90 mg p.o. daily. Continued home medications: 1. Acyclovir 800 mg p.o. t.i.d. 2. Carvedilol 25 mg p.o. t.i.d. 3. Cinacalcet 30 mg p.o. daily. 4. [place] 10/325 one tab p.o. q.6 hours p.r.n. pain. 5. Oxymorphone 20 mg p.o. q.i.d. 6. Oxymorphone 40 mg p.o. b.i.d. 7. Sildenafil 25 mg p.o. p.r.n. erectile dysfunction. 8. Clonidine 0.1 mg p.o. t.i.d. 9. Hydralazine 25 mg p.o. b.i.d. CONDITION ON DISCHARGE: Stable. DISPOSITION: Home. TIME SPENT: Approximately 40 minutes was spent on this discharge, approximately half that time was spent at bedside evaluating the patient, discussing the plan of care. JACKIE ADRIAN [id number]/[facility] #: [id number] [facility] HOSPITALBernice
== END 2019-10-19 13:20 | disposition home or self-care (01) | DRG 466 ==
LOC: ED 11:10 → MED 10-15 01:00 → MEDTELE 10-15 03:11 → OBSVTOIN 10-16 11:00
PROVIDERS: ADMIT Student in an Organized Health Care Education/Training Program; ATTEND Internal Medicine
PROC: 5A1D70Z Performance of Urinary Filtration, Intermittent, Less than 6 Hours Per Day (ICD-10-PCS; principal; 2019-10-16)
DX: T86.11 Kidney transplant rejection (principal); N18.6 End stage renal disease; I13.2 Hypertensive heart and chronic kidney disease with heart failure and with stage 5 chronic kidney disease, or end stage renal disease; E11.22 Type 2 diabetes mellitus with diabetic chronic kidney disease; G47.30 Sleep apnea, unspecified; K21.9 Gastro-esophageal reflux disease without esophagitis; E78.5 Hyperlipidemia, unspecified; I16.0 Hypertensive urgency; Y82.8 Other medical devices associated with adverse incidents; I50.9 Heart failure, unspecified; D63.1 Anemia in chronic kidney disease; E87.5 Hyperkalemia; R94.31 Abnormal electrocardiogram [ECG] [EKG]; Y92.9 Unspecified place or not applicable; Z88.8 Allergy status to other drugs, medicaments and biological substances; Z91.030 Bee allergy status; Z88.0 Allergy status to penicillin; Z91.013 Allergy to seafood; Z87.891 Personal history of nicotine dependence; Z91.14 Patient's other noncompliance with medication regimen; Z99.2 Dependence on renal dialysis; Z79.52 Long term (current) use of systemic steroids; Z79.899 Other long term (current) drug therapy
CPT/HCPCS: 36415; 71046; 76776; 80048; 80053; 82803; 83605; 83735; 84132; 85025; 87641; 90935; 93005; 96374; 96375; 99285; A9270-GY; G0257; G0378; J0360; J0610; J1170; J1644; J2930; J3010; J7507; Q5106

== ENCOUNTER 2019-11-01 02:00 | Emergency (ER) | payer OTHER, MEDICARE, MEDICAID ==
--- NOTE | 2019-11-01 02:26 | ED ---
GI/ HPI - HPI Summary HPI Summary: This patient is a 54 year old male presenting to [facility] with a chief complaint of right sided abdominal pain since 3 weeks ago. Pt has had a failed kidney transplant since jun-jul. Pt was in last night with increased abd pain and nausea. Denies vomiting. Patient is here to manage the pain. Patient has a fever in the ED at 101.1 F. Patient states he does not make urine at all, patient is on dialysis. Patient was seen here 2 weeks ago for the same problem. Patient was admitted and the pain did not subside for 4 days. - History of Current Complaint Chief Complaint: EDAbdPain Time Seen by Provider: 11/01/19 02:12 Stated Complaint: ABD PAIN PER PT Hx Obtained From: Patient Onset/Duration: Started Weeks Ago Severity: Severe Current Severity: Severe Pain Intensity: 10 Location of Pain: RUQ, RLQ - Additional Pertinent History Primary Care Physician: EMILIE - Allergy/Home Medications Allergies/Adverse Reactions: Allergies Allergy/AdvReac Type Severity Reaction Status Date / Time bee venom protein (honey bee) Allergy Anaphylatic Verified 08/28/19 10:11 Shock lisinopril Allergy Anaphylatic Verified 08/28/19 10:11 Shock Penicillins Allergy Anaphylatic Verified 08/28/19 10:11 Shock shellfish derived Allergy Anaphylatic Verified 08/28/19 10:11 Shock PMH/Surg Hx/FS Hx/Imm Hx Endocrine/Hematology History: Reports: Hx Diabetes - no meds, Hx Anemia Denies: Hx Anticoagulant Therapy, Hx Thyroid Disease Cardiovascular History: Reports: Hx Congestive Heart Failure, Hx Hypertension - uncontrolled, on meds Denies: Hx Pacemaker/ICD, Hx Peripheral Vascular Disease, Other Cardiovascular Problems/Disorders Respiratory History: Reports: Hx Sleep Apnea Denies: Hx Asthma, Hx Chronic Obstructive Pulmonary Disease (COPD), Other Respiratory Problems/Disorders GI History: Reports: Hx Gastroesophageal Reflux Disease Denies: Hx Ulcer, Other GI Disorders History: Reports: Hx Chronic Renal Failure, Hx Dialysis, Hx Renal Disease - STAGE 5 ON HEMODIALYSIS; transplant placed and failed Denies: Hx Kidney Infection, Hx Kidney Stones Musculoskeletal History: Reports: Hx Back Problems, Other Musculoskeletal History - S/P SPINAL FUSION Denies: Hx Arthritis, Hx Osteoporosis Sensory History: Denies: Hx Cataracts, Hx Contacts or Glasses, Hx Glaucoma, Hx Hearing Aid Opthamlomology History: Denies: Hx Cataracts, Hx Contacts or Glasses, Hx Glaucoma Neurological History: Denies: Hx Dementia, Hx Headaches, Hx Seizures, Other Neuro Impairments/ Disorders Psychiatric History: Denies: Hx Depression, Hx Substance Abuse - Surgical History Surgery Procedure, Year, and Place: 2001 hernia [place]PAIR [facility] [place]. 2002 cervical spine surgery, [facility] [place]. 1994 RT wrist surgery. 2009 HERNIA REPAIR. 2014 LEFT ELBOW SURGERY. 2014 LUE FISTULA PLACED Hx Anesthesia Reactions: No - Immunization History Date of Tetanus Vaccine: unknown Date of Influenza Vaccine: no Infectious Disease History: Yes Infectious Disease History: Denies: Hx Clostridium Difficile, Hx Hepatitis, Hx Human Immunodeficiency Virus (HIV), Hx of Known/Suspected MRSA, Hx Shingles, Hx Tuberculosis, Hx Known/ Suspected VRE, Hx Known/Suspected VRSA, History Other Infectious Disease, Traveled Outside the [place] in Last 30 Days - Family History Known Family History: Positive: Hypertension, Diabetes Negative: Cardiac Disease, Renal Disease - Social History Alcohol Use: None Hx Substance Use: No Substance Use Type: Reports: None Hx Tobacco Use: Yes Smoking Status (MU): Former Smoker Type: Cigarettes Amount Used/How Often: 1/2 PPD X 20 YEARS Length of Time of Smoking/Using Tobacco: 35 YEARS Have You Smoked in the Last Year: Yes Review of Systems - ROS Summary Review of Systems Summary: Oxymorphone ER (NF) [Opana ER (NF)] 40 mg PO BID 07/21/17 [History Confirmed 07/26] Acyclovir* [Zovirax 400 MG TAB*] 800 mg PO TID #30 tab 08/27/19 [Rx Confirmed ] Carvedilol TAB* [Coreg TAB*] 25 mg PO TID 08/27/19 [History Confirmed 10/15/19] Cinacalcet TAB* [Sensipar TAB*] 30 mg PO DAILY 08/27/19 [History Confirmed 10/15] Hydrocodone/Acetamin 10325(NF [[place] 10/325 (NF)] 1 tab PO Q6H #12 tab MDD 4 [Rx Confirmed 10/15/19] Oxymorphone (NF) [Opana (NF)] 20 mg PO QID 08/27/19 [History Confirmed 10/15/19] Sildenafil (NF) [Viagra (NF)] 25 mg PO ONCE PRN 08/27/19 [History Confirmed 07/26] cloNIDine HCL [Clonidine HCl 0.3 MG] 0.1 mg PO TID 08/27/19 [History Confirmed 10/15/19] hydrALAZINE TAB* [Apresoline TAB*] 25 mg PO BID 08/27/19 [History Confirmed 07/26] Blood Pressure Test Kit [Blood Pressure Kit] 1 each MC DAILY #1 kit 10/19/19 [Rx ] NIFEdipine ER TAB* [Procardia Xl TAB*] 90 mg PO DAILY #90 tab.xl 10/19/19 [Rx] Patiromer POWDER* [Veltassa POWDER*] 8.4 gm PO DAILY #30 [place] 10/19/19 [Rx] Senna TAB 8.6 mg* [Senokot 8.6 mg TAB*] 1 tab PO DAILY PRN #30 tab 10/19/19 [Rx] Tacrolimus CAP(*) [Prograf CAP(*)] 6 mg PO BID #60 cap 10/19/19 [Rx] predniSONE TAB* [Deltasone 20 MG TAB*] 60 mg PO DAILY #30 tab 10/19/19 [Rx] Positive: Fever Positive: Abdominal Pain, Nausea. Negative: Vomiting All Other Systems Reviewed And Are Negative: Yes Physical Exam - Summary Physical Exam Summary: General: Appears in moderate discomfort moaning upon arrival. HEENT: Normocephalic, Atraumatic. Eyes: Conjuctiva normal, PERRL. Oropharynx: Clear, mucous membranes moist, (-) exudates. Neck: Soft, FROM, (-) lymphadenopathy, (-) thyromegaly, (-) JVD. Cardiovascular: Normal sinus rhythm, (-) murmur. Lungs: Clear to auscultation bilaterally (-) wheezes, (-) rales, (-) rhonchi. Abdomen: Firm, non-tender, non-distended, (-) organomegaly, normal bowel sounds. Thorough exam is difficult secondary to pain and patient compliance. Back: (-) CVA tenderness Extremities: No edema. Skin: Warm, dry, (-) rash. Neuro: Alert and oriented x3, no focal deficits. Psychiatric: Mood normal, affect normal. Triage Information Reviewed: Yes Vital Signs On Initial Exam: Initial Vitals Temp Pulse Resp BP Pulse Ox 101.1 F 74 22 215/125 97 11/01/19 02:06 11/01/19 02:06 11/01/19 02:06 11/01/19 02:06 11/01/19 02:06 Vital Signs Reviewed: Yes Procedures - Sedation Patient Received Moderate/Deep Sedation with Procedure: No Diagnostics - Vital Signs Vital Signs Temp Pulse Resp BP Pulse Ox 11/01/19 02:06 101.1 F 74 22 215/125 97 - Laboratory Result Diagrams: 11/01/19 02:46 11/01/19 02:46 Lab Statement: Any lab studies that have been ordered have been reviewed, and results considered in the medical decision making process. - CT Abd/Pel CT Interpretation Completed By: Radiologist Summary of CT Findings: 1. Right pelvic transplant kidney which may be more edamatous since 10/05/18. Renal sinus fat is no logner delineated and there is question of slightly increased size since prior study. 2. Prominent bilateral atrophy of the [facility] kidneys. 3. Minimal pareitoneal as cites about the abdomen since the prior study. 4. Minimal bibasilar fibro-atelectatic change and question of minimal infiltrates, increased since prior study. 5. Central line extending into the right atrium which may reflect a dialysis catheter. ED Provider has reviewed this report. - EKG 0431 Cardiac Rate: NL - 76 BPM EKG Rhythm: Sinus Rhythm Summary of EKG Findings: No STEMI. ED Physician has reviewed and interpreted this report. GIGU Course/Dx - Course Course Of Treatment: 54-year-old male presents from home for severe right abdominal pain. He states he has had this pain for a month now. Was admitted here 2 weeks ago for it. Patient takes long-acting and immediate release morphine for this pain. He arrives moaning loudly. he is very rude to myself and staff. The patient appears to be in severe discomfort. Exam difficult due to patient's pain and compliance. Workup demonstrates elevated potassium as well as elevated creatinine and BUN. CT scan shows no significant acute changes. Patient discharged and transferred to dialysis. He is scheduled for dialysis at 0600 this morning. Follow-up with nephrology. Follow sooner for any worsening symptoms. - Diagnoses Provider Diagnoses: Chronic abdominal pain, ESRD (end stage renal disease) on dialysis Discharge ED - Sign-Out/Discharge Documenting (check all that apply): Patient Departure - Discharge - Discharge Plan Condition: Stable Disposition: HOME Patient Education Materials: Chronic Abdominal Pain (ED) Referrals: Jacob Deng MD [Primary Care Provider] - Additional Instructions: Proceed to Dialysis. - Billing Disposition and Condition Condition: STABLE Disposition: Home - Attestation Statements Document Initiated by Scribe: Yes Documenting Scribe: Arjun Garcia Provider For Whom Scribe is Documenting (Include Credential): Paola Mejia MD Scribe Attestation: Arjun Arreguin, scribed for Paola Mejia MD on 11/01/19 at 0541. Scribe Documentation Reviewed: Yes Provider Attestation: The documentation as recorded by the Arjun mota accurately reflects the service I personally performed and the decisions made by , Paola Mejia MD Status of Scribe Document: Viewed
[2019-11-01] MEDS ORDERED: Morphine 4 MG/ML VIAL (1 ml) 4 MG/ML VIAL IV ONE (02:40)
[2019-11-01] MEDS ORDERED: Ondansetron INJ* 2 MG/ML VIAL IV ONE (02:41)
[2019-11-01 02:56] LABS: ABS Basophils 0.2 10^3/ul (0-0.2); ABS Eosinophils 0.1 10^3/ul (0-0.6); ABS Lymphocytes 0.7 10^3/ul (1.0-4.8); ABS Monocytes 0.9 10^3/ul (0-0.8); ABS Neutrophils 10.4 10^3/ul (1.5-7.7); Eosinophil % 0.5 %; Hematocrit 28 % (42-52); Hemoglobin 8.9 g/dL (14.0-18.0); Lymphocyte % 5.7 %; Mean Corpuscular HGB Conc 32 g/dL (31-36); Mean Corpuscular Hemoglobin 27 pg (27-31); Mean Corpuscular Volume 83 fL (80-94); Platelet Count 208 10^3/uL (150-450); Red Blood Count 3.35 10^6 /uL (4.18-5.48); Red Cell Distribution Width 20 % (10-15); White Blood Count 12.2 10^3/uL (3.5-10.8)
[2019-11-01 03:01] LABS: INR 1.24 (0.82-1.09)
[2019-11-01 03:13] LABS: Albumin 3.7 g/dL (3.2-5.2); Albumin/Globulin Ratio 1.1 (1-3); BUN/Creatinine Ratio 9.9 (8-20); C Reactive Protein 12.43 mg/L (<8.01); Calcium 7.5 mg/dL (8.6-10.3); EGFR African American 6.5 (>60); EGFR Non-African American 5.4 (>60); Globulin 3.4 g/dL (2-4); Total Bilirubin 0.4 mg/dL (0.2-1.0); Total Protein 7.1 g/dL (6.4-8.9)
[2019-11-01 03:22] LABS: Potassium 6.8 mmol/L (3.5-5.0)
[2019-11-01] MEDS ORDERED: Iodixanol* (CONTRAST) 320 MG/ML 100 ML SDV IV ONE (03:37)
[2019-11-01] MEDS ORDERED: Lorazepam PYXIS KEY PRN (03:48)
[2019-11-01] MEDS ORDERED: LORazepam INJ* 2 MG/ML 1 ML VIAL IM ONE (03:48)
[2019-11-01] MEDS ORDERED: Lorazepam PYXIS KEY ONE (03:54)
[2019-11-01] MEDS ORDERED: cloNIDine TAB* 0.1 MG PO ONE (04:30)
[2019-11-01 05:38] VITALS: BP 200/109
== END 2019-11-01 05:39 | disposition home or self-care (01) ==
LOC: ED 02:00
DX: R10.9 Unspecified abdominal pain (principal); G89.29 Other chronic pain; E11.22 Type 2 diabetes mellitus with diabetic chronic kidney disease; I13.2 Hypertensive heart and chronic kidney disease with heart failure and with stage 5 chronic kidney disease, or end stage renal disease; I50.9 Heart failure, unspecified; N18.6 End stage renal disease; D63.1 Anemia in chronic kidney disease; K21.9 Gastro-esophageal reflux disease without esophagitis; Z87.891 Personal history of nicotine dependence; Z94.0 Kidney transplant status; Z99.2 Dependence on renal dialysis; Z79.899 Other long term (current) drug therapy; Z88.0 Allergy status to penicillin; Z88.8 Allergy status to other drugs, medicaments and biological substances
CPT/HCPCS: 36415; 74176; 80053; 82150; 83605; 83690; 85025; 85610; 86140; 87040; 93005; 96372; 96374; 96375; 99283; A9270-GY; J2060; J2270; J2405

== ENCOUNTER 2019-11-01 10:10 | Emergency (ER) | payer OTHER, MEDICARE, MEDICAID ==
[2019-11-01] MEDS: hydrALAZINE TAB* 25 MG PO ONE (13:37)
[2019-11-01] MEDS: Acetaminophen TAB* 325 MG PO ONE (14:04)
[2019-11-01 14:06] VITALS: BP 219/118
--- NOTE | 2019-11-01 17:26 | ED ---
Abdominal Pain/Male - HPI Summary HPI Summary: Patient is a 54-year-old male with a complicated PMH presenting to the ED with right-sided flank pain. He states he was here this morning and wanted to be admitted, however physician refuse. Patient is very somnolent on arrival and does not open eyes to speak with provider. He states "I just want a bad." He also also requesting Dilaudid. He states he has had this pain for several months, recent failed kidney transplant and nausea. He has dialysis T//. He was able to go to dialysis when discharged this morning. He came back to the ED immediately following. Pt noted to have a fever this morning, but did not have a fever on arrival during this visit. He states he does not make urine. He is seen freuqently in the ED for same, continuing to c/o pain. He was admitted for pain x 4 days, and states sxs did not resolve. He continues to state he just wants to stay in the hospital, however his sxs are being appropriately managed by his OP director law enforcement and PCP. Pt does not appears to be in any distress on arrival. - History of Current Complaint Chief Complaint: EDUrogenitalProblems Stated Complaint: KIDNEY PAIN PER EMS Time Seen by Provider: 11/01/19 10:24 Hx Obtained From: Patient Onset/Duration: Gradual Onset Timing: Constant Severity Initially: Moderate Severity Currently: Moderate Pain Intensity: 0 Pain Scale Used: 0-10 Numeric Location: Flank Radiates: Yes Radiates to: RLQ Character: Cramping Aggravating Factor(s): Nothing Alleviating Factor(s): Nothing Associated Signs And Symptoms: Positive: Negative - Allergies/Home Medications Allergies/Adverse Reactions: Allergies Allergy/AdvReac Type Severity Reaction Status Date / Time bee venom protein (honey bee) Allergy Anaphylatic Verified 08/28/19 10:11 Shock lisinopril Allergy Anaphylatic Verified 08/28/19 10:11 Shock Penicillins Allergy Anaphylatic Verified 08/28/19 10:11 Shock shellfish derived Allergy Anaphylatic Verified 08/28/19 10:11 Shock Home Medications: Home Medications Senna TAB 8.6 mg* [Senokot 8.6 mg TAB*] 25 mg PO DAILY PRN 11/01/19 [History Confirmed 11/01/19] PMH/Surg Hx/FS Hx/Imm Hx Previously Healthy: No Endocrine/Hematology History: Reports: Hx Diabetes - no meds, Hx Anemia Denies: Hx Anticoagulant Therapy, Hx Thyroid Disease Cardiovascular History: Reports: Hx Congestive Heart Failure, Hx Hypertension - uncontrolled, on meds Denies: Hx Pacemaker/ICD, Hx Peripheral Vascular Disease, Other Cardiovascular Problems/Disorders Respiratory History: Reports: Hx Sleep Apnea Denies: Hx Asthma, Hx Chronic Obstructive Pulmonary Disease (COPD), Other Respiratory Problems/Disorders GI History: Reports: Hx Gastroesophageal Reflux Disease Denies: Hx Ulcer, Other GI Disorders History: Reports: Hx Chronic Renal Failure, Hx Dialysis, Hx Renal Disease - STAGE 5 ON HEMODIALYSIS; transplant placed and failed Denies: Hx Kidney Infection, Hx Kidney Stones Musculoskeletal History: Reports: Hx Back Problems, Other Musculoskeletal History - S/P SPINAL FUSION Denies: Hx Arthritis, Hx Osteoporosis Sensory History: Denies: Hx Cataracts, Hx Contacts or Glasses, Hx Glaucoma, Hx Hearing Aid Opthamlomology History: Denies: Hx Cataracts, Hx Contacts or Glasses, Hx Glaucoma Neurological History: Denies: Hx Dementia, Hx Headaches, Hx Seizures, Other Neuro Impairments/ Disorders Psychiatric History: Denies: Hx Depression, Hx Substance Abuse - Surgical History Surgery Procedure, Year, and Place: 2001 hernia REPAIR [facility]. 2002 cervical spine surgery, [facility]. 1994 RT wrist surgery. 2009 HERNIA REPAIR. 2014 LEFT ELBOW SURGERY. 2014 LUE FISTULA PLACED Hx Anesthesia Reactions: No - Immunization History Date of Tetanus Vaccine: unknown Date of Influenza Vaccine: no Hx Pertussis Vaccination: No Immunizations Up to Date: Yes Infectious Disease History: No Infectious Disease History: Denies: Hx Clostridium Difficile, Hx Hepatitis, Hx Human Immunodeficiency Virus (HIV), Hx of Known/Suspected MRSA, Hx Shingles, Hx Tuberculosis, Hx Known/ Suspected VRE, Hx Known/Suspected VRSA, History Other Infectious Disease, Traveled Outside the [place] in Last 30 Days - Family History Known Family History: Positive: Hypertension, Diabetes Negative: Cardiac Disease, Renal Disease - Social History Occupation: Unemployed Lives: Alone Alcohol Use: None Hx Substance Use: No Substance Use Type: Reports: None Hx Tobacco Use: Yes Smoking Status (MU): Former Smoker Type: Cigarettes Amount Used/How Often: 1/2 PPD X 20 YEARS Length of Time of Smoking/Using Tobacco: 35 YEARS Have You Smoked in the Last Year: Yes Review of Systems Negative: Fever, Chills, Fatigue, Skin Diaphoresis Negative: Palpitations, Chest Pain Negative: Shortness Of Breath, Cough Positive: Abdominal Pain. Negative: Vomiting, Diarrhea, Nausea Negative: Arthralgia Skin: Negative Neurological: Negative All Other Systems Reviewed And Are Negative: Yes Physical Exam Triage Information Reviewed: Yes Vital Signs On Initial Exam: Initial Vitals Temp Pulse Resp BP Pulse Ox 99.2 F 71 16 219/111 84 11/01/19 10:14 11/01/19 10:14 11/01/19 10:14 11/01/19 10:14 11/01/19 10:14 Vital Signs Reviewed: Yes Appearance: Positive: Well-Appearing - fatigued, Well-Nourished Skin: Positive: Skin Color Reflects Adequate Perfusion Eyes: Positive: EOMI Respiratory/Lung Sounds: Positive: Clear to Auscultation Cardiovascular: Positive: Normal Abdomen Description: Positive: Nontender, Soft Musculoskeletal: Positive: Strength/ROM Intact Psychiatric: Positive: Patient Uncooperative for Exam - pt too tired to answer questions AVPU Assessment: Verbal (Reponds To) Procedures - Sedation Patient Received Moderate/Deep Sedation with Procedure: No Diagnostics - Vital Signs Vital Signs Temp Pulse Resp BP Pulse Ox 11/01/19 14:06 98.3 F 68 16 219/118 94 11/01/19 13:58 68 12 219/118 91 11/01/19 13:28 69 15 190/114 11/01/19 13:00 67 19 97 11/01/19 12:58 69 25 211/126 97 11/01/19 12:28 68 16 218/113 92 11/01/19 12:00 66 0 95 11/01/19 11:58 72 17 230/123 91 11/01/19 11:28 68 19 216/130 95 11/01/19 11:00 67 17 93 11/01/19 10:58 66 11 224/115 96 11/01/19 10:30 70 90 11/01/19 10:28 220/124 11/01/19 10:14 99.2 F 71 16 219/111 84 - Laboratory Lab Statement: Any lab studies that have been ordered have been reviewed, and results considered in the medical decision making process. Abdominal Pain Male Course/Dx - Course Course Of Treatment: Discussed with the patient at length regarding his symptoms. He is very difficult to arouse and very somnolent. He states he is always like this and "I can understand you" when asked if he can open his eyes or sit up to talk to me. He appears to be in no acute distress and is sleeping during his ED visit. He states "I just want a bed" and "I just want to be admitted." He is unsure why he wants to be admitted, however he does endorse pain. He has stated this pain as been consistent for approximately 3 months and he needs a kidney transplant. He is managed well by his director law enforcement as an outpatient through dialysis and pain control. Discussed with the patient he recently last evening had labs and CT was obtained. This showed no acute findings to keep him here in the ED for further evaluation. He was recently admitted for 4 days with no improvement of his pain. Discussed case with social work, Jeaneth, who agrees to come see patient in the ED. Jeaneth was unable to obtain much information from the patient as he was somnolent and unable to answer questions appropriately due to being fatigued. He will again be DC'd home as he appears in NAD and VS stable with recent labs and CT obtained. I have asked SW to attempt to secure better aids or VNS services at home. Pt was given tylenol and hydralazine while in the ED. - Diagnoses Provider Diagnoses: Chronic pain Discharge ED - Sign-Out/Discharge Documenting (check all that apply): Patient Departure - Discharge Plan Condition: Fair Disposition: HOME Referrals: [facility] [Outside] Jacob Deng MD [Primary Care Provider] - Additional Instructions: Please follow up with your kidney doctor - Billing Disposition and Condition Condition: FAIR Disposition: Home - Attestation Statements Provider Attestation: I have seen the patient with the L[facility]NE and agree with the plan and documentation below except as noted: she 4-year-old male with a history of renal transplant on dialysis presents with flank pain and desiring admission. Patient was previously seen by prior team. Had negative imaging. Discussed with psychosocial rehabilitation counselor who will help set up home health. Trenton Solis MD
== END 2019-11-01 14:05 | disposition home or self-care (01) ==
LOC: ED 10:10
DX: G89.29 Other chronic pain (principal); K21.9 Gastro-esophageal reflux disease without esophagitis; E11.22 Type 2 diabetes mellitus with diabetic chronic kidney disease; I13.2 Hypertensive heart and chronic kidney disease with heart failure and with stage 5 chronic kidney disease, or end stage renal disease; N18.5 Chronic kidney disease, stage 5; D63.1 Anemia in chronic kidney disease; I50.9 Heart failure, unspecified; Z99.2 Dependence on renal dialysis; Z94.0 Kidney transplant status; Z87.891 Personal history of nicotine dependence; Z79.899 Other long term (current) drug therapy; Z88.0 Allergy status to penicillin; Z88.8 Allergy status to other drugs, medicaments and biological substances
CPT/HCPCS: 99282; A9270-GY

== ENCOUNTER 2019-11-23 05:24 | Inpatient (IN) | payer OTHER, MEDICARE, MEDICAID ==
[2019-11-23] MEDS ORDERED: Morphine 4 MG/ML VIAL (1 ml) 4 MG/ML VIAL IV ONE (05:46)
[2019-11-23] MEDS ORDERED: Ondansetron INJ* 2 MG/ML VIAL IV ONE (05:46)
[2019-11-23] MEDS ORDERED: Labetalol IV* 5 MG/ML 20 ML VIAL IV PUSH ONE (05:46)
[2019-11-23] MEDS ORDERED: Ondansetron ODT TAB* 4 MG PO ONE (05:54)
--- NOTE | 2019-11-23 06:04 | ED ---
GI/ HPI - HPI Summary HPI Summary: 54 year old male presents with abd pain for the past couple months. He states the pain is due to his failed kidney transplant. He states he is suppose to get it removed at the end of this month in [place]. He states this pain is in the same location as his previous pain. He states though since Tue he has had fevers and chills. He also has had diarrhea, nausea and vomiting. He denies any blood in his stool. He has not been on antibiotics recently. He has had no appetite. He admits to a new cough for the past 2 days. He admits to chronic shortness of breath that is unchanged. He states that he felt so awful he did not go to dialysis yesterday. He states that he gets dialysis tuesday, , tue. - History of Current Complaint Chief Complaint: EDAbdPain Time Seen by Provider: 11/23/19 05:36 Stated Complaint: WEAKNESS PER PT Pain Intensity: 9 - Additional Pertinent History Primary Care Physician: EMILIE - Allergy/Home Medications Allergies/Adverse Reactions: Allergies Allergy/AdvReac Type Severity Reaction Status Date / Time bee venom protein (honey bee) Allergy Anaphylatic Verified 11/23/19 05:25 Shock lisinopril Allergy Anaphylatic Verified 11/23/19 05:25 Shock Penicillins Allergy Anaphylatic Verified 11/23/19 05:25 Shock shellfish derived Allergy Anaphylatic Verified 11/23/19 05:25 Shock PMH/Surg Hx/FS Hx/Imm Hx Endocrine/Hematology History: Reports: Hx Diabetes - no meds, Hx Anemia Denies: Hx Anticoagulant Therapy, Hx Thyroid Disease Cardiovascular History: Reports: Hx Congestive Heart Failure, Hx Hypertension - uncontrolled, on meds Denies: Hx Pacemaker/ICD, Hx Peripheral Vascular Disease, Other Cardiovascular Problems/Disorders Respiratory History: Reports: Hx Sleep Apnea Denies: Hx Asthma, Hx Chronic Obstructive Pulmonary Disease (COPD), Other Respiratory Problems/Disorders GI History: Reports: Hx Gastroesophageal Reflux Disease Denies: Hx Ulcer, Other GI Disorders History: Reports: Hx Chronic Renal Failure, Hx Dialysis, Hx Renal Disease - STAGE 5 ON HEMODIALYSIS; transplant placed and failed Denies: Hx Kidney Infection, Hx Kidney Stones Musculoskeletal History: Reports: Hx Back Problems, Other Musculoskeletal History - S/P SPINAL FUSION Denies: Hx Arthritis, Hx Osteoporosis Sensory History: Denies: Hx Cataracts, Hx Contacts or Glasses, Hx Glaucoma, Hx Hearing Aid Opthamlomology History: Denies: Hx Cataracts, Hx Contacts or Glasses, Hx Glaucoma Neurological History: Denies: Hx Dementia, Hx Headaches, Hx Seizures, Other Neuro Impairments/ Disorders Psychiatric History: Denies: Hx Depression, Hx Substance Abuse - Surgical History Surgery Procedure, Year, and Place: 2001 hernia REPAIR [facility]. 2002 cervical spine surgery, [facility]. 1994 RT wrist surgery. 2009 HERNIA REPAIR. 2014 LEFT ELBOW SURGERY. 2014 LUE FISTULA PLACED Hx Anesthesia Reactions: No - Immunization History Date of Tetanus Vaccine: unknown Date of Influenza Vaccine: Fall 2018 Infectious Disease History: No Infectious Disease History: Denies: Hx Clostridium Difficile, Hx Hepatitis, Hx Human Immunodeficiency Virus (HIV), Hx of Known/Suspected MRSA, Hx Shingles, Hx Tuberculosis, Hx Known/ Suspected VRE, Hx Known/Suspected VRSA, History Other Infectious Disease, Traveled Outside the [place] in Last 30 Days - Family History Known Family History: Positive: Hypertension, Diabetes Negative: Cardiac Disease, Renal Disease - Social History Alcohol Use: None Hx Substance Use: No Substance Use Type: Reports: None Hx Tobacco Use: Yes Smoking Status (MU): Former Smoker Type: Cigarettes Amount Used/How Often: 1/2 PPD X 20 YEARS Length of Time of Smoking/Using Tobacco: 35 YEARS Have You Smoked in the Last Year: Yes Review of Systems Positive: Fever, Chills Negative: Chest Pain Positive: Shortness Of Breath, Cough Positive: Abdominal Pain, Vomiting, Diarrhea, Nausea All Other Systems Reviewed And Are Negative: Yes Physical Exam Triage Information Reviewed: Yes Vital Signs On Initial Exam: Initial Vitals Temp Pulse Resp BP Pulse Ox 99.1 F 80 24 214/131 100 11/23/19 05:25 11/23/19 05:25 11/23/19 05:25 11/23/19 05:25 11/23/19 05:25 Vital Signs Reviewed: Yes Appearance: Positive: Well-Appearing Skin: Positive: Warm, Dry Head/Face: Positive: Normal Head/Face Inspection Eyes: Positive: Normal, EOMI, BARRY, Conjunctiva Clear ENT: Positive: Pharynx normal, TMs normal Respiratory/Lung Sounds: Positive: Breath Sounds Present, Rales - trace Cardiovascular: Positive: Normal, RRR Abdomen Description: Positive: Guarding, Other: - diffuse abd tendenress greatest in RLQ, rebound tenderness present Bowel Sounds: Positive: Present Musculoskeletal: Positive: Normal Neurological: Positive: Normal Psychiatric: Positive: Normal Procedures - Sedation Patient Received Moderate/Deep Sedation with Procedure: No Diagnostics - Vital Signs Vital Signs Temp Pulse Resp BP Pulse Ox 11/23/19 05:29 82 99 11/23/19 05:27 81 23 214/131 100 11/23/19 05:25 99.1 F 78 23 228/131 99 - Laboratory Result Diagrams: 11/23/19 06:05 11/23/19 06:05 Lab Statement: Any lab studies that have been ordered have been reviewed, and results considered in the medical decision making process. - Radiology chest Radiology Interpretation Completed By: Radiologist Summary of Radiographic Findings: CARDIOMEGALY WITH PULMONARY INTERSTITIAL EDEMA. PATCHY AIRSPACE DISEASE OF THE RIGHT LUNG BASE. - CT abd CT Interpretation Completed By: Radiologist Summary of CT Findings: IMPRESSION: 1. STATUS POST RENAL ALLOGRAFT. THIS IS AGAIN NOTED TO BE DIFFUSELY EDEMATOUS SIMILAR TO THE PREVIOUS EXAMINATION. 2. CARDIOMEGALY. 3. HEPATOSPLENOMEGALY. 4. MILD GALLBLADDER WALL THICKENING WHICH MAY REFLECT A PRIMARY INFLAMMATORY PROCESS OF THE GALLBLADDER OR REACTIVE EDEMA FROM A PRIMARY HEPATIC INFLAMMATORY PROCESS, OR MAY BE SECONDARY TO HYPOPROTEINEMIA. 5. TRACE ASCITES. - EKG No standard instances Cardiac Rate: NL EKG Rhythm: Sinus Rhythm EKG Comparison: No Significant Change Summary of EKG Findings: sinus rhythm, prolonged QT Re-Evaluation - Re-Evaluation First Eval Re-Evaluation Time: 07:12 Comment: patient destat due to ativan, require 10 on oxy mask, crackles heard Second Eval Re-Evaluation Time: 08:25 Comment: still requiring 6 liters of oxygen GIGU Course/Dx - Course Course Of Treatment: 54 year old male presents with abd pain for the past couple months. He states the pain is due to his failed kidney transplant. He states this pain is in the same location as his previous pain. He states though since Wed he has had fevers and chills. He also has had diarrhea, nausea and vomiting. He admits to a new cough for the past 2 days. He did not go to dialysis yesterday. on exam trace rales heard. abd diffuse abd tenderness greatest in RLQ. wbc normal. potassium 6.9. patient destat after ativan required to do CT. gave hydrazaline and labatelol with minimial change in blood pressure. spoke with dr gaytan who will have dialysized where ends up. patient still requiring oxygen. discussed with dr del rio who agrees to admit. - Diagnoses Differential Diagnoses - Male: Colitis, Gastroenteritis (Viral), Urinary Tract Infection Provider Diagnoses: Fluid overload, Acute hyperkalemia, Right sided abdominal pain, Gastroenteritis , Hypertension - Critical Care Time Critical Care Time: 30-74 min - 60 mins Discharge ED - Sign-Out/Discharge Documenting (check all that apply): Patient Departure - Discharge Plan Condition: Stable Disposition: ADMITTED TO [facility] - Billing Disposition and Condition Condition: STABLE Disposition: Admitted to [facility]
[2019-11-23 06:14] LABS: ABS Eosinophils 0.1 10^3/ul (0-0.6); ABS Lymphocytes 0.3 10^3/ul (1.0-4.8); ABS Monocytes 0.2 10^3/ul (0-0.8); ABS Neutrophils 7.4 10^3/ul (1.5-7.7); Eosinophil % 1.2 %; Hematocrit 31 % (42-52); Hemoglobin 10.2 g/dL (14.0-18.0); Lymphocyte % 3.5 %; Mean Corpuscular HGB Conc 32 g/dL (31-36); Mean Corpuscular Hemoglobin 27 pg (27-31); Mean Corpuscular Volume 83 fL (80-94); Mean Platelet Volume 7.7 fL (7.4-10.4); Platelet Count 155 10^3/uL (150-450); Red Blood Count 3.78 10^6 /uL (4.18-5.48); Red Cell Distribution Width 19 % (10-15)
[2019-11-23 06:31] LABS: ALT 30 U/L (7-52); AST 27 U/L (13-39); Albumin 3.8 g/dL (3.2-5.2); Albumin/Globulin Ratio 1.2 (1-3); Alkaline Phosphatase 58 U/L (34-104); Blood Urea Nitrogen 83 mg/dL (6-24); C Reactive Protein 91.53 mg/L (<8.01); CO2 Carbon Dioxide 18 mmol/L (22-32); Calcium 7.5 mg/dL (8.6-10.3); Chloride 102 mmol/L (101-111); EGFR African American 5.4 (>60); EGFR Non-African American 4.5 (>60); Globulin 3.2 g/dL (2-4); Glucose 81 mg/dL (70-100); Magnesium 2.3 mg/dL (1.9-2.7); Sodium 138 mmol/L (135-145)
[2019-11-23] MEDS ORDERED: Lorazepam PYXIS KEY PRN (06:33)
[2019-11-23] MEDS ORDERED: LORazepam INJ* 2 MG/ML 1 ML VIAL IV PUSH ONE (06:33)
[2019-11-23 06:39] LABS: Anion Gap 18 mmol/L (2-11); Potassium 6.9 mmol/L (3.5-5.0)
[2019-11-23] MEDS ORDERED: Lorazepam PYXIS KEY ONE (06:41)
[2019-11-23 07:04] LABS: Influenza A Molecular NEGATIVE (Negative); Influenza B Molecular NEGATIVE (Negative)
[2019-11-23] MEDS ORDERED: Sodium Polystyrene ORAL.SOL* 15 GM/60 ML BTL PO ONE ×2 (07:09→09:15)
[2019-11-23] MEDS ORDERED: hydrALAZINE IV* 20 MG/ML VIAL IV SLOW PU ONE ×2 (07:17→14:57)
--- NOTE | 2019-11-23 07:43 | ED ---
Progress - Progress Note Progress Note: This is an attending physician's supervisory note. I saw this patient in conjunction with Cassy MEJIA. Please see her dictated note. Briefly, Mr. Roman is a 54-year-old man with a fails renal transplant, who presents for 2 days now of nausea vomiting and diarrhea, also right sided abdominal pain. He seems to be most tender is right upper quadrant, but also has right lower quadrant tenderness. He appears somewhat fluid overloaded here with rales, he required supplemental oxygen after receiving morphine and Ativan that he requested through his CT. He is not in distress. He will be weaned off face mask O2. Nohemi has already arranged for him to receive emergency dialysis which will be definitive treatment for him. She is consulted with nephrology who will see the patient. Imaging is pending. CRITICAL CARE TIME: 60 minutes Re-Evaluation - Re-Evaluation First Eval Re-Evaluation Time: 07:12 Comment: patient destat due to morphine Second Eval Re-Evaluation Time: 08:25 Comment: still requiring 6 liters of oxygen Course/Dx - Course Course Of Treatment: 54 year old male presents with abd pain for the past couple months. He states the pain is due to his failed kidney transplant. He states this pain is in the same location as his previous pain. He states though since Wed he has had fevers and chills. He also has had diarrhea, nausea and vomiting. He admits to a new cough for the past 2 days. He did not go to dialysis yesterday. on exam trace rales heard. abd diffuse abd tenderness greatest in RLQ. wbc normal. potassium 6.9. - Diagnoses Provider Diagnoses: Fluid overload, Acute hyperkalemia, Right sided abdominal pain, Gastroenteritis , Hypertension Discharge ED - Sign-Out/Discharge Documenting (check all that apply): Patient Departure - Discharge Plan Condition: Stable Disposition: ADMITTED TO [facility] - Billing Disposition and Condition Condition: STABLE Disposition: Admitted to [facility] - Attestation Statements Document Initiated by Duy: No
[2019-11-23] MEDS ORDERED: Senna TAB 8.6 mg* TAB PO PRN (09:41)
--- NOTE | 2019-11-23 11:32 | CONSULT ---
Consult Consult: Consult requested for ESRD on HD. Fluid overload & Hyperkalemia Consult requested by: Dr. Lee, ICU Performed by Dr. Conner Venegas, [facility] Nephrology 11/23/2019 HPI: 54 yo AAM. Poor compliance to HD. Missed HD yesterday & was supposed t come I today, but instead he went to the cafeteria and CAT team called for SOB, and was sent to ED, there was found to have very high BP 200/140 and Hyperkalemia 7.0. He will be dialyzed very soon. Of note, has been c/c of abdominal pain, and requested sedatives before agreeing for CT Abdomen, then O2 sat dropped. Currently O2 sat 89-95%. Misses HD often. Has multiple ED visits and admissions. Of note, has Hx of failed Kidney transplant 02/2019, due to lack of Compliance to immunosuppression medication Has SOB & edema but no CP or Syncope. Of note, abdominal pain for few weeks, likely related to the failed renal transplant. It seems he doesnt take his blood pressure medications. PMH: ESRD HTN Failed Renal Transplant ESRD on HD Anemia of CKD Poor compliance to HD Rx & ISDs HomeMeds: Reviewed Hospital Meds: Carvedilol (Coreg Tab*) 25 mg PO TID TAMMY Clonidine HCl (Catapres Tab*) 0.1 mg PO TID TAMMY Heparin Sodium (Porcine) (Heparin Vial(*)) 5,000 units SUBCUT Q8HR TAMMY Hydralazine HCl (Apresoline Tab*) 25 mg PO BID TAMMY Miscellaneous (Ativan Pyxis Banegas) 1 ea N/A .ATIVAN IV BANEGAS PRN PRN Reason: PYXIS BANEGAS Nifedipine (Procardia Xl Tab*) 90 mg PO DAILY TAMMY Oxymorphone HCl (Opana Ir (Nf)) 20 mg PO QID TAMMY Oxymorphone HCl (Oxymorphone Hcl Er) 40 mg PO BID TAMMY Senna (Senokot 8.6 Mg Tab*) 1 tab PO DAILY PRN PRN Reason: CONSTIPATION Allergies: bee venom protein (honey bee) Allergy (Verified 11/23/19 05:25) Anaphylatic Shock lisinopril Allergy (Verified 11/23/19 05:25) Anaphylatic Shock Penicillins Allergy (Verified 11/23/19 05:25) Anaphylatic Shock shellfish derived Allergy (Verified 11/23/19 05:25) Anaphylatic Shock Social History: Denied Alcohol, smoking. No IVDA. Family History: Negative for Dialysis, ESRD or Renal Transplant. = Surgical History:Kidney Transplant, [facility]DC 12-Point Review of System obtained: Constitutional: Fatigue. No fever no weight loss Eyes No blurry vision. No red eye CV: SOB at rest & exertion, no chest pain no syncope. ++ edema Respiratory: SOB at rest, has cough & wheezing G.I: no diarrhea no nausea no vomiting no pain no blood per rectum no burning no obstruction symptoms Skin no rash Neurology No seizures or neurologic deficit Endocrine no diabetes, no heat or cold intolerance Hem/Lymphatic no bleeding no lymph nodes swelling Immune/Allergy no allergic reactions Musculoskeletal: No arthritis, no swelling Psych no anxiety no depression no hallucination Objective: 10 Point multi system exam: Constitutional Alert Oriented x 2 HEENT: No Conjunctivitis Abdomen Soft Abdomen No Ascites Heart: NSR, + LE Edema, No murmur Lungs: B/L Crackles Extremities: + edema, no rash Skin no rash Neurology No deficit. CN intact Hem/Lymph: no palpable lymph nodes Musculoskeletal: No joint swelling Laboratory Reviewed Sodium 138 mmol/L (135-145) 11/23/19 06:05 Potassium 6.9 mmol/L (3.5-5.0) H* 11/23/19 06:05 BUN 83 mg/dL (6-24) H 11/23/19 06:05 Creatinine 11.83 mg/dL (0.67-1.17) H 11/23/19 06:05 Calcium 7.5 mg/dL (8.6-10.3) L 11/23/19 06:05 Magnesium 2.3 mg/dL (1.9-2.7) 11/23/19 06:05 AST 27 U/L (13-39) 11/23/19 06:05 ALT 30 U/L (7-52) 11/23/19 06:05 Imaging: CXR: Pulmonary Edema. Cardiomegally CTAP: Edematous Renal allograft Assessment and Plan: ESRD. HD immediately with 2 K bath for 4 Hr and try 5L UF ICU attending & team are Ok to send him to the inpatient acute HD unit for immediate HD. Compliance and water/salt restriction reinforced. He was informed about lab/radiology results & prognosis. All questions were answered. He was made part of the treatment plan.
[2019-11-23] MEDS ORDERED: Midazolam* 1 MG/ML 2 ML VIAL (2 MG) ONE (12:06)
[2019-11-23] MEDS ORDERED: Dextrose 50% Syringe 50 ML* 25 GM/50 ML SYRINGE IV PUSH PRN (12:10)
[2019-11-23] MEDS ORDERED: Insulin REGULAR(*) 1 UNITS UNIT IV PUSH ONE (12:10)
[2019-11-23] MEDS ORDERED: fentaNYL* 50 MCG/ML 2 ML VIAL (100 MCG VIAL) ONE (12:12)
[2019-11-23] MEDS ORDERED: Succinylcholine* 20 MG/ML 10 ML VIAL ONE (12:12)
[2019-11-23] MEDS ORDERED: Albuterol/Ipratropium NEB.SOL* Albuterol 2.5 MG/Ipratropium 0.5 MG 3 ML INH ONE (12:17)
[2019-11-23] MEDS ORDERED: Calcium Gluconate INJ* 2 GM in NS 0.9% 100 ML* 100 ML IV ONE (12:30)
[2019-11-23] MEDS ORDERED: Calcium CHLORIDE 10% SYRINGE* 1 GM/10 ML IV ONE (13:09)
--- NOTE | 2019-11-23 13:17 | HP ---
AMENDED REPORT NOW INCLUDES DESIGNATED COSIGNER ADMISSION HISTORY AND PHYSICAL: DATE OF ADMISSION: 11/23/19 CHIEF COMPLAINT: Not feeling well. PRIMARY CARE PHYSICIAN: Dr. Deng. CONSULTING MATRIX SUPERVISOR: Dr. Jalen Venegas. ATTENDING PHYSICIAN: Dr. Ac Lee.* (DICTATED BY MARLENI WARD NP) HISTORY OF PRESENT ILLNESS: This is a 54-year-old -Malaysian male who presents on 11/23/19 after the patient presented for dialysis, went to [facility] , was noted to be lethargic and a CAT was called. Information regarding the CAT call was obtained from nursing notes. According to ED notes, the patient was having malaise for the last couple of days, abdominal pain for the past couple of months. Apparently, the pain is due to his failed kidney transplant. He is scheduled to get it removed at the end of the month in [place]. He also had diarrhea, nausea, vomiting. Information is pulled from chart since the patient refuses to participate with review of systems and examination, level 5 caveat. PAST MEDICAL HISTORY: 1. End-stage renal disease, status post renal transplant in February 2018 with evidence of failure by April. Depends on dialysis. 2. Diabetes. 3. Congestive heart failure. 4. Controlled hypertension. 5. Severe pulmonary hypertension. 6. Chronic pain. PAST SURGICAL HISTORY: Spinal surgery x2, kidney transplant in February 2018, ventral hernia repair x2, right wrist and hand reconstruction. HOME MEDICATIONS: 1. Oxymorphone ER 40 mg p.o. b.i.d. 2. Oxymorphone 20 mg p.o. 4 times a day. 3. Nifedipine extended release 90 mg p.o. daily. 4. Carvedilol 25 mg p.o. t.i.d. 5. Prednisone 60 mg p.o. daily (unsure if currently taking). 6. Hydralazine 25 mg p.o. b.i.d. 7. Clonidine 0.1 mg p.o. t.i.d. 8. Sildenafil 100 mg p.o. p.r.n. 9. Senna tabs 25 mg p.o. p.r.n. daily. ALLERGIES: Bees, LISINOPRIL, PENICILLIN, shellfish. FAMILY HISTORY: Unable to determine at this time, the patient declines to answer. SOCIAL HISTORY: According to the chart, the patient has a 39-pack year history of smoking, still smokes occasionally. Denies alcohol or drug use. The patient states that he does not have any friends or family. He is a full code and eventually did give the name of his brother, Jett as the decision maker. REVIEW OF SYSTEMS: Limited due to the patient's cooperation, he does endorse nausea, lethargy, pain. Denies chest pain, shortness of breath. PHYSICAL EXAMINATION GENERAL: The patient is quite lethargic, but awakes and follows all commands. No apparent distress. Examination is limited by cooperation. VITAL SIGNS: Heart rate 78 to 104; blood pressure 199 to 230 over diastolic of 118 to 148, unresponsive to hydralazine; respiratory rate 14 to 22; oxygen saturation 93% to 97%, intermittently requiring 2 L nasal cannula. Temperature 99. HEENT: Atraumatic, normocephalic. PERRL, equal and reactive. NECK: Supple, no JVD. CARDIAC: S1, S2, sinus tachycardia, no obvious murmurs. RESPIRATORY: Left upper and left lower rhonchi, right side is clear. ABDOMEN: Soft, tender to light palpation, bowel sounds are hypoactive, surgical incision healed midline. EXTREMITIES: No edema, atraumatic, no clubbing. NEURO: Strength is 5/5 in all extremities, sensation appears to be intact to all extremities. DIAGNOSTIC STUDIES/LAB DATA: Chest x-ray showed cardiomegaly, pulmonary edema. Abdominal CT shows hepatosplenomegaly, edematous transplant kidney, atrophy of [place] kidneys and some gallbladder wall thickening. The gallbladder ultrasound is pending. EKG shows some mildly peak T-waves in V4/V5 , prolonged QTc at 511, sinus. Labs significant for K 6.9, BUN 83, creatinine 11.83. IMPRESSION: 54M with medical history significant for end stage renal disease s/ p transplant 02/22 which failed and patient remains dependent on HD. Presents on 11/23/19 after experiencing malaise for a few days, which he skipped HD on . ASSESSMENT: 1. Fluid overload, d/t missed HD. Plan for emergent HD and nephrology consult. 2. Hyperkalemia, d/t missed HD. Plan for emergent HD. Patient refused kayexalate and other treatment in ED. Will recheck labs after HD and daily. 3. Hypertensive urgency, d/t missed HD. Restarted home medications as well as PRNs. Was given hydralyzine in ED which was ineffective. Needs HD. 4. Anemia, d/t ESRD, mild. Stable. Monitor. 5. Metabolic acidosis d/t renal failure. Anion gap 18, CO2 18. Plan for HD Fluid: No need for IVF d/t fluid overload Full code DVT prophylaxis: started heparin subq Disposition: Admitted to ICU in fair condition MARLENI WARD, PYROMETER TEMPERATURE REGULATOR [id number]/[facility] #: [id number] JOCY
--- NOTE | 2019-11-23 13:21 | PN ---
Progress Note - Progress Note Date of Service: 11/23/19 Note: Critical Care - significant event Patient developed sustained VT, +pulse, awake, restless+, diaphoretic. Cardiology at bedside. Noted he refused Hyperkalemia tx in ER this morning. VT slowed but then started back up. was initially 220s wide complex regular, then slowed to 160s, then increased back to 200s. Decision for synchronized cardioversion 200J, shock given and then returned to NSR. repeat EKG with NSR, new RBBB and peaked Twaves diffusely. Insulin 10u IV/d50/albuterol 10mg inh and 1gm calcium chloride to be given stat. HD to be done, pending now. he is awake, stable, no resp distress, BP stable. Repeaat EKG after HD, followup K level. Critical Care time 35 min Ac Lee MD
--- NOTE | 2019-11-23 13:51 | PRO ---
CC: Dr. Yun; Dr. Venegas CARDIOVERSION NOTE: DATE OF PROCEDURE: 11/23/19 PROCEDURE: Cardioversion. This was an emergent cardioversion for hemodynamically compromising wide complex tachycardia. INDICATION: The patient is a noncompliant dialysis patient who was admitted with abdominal pain and found to have hyperkalemia. While in the ICU awaiting dialysis, he developed wide complex tachycardia at 150 to 200 beats per minute, varying morphologies. He was awake but had decreased mentation, diaphoresis, hypoxmia and hemodynamic compromise. DESCRIPTION OF PROCEDURE: Informed consent was unable to be obtained due to the emergent nature of the situation and the patient's compromised mentation. Dr. Lee was called to the bedside and prepared to intubate. The patient received 2 mg of Versed, and a single synchronized biphasic shock of 200 Joules was applied with successful conversion to sinus rhythm. The patient had improvement in his rhythm and hemodynamics but was lethargic after the sedation. IMPRESSION: Successful conversion of wide complex tachycardia, suspected ventricular tachycardia in the setting of hyperkalemia. See separate consultation for recommendations. [id number]/[facility] #: [id number] [facility] HEALTHBernice
[2019-11-23] MEDS ORDERED: Heparin DIALYSIS ONLY(*) 1,000 UNITS/ML VIAL DIALYSIS ONE (14:00)
[2019-11-23] MEDS: OXYMORPHONE 5 MG PO SCH ×3 (14:16→21:29)
[2019-11-23] MEDS: Heparin VIAL(*) 5000 UNITS/ML VIAL (FIVE THOUSAND) SUBCUT SCH ×2 (15:10→21:21)
--- NOTE | 2019-11-23 15:17 | PN ---
Progress Note - Progress Note Date of Service: 11/23/19 Note: Around 12pm, nursing noted patient to be in an arrhythmia. Appeared to initially be in a monomorphic ventricular tachycardia. Dr Yun at the bedside and performed cardioversion with positive results. Please refer to his note for further details. Immediately after event, patient was given calcium gluconate, insulin and D50 to reverse hyperkalemia. HD was also started immediately after event. Event is likely d/t metabolic derangements and condition is expected to improve after HD.
[2019-11-23] MEDS: cloNIDine TAB* 0.1 MG PO SCH ×2 (15:18→21:21)
[2019-11-23] MEDS: Carvedilol TAB* 25 MG PO SCH ×2 (15:18→21:21)
[2019-11-23] MEDS ORDERED: HYDROmorphone INJ* 0.5 MG/0.5 ML SYRINGE ONE (15:51)
--- NOTE | 2019-11-23 15:55 | CONS ---
CARDIOLOGY CONSULTATION: DATE OF CONSULT: 11/23/19 CONSULTING PHYSICIAN: Dr. Lee. This was critical care evaluation. SOURCE OF INFORMATION: The history was obtained from Dr. Lee and the note from Dr. Venegas from 11/23/19. HISTORY OF PRESENT ILLNESS: This is a 54-year-old gentleman who I was asked to see on an urgent basis because of wide complex tachycardia and compromise. 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 He has hypertension which is poorly controlled, anemia of chronic kidney disease. The patient failed to show up for his dialysis yesterday. He was supposed to have dialysis today, but went to the cafeteria and had a CAT team called for shortness of breath. He was found to have hypertension to 200/140 and hyperkalemia to 7. He was apparently seen in the ER and sent to the ICU for further management. While in the ICU, he developed a wide complex tachyarrhythmia with desaturation to 88%. He seemed to be awake, but with decreased concentration and difficulty expressing his thoughts. He became diaphoretic. He denied any chest pain. Because of his extreme compromise, emergency consultation and intervention was requested of me. When I arrived, the patient was diaphoretic. He was able to answer questions in terms of saying he did not have pain, but was unable to focus or look at me. Because of hemodynamically compromised and wide complex tachycardia in the setting of hyperkalemia, I advised urgent treatment with defibrillation. He was defibrillated with 200 joules with conversion to sinus rhythm with right bundle-branch block, left anterior hemiblock, and peaked T- waves consistent with hyperkalemia. His blood pressure improved to 143/97 with a heart rate of 85 and O2 sats were 97% on 2 L. The patient received 2 mg of Versed prior to the cardioversion and is now somnolent. PAST MEDICAL HISTORY: Hypertension, hyperlipidemia, chronic renal failure, noncompliance, obesity, failed renal transplant, moderate to severe LVH. abdominal pain, back pain, cholelithiasis PAST SURGICAL HISTORY: Hernia repair. MEDICATIONS: His meds in the hospital include: 1. Carvedilol 25 mg t.i.d. 2. Clonidine 0.1 mg t.i.d. 3. Hydralazine 25 mg b.i.d. 4. Nifedipine 90 mg a day. 5. Oxymorphone 20 mg p.o. 4 times daily. 6. Oxymorphone 40 mg b.i.d. 7. Senokot 1 p.r.n. His medications at home include: 1. Prednisone 20 mg a day. 2. Hydralazine 25 mg b.i.d. 3. Clonidine 0.1 mg t.i.d. 4. Viagra 100 mg once p.r.n. 5. Senna 25 mg daily. 6. Oxymorphone. 7. Nifedipine ER 90 mg daily. 8. Carvedilol 25 mg t.i.d. ALLERGIES: Include bee venom, LISINOPRIL, PENICILLIN, shellfish. FAMILY HISTORY: CAD, hypertension. PHYSICAL EXAM: He is a well-developed, well-nourished, obese gentleman, diaphoretic prior to the cardioversion. Cardiac Exam: S1, S2, tachycardic, distant. Chest was clear. Extremities: No significant edema. DIAGNOSTIC STUDIES/LAB DATA: His electrolytes were significant for a potassium of 6.9, creatinine of 11.83, BUN of 83, magnesium of 2.3, calcium of 7.5. CRP elevated at 91.53. White count of 8, hemoglobin of 10.2, hematocrit of 31, platelet count of 155. His EKG from 5:24 a.m. revealed sinus rhythm with left atrial enlargement and nonspecific inferolateral ST depressions. Current EKG reveals new left anterior hemiblock, right bundle branch block, and more peaked T-waves. Of note , his inferolateral ST depressions were similar in October of 2019 to the 5:24 a.m. EKG. Chest x-ray revealed cardiomegaly with pulmonary interstitial edema, patchy airspace of the right base. His echocardiogram from July of 2019 revealed an EF of 50% to 55%, moderately severely increased wall thickness, grade 2 diastolic dysfunction, severe left atrial enlargement, severe right atrial enlargement, mild mitral regurgitation, no stenosis, mild aortic sclerosis, moderate TR, mildly increased PA pressure. His gallbladder ultrasound today revealed gallbladder wall thickening with pericholecystic fluid, positive sonographic sign, meets sonographic features for acute cholecystitis. CT of the abdomen revealed cardiomegaly, hepatosplenomegaly, mild gallbladder thickening may reflect acute inflammatory process or trace ascites, status post renal allograft, diffusely edematous similar to the previous. IMPRESSION AND PLAN: My impression is that Mr. Roman had wide complex arrhythmia, hemodynamically compromising, probable ventricular tachycardia in the setting of hyperkalemia, cannot exclude a supraventricular tachycardia with aberrancy. He seems to have converted now, but remains with new left axis, new right bundle branch block and peaked T-waves, which may be consistent with his hyperkalemia. I discussed the case with Dr. Lee. I have strongly advised urgent treatment for his hyperkalemia. He will receive D50, insulin and calcium gluconate. He is to undergo dialysis as soon as possible. We would consider following serial troponins. Follow serial EKGs for resolution. He is at high risk for morbidity and mortality on the basis of his noncompliance , underlying renal disease, and electrolyte abnormalities. He also has marked prolonged QT. We will check calcium and correct potassium. Consider evaluation for ischemic heart disease at some point. Workup and treatment for his abdominal pain and cholelithiasis as per the hospitalist team. CRITICAL CARE TIME: 40 minutes. [id number]/[facility] #: [id number] JOCY
[2019-11-23] MEDS: niCARdipine 0.1MG/ML IVPREMIX* 20 MG/200 ML BAG IV ONE ×2 (16:00→18:28)
--- NOTE | 2019-11-23 16:01 | PN ---
Progress Note - Progress Note Date of Service: 11/23/19 Note: Inpatient Acute Dialysis Note Performed by Dr. Conner Venegas, [facility] Nephrology 11/23/2019 I saw him today on HD. For ESRD He was seen and examined on HD. HD Routine: MWF, admitted today and missed HD yesterday and earlie today. HD Duration: 4 Hr UF Goal: 4-5 L/Rx Vitals: BP: 210/100 HR: 100/min Blood Flow: 400 cc/min Dialysate Flow: 600 cc/min Bath: K: 2K Ca: 2.5Ca Na: 138 Hco3: 35 Temp: 36 C Dialyzer: Revaclear [id number] Access: Rt IJ TDC No Access Related Issues Meds with HD: No Heparin or EPO as BP is very High Tolerates HD well. He has severe hyperkalemia & HTN with Fluid overload Has very poor compliance to medications, treatments and diet restrictions. His behaviour put him at very high risk of complications including Extensive counseling offered but he's defiant
[2019-11-23] MEDS: cloNIDine 0.2 MG PATCH* 0.2 MG/24 HR 7 DAY PATCH TRANSDERM SCH ×2 (16:47→17:21)
[2019-11-23] MEDS ORDERED: Metoprolol Tartrate IV* 1 MG/ML 5 ML VIAL IV PRN (16:59)
[2019-11-23] MEDS ORDERED: Metoprolol Tartrate IV* 1 MG/ML 5 ML VIAL ONE (17:09)
[2019-11-23 17:14] LABS: Troponin I 0.15 ng/mL (<0.03)
[2019-11-23] MEDS ORDERED: niCARdipine 0.1MG/ML IVPREMIX* 20 MG/200 ML BAG IV ONE (18:26)
[2019-11-23 18:47] LABS: BUN/Creatinine Ratio 6.5 (8-20); Calcium 8.6 mg/dL (8.6-10.3); EGFR African American 10.3 (>60); EGFR Non-African American 8.5 (>60); Potassium 4.8 mmol/L (3.5-5.0)
[2019-11-23] MEDS: niCARdipine 0.1MG/ML IVPREMIX* 20 MG/200 ML BAG IV SCH ×3 (20:02→22:41)
[2019-11-23] MEDS: hydrALAZINE TAB* 25 MG PO SCH (21:21)
[2019-11-23] MEDS: OXYMORPHONE 20 MG PO SCH (21:29)
[2019-11-24 05:00] LABS: ABS Eosinophils 0.1 10^3/ul (0-0.6); ABS Lymphocytes 0.5 10^3/ul (1.0-4.8); ABS Monocytes 0.6 10^3/ul (0-0.8); ABS Neutrophils 5.5 10^3/ul (1.5-7.7); Eosinophil % 0.8 %; Hematocrit 29 % (42-52); Hemoglobin 9.6 g/dL (14.0-18.0); Lymphocyte % 6.9 %; Mean Corpuscular HGB Conc 33 g/dL (31-36); Mean Corpuscular Hemoglobin 27 pg (27-31); Mean Corpuscular Volume 82 fL (80-94); Mean Platelet Volume 7.6 fL (7.4-10.4); Platelet Count 179 10^3/uL (150-450); Red Blood Count 3.57 10^6 /uL (4.18-5.48); Red Cell Distribution Width 19 % (10-15); White Blood Count 6.6 10^3/uL (3.5-10.8)
[2019-11-24 05:17] LABS: ALT 43 U/L (7-52); AST 34 U/L (13-39); Albumin 3.5 g/dL (3.2-5.2); Albumin/Globulin Ratio 1.1 (1-3); Alkaline Phosphatase 54 U/L (34-104); BUN/Creatinine Ratio 5.7 (8-20); Blood Urea Nitrogen 43 mg/dL (6-24); CO2 Carbon Dioxide 28 mmol/L (22-32); Calcium 7.7 mg/dL (8.6-10.3); Chloride 95 mmol/L (101-111); EGFR Non-African American 7.5 (>60); Globulin 3.3 g/dL (2-4); Glucose 75 mg/dL (70-100); Sodium 135 mmol/L (135-145); Total Protein 6.8 g/dL (6.4-8.9)
[2019-11-24 05:23] LABS: Anion Gap 12 mmol/L (2-11); Potassium 5.6 mmol/L (3.5-5.0); Troponin I 0.19 ng/mL (<0.03)
[2019-11-24] MEDS: Heparin VIAL(*) 5000 UNITS/ML VIAL (FIVE THOUSAND) SUBCUT SCH ×3 (05:48→22:23)
[2019-11-24] MEDS ORDERED: Sodium Polystyrene ORAL.SOL* 15 GM/60 ML BTL PO ONE ×2 (05:59→14:43)
[2019-11-24] MEDS ORDERED: Dextrose 50% Syringe 50 ML* 25 GM/50 ML SYRINGE IV PUSH ONE (06:00)
[2019-11-24] MEDS ORDERED: Insulin REGULAR(*) 1 UNITS UNIT IV PUSH ONE (06:00)
[2019-11-24] MEDS: cloNIDine TAB* 0.1 MG PO SCH ×2 (08:57→20:34)
[2019-11-24] MEDS: NIFEdipine ER TAB* 30 MG PO SCH (08:57)
[2019-11-24] MEDS: hydrALAZINE TAB* 25 MG PO SCH (08:57)
[2019-11-24] MEDS: Carvedilol TAB* 25 MG PO SCH ×3 (08:57→20:35)
[2019-11-24] MEDS: OXYMORPHONE 5 MG PO SCH (08:58)
[2019-11-24] MEDS: OXYMORPHONE 20 MG PO SCH ×2 (08:59→20:34)
[2019-11-24] MEDS ORDERED: Isosorbide Mononitrate ER TAB* 30 MG PO SCH ×2 (11:00→21:00)
--- NOTE | 2019-11-24 12:05 | PN ---
<Flores Romero - Last Filed: 11/24/19 12:56> Progress Note - Progress Note Date of Service: 11/24/19 Note: Progress Note -- Critical Care 24 hour events/significant events: ROS: ROS unable to be obtained secondary to somnolence - K 6.9 on admission yesterday, trending down today after treatment - Had an episode of v-tach yesterday requiring cardioversion - No further episodes or arrhythmias - Had HD yesterday - Was started on cardene drip yesterday evening but has been off since midnight. Tele: NSR, no ectopy Vitals: Vital Signs 11/23/19 11/23/19 11/23/19 12:05 12:46 13:00 Temperature Pulse Rate 87 76 76 Respiratory 29 11 25 Rate Blood Pressure 143/97 207/126 215/122 (mmHg) O2 Sat by Pulse 96 92 95 Oximetry 11/23/19 11/23/19 11/23/19 13:16 13:30 13:46 Temperature Pulse Rate 84 91 Respiratory 16 19 21 Rate Blood Pressure 193/126 209/137 172/121 (mmHg) O2 Sat by Pulse 93 94 Oximetry 11/23/19 11/23/19 11/23/19 13:53 14:00 14:02 Temperature Pulse Rate 252 Respiratory 14 22 22 Rate Blood Pressure 201/121 211/135 (mmHg) O2 Sat by Pulse 74 Oximetry 11/23/19 11/23/19 11/23/19 14:06 14:16 14:31 Temperature Pulse Rate 87 78 75 Respiratory 17 25 14 Rate Blood Pressure 212/144 201/137 194/142 (mmHg) O2 Sat by Pulse 98 100 95 Oximetry 11/23/19 11/23/19 11/23/19 14:49 15:00 15:01 Temperature Pulse Rate 77 74 74 Respiratory 12 17 17 Rate Blood Pressure 217/126 245/138 (mmHg) O2 Sat by Pulse 99 97 98 Oximetry 11/23/19 11/23/19 11/23/19 15:18 15:31 15:46 Temperature Pulse Rate 75 73 74 Respiratory 10 17 16 Rate Blood Pressure 236/135 233/127 239/128 (mmHg) O2 Sat by Pulse 94 98 91 Oximetry 11/23/19 11/23/19 11/23/19 15:50 15:59 16:00 Temperature 97.6 F Pulse Rate 73 Respiratory 16 16 Rate Blood Pressure (mmHg) O2 Sat by Pulse 99 Oximetry 11/23/19 11/23/19 11/23/19 16:01 16:16 16:30 Temperature Pulse Rate 72 71 71 Respiratory 17 18 15 Rate Blood Pressure 249/141 233/130 228/127 (mmHg) O2 Sat by Pulse 97 98 97 Oximetry 11/23/19 11/23/19 11/23/19 16:45 17:00 17:15 Temperature Pulse Rate 71 71 69 Respiratory 19 16 15 Rate Blood Pressure 228/127 227/129 236/118 (mmHg) O2 Sat by Pulse 97 98 97 Oximetry 11/23/19 11/23/19 11/23/19 17:31 17:45 18:00 Temperature Pulse Rate 75 81 81 Respiratory 18 15 17 Rate Blood Pressure 194/111 178/100 175/99 (mmHg) O2 Sat by Pulse 97 97 96 Oximetry 11/23/19 11/23/19 11/23/19 18:15 18:30 18:45 Temperature Pulse Rate 84 82 81 Respiratory 19 17 19 Rate Blood Pressure 167/89 169/93 167/90 (mmHg) O2 Sat by Pulse 96 96 94 Oximetry 11/23/19 11/23/19 11/23/19 19:00 19:15 19:30 Temperature Pulse Rate 85 85 83 Respiratory 16 20 20 Rate Blood Pressure 160/83 156/84 173/84 (mmHg) O2 Sat by Pulse 96 96 93 Oximetry 11/23/19 11/23/19 11/23/19 19:45 20:00 20:15 Temperature 98.9 F Pulse Rate 83 81 81 Respiratory 19 20 20 Rate Blood Pressure 150/89 163/81 163/80 (mmHg) O2 Sat by Pulse 96 96 95 Oximetry 11/23/19 11/23/19 11/23/19 20:30 20:45 21:00 Temperature Pulse Rate 81 80 82 Respiratory 19 18 23 Rate Blood Pressure 156/85 157/84 158/77 (mmHg) O2 Sat by Pulse 93 95 95 Oximetry 11/23/19 11/23/19 11/23/19 21:15 21:30 21:45 Temperature Pulse Rate 81 80 80 Respiratory 19 19 19 Rate Blood Pressure 163/80 154/81 167/82 (mmHg) O2 Sat by Pulse 95 91 92 Oximetry 11/23/19 11/23/19 11/23/19 22:00 22:15 22:30 Temperature Pulse Rate 83 82 80 Respiratory 20 21 21 Rate Blood Pressure 152/80 150/80 154/80 (mmHg) O2 Sat by Pulse 95 96 94 Oximetry 11/23/19 11/23/19 11/23/19 22:39 22:45 23:00 Temperature Pulse Rate 81 81 78 Respiratory 18 17 20 Rate Blood Pressure 150/81 155/76 146/74 (mmHg) O2 Sat by Pulse 96 95 96 Oximetry 11/23/19 11/23/19 11/23/19 23:15 23:30 23:45 Temperature Pulse Rate 77 72 76 Respiratory 21 18 19 Rate Blood Pressure 141/72 146/75 128/75 (mmHg) O2 Sat by Pulse 97 97 96 Oximetry 11/23/19 11/24/19 11/24/19 23:56 00:00 00:15 Temperature 99.3 F Pulse Rate 70 69 67 Respiratory 19 19 18 Rate Blood Pressure 127/61 119/61 118/57 (mmHg) O2 Sat by Pulse 97 95 95 Oximetry 11/24/19 11/24/19 11/24/19 00:30 00:45 01:00 Temperature Pulse Rate 65 66 63 Respiratory 23 23 18 Rate Blood Pressure 106/58 121/57 123/58 (mmHg) O2 Sat by Pulse 96 95 92 Oximetry 11/24/19 11/24/19 11/24/19 01:15 01:30 01:45 Temperature Pulse Rate 66 66 68 Respiratory 17 22 18 Rate Blood Pressure 128/62 114/58 142/72 (mmHg) O2 Sat by Pulse 95 96 94 Oximetry 11/24/19 11/24/19 11/24/19 02:00 03:00 04:00 Temperature 99.2 F Pulse Rate 65 69 71 Respiratory 19 18 24 Rate Blood Pressure 136/69 137/77 140/77 (mmHg) O2 Sat by Pulse 87 97 95 Oximetry 11/24/19 11/24/19 11/24/19 05:00 06:00 07:00 Temperature Pulse Rate 72 73 73 Respiratory 16 21 19 Rate Blood Pressure 149/75 142/76 159/80 (mmHg) O2 Sat by Pulse 97 95 93 Oximetry 11/24/19 11/24/19 11/24/19 07:33 08:00 09:00 Temperature 98.8 F Pulse Rate 76 72 Respiratory 22 24 Rate Blood Pressure 161/87 165/101 (mmHg) O2 Sat by Pulse 93 95 Oximetry 11/24/19 11/24/19 11/24/19 10:00 11:00 12:00 Temperature 98.7 F Pulse Rate 71 67 Respiratory 22 14 19 Rate Blood Pressure 137/72 139/86 (mmHg) O2 Sat by Pulse 87 97 Oximetry Intake & Output 11/22/19 11/23/19 11/24/19 11/25/19 06:59 06:59 06:59 06:59 Intake Total 899 0 Balance 899 0 Weight 185 lb 169 lb 12.095 oz Intake: Medicated IV 899 CC - Nicarpidine/Cardene 899 Oral 0 0 O2/Vent: 2LNC Infusions: None Medications: Carvedilol (Coreg Tab*) 25 mg PO TID [facility] Last Admin: 11/24/19 08:57 Dose: 25 mg Clonidine HCl ([id number]-Suw-0 0.2 Mg Patch*) 0.2 mg TRANSDERM Q7D [facility] Last Admin: 11/23/19 17:21 Dose: Not Given Clonidine HCl (Catapres Tab*) 0.3 mg PO TID [facility] Dextrose (D50w Syringe 50 Ml*) 25 gm IV PUSH ONCE PRN PRN Reason: FS < 60 Last Admin: 11/23/19 12:22 Dose: 25 gm Heparin Sodium (Porcine) (Heparin Vial(*)) 5,000 units SUBCUT Q8HR [facility] Last Admin: 11/24/19 05:48 Dose: 5,000 units Heparin Sodium (Porcine) (Heparin Flush Picc/Ml/Cvc(*)) 1 - 3 ml FLUSH 0600, 1800 [facility]; Protocol Last Admin: 11/24/19 05:48 Dose: 1 ml Isosorbide Mononitrate (Imdur Er Tab*) 30 mg PO Q24H [facility] Metoprolol Tartrate (Lopressor Iv*) 5 mg IV Q6H PRN PRN Reason: BLOOD PRESSURE Miscellaneous (Ativan Pyxis Banegas) 1 ea N/A .ATIVAN IV BANEGAS PRN PRN Reason: PYXIS BANEGAS Nifedipine (Procardia Xl Tab*) 90 mg PO DAILY [facility] Last Admin: 11/24/19 08:57 Dose: 90 mg Oxymorphone HCl (Opana Er (Nf)) 40 mg PO BID [facility] Oxymorphone HCl (Opana Ir (Nf)) 20 mg PO QID [facility] Senna (Senokot 8.6 Mg Tab*) 1 tab PO DAILY PRN PRN Reason: CONSTIPATION Physical Exam: Constitutional: Somnolent but does awaken and follow commands. Head: normocephalic, atraumatic Eyes: no pallor, no icterus ENT: moist mucous membranes Neck: soft, supple, no jvd, no stridor CVS: normal rate, regular, no murmur Chest/Resp: bilateral air entry, no rhales, no wheeze, no rhonchi, no acc muscle use Abdomen/GI: soft, tender to light palpation, primarily RLQ, chronic pain. Slightly distended. BS+ Ext/Msk: warm, pulses+, no edema Skin: intact, warm Neuro: Moving all extremities, strength 5/5 all extremities, no gross focal deficit Psych: normal affect Labs: Laboratory Results - last 24 hr 11/23/19 11/23/19 11/24/19 06:05 16:46 04:40 WBC 6.6 RBC 3.57 L Hgb 9.6 L Hct 29 L MCV 82 MCH 27 MCHC 33 RDW 19 H Plt Count 179 MPV 7.6 Neut % (Auto) 83.2 Lymph % (Auto) 6.9 Bladen % (Auto) 8.7 Eos % (Auto) 0.8 Baso % (Auto) 0.4 Absolute Neuts (auto) 5.5 Absolute Lymphs (auto) 0.5 L Absolute Monos (auto) 0.6 Absolute Eos (auto) 0.1 Absolute Basos (auto) 0.0 Absolute Nucleated RBC 0.0 Nucleated RBC % 0.0 Sodium 138 137 Potassium 6.9 H* 4.8 D Chloride 102 95 L Carbon Dioxide 18 L 27 Anion Gap 18 H 15 H BUN 83 H 44 H Creatinine 11.83 H 6.79 H Est GFR ( Amer) 5.4 10.3 Est GFR (Non-Af Amer) 4.5 8.5 BUN/Creatinine Ratio 7.0 L 6.5 L Glucose 81 95 Calcium 7.5 L 8.6 Magnesium 2.3 Total Bilirubin 0.60 AST 27 ALT 30 Alkaline Phosphatase 58 Troponin I 0.15 H* C-Reactive Protein 91.53 H Total Protein 7.0 Albumin 3.8 Globulin 3.2 Albumin/Globulin Ratio 1.2 Lipase 11 11/24/19 11/24/19 04:40 11:55 WBC RBC Hgb Hct MCV MCH MCHC RDW Plt Count MPV Neut % (Auto) Lymph % (Auto) Bladen % (Auto) Eos % (Auto) Baso % (Auto) Absolute Neuts (auto) Absolute Lymphs (auto) Absolute Monos (auto) Absolute Eos (auto) Absolute Basos (auto) Absolute Nucleated RBC Nucleated RBC % Sodium 135 137 Potassium 5.6 H 5.3 H Chloride 95 L 97 L Carbon Dioxide 28 29 Anion Gap 12 H 11 BUN 43 H 49 H Creatinine 7.59 H 8.38 H Est GFR ( Amer) 9.0 8.0 Est GFR (Non-Af Amer) 7.5 6.6 BUN/Creatinine Ratio 5.7 L 5.8 L Glucose 75 113 H Calcium 7.7 L 7.2 L Magnesium Total Bilirubin 0.70 AST 34 ALT 43 Alkaline Phosphatase 54 Troponin I 0.19 H* C-Reactive Protein Total Protein 6.8 Albumin 3.5 Globulin 3.3 Albumin/Globulin Ratio 1.1 Lipase Imagin/17: Chest xray: cardiomegaly with pulmonary interstitial edema CT abd/pelvis: Renal allograft with stable diffuse edema, cardiomegaly, hepatosplenomegaly, mild thickening of the gallbladder wall Assessment: 54M with known history of ESRD on hemodialysis d/t failed kidney transplant in 2018, HTN, CHF, chronic pain, presents on 11/23 after missing his HD on 11/22. Hes been feeling unwell and having his baseline abdominal pain. He was found to be hyperkalemic on admission with K 6.9, as well as fluid overloaded. He had an episode of v-tach which resolved with cardioversion. He also received HD on 11/23 and was placed on a cardene drip. Plan: Neuro- -Delirium prec; avoid BDZ - Remains somnolent. Most likely metabolic encephalopathy. Does waken easily. - Monitor for any neuro changes CVS- -Hypertensive. Was started on cardene drip yesterday evening but was able to weaned off at midnight. - Continue home medications. Does remain hypertensive. Will increase clonidine to 0.3mg TID and discontinue patch. Discontinue hydralyzine. Started Imdur 30mg daily. Will start later this evening. - Continue home coreg - No further episodes of arrhythmias. Resp- -Wean Fio2 to keep sat>92% -Aspiration prec, Pulmonary Toilet - Lung sounds are diminished throughout but clear ID- - Afebrile, WBC WNL GI- -Nutrition: DM diet -GI prophylaxis Renal- -Replete electrolytes to keep K>4, Mg>2 -Received HD yesterday. Plan is for HD on Tuesday. - Monitor K. This AM K 5.6 and was treated. BMP pending for 12pm. Heme- - Subq heparin for DVT prophylaxis Endo-Maintain BG<200, insulin protocol as needed Musculsk- pressure ulcer prophylaxis. OOB and ambulation as tolerated Wounds- none Nutrition- DM diet DVT prophylaxis: subq heparin GI prophylaxis: Disposition: Patient requires Critical Care/ICU for close tele monitoring, frequent labs Patient clinical status: Fair. Consider transfer to floor tomorrow Code Status: Full Total Critical Care time is 30 mins <Ac Lee - Last Filed: 11/25/19 12:55> Progress Note - Progress Note Note: Attending note - -Agree with above findings. -Patient with hypertension, uncontrolled, restarted pO meds. off cardene infusion. -Potassium better today; likely to need another HD session tuesday. -follows commands, no distress. no further arrythmias noted. -follow K levels. -can transfer to floor today. agreed with plan Ac Lee MD
[2019-11-24 12:26] LABS: BUN/Creatinine Ratio 5.8 (8-20); Calcium 7.2 mg/dL (8.6-10.3); EGFR Non-African American 6.6 (>60)
[2019-11-24 12:30] LABS: Potassium 5.3 mmol/L (3.5-5.0)
[2019-11-24] MEDS ORDERED: Magnesium Sulfate 2 GM IV* 0 GM/0 ML BAG ONE (13:48)
[2019-11-24] MEDS ORDERED: cloNIDine TAB* 0.1 MG PO SCH (14:00)
[2019-11-24] MEDS: OXYMORPHONE IR 5 MG PO SCH ×3 (14:37→20:34)
[2019-11-25] MEDS: Heparin VIAL(*) 5000 UNITS/ML VIAL (FIVE THOUSAND) SUBCUT SCH ×3 (05:56→21:40)
[2019-11-25] MEDS: cloNIDine TAB* 0.1 MG PO SCH ×3 (09:03→21:40)
[2019-11-25] MEDS: NIFEdipine ER TAB* 30 MG PO SCH (09:03)
[2019-11-25] MEDS: Carvedilol TAB* 25 MG PO SCH ×3 (09:03→21:40)
[2019-11-25] MEDS: OXYMORPHONE IR 5 MG PO SCH ×4 (09:04→21:39)
[2019-11-25] MEDS: OXYMORPHONE 20 MG PO SCH ×2 (09:04→21:38)
[2019-11-25 11:04] LABS: ABS Eosinophils 0.1 10^3/ul (0-0.6); ABS Lymphocytes 0.6 10^3/ul (1.0-4.8); ABS Monocytes 0.6 10^3/ul (0-0.8); ABS Neutrophils 4.8 10^3/ul (1.5-7.7); Eosinophil % 1.9 %; Hematocrit 29 % (42-52); Hemoglobin 9.2 g/dL (14.0-18.0); Lymphocyte % 9.9 %; Mean Corpuscular HGB Conc 32 g/dL (31-36); Mean Corpuscular Hemoglobin 27 pg (27-31); Mean Corpuscular Volume 83 fL (80-94); Mean Platelet Volume 6.9 fL (7.4-10.4); Nucleated Red Blood Cells % 0.1; Platelet Count 177 10^3/uL (150-450); Red Blood Count 3.43 10^6 /uL (4.18-5.48); Red Cell Distribution Width 20 % (10-15); White Blood Count 6.2 10^3/uL (3.5-10.8)
[2019-11-25 11:22] LABS: Albumin 3.5 g/dL (3.2-5.2); Albumin/Globulin Ratio 1.1 (1-3); BUN/Creatinine Ratio 5.3 (8-20); Calcium 6.7 mg/dL (8.6-10.3); EGFR African American 6.4 (>60); EGFR Non-African American 5.3 (>60); Globulin 3.2 g/dL (2-4); Potassium 4.6 mmol/L (3.5-5.0); Total Bilirubin 0.5 mg/dL (0.2-1.0); Total Protein 6.7 g/dL (6.4-8.9)
--- NOTE | 2019-11-25 13:28 | PN ---
Subjective Date of Service: 11/25/19 Interval History: Pt is feeling well. He left the floor earlier today to we think smoke (he was seen on security cameras holding a cigarette as he walked outside). When he was seen on security footage walking back inside he was staggering and fell to the floor. The patient was able to get back up and staff from brought him back up stairs. The patient states he did feel dizzy walking back in the hospital. He states he did not pass out. Currently he denies any pain or SOB. Objective Active Medications: Carvedilol (Coreg Tab*) 25 mg PO TID [facility] Last Admin: 11/25/19 09:03 Dose: 25 mg Clonidine HCl (Catapres Tab*) 0.2 mg PO TID [facility] Last Admin: 11/25/19 09:03 Dose: 0.2 mg Dextrose (D50w Syringe 50 Ml*) 25 gm IV PUSH ONCE PRN PRN Reason: FS < 60 Last Admin: 11/23/19 12:22 Dose: 25 gm Heparin Sodium (Porcine) (Heparin Vial(*)) 5,000 units SUBCUT Q8HR [facility] Last Admin: 11/25/19 05:56 Dose: 5,000 units Heparin Sodium (Porcine) (Heparin Flush Picc/Ml/Cvc(*)) 1 - 3 ml FLUSH 0600, 1800 [facility]; Protocol Last Admin: 11/25/19 05:57 Dose: 1 ml Miscellaneous (Ativan Pyxis Nuno) 1 ea N/A .ATIVAN IV NUNO PRN PRN Reason: PYXIS NUNO Nifedipine (Procardia Xl Tab*) 90 mg PO DAILY [facility] Last Admin: 11/25/19 09:03 Dose: 90 mg Oxymorphone HCl (Opana Er (Nf)) 40 mg PO BID [facility] Last Admin: 11/25/19 09:04 Dose: 40 mg Oxymorphone HCl (Opana Ir (Nf)) 20 mg PO QID [facility] Last Admin: 11/25/19 09:04 Dose: 20 mg Senna (Senokot 8.6 Mg Tab*) 1 tab PO DAILY PRN PRN Reason: CONSTIPATION Vital Signs - 8 hr 11/25/19 11/25/19 11/25/19 07:15 08:00 09:04 Temperature 98.2 F Pulse Rate 70 Respiratory 16 20 20 Rate Blood Pressure 139/77 (mmHg) O2 Sat by Pulse 93 Oximetry 11/25/19 11/25/19 11/25/19 11:00 11:15 11:42 Temperature 98.4 F 98 F Pulse Rate 66 70 Respiratory 16 18 18 Rate Blood Pressure 142/76 158/85 (mmHg) O2 Sat by Pulse 96 94 Oximetry 11/25/19 11:47 Temperature 98 F Pulse Rate 64 Respiratory 20 Rate Blood Pressure 135/79 (mmHg) O2 Sat by Pulse 90 Oximetry Oxygen Devices in Use Now: None Appearance: Middle aged male sitting up in a chair, NAD Eyes: No Scleral Icterus Ears/Nose/Mouth/Throat: Mucous Membranes Moist Respiratory: Symmetrical Chest Expansion and Respiratory Effort, Clear to Auscultation Cardiovascular: NL Sounds; No Murmurs; No JVD, RRR, No Edema Abdominal: NL Sounds; No Tenderness; No Distention Extremities: No Clubbing, Cyanosis Skin: No Nodules or Sclerosis Neurological: Alert and Oriented x 3 Result Diagrams: 11/25/19 10:49 11/25/19 10:49 Microbiology and Other Data: Microbiology 11/23/19 06:05 Aerobic Blood Culture - Preliminary Blood Venous No Growth Day 2 Anaerobic Blood Culture - Preliminary No Growth Day 2 11/23/19 10:30 Nasal Screen MRSA (PCR) - Final Nasal Mrsa Detected Assess/Plan/Problems-Billing Mr Roman is a 54 yo M with a h/o ESRD s/p renal transplant which has subsequently failed, HTN and chronic pain who presented to the ER after being found lethargic in the cafeteria prior to receiving his dialysis treatment on . - Patient Problems (1) Ventricular tachycardia Current Visit: Yes Status: Acute Code(s): I47.2 - VENTRICULAR TACHYCARDIA SNOMED Code(s): 70568747 Comment: Secondary to marked hyperkalemia. He was cardioverted successfully. Keep electrolytes in good range. (2) HTN (hypertension) Current Visit: Yes Status: Acute Code(s): I10 - ESSENTIAL (PRIMARY) HYPERTENSION SNOMED Code(s): 82788413 Comment: BP is under good control on clonidine, nifedipine and coreg. (3) ESRD (end stage renal disease) on dialysis Current Visit: Yes Status: Acute Priority: High Code(s): N18.6 - END STAGE RENAL DISEASE; Z99.2 - DEPENDENCE ON RENAL DIALYSIS SNOMED Code(s): 699692469 Comment: Plan for dialysis tomorrow then he can likely go home. (4) Abdominal pain Current Visit: Yes Status: Acute Code(s): R10.9 - UNSPECIFIED ABDOMINAL PAIN SNOMED Code(s): 94724471 Comment: Secondary to failed renal transplant. Plan is for removal of the kidney in the near future. (5) Chronic pain Current Visit: Yes Status: Acute Code(s): G89.29 - OTHER CHRONIC PAIN SNOMED Code(s): 21029877 Comment: Continue opana ER and IR at home schedule. (6) DVT prophylaxis Current Visit: Yes Status: Acute Code(s): Z29.9 - ENCOUNTER FOR PROPHYLACTIC MEASURES, UNSPECIFIED SNOMED Code(s): 373500236 Comment: Heparin SQ (7) Full code status Current Visit: Yes Status: Acute Code(s): Z78.9 - OTHER SPECIFIED HEALTH STATUS SNOMED Code(s): 841581533 Comment:
--- NOTE | 2019-11-25 17:00 | ECHO ---
*[facility]* [place] [address] Fax #: [phone] Transthoracic Echocardiogram Patient: Indra Roman : 1965 Study Date: 11/25/2019 Age: 54 Gender: M HR: 63 bpm Height: 72 in /182.9 cm BSA: 2.06 m^2 Weight: 184.6 lb /83.9 kg BMI: 25.1 kg/m^2 *Yarn Worker: * Ofelia Akers RDCS RN *Referring Physician: * Atul Yun MD *Reading Physician: * Justyn London MD Indications: Abnormal EKG. Ventricular tachycardia. History: Congestive heart failure. ESRD. Failed renal transplant. PHTN. PMH: Cardiomyopathy. Risk factors: Current tobacco use. Hypertension. Diabetes mellitus. Conclusions Summary: - Left ventricle: The cavity size is at the upper limits of normal. Wall thickness is moderately to severely increased. Systolic function is at the lower limits of normal. The estimated ejection fraction is 50-55%. Wall motion is normal; there are no regional wall motion abnormalities. - Right ventricle: Systolic function is low normal. - Right atrium: The atrium is moderately to severely dilated. Catheter is noted in right atrium. - Mitral valve: There is mild regurgitation. - Aortic valve: There is no evidence of stenosis. - Tricuspid valve: There is moderate regurgitation directed toward the septum. - Pericardium, extracardiac: There is no significant pericardial effusion. - Pulmonary arteries: Systolic pressure is moderately increased, estimated to be 53 mm Hg. - Compared to study of 07/22/19, there is little change. Study data: Transthoracic echocardiogram. Procedure: Transthoracic echocardiography was performed. Image quality was good. Complete 2D, spectral Doppler, and color flow Doppler. Location: Bedside. Patient status: Inpatient. Patient room number: 449-02. Rhythm: Normal sinus rhythm with PACs. Findings Left ventricle: The cavity size is at the upper limits of normal. Wall thickness is moderately to severely increased. Systolic function is at the lower limits of normal. The estimated ejection fraction is 50-55%. Wall motion is normal; there are no regional wall motion abnormalities. Doppler parameters are consistent with abnormal left ventricular relaxation (grade 1 diastolic dysfunction). Right ventricle: The cavity size is normal. Wall thickness is mildly increased. Systolic function is low normal. Left atrium: The atrium is moderately dilated. Right atrium: The atrium is moderately to severely dilated. Catheter is noted in right atrium. Atrial septum: The atrial septum appears aneurysmal. Mitral valve: The leaflets are mildly thickened. There is no evidence of stenosis. There is mild regurgitation. Aortic valve: The valve is trileaflet. The leaflets are mildly thickened. There is no evidence of stenosis. There is no significant regurgitation. Tricuspid valve: The valve is structurally normal. There is no evidence of stenosis. There is moderate regurgitation directed toward the septum. Pulmonic valve: Not well visualized. The valve is structurally normal. There is no evidence of stenosis. There is trace to mild regurgitation. Aorta: Aortic root: The aortic root is not dilated. Ascending aorta: The ascending aorta is not dilated. Aortic arch: The aortic arch is not dilated. Pericardium: There is no significant pericardial effusion. Pulmonary arteries: The main pulmonary artery is normal-sized. Systolic pressure is moderately increased, estimated to be 53 mm Hg. Systemic veins: Inferior vena cava: The vessel is dilated. There is less than 50% respiratory change in the IVC dimension. Measurements Left ventricle Value Ref Aortic valve Value Ref RICHELLE, LAX 5.8 cm 4.2 - 5.8 Colten diam, ED 2.2 cm ---- ESD, LAX (H) 4.3 cm 2.5 - 4.0 Peak v, S 1.8 m/sec ---- FS, LAX 27 % 25 - 43 VTI, S 39.0 cm ---- PW, ED (H) 1.7 cm 0.6 - 1.0 Mean grad, S 8.0 mm Hg ---- IVS/PW, ED 1.1 Peak grad, S 13.0 mm Hg ---- E', lat colten, TDI (L) 5.4 cm/sec >=10.0 LVOT/AV, VTI ratio 0.57 --- - E/e', lat colten, 14 TDI Mitral valve Value Ref E', med colten, TDI (L) 4.1 cm/sec >=7.0 Peak E 0.74 m/sec --- - E/e', med colten, 18 Peak A 1.18 m/sec ---- TDI Decel time 250 ms ---- E', avg, TDI 4.8 cm/sec Peak grad, D 2.2 mm Hg ---- E/e', avg, TDI (H) 16 <=14 Peak E/A ratio 0.6 --- - LVOT Value Ref Pulmonic valve Value Ref Peak cali, S 1.2 m/sec Peak v, S 0.83 m/sec ---- VTI, S 22.4 cm Peak grad, S 3.0 mm Hg ---- Peak grad, S 6 mm Hg Mean grad, S 3 mm Hg Tricuspid valve Value Ref Peak RV-RA grad, S 38 mm Hg ---- Ventricular septum Value Ref Max TR cali 3.1 m/sec ---- IVS, ED (H) 1.8 cm 0.6 - 1.0 Aortic root Value Ref Right ventricle Value Ref Root diam 3.5 cm <4.2 AW thickness, ED (H) 0.8 cm 0.1 - 0.5 RICHELLE, LAX 3.4 cm Ascending aorta Value Ref RICHELLE minor ax, A4C 3.0 cm 1.9 - 3.5 AAo AP diam, S 3.4 cm ---- mid Pressure, S 53 mm Hg Aortic arch Value Ref Arch diam 2.6 cm ---- Left atrium Value Ref AP dim, ES (H) 4.70 cm 3.00 - Decending aorta Value Ref 4.00 Myriam peak cali 0.99 m/sec ---- ML dim, A4C 5.0 cm SI dim, A4C 5.3 cm Pulmonary artery Value Ref Vol/bsa, ES, 1-p 28 ml/m^2 12 - 37 Pressure, S 53.0 mm Hg ---- A4C Vol/bsa, ES, A/L (H) 41 ml/m^2 16 - 34 Inferior vena cava Value Ref Diam 3.0 cm ---- Right atrium Value Ref ML dim, ES, A4C (H) 5.6 cm 2.6 - 4.4 SI dim, ES, A4C (H) 6.8 cm 3.4 - 5.3 Estimated RAP 15 mm Hg Legend: (L) and (H) robinson values outside specified reference range. Prepared and electronically signed by Justyn London MD 11/25/2019 17:00
[2019-11-26] MEDS: Heparin VIAL(*) 5000 UNITS/ML VIAL (FIVE THOUSAND) SUBCUT SCH ×3 (05:52→21:37)
[2019-11-26 06:07] LABS: ABS Basophils 0.1 10^3/ul (0-0.2); ABS Eosinophils 0.1 10^3/ul (0-0.6); ABS Lymphocytes 0.6 10^3/ul (1.0-4.8); ABS Monocytes 0.6 10^3/ul (0-0.8); ABS Neutrophils 4.4 10^3/ul (1.5-7.7); Eosinophil % 1.9 %; Hematocrit 28 % (42-52); Hemoglobin 9.1 g/dL (14.0-18.0); Lymphocyte % 10.2 %; Mean Corpuscular HGB Conc 33 g/dL (31-36); Mean Corpuscular Hemoglobin 27 pg (27-31); Mean Corpuscular Volume 84 fL (80-94); Mean Platelet Volume 7.8 fL (7.4-10.4); Platelet Count 164 10^3/uL (150-450); Red Blood Count 3.35 10^6 /uL (4.18-5.48); Red Cell Distribution Width 19 % (10-15); White Blood Count 5.8 10^3/uL (3.5-10.8)
[2019-11-26 06:29] LABS: Albumin 3.6 g/dL (3.2-5.2); Albumin/Globulin Ratio 1.1 (1-3); BUN/Creatinine Ratio 5.2 (8-20); Calcium 6.6 mg/dL (8.6-10.3); EGFR African American 5.6 (>60); EGFR Non-African American 4.6 (>60); Globulin 3.3 g/dL (2-4); Total Bilirubin 0.5 mg/dL (0.2-1.0); Total Protein 6.9 g/dL (6.4-8.9)
[2019-11-26 06:30] LABS: Potassium 5.1 mmol/L (3.5-5.0)
[2019-11-26] MEDS: cloNIDine TAB* 0.1 MG PO SCH ×3 (08:07→21:37)
[2019-11-26] MEDS: Carvedilol TAB* 25 MG PO SCH ×3 (08:07→21:37)
[2019-11-26] MEDS: OXYMORPHONE 20 MG PO SCH ×2 (08:07→21:39)
[2019-11-26] MEDS: NIFEdipine ER TAB* 30 MG PO SCH (08:07)
[2019-11-26] MEDS: OXYMORPHONE IR 5 MG PO SCH ×5 (08:29→21:39)
--- NOTE | 2019-11-26 09:26 | PN ---
Subjective Date of Service: 11/26/19 - Sustained Vt/ defibrilation 11/23/19 with hyperkalemia and HTN Interval History: No events last night, patient currently getting HD. Denies chest pain, sob, dizziness. appears in NAD Medications Active Medications: Carvedilol (Coreg Tab*) 25 mg PO TID [facility] Last Admin: 11/26/19 08:07 Dose: 25 mg Clonidine HCl (Catapres Tab*) 0.2 mg PO TID [facility] Last Admin: 11/26/19 08:07 Dose: 0.2 mg Dextrose (D50w Syringe 50 Ml*) 25 gm IV PUSH ONCE PRN PRN Reason: FS < 60 Last Admin: 11/23/19 12:22 Dose: 25 gm Heparin Sodium (Porcine) (Heparin Vial(*)) 5,000 units SUBCUT Q8HR [facility] Last Admin: 11/26/19 05:52 Dose: 5,000 units Heparin Sodium (Porcine) (Heparin Flush Picc/Ml/Cvc(*)) 1 - 3 ml FLUSH 0600, 1800 [facility]; Protocol Last Admin: 11/26/19 05:52 Dose: 1 ml Miscellaneous (Ativan Pyxis Banegas) 1 ea N/A .ATIVAN IV BANEGAS PRN PRN Reason: PYXIS BANEGAS Nifedipine (Procardia Xl Tab*) 90 mg PO DAILY [facility] Last Admin: 11/26/19 08:07 Dose: 90 mg Oxymorphone HCl (Opana Er (Nf)) 40 mg PO BID [facility] Last Admin: 11/26/19 08:07 Dose: 40 mg Oxymorphone HCl (Opana Ir (Nf)) 20 mg PO QID [facility] Last Admin: 11/26/19 08:29 Dose: 20 mg Senna (Senokot 8.6 Mg Tab*) 1 tab PO DAILY PRN PRN Reason: CONSTIPATION Objective Vital Signs: Temp Pulse Resp BP Pulse Ox 97.9 F 62 16 131/70 94 11/26/19 03:58 11/26/19 03:58 11/26/19 08:29 11/26/19 03:58 11/26/19 03:58 Oxygen Devices in Use Now: None Appearance: Sitting in chair getting HS, NAD, A+O x3. Ears/Nose/Mouth/Throat: NL Teeth, Lips, Gums, Clear Oropharnyx Neck: NL Appearance and Movements; NL JVP Respiratory: Symmetrical Chest Expansion and Respiratory Effort, Clear to Auscultation Cardiovascular: NL Sounds; No Murmurs; No JVD, No Edema Abdominal: NL Sounds; No Tenderness; No Distention Extremities: No Edema Neurological: Alert and Oriented x 3 Lines/Tubes/Other Access: Clean, Dry and Intact Peripheral IV, Clean, Dry and Intact Other Access - HD access. Laboratory Results: 11/26/19 05:50 11/26/19 05:50 Total Bilirubin 0.50 mg/dL (0.2-1.0) 11/26/19 05:50 AST 19 U/L (13-39) 11/26/19 05:50 ALT 33 U/L (7-52) 11/26/19 05:50 Alkaline Phosphatase 57 U/L (34-104) 11/26/19 05:50 Total Protein 6.9 g/dL (6.4-8.9) 11/26/19 05:50 Albumin 3.6 g/dL (3.2-5.2) 11/26/19 05:50 Globulin 3.3 g/dL (2-4) 11/26/19 05:50 Albumin/Globulin Ratio 1.1 (1-3) 11/26/19 05:50 11/23/19 11/24/19 06:05 04:40 Troponin I 0.15 H* 0.19 H* Laboratory Results - last 24 hr 11/25/19 11/25/19 11/26/19 10:49 10:49 05:50 WBC 6.2 5.8 RBC 3.43 L 3.35 L Hgb 9.2 L 9.1 L Hct 29 L 28 L MCV 83 84 MCH 27 27 MCHC 32 33 RDW 20 H 19 H Plt Count 177 164 MPV 6.9 L 7.8 Neut % (Auto) 78.0 76.6 Lymph % (Auto) 9.9 10.2 [place] % (Auto) 9.4 10.3 Eos % (Auto) 1.9 1.9 Baso % (Auto) 0.8 1.0 Absolute Neuts (auto) 4.8 4.4 Absolute Lymphs (auto) 0.6 L 0.6 L Absolute Monos (auto) 0.6 0.6 Absolute Eos (auto) 0.1 0.1 Absolute Basos (auto) 0.0 0.1 Absolute Nucleated RBC 0.0 0.0 Nucleated RBC % 0.1 0.0 Sodium 137 Potassium 4.6 Chloride 94 L Carbon Dioxide 28 Anion Gap 15 H BUN 54 H Creatinine 10.20 H Est GFR ( Amer) 6.4 Est GFR (Non-Af Amer) 5.3 BUN/Creatinine Ratio 5.3 L Glucose 83 Calcium 6.7 L Total Bilirubin 0.50 AST 27 ALT 43 Alkaline Phosphatase 55 Total Protein 6.7 Albumin 3.5 Globulin 3.2 Albumin/Globulin Ratio 1.1 11/26/19 05:50 WBC RBC Hgb Hct MCV MCH MCHC RDW Plt Count MPV Neut % (Auto) Lymph % (Auto) [place] % (Auto) Eos % (Auto) Baso % (Auto) Absolute Neuts (auto) Absolute Lymphs (auto) Absolute Monos (auto) Absolute Eos (auto) Absolute Basos (auto) Absolute Nucleated RBC Nucleated RBC % Sodium 136 Potassium 5.1 H Chloride 94 L Carbon Dioxide 27 Anion Gap 15 H BUN 59 H Creatinine 11.44 H Est GFR ( Amer) 5.6 Est GFR (Non-Af Amer) 4.6 BUN/Creatinine Ratio 5.2 L Glucose 88 Calcium 6.6 L Total Bilirubin 0.50 AST 19 ALT 33 Alkaline Phosphatase 57 Total Protein 6.9 Albumin 3.6 Globulin 3.3 Albumin/Globulin Ratio 1.1 Diagnostic Imaging: *[facility]* [place] [address] Fax #: [phone] Transthoracic Echocardiogram Patient: Indra Roman : 1965 Study Date: 11/25/2019 Age: 54 Gender: M HR: 63 bpm Height: 72 in /182.9 cm BSA: 2.06 m^2 Weight: 184.6 lb /83.9 kg BMI: 25.1 kg/m^2 *Combine Mechanic: * Delphine, Ofelia RDCS RN *Referring Physician: * Atul Yun MD *Reading Physician: * Justyn London MD Indications: Abnormal EKG. Ventricular tachycardia. History: Congestive heart failure. ESRD. Failed renal transplant. PHTN. PMH: Cardiomyopathy. Risk factors: Current tobacco use. Hypertension. Diabetes mellitus. Conclusions Summary: - Left ventricle: The cavity size is at the upper limits of normal. Wall thickness is moderately to severely increased. Systolic function is at the lower limits of normal. The estimated ejection fraction is 50-55%. Wall motion is normal; there are no regional wall motion abnormalities. - Right ventricle: Systolic function is low normal. - Right atrium: The atrium is moderately to severely dilated. Catheter is noted in right atrium. - Mitral valve: There is mild regurgitation. - Aortic valve: There is no evidence of stenosis. - Tricuspid valve: There is moderate regurgitation directed toward the septum. - Pericardium, extracardiac: There is no significant pericardial effusion. - Pulmonary arteries: Systolic pressure is moderately increased, This report is only to be considered final once signed by the Provider(s) as displayed in the "<Electronically Signed by >" field (s). Absence of a signature indicates the report is in a draft status and still needs to be finalized. In the event this document was created by someone other than the signing Provider, the individual initiating the document will be listed in the "Entered by:" or "Dictated by:" hart. EKG Data: 11/26/19 ECG sinus rate 66 anterolateral TWI. This appears to be transient. In August 2019 he had TWI as well noted on ECG. Assessment/Plan #1 Sustained VT s/p successful defibrillation 11/23/19. K+ was 6.9. He has missed HD on 11/22/19 due to reportedly not feeling well. BP was 214/131. He has not had recurrent VT since. Occasional PVCs. Denies chest pain. troponin .15, .19. echo did not reveal focal wall motion abnormality. In August He had a similar episode of 26 beat count VT again occurring with profound HTN and non compliance with HD. I stressed the importance of compliance with HD and medicatins. Troponin elevation likely due to HTN. He should follow up outpatient however. #2 Uncontrolled HTN; presumably due to medication non adherence. He has been admitted several times with uncontrolled HTN. On clonidine. given known non compliance and risk for rebound HTN consider converting to alternative agent. #3 h/o ESRD on HR; nephrology following. Currently getting HD. #4 Disposition pending course. d/w Dr. London. Will likely sign off case. Attending: Justyn London
[2019-11-26] MEDS ORDERED: EPOETIN ALFA-EPBX * 4,000 UNIT/ML VIAL IV ONE (11:00)
[2019-11-26] MEDS ORDERED: Heparin DIALYSIS ONLY(*) 1,000 UNITS/ML VIAL DIALYSIS ONE (11:00)
--- NOTE | 2019-11-26 13:24 | PN ---
Progress Note - Progress Note Date of Service: 11/26/19 Note: cc: ESRD Interval history: Mr. Vidales was admitted for hyperkalemia and volume overload. He is well known in the outpatient dialysis clinic for non adherence with fluid and dietary restrictions. He was admitted after he crashed in the cafeteria and was admitted to ICU with hyperkalemia and Vtach. Today volume is much improved. K improved. He usually does not engage in conversations with me in the dialysis unit but today he answers my questions. He is doing well and has no c/o. I saw Mr. Roman during HD ( today is his regular HD day).Tolerating treatment well. Discussed HD prescription with Kailee, branch store manager: 2K, 2.5Ca bath volume removal to bring him to TW heparin, Epo , hco3 as per hid op Rx. Laboratory Results - last 24 hr 11/26/19 11/26/19 05:50 05:50 WBC 5.8 RBC 3.35 L Hgb 9.1 L Hct 28 L MCV 84 MCH 27 MCHC 33 RDW 19 H Plt Count 164 MPV 7.8 Neut % (Auto) 76.6 Lymph % (Auto) 10.2 [place] % (Auto) 10.3 Eos % (Auto) 1.9 Baso % (Auto) 1.0 Absolute Neuts (auto) 4.4 Absolute Lymphs (auto) 0.6 L Absolute Monos (auto) 0.6 Absolute Eos (auto) 0.1 Absolute Basos (auto) 0.1 Absolute Nucleated RBC 0.0 Nucleated RBC % 0.0 Sodium 136 Potassium 5.1 H Chloride 94 L Carbon Dioxide 27 Anion Gap 15 H BUN 59 H Creatinine 11.44 H Est GFR ( Amer) 5.6 Est GFR (Non-Af Amer) 4.6 BUN/Creatinine Ratio 5.2 L Glucose 88 Calcium 6.6 L Total Bilirubin 0.50 AST 19 ALT 33 Alkaline Phosphatase 57 Total Protein 6.9 Albumin 3.6 Globulin 3.3 Albumin/Globulin Ratio 1.1 Exam : NAD CHEST : CTA Heart : s1, s2 rrr Extr: no c/c, trace to +1 edema Temp Pulse Resp BP SpO2 FiO2 98.4 F 71 16 157/86 90 11/26/19 08:00 11/26/19 08:00 11/26/19 08:29 11/26/19 08:00 11/26/19 08:00 A/P 1. ESRD on HD MWF - receiving HD today without complications at the time of my exam 2. Hyperkalemia - much improved 3. HTN - still high but improved 4. H/o nonadherence with dietary restrictions
--- NOTE | 2019-11-26 16:00 | PN ---
Subjective Date of Service: 11/26/19 Interval History: HD this morning. Was uneventful. He had not had any events on tele this morning but has refused tele this afternoon. He has no complaints, he feels well. His nurse Sonia reported incidental finding of hypoxia on afternoon vitals check to 79% and he was asymptomatic at that time. Resolved with 2L O2. Objective Active Medications: Carvedilol (Coreg Tab*) 25 mg PO TID [facility] Last Admin: 11/26/19 13:45 Dose: 25 mg Clonidine HCl (Catapres Tab*) 0.2 mg PO TID [facility] Last Admin: 11/26/19 13:45 Dose: 0.2 mg Dextrose (D50w Syringe 50 Ml*) 25 gm IV PUSH ONCE PRN PRN Reason: FS < 60 Last Admin: 11/23/19 12:22 Dose: 25 gm Heparin Sodium (Porcine) (Heparin Vial(*)) 5,000 units SUBCUT Q8HR [facility] Last Admin: 11/26/19 13:46 Dose: 5,000 units Heparin Sodium (Porcine) (Heparin Flush Picc/Ml/Cvc(*)) 1 - 3 ml FLUSH 0600, 1800 [facility]; Protocol Last Admin: 11/26/19 05:52 Dose: 1 ml Miscellaneous (Ativan Pyxis Nuno) 1 ea N/A .ATIVAN IV NUNO PRN PRN Reason: PYXIS NUNO Nifedipine (Procardia Xl Tab*) 90 mg PO DAILY [facility] Last Admin: 11/26/19 08:07 Dose: 90 mg Oxymorphone HCl (Opana Er (Nf)) 40 mg PO BID [facility] Last Admin: 11/26/19 08:07 Dose: 40 mg Oxymorphone HCl (Opana Ir (Nf)) 20 mg PO QID [facility] Last Admin: 11/26/19 13:52 Dose: Not Given Senna (Senokot 8.6 Mg Tab*) 1 tab PO DAILY PRN PRN Reason: CONSTIPATION Vital Signs - 8 hr 11/26/19 11/26/19 11/26/19 08:00 08:07 08:29 Temperature 98.4 F Pulse Rate 71 Respiratory 16 16 16 Rate Blood Pressure 157/86 (mmHg) O2 Sat by Pulse 90 Oximetry Oxygen Devices in Use Now: None Appearance: alert, sitting up in chair, no distress, well appearing Eyes: No Scleral Icterus Ears/Nose/Mouth/Throat: NL Teeth, Lips, Gums Neck: NL Appearance and Movements; NL JVP Respiratory: Symmetrical Chest Expansion and Respiratory Effort, - - few crackles in both bases Cardiovascular: - - R chest wall permcath Abdominal: NL Sounds; No Tenderness; No Distention Lymphatic: No Cervical Adenopathy Extremities: No Edema, - - 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 - Patient Problems (1) Ventricular tachycardia Current Visit: Yes Status: Acute Code(s): I47.2 - VENTRICULAR TACHYCARDIA SNOMED Code(s): 02581857 Comment: Secondary to marked hyperkalemia TTE did not show RWMA Evaluated by cardiology; no further plans, discussed with Dr. Surya Carrasco and Mag repleted He agrees to wearing tele (2) Acute respiratory failure with hypoxia Current Visit: Yes Status: Acute Code(s): J96.01 - ACUTE RESPIRATORY FAILURE WITH HYPOXIA SNOMED Code(s): 81540171 Comment: CXR shows mild pulm edema maybe from HTN emergency (though BP is resolved) will try to wean O2 and do an ambulatory pulse ox prior to discharge (3) ESRD (end stage renal disease) on dialysis Current Visit: Yes Status: Acute Priority: High Code(s): N18.6 - END STAGE RENAL DISEASE; Z99.2 - DEPENDENCE ON RENAL DIALYSIS SNOMED Code(s): 596132655 Comment: MWF HD as per home schedule (4) Hyperkalemia Current Visit: No Status: Acute Code(s): E87.5 - HYPERKALEMIA SNOMED Code( s): 95659916 Comment: resolved with HD (5) Hypertensive urgency Current Visit: No Status: Acute Code(s): I16.0 - HYPERTENSIVE URGENCY SNOMED Code(s): 041045418 Comment: resolved with HD
[2019-11-27] MEDS: Heparin VIAL(*) 5000 UNITS/ML VIAL (FIVE THOUSAND) SUBCUT SCH (04:58)
[2019-11-27 05:16] LABS: ABS Eosinophils 0.1 10^3/ul (0-0.6); ABS Lymphocytes 0.7 10^3/ul (1.0-4.8); ABS Monocytes 0.6 10^3/ul (0-0.8); ABS Neutrophils 4.7 10^3/ul (1.5-7.7); Eosinophil % 1.5 %; Hematocrit 28 % (42-52); Hemoglobin 9.1 g/dL (14.0-18.0); Mean Corpuscular HGB Conc 32 g/dL (31-36); Mean Corpuscular Hemoglobin 27 pg (27-31); Mean Corpuscular Volume 84 fL (80-94); Mean Platelet Volume 7.1 fL (7.4-10.4); Platelet Count 153 10^3/uL (150-450); Red Blood Count 3.39 10^6 /uL (4.18-5.48); Red Cell Distribution Width 19 % (10-15); White Blood Count 6.1 10^3/uL (3.5-10.8)
[2019-11-27 05:26] LABS: Albumin 3.5 g/dL (3.2-5.2); Albumin/Globulin Ratio 1.1 (1-3); BUN/Creatinine Ratio 4.1 (8-20); Calcium 7.2 mg/dL (8.6-10.3); EGFR African American 8.1 (>60); EGFR Non-African American 6.7 (>60); Globulin 3.2 g/dL (2-4); Potassium 4.6 mmol/L (3.5-5.0); Total Bilirubin 0.5 mg/dL (0.2-1.0); Total Protein 6.7 g/dL (6.4-8.9)
[2019-11-27] MEDS: NIFEdipine ER TAB* 30 MG PO SCH (09:18)
[2019-11-27] MEDS: cloNIDine TAB* 0.1 MG PO SCH (09:18)
[2019-11-27] MEDS: OXYMORPHONE IR 5 MG PO SCH (09:18)
[2019-11-27] MEDS: Carvedilol TAB* 25 MG PO SCH (09:18)
[2019-11-27] MEDS: OXYMORPHONE 20 MG PO SCH (09:19)
[2019-11-27 11:13] VITALS: BP 159/83
--- NOTE | 2019-11-27 15:48 | DS ---
DISCHARGE SUMMARY: ADDENDUM: MEDICATION LIST AT DISCHARGE: 1. Opana 40 mg b.i.d. 2. Opana 20 mg q.i.d. HOSPITAL COURSE: Chronic pain syndrome. He was continued on his home doses of Opana. [id number]/[facility] #: [id number] MTDD
--- NOTE | 2019-11-27 16:46 | DS ---
ADDENDUM NOW INCLUDED ON THIS REPORT CC: Sveta; Dr. Deng * DISCHARGE SUMMARY: DATE OF ADMISSION: 11/23/19 DATE OF DISCHARGE: 11/27/19 PRINCIPAL DISCHARGE DIAGNOSIS: 1. Unstable ventricular tachycardia. 2. Hyperkalemia. 3. Uncontrolled hypertension. 4. Chronic rejection of the renal transplant. 5. End-stage renal disease. 6. Chronic pain syndrome. 7. Pulmonary hypertension. MEDICATIONS AT DISCHARGE: 1. Opana 40 mg b.i.d. 2. Sildenafil 100 mg daily p.r.n. 3. Clonidine 0.1 mg t.i.d. 4. Coreg 25 mg t.i.d. 5. Hydralazine 25 mg b.i.d. 6. Nifedipine 90 mg daily. 7. Senna 25 daily. 8. Prednisone 40 mg daily. PHYSICAL EXAM AT DISCHARGE: Temperature 99.3, heart rate 67, respiratory rate 20, pulse ox 94% on room air, blood pressure 159/83. General: Alert, well- appearing man, in no distress, sitting in his recliner. HEENT: Pupils are equal, round, reactive to light. Oral mucosa is moist. Neck: No JVP, no adenopathy. Chest: He has a right chest wall PermCath. He is in a regular rate and rhythm. His lungs are clear bilaterally. His abdomen is distended and tender to light palpation. He has an incision over the right mid abdomen and is diffusely tender, but worse on the right than the left. He says the pain is unchanged from baseline. 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 He has no lower extremity edema. HOSPITAL COURSE BY PROBLEM: 1. Ventricular tachycardia with a pulse. Mr. Roman was a CAT call in the cafeteria on the day that he was scheduled for dialysis and he was profoundly hyperkalemic to 6.9. He was admitted to the ICU with arrangement for urgent hemodialysis; however, he developed a wide complex tachycardia in the ICU and was noted to be diaphoretic. Dr. Yun was urgently called and performed a synchronized cardioversion at that time, which was successful. He underwent dialysis for correction of the hyperkalemia and had no further V-tach on telemetry, however, with the caveat that he has refused telemetry for a portion of his hospitalization. Dr. Yun formally consulted and felt that the ventricular tachycardiac was provoked and related to the hyperkalemia and hypertensive emergency. He recommended evaluation for ischemic heart disease at some point. An echocardiogram did not show regional wall motion abnormalities. I discussed further workup with Dr. London who did not recommend any further ischemic workup at this time. 2. Hyperkalemia. It was unclear if Mr. Roman actually missed a dialysis session; however, Nephrology notes indicates that he has had difficulty with nonadherence with his diet in the past. There was also some question about whether he was on tacrolimus which may have contributed to hyperkalemia; however , Mr. Roman denies that he has been on it due to prior authorization issues. His potassium resolved with hemodialysis. 3. Uncontrolled hypertension. His blood pressure also resolved with resumption of dialysis. 4. Chronic rejection. He has chronic abdominal pain related to rejection of his transplanted kidney. He is supposed to be on prednisone and tacrolimus as an outpatient; however, he has not been taking due to prior authorization issues. Since he has presented with hyperkalemia, we elected not to try to restart it, but he was continued on his prednisone at 40 mg daily. 4. End-stage renal disease. He receives Tuesday, Tuesday, Tuesday hemodialysis via a PermCath. He received hemodialysis on his scheduled days here without any extra sessions. He was considered euvolemic at the time of discharge. 5. Chronic pain syndrome. 6. Pulmonary hypertension. DISPOSITION: Mr. Roman is being discharged to home on 11/27/19. He knows to follow up for dialysis on his regularly scheduled sessions and he has scheduled followup with the [facility] surgeons to have his transplanted kidney removed. CONDITION AT THE TIME OF DISCHARGE: Stable. ADDENDUM: MEDICATION LIST AT DISCHARGE: 1. Opana 40 mg b.i.d. 2. Opana 20 mg q.i.d. HOSPITAL COURSE: Chronic pain syndrome. He was continued on his home doses of Opana. [id number]/[facility] #: [id number]- [id number]/[facility] #: [id number] MTDBernice
== END 2019-11-27 13:20 | disposition home health service (06) | DRG 201 ==
LOC: ED 05:24 → ICU 09:30 → MEDTELE 11-24 17:50
PROVIDERS: ADMIT Internal Medicine Critical Care Medicine; ATTEND Internal Medicine
PROC: 5A1D70Z Performance of Urinary Filtration, Intermittent, Less than 6 Hours Per Day (ICD-10-PCS; 2019-11-23)
PROC: 5A2204Z Restoration of Cardiac Rhythm, Single (ICD-10-PCS; principal; 2019-11-24)
DX: I47.2 Ventricular tachycardia (principal); N18.6 End stage renal disease; J96.01 Acute respiratory failure with hypoxia; T86.12 Kidney transplant failure; J81.1 Chronic pulmonary edema; E87.2 Acidosis; I13.2 Hypertensive heart and chronic kidney disease with heart failure and with stage 5 chronic kidney disease, or end stage renal disease; I50.32 Chronic diastolic (congestive) heart failure; E87.70 Fluid overload, unspecified; E87.5 Hyperkalemia; D63.1 Anemia in chronic kidney disease; E78.5 Hyperlipidemia, unspecified; E66.9 Obesity, unspecified; R94.31 Abnormal electrocardiogram [ECG] [EKG]; I45.10 Unspecified right bundle-branch block; R10.9 Unspecified abdominal pain; I16.0 Hypertensive urgency; E11.22 Type 2 diabetes mellitus with diabetic chronic kidney disease; G47.30 Sleep apnea, unspecified; K21.9 Gastro-esophageal reflux disease without esophagitis; I27.20 Pulmonary hypertension, unspecified; G89.4 Chronic pain syndrome; Z99.2 Dependence on renal dialysis; Z91.15 Patient's noncompliance with renal dialysis; Z88.0 Allergy status to penicillin; Z88.8 Allergy status to other drugs, medicaments and biological substances; Z91.030 Bee allergy status; Z91.013 Allergy to seafood; Z68.23 Body mass index [BMI] 23.0-23.9, adult; Z91.11 Patient's noncompliance with dietary regimen; Z87.891 Personal history of nicotine dependence; Z79.899 Other long term (current) drug therapy; Z79.52 Long term (current) use of systemic steroids
CPT/HCPCS: 36415; 71045; 71046; 74176; 76705; 80048; 80053; 83605; 83690; 83735; 84484; 85025; 86140; 87040; 87641; 90935; 93005; 93306; 99284; A9270-GY; G0257; J0330; J0360; J0610; J1170; J1644; J2060; J2250; J2270; J2405; J3010; J3475; J3490; Q5106

== ENCOUNTER 2020-01-30 08:28 | Day surgery (SDC) | payer MEDICARE, MEDICAID ==
--- NOTE | 2020-01-24 14:23 | HP ---
HISTORY AND PHYSICAL: DATE OF ADMISSION: 01/30/20 CHIEF COMPLAINT: End-stage renal disease, admission for placement of arteriovenous fistula for hemodialysis. HISTORY OF PRESENT ILLNESS: The patient is a 54-year-old male with a history of end-stage renal disease secondary to hypertension and diabetes, who underwent approximately a year ago a kidney transplant; however, in July of last year, the patient started to reject the kidney and he was then switched to hemodialysis via tunnel dialysis catheter. 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 He ended up being admitted in the emergency room with severe abdominal pain, fluid overload, etc. He was admitted to the hospital, treated with high doses of prednisone, and he was stabilized. Because of the high level of prednisone, surgery was cancelled until his steroid level was tapered down to adequate levels in order to decrease the possibility of postoperative complications. The patient since has tapered his prednisone down. He is currently taking 10 mg a day. He no longer has abdominal pain and is taking all his medications. The patient is being admitted for an arteriovenous fistula on the right arm. He appears to have inadequate ulnar arterial flow and a good basilic vein on the right arm, and for this reason, we will attempt a right brachiobasilic fistula only because when he was admitted to the hospital in this acute rejection, the upper cephalic fistula that was going to be used for bypass was used for a peripheral IV and there is a question that it can still be useful. For this reason, we are going to proceed with a right basilic ulnar fistula at the wrist with possible conversion into a brachiocephalic fistula. PAST MEDICAL HISTORY: The patient's past medical history is remarkable for diabetes, hypertension, end-stage renal disease, history of hernia repair, and kidney transplant. CURRENT MEDICATIONS: The patient's current medications include: 1. Prednisone 10 mg p.o. daily. 2. Sodium bicarb 650 mg 2 tablets p.o. 4 times a day. 3. Clonidine 0.1 mg 2 tablets p.o. 3 times daily. 4. Nifedipine ER 30 mg 1 tablet p.o. twice daily. 5. Calcium acetate 667 mg 1 capsule p.o. 3 times a day. 6. Carvedilol 25 mg p.o. 1 tablet twice daily. 7. Oxymorphone hydrochloride 20 mg p.o. 4 times daily. 8. Sodium bicarbonate 650 mg p.o. 2 tablets 3 times a day. 9. Minoxidil 2.5 mg p.o. daily. 10. Veltassa 8.5 g mixed 1 packet in water, drink once daily. 11. Hydralazine hydrochlorothiazide 10 mg p.o. daily. ALLERGIES: The patient's allergies include PENICILLIN, CT CONTRAST, BEES, AND SHELLFISH. FAMILY HISTORY: The patient's family history is remarkable for history of coronary artery disease and hypertension. REVIEW OF SYSTEMS: The review of systems is contributory for endocrine, diabetes; cardiovascular, hypertension; renal, end-stage renal disease. Otherwise, the remaining of his review of systems is essentially unremarkable. PHYSICAL EXAMINATION VITAL SIGNS: Height is 72 inches, weight 180 pounds. Blood pressure is 132/ 71. BMI of 24. Respirations of 18. HEAD AND NECK: Reveals no neck nodes or masses. There is a dialysis catheter present on the right internal jugular. LUNGS: Clear to auscultation bilaterally. HEART: Regular without murmurs. ABDOMEN: Soft, nontender. EXTREMITIES: The upper extremities reveal on the left side multiple incisions related to a prior brachiocephalic fistula was completely removed. The patient has excellent palpable pulses bilaterally at the axillary, brachial, radialis, and ulnars all present. On the right side, the patient had previous wrist surgery from an injury that he sustained with cut glass. This was completely repaired. There was involved tendon tendon repair, but there was no damage to the either radial or ulnar. The ulnar is very strong on the right side above the injury that the patient sustained years ago. He has a 4 mm size basilic vein in the area of the wrist that can ideally be anastomosed to the ulnar in order to create a ulnar basilic fistula. If during the surgery this is not adequate, then we would use a brachiocephalic fistula as a second alternative. The reason being predominantly because this vein was used as a peripheral vein during the patient's most recent admission. The remaining of the physical examination is unremarkable. Lower extremity examination is essentially unremarkable. DIAGNOSTIC IMPRESSION: Is that of end-stage renal disease. PLAN: The plan is to proceed with a right arm creation of arteriovenous fistula , attempting a basilic ulnar fistula, and if this does not appear to be adequate during the surgery, then convert to a right brachiobasilic fistula. The patient understands that there are potential complications including, but not exclusive of others such as occlusion, failure to mature of the fistula, bleeding, pain, etc. The patient understands, agrees, and wishes to proceed. [id number]/[facility] #: [id number] MTDD
[~2020-01-30 08:28] MED LIST: Buffered Lidocaine 1% SYRIN* 1 ML/SYRINGE INTRADERM ONE; Clindamycin 900 MG/D5W BAG(*) 900 MG/50 ML BAG IVPB ONE; Lactated Ringers 1000 ML Bag* 1,000 ML IV SCH
[2020-01-30] MEDS ORDERED: Midazolam* 1 MG/ML 2 ML VIAL (2 MG) ONE (08:49)
[2020-01-30] MEDS ORDERED: fentaNYL* 50 MCG/ML 2 ML VIAL (100 MCG VIAL) ONE (08:49)
[2020-01-30] MEDS ORDERED: Clindamycin 900 MG/D5W BAG(*) 900 MG/50 ML BAG IVPB ONE (08:55)
[2020-01-30] MEDS ORDERED: Buffered Lidocaine 1% SYRIN* 1 ML/SYRINGE INTRADERM ONE (08:56)
[2020-01-30] MEDS ORDERED: HYDROmorphone INJ1* 1 MG/ML SYRINGE IV PRN (09:08)
[2020-01-30] MEDS ORDERED: Naloxone* 0.4 MG/ML 1 ML VIAL IV PRN (09:08)
[2020-01-30 09:35] LABS: BUN/Creatinine Ratio 6.2 (8-20); Calcium 8.2 mg/dL (8.6-10.3); EGFR African American 8.2 (>60); EGFR Non-African American 6.8 (>60)
[2020-01-30 09:36] LABS: Potassium 5.5 mmol/L (3.5-5.0)
[2020-01-30] MEDS ORDERED: Propofol* 500 MG/50 ML BTL ONE (11:04)
[2020-01-30] MEDS ORDERED: Heparin VIAL(*) 5000 UNITS/ML VIAL (FIVE THOUSAND) ONE (11:21)
[2020-01-30] MEDS ORDERED: Heparin DIALYSIS ONLY(*) 1,000 UNITS/ML VIAL ONE (11:23)
[2020-01-30] MEDS ORDERED: Acetaminophen IV 1GM/100ML * 1,000 MG/100 ML VIAL IVPB ONE (12:33)
[2020-01-30] MEDS ORDERED: Acetaminophen IV 1GM/100ML * 100 ML ONE (12:34)
--- NOTE | 2020-01-30 13:32 | OP ---
DATE OF OPERATION: 01/30/20 [facility] DATE OF : 61 SURGEON: Dr. Pérez. BLOOD BANK ATTENDANT: Daysi Fernández NP. ANESTHESIA: Local plus MAC. PRE-OP DIAGNOSIS: End-stage renal disease. POST-OP DIAGNOSIS: End-stage renal disease. OPERATIVE PROCEDURE: Right brachiocephalic fistula (attempted basilic ulnar fistula). ESTIMATED BLOOD LOSS: Approximately 40 cc. DESCRIPTION OF PROCEDURE: The patient was taken to the procedure room. He underwent proper identification of the patient's site of surgery. He was taken to the operating room. Proper time-out was performed. Under sedation, the patient was prepped and draped exposing the right arm. Lidocaine 1% was used to infiltrate at the level of the ulnar artery, medial aspect of the right wrist and the basilic vein. This vein had a measurement of 3 mm prior to surgery. After local anesthesia was given, up-and-down incision was made in this area for approximately 4 cm. The incision was carried down through skin and subcutaneous tissue. The basilic vein was exposed. It was deemed to be too small for an adequate anastomosis and likely would fail. The cephalic vein was much larger and patent, but it had been recently used while the patient was in the hospital in the last admission. However, on the ultrasound prior to surgery, it appeared to be patent. We then proceeded to infiltrate lidocaine 1% in the antecubital fossa. The incision was carried through the skin and subcutaneous tissue. The cephalic vein was identified and dissected off and encircled in vessel loops. Then, the brachial artery was dissected off, identified, and encircled in vessel loops as well. Care was taken to avoid other structures. Branches of the cephalic vein were clipped proximal and distally and divided. After this was done, the distal end of the cephalic vein towards the forearm was then clamped distally, transected, and the distal end was suture ligated with 4-0 Vicryl. We then proceeded to use dilators. The dilators would go up to 3 mm without any evidence of obstruction. The irrigation would go easily using an Angiocath and heparinized saline. We then proceeded to put a Yasargil clamp to the cephalic vein and the patient received 3000 units of heparin. Three minutes later, we then proceeded to cross clamp the brachial artery distally and then proximally, and arteriotomy was performed with an 11 blade and extended with Soares scissors. We then proceeded to perform an end-to-side anastomosis using 7-0 Prolene in a parachute technique. Once good flow was established, we then released the Yasargil fiscal analyst, then the distal arterial clamp oozes from the anastomosis were controlled by interrupted sutures using 6-0 Prolene. After this was completed, no bleeding was noted. All the clamps were released and flow was established into the cephalic vein. There was excellent palpable pulse and thrill and excellent Doppler signal proximally and distally to the brachial artery into the cephalic vein all the way up to the mid arm with the Doppler, and the patient had excellent palpable pulses at the radial and ulna as well. After this was done, the area was checked for hemostasis, no bleeding was noted. Both incisions were closed with interrupted Vicryl sutures for the subcutaneous tissue, and the skin was closed with subcuticular 5-0 Monocryl. After this was done, the patient was then taken in good condition to the recovery room. [id number]/[facility] #: [id number] JOCY
[2020-01-30 14:10] VITALS: BP 110/68
== END 2020-01-30 15:02 | disposition home or self-care (01) ==
LOC: OR 08:28
PROVIDERS: ATTEND Surgery
DX: I12.0 Hypertensive chronic kidney disease with stage 5 chronic kidney disease or end stage renal disease (principal); N18.6 End stage renal disease; E11.21 Type 2 diabetes mellitus with diabetic nephropathy; Z88.0 Allergy status to penicillin; Z99.2 Dependence on renal dialysis; G47.33 Obstructive sleep apnea (adult) (pediatric); F41.9 Anxiety disorder, unspecified; G89.29 Other chronic pain
CPT/HCPCS: 36415; 80048; J1642; J1644; J2250; J2704; J3010

== ENCOUNTER 2020-02-28 10:02 | Emergency (ER) | payer MEDICARE, MEDICAID ==
[2020-02-28 10:09] VITALS: BP 149/82
--- NOTE | 2020-02-28 10:25 | ED ---
Skin Complaint - HPI Summary HPI Summary: 54 [place] [facility] [place]clamp at the end of his vas cath. Patient has vas cath in right chest wall which he has had for several months. Had it placed in [place]. Sees Dr. Venegas. Received dialysis today during which the clip/clamp broke. Patient here requesting to have it fixed. Medications reviewed. Allergies noted. - History of Current Complaint Chief Complaint: EDGeneral Time Seen by Provider: 02/28/20 10:10 Stated Complaint: GENERAL- SENT FROM DIALYSIS PER PT Hx Obtained From: Patient Onset/Duration: Started Minutes Ago, Still Present Timing: Constant Skin Location: Chest - right side Aggravating Symptom(s): Nothing Alleviating Symptom(s): Nothing - Additional Pertinent History Primary Care Physician: EMILIE - Allergy/Home Medications Allergies/Adverse Reactions: Allergies Allergy/AdvReac Type Severity Reaction Status Date / Time bee venom protein (honey bee) Allergy Anaphylatic Verified 02/28/20 10:09 Shock lisinopril Allergy Anaphylatic Verified 02/28/20 10:09 Shock Penicillins Allergy Anaphylatic Verified 02/28/20 10:09 Shock shellfish derived Allergy Anaphylatic Verified 02/28/20 10:09 Shock Home Medications: Home Medications Carvedilol TAB* [Coreg TAB*] 25 mg PO BID 08/27/19 [History Confirmed 02/28/20] cloNIDine HCL [Clonidine HCl 0.3 MG] 0.1 mg PO TID 08/27/19 [History Confirmed 02/28/20] hydrALAZINE TAB* [Apresoline TAB*] 10 mg PO TID 08/27/19 [History Confirmed ] NIFEdipine ER TAB* [Procardia Xl TAB*] 90 mg PO DAILY 12/20/19 [History Confirmed 02/28/20] Oxymorphone HCl [Oxymorphone HCl ER] 40 mg PO BID 12/20/19 [History Confirmed ] predniSONE 10 mg TAB [Deltasone 10 MG TAB*] 60 mg PO DAILY 12/20/19 [History Confirmed 02/28/20] Cinacalcet TAB* [Sensipar TAB*] 30 mg PO DAILY 02/28/20 [History Confirmed 02/27] MinoXIDil TAB* [Loniten TAB*] 10 mg PO BID 02/28/20 [History Confirmed 02/28/20] Oxymorphone (NF) [Opana (NF)] 20 mg PO QID 02/28/20 [History Confirmed 02/28/20] Patiromer POWDER* [Veltassa POWDER*] 8.4 gm PO DAILY 02/28/20 [History Confirmed 02/28/20] Sennosides [Natural Senna Laxative] 25 mg PO DAILY PRN 02/28/20 [History Confirmed 02/28/20] Sildenafil (NF) [Viagra (NF)] 100 mg PO ONCE PRN 02/28/20 [History Confirmed ] Tacrolimus CAP(*) [Prograf CAP(*)] 6 mg PO BID 02/28/20 [History Confirmed 02/27] amLODIPine TAB* [Norvasc 5 mg TAB*] 10 mg PO DAILY 02/28/20 [History Confirmed 02/28/20] PMH/Surg Hx/FS Hx/Imm Hx Endocrine/Hematology History: Reports: Hx Diabetes - HX OF-PT REPORTS EARLY 38 NO LONGER AN ISSUE, NO LONGER ON MEDICATION Denies: Hx Anticoagulant Therapy, Hx Bone Marrow Disease, Hx Sickle Cell Disease, Hx Thyroid Disease, Hx Anemia Cardiovascular History: Reports: Hx Congestive Heart Failure, Hx Hypertension - HX OF-ON MEDICATION FOR Denies: Hx Coronary Artery Disease, Hx Pacemaker/ICD, Hx Peripheral Vascular Disease, Other Cardiovascular Problems/Disorders Respiratory History: Reports: Other Respiratory Problems/Disorders - STOP BANG SCORE=6; SUMEET SCORE: SUMEET HIGH RISK Denies: Hx Asthma, Hx Chronic Obstructive Pulmonary Disease (COPD), Hx Sleep Apnea GI History: Denies: Hx Gastroesophageal Reflux Disease, Hx Irritable Bowel, Hx Ulcer, Other GI Disorders History: Reports: Hx Chronic Renal Failure, Hx Dialysis, Hx Renal Disease - STAGE 5 ON HEMODIALYSIS; transplant placed and failed Denies: Hx Kidney Infection, Hx Kidney Stones, Other Problems/Disorders Musculoskeletal History: Reports: Hx Back Problems, Other Musculoskeletal History - HX OF-PT REPORTS S/P SPINAL FUSION-C3-4~~2002 Denies: Hx Arthritis, Hx Bursitis, Hx Osteoporosis, Hx Tendonitis Sensory History: Reports: Hx Contacts or Glasses - GLASSES Denies: Hx Cataracts, Hx Glaucoma, Hx Hearing Aid Opthamlomology History: Reports: Hx Contacts or Glasses - GLASSES Denies: Hx Cataracts, Hx Glaucoma Neurological History: Denies: Hx Dementia, Hx Headaches, Hx Migraine, Hx Nerve Disease, Hx Seizures , Other Neuro Impairments/Disorders Psychiatric History: Reports: Hx Anxiety - HX OF-ON MEDICATION FOR~PT REPORTS CLAUSTROPHOBIC Denies: Hx Depression, Hx Substance Abuse - Cancer History Hx Chemotherapy: No - Surgical History Surgery Procedure, Year, and Place: UMBILICAL HERNIA [id number]. [place] [id number][place] [place] [id number] UMBILICAL REVISION HERNIA [id number]. [place] [place]UE F[place]ULA [id number]. LUE FISTULA [id number]. KIDNEY TRANSPLANT-2018 Hx Anesthesia Reactions: No - Immunization History Date of Tetanus Vaccine: unknown Date of Influenza Vaccine: Fall 2018 Infectious Disease History: No Infectious Disease History: Denies: Hx Clostridium Difficile, Hx Hepatitis, Hx Human Immunodeficiency Virus (HIV), Hx of Known/Suspected MRSA, Hx Shingles, Hx Tuberculosis, Hx Known/ Suspected VRE, Hx Known/Suspected VRSA, History Other Infectious Disease, Traveled Outside the in Last 30 Days - Family History Known Family History: Positive: Hypertension, Diabetes Negative: Cardiac Disease, Renal Disease - Social History Alcohol Use: None Hx Substance Use: No Substance Use Type: Reports: None Hx Tobacco Use: Yes Smoking Status (MU): Former Smoker Type: Cigarettes Amount Used/How Often: 1/2 PPD 2 YRS OFF AND ON Length of Time of Smoking/Using Tobacco: 35 YEARS Have You Smoked in the Last Year: No Review of Systems Negative: Fever Positive: other - broken clip/clamp at the end of his vas cath All Other Systems Reviewed And Are Negative: Yes Physical Exam - Summary Physical Exam Summary: General: Well appearing, no distress HEENT: PERRL Cardiovascular: Skin is well perfused Pulmonary: No respiratory distress, no tachypnea Abdomen: Non-distended Skin: Warm, pink, dry; R chest wall permacath that is clean, dry, intact MSK: No edema Psych: Normal affect Neuro: A&Ox3 Triage Information Reviewed: Yes Vital Signs On Initial Exam: Initial Vitals Temp Pulse Resp BP Pulse Ox 98.2 F 85 19 149/82 96 02/28/20 10:03 02/28/20 10:03 02/28/20 10:03 02/28/20 10:03 02/28/20 10:03 Vital Signs Reviewed: Yes Procedures - Sedation Patient Received Moderate/Deep Sedation with Procedure: No Diagnostics - Vital Signs Vital Signs Temp Pulse Resp BP Pulse Ox 02/28/20 10:03 98.2 F 85 19 149/82 96 - Laboratory Lab Statement: Any lab studies that have been ordered have been reviewed, and results considered in the medical decision making process. Course/Dx - Course Course Of Treatment: 54 y/o male ESRD p/w clip broken from vas cath, will d/w nephrology. - per nephrology patient was very aggressive staff and they do not feel comfortable doing procedure. - d/w interventional radiology, they can replace tomorrow. - had dialysis today, catheter site clean, does not need emergent replacement - Diagnoses Provider Diagnoses: Permanent central venous catheter in place - Physician Notifications Discussed Care Of Patient With: Jalen Venegas - States there is no room in the OR to replace it today. He offered to do it tomorrow but the patient became aggressive. Therefore he declined to replace it. He recommends consulting IR or surgery. 1051 Dr. Wyatt agrees to replace it tomorrow 02/28. Time Discussed With Above Provider: 10:46 - Critical Care Time Critical Care Statement: Critical care time is provided exclusive of any time spent performing procedures. Discharge ED - Sign-Out/Discharge Documenting (check all that apply): Patient Departure - Discharge Plan Condition: Stable Disposition: HOME Patient Education Materials: Perma-cath Placement (DC) Referrals: Jacob Deng MD [Primary Care Provider] - Espinoza Wyatt MD [Medical Doctor] - Additional Instructions: You were seen in the ER for a problem with your dialysis catheter. We can replace this tomorrow at 1 pm but you need to arrive by 1130 am. Please go to the admissions desk when you check in. Please return for any bleeding from your site, worse or concerning symptoms. It was a pleasure taking care of you today. - Billing Disposition and Condition Condition: STABLE Disposition: Home - Attestation Statements Document Initiated by Scribe: Yes Documenting Scribe: Hedy Burns Provider For Whom Scribe is Documenting (Include Credential): Trenton Solis MD Scribe Attestation: I, Hedy Burns, scribed for Trenton Solis MD on 02/28/20 at 1120. Scribe Documentation Reviewed: Yes Provider Attestation: The documentation as recorded by the scribe, Hedy Burns accurately reflects the service I personally performed and the decisions made by me, Trenton Solis MD Status of Scribe Document: Viewed
== END 2020-02-28 11:21 | disposition home or self-care (01) ==
LOC: ED 10:02
DX: T82.898A Other specified complication of vascular prosthetic devices, implants and grafts, initial encounter (principal); Z95.828 Presence of other vascular implants and grafts; E11.9 Type 2 diabetes mellitus without complications; I13.2 Hypertensive heart and chronic kidney disease with heart failure and with stage 5 chronic kidney disease, or end stage renal disease; I50.9 Heart failure, unspecified; N18.6 End stage renal disease; E11.22 Type 2 diabetes mellitus with diabetic chronic kidney disease; Z87.891 Personal history of nicotine dependence; Z79.52 Long term (current) use of systemic steroids; Z79.899 Other long term (current) drug therapy; Z88.0 Allergy status to penicillin; Z88.8 Allergy status to other drugs, medicaments and biological substances
CPT/HCPCS: 99282

== ENCOUNTER 2020-03-04 06:14 | Observation (INO) | payer MEDICARE, MEDICAID ==
[2020-03-04 07:21] LABS: INR 1.25 (0.82-1.09)
[2020-03-04 07:25] LABS: ABS Eosinophils 0.7 10^3/ul (0-0.6); ABS Lymphocytes 0.8 10^3/ul (1.0-4.8); ABS Monocytes 0.5 10^3/ul (0-0.8); ABS Neutrophils 4.6 10^3/ul (1.5-7.7); Eosinophil % 10.3 %; Hematocrit 33 % (42-52); Hemoglobin 10.6 g/dL (14.0-18.0); Lymphocyte % 12.4 %; Mean Corpuscular HGB Conc 32 g/dL (31-36); Mean Corpuscular Hemoglobin 27 pg (27-31); Mean Corpuscular Volume 86 fL (80-94); Mean Platelet Volume 7.8 fL (7.4-10.4); Nucleated Red Blood Cells % 0.1; Platelet Count 264 10^3/uL (150-450); Red Blood Count 3.86 10^6 /uL (4.18-5.48); Red Cell Distribution Width 18 % (10-15); White Blood Count 6.6 10^3/uL (3.5-10.8)
[2020-03-04 07:32] LABS: ALT 5 U/L (7-52); AST 12 U/L (13-39); Albumin 3.5 g/dL (3.2-5.2); Albumin/Globulin Ratio 0.9 (1-3); Alkaline Phosphatase 50 U/L (34-104); BUN/Creatinine Ratio 3.3 (8-20); Blood Urea Nitrogen 46 mg/dL (6-24); CO2 Carbon Dioxide 25 mmol/L (22-32); Calcium 9.6 mg/dL (8.6-10.3); Chloride 102 mmol/L (101-111); EGFR African American 4.4 (>60); EGFR Non-African American 3.6 (>60); Glucose 151 mg/dL (70-100); Magnesium 2.5 mg/dL (1.9-2.7); Sodium 139 mmol/L (135-145); Total Protein 7.5 g/dL (6.4-8.9)
[2020-03-04] MEDS ORDERED: Acetaminophen TAB* 325 MG PO ONE (07:37)
--- NOTE | 2020-03-04 07:41 | ED ---
Abdominal Pain/Female - HPI Summary HPI Summary: Pt is a 54yo M with a ESRD, HTN, Failed Renal Transplant, Anemia of CKD, Poor compliance to HD Rx & ISDs presenting to the ED with need for dialysis. Per patient and medical records pt was discharged from Dr. Rodriguez's service through [facility] and is no longer able to have dialysis at their facility. last dialysis was , 5 days ago. Pt has no new complaints. States his R kidney hurts similar to his previous visits over the past several months. States it improves with dialysis. Denies any fevers, sweats, chills, cough, congestion or any recent sick contacts. - History of Current Complaint Chief Complaint: EDGeneral Stated Complaint: NEEDS DIALYSIS PER PT Time Seen by Provider: 03/04/20 06:29 Hx Obtained From: Patient ?: No Timing: Constant Severity Currently: None Pain Intensity: 7 Character: Burning Alleviating Factor(s): Nothing Associated Signs and Symptoms: Positive: Negative Allergies/Adverse Reactions: Allergies Allergy/AdvReac Type Severity Reaction Status Date / Time bee venom protein (honey bee) Allergy Anaphylatic Verified 03/04/20 06:26 Shock lisinopril Allergy Anaphylatic Verified 03/04/20 06:26 Shock Penicillins Allergy Anaphylatic Verified 03/04/20 06:26 Shock shellfish derived Allergy Anaphylatic Verified 03/04/20 06:26 Shock Home Medications: Home Medications Carvedilol TAB* [Coreg TAB*] 25 mg PO BID 08/27/19 [History Confirmed 03/04/20] cloNIDine HCL [Clonidine HCl 0.3 MG] 0.1 mg PO TID 08/27/19 [History Confirmed 03/04/20] hydrALAZINE TAB* [Apresoline TAB*] 10 mg PO TID 08/27/19 [History Confirmed ] NIFEdipine ER TAB* [Procardia Xl TAB*] 90 mg PO DAILY 12/20/19 [History Confirmed 03/04/20] Oxymorphone HCl [Oxymorphone HCl ER] 40 mg PO BID 12/20/19 [History Confirmed ] Oxymorphone (NF) [Opana (NF)] 20 mg PO QID 02/28/20 [History Confirmed 03/04/20] Sennosides [Natural Senna Laxative] 25 mg PO DAILY PRN 02/28/20 [History Confirmed 03/04/20] Sildenafil (NF) [Viagra (NF)] 100 mg PO ONCE PRN 02/28/20 [History Confirmed ] PMH/Surg Hx/FS Hx/Imm Hx Previously Healthy: No Endocrine/Hematology History: Reports: Hx Diabetes - HX OF-PT REPORTS EARLY 38 NO LONGER AN ISSUE, NO LONGER ON MEDICATION Denies: Hx Anticoagulant Therapy, Hx Bone Marrow Disease, Hx Sickle Cell Disease, Hx Thyroid Disease, Hx Anemia Cardiovascular History: Reports: Hx Congestive Heart Failure, Hx Hypertension - HX OF-ON MEDICATION FOR Denies: Hx Coronary Artery Disease, Hx Pacemaker/ICD, Hx Peripheral Vascular Disease, Other Cardiovascular Problems/Disorders Respiratory History: Reports: Other Respiratory Problems/Disorders - STOP BANG SCORE=6; SUMEET SCORE: SUMEET HIGH RISK Denies: Hx Asthma, Hx Chronic Obstructive Pulmonary Disease (COPD), Hx Sleep Apnea GI History: Denies: Hx Gastroesophageal Reflux Disease, Hx Irritable Bowel, Hx Ulcer, Other GI Disorders History: Reports: Hx Chronic Renal Failure, Hx Dialysis, Hx Renal Disease - STAGE 5 ON HEMODIALYSIS; transplant placed and failed Denies: Hx Kidney Infection, Hx Kidney Stones, Other Problems/Disorders Musculoskeletal History: Reports: Hx Back Problems, Other Musculoskeletal History - HX OF-PT REPORTS S/P SPINAL FUSION-C3-4~~2002 Denies: Hx Arthritis, Hx Bursitis, Hx Osteoporosis, Hx Tendonitis Sensory History: Reports: Hx Contacts or Glasses - GLASSES Denies: Hx Cataracts, Hx Glaucoma, Hx Hearing Aid Opthamlomology History: Reports: Hx Contacts or Glasses - GLASSES Denies: Hx Cataracts, Hx Glaucoma Neurological History: Denies: Hx Dementia, Hx Headaches, Hx Migraine, Hx Nerve Disease, Hx Seizures , Other Neuro Impairments/Disorders Psychiatric History: Reports: Hx Anxiety - HX OF-ON MEDICATION FOR~PT REPORTS CLAUSTROPHOBIC Denies: Hx Depression, Hx Substance Abuse - Cancer History Hx Chemotherapy: No - Surgical History Surgery Procedure, Year, and Place: UMBILICAL HERNIA [id number]. CERVICAL SPINE [id number]-[facility] [place]. RT WRIST SURGERY [id number] UMBILICAL REVISION HERNIA [id number]. LEFT ELBOW SURGERY-2014 -[facility] [place]. LUE FISTULA [id number]. LUE FISTULA [id number]. KIDNEY TRANSPLANT-2018 Hx Anesthesia Reactions: No - Immunization History Date of Tetanus Vaccine: unknown Date of Influenza Vaccine: Fall 2018 Hx Pertussis Vaccination: No Immunizations Up to Date: Yes Infectious Disease History: No Infectious Disease History: Denies: Hx Clostridium Difficile, Hx Hepatitis, Hx Human Immunodeficiency Virus (HIV), Hx of Known/Suspected MRSA, Hx Shingles, Hx Tuberculosis, Hx Known/ Suspected VRE, Hx Known/Suspected VRSA, History Other Infectious Disease, Traveled Outside the [place] in Last 30 Days - Family History Known Family History: Positive: Hypertension, Diabetes Negative: Cardiac Disease, Renal Disease - Social History Occupation: Unemployed Lives: Alone Alcohol Use: None Hx Substance Use: No Substance Use Type: Reports: None Hx Tobacco Use: Yes Smoking Status (MU): Former Smoker Type: Cigarettes Amount Used/How Often: 1/2 PPD 2 YRS OFF AND ON Length of Time of Smoking/Using Tobacco: 35 YEARS Have You Smoked in the Last Year: No Review of Systems Negative: Fever, Chills, Skin Diaphoresis Negative: Palpitations, Chest Pain Negative: Shortness Of Breath, Cough Positive: flank pain - R flank pain Negative: Arthralgia, Myalgia Skin: Negative Neurological/Mental Status: Negative All Other Systems Reviewed And Are Negative: Yes Physical Exam Triage Information Reviewed: Yes Vital Signs On Initial Exam: Initial Vitals Temp Pulse Resp BP Pulse Ox 99.3 F 63 16 163/87 96 03/04/20 06:24 03/04/20 06:24 03/04/20 06:24 03/04/20 06:24 03/04/20 06:24 Completion Of Physical Exam Limited Due To: Other - somnolent Skin: Positive: Skin Color Reflects Adequate Perfusion Head/Face: Positive: Normal Head/Face Inspection Eyes: Positive: EOMI, Conjunctiva Clear Neck: Positive: No Lymphadenopathy Respiratory/Lung Sounds: Positive: Clear to Auscultation, Breath Sounds Present Cardiovascular: Positive: Normal Neurological: Positive: Sensory/Motor Intact, Speech Normal AVPU Assessment: Alert Procedures - Sedation Patient Received Moderate/Deep Sedation with Procedure: No - Laceration/Wound Repair 1 Location: head Description: Linear Anesthesia: 1.0% Diagnostics - Vital Signs Vital Signs Temp Pulse Resp BP Pulse Ox 03/04/20 06:24 99.3 F 63 16 163/87 96 - Laboratory Lab Results: Lab Results 03/04/20 03/04/20 03/04/20 Range/Units 07:02 07:02 07:02 WBC 6.6 (3.5-10.8) 10^3/uL RBC 3.86 L (4.18-5.48) 10^6 /uL Hgb 10.6 L (14.0-18.0) g/dL Hct 33 L (42-52) % MCV 86 (80-94) fL MCH 27 (27-31) pg MCHC 32 (31-36) g/dL RDW 18 H (10-15) % Plt Count 264 (150-450) 10^3/uL MPV 7.8 (7.4-10.4) fL Neut % (Auto) 69.7 % Lymph % (Auto) 12.4 % [place] % (Auto) 7.3 % Eos % (Auto) 10.3 % Baso % (Auto) 0.3 % Absolute Neuts (auto) 4.6 (1.5-7.7) 10^3/ul Absolute Lymphs (auto) 0.8 L (1.0-4.8) 10^3/ul Absolute Monos (auto) 0.5 (0-0.8) 10^3/ul Absolute Eos (auto) 0.7 H (0-0.6) 10^3/ul Absolute Basos (auto) 0.0 (0-0.2) 10^3/ul Absolute Nucleated RBC 0.0 10^3/ul Nucleated RBC % 0.1 INR (Anticoag Therapy) (0.82-1.09) Sodium 139 (135-145) mmol/L Potassium Pending Chloride 102 (101-111) mmol/L Carbon Dioxide 25 (22-32) mmol/L Anion Gap Pending BUN 46 H (6-24) mg/dL Creatinine 14.15 H (0.67-1.17) mg/dL Est GFR ( Amer) 4.4 (>60) Est GFR (Non-Af Amer) 3.6 (>60) BUN/Creatinine Ratio 3.3 L (8-20) Glucose 151 H (70-100) mg/dL Lactic Acid 1.1 (0.5-2.0) mmol/L Calcium 9.6 (8.6-10.3) mg/dL Magnesium 2.5 (1.9-2.7) mg/dL Total Bilirubin 0.50 (0.2-1.0) mg/dL AST 12 L (13-39) U/L ALT 5 L (7-52) U/L Alkaline Phosphatase 50 (34-104) U/L Troponin I Pending Total Protein 7.5 (6.4-8.9) g/dL Albumin 3.5 (3.2-5.2) g/dL Globulin 4.0 (2-4) g/dL Albumin/Globulin Ratio 0.9 L (1-3) TSH Pending 03/04/20 Range/Units 07:02 WBC (3.5-10.8) 10^3/uL RBC (4.18-5.48) 10^6 /uL Hgb (14.0-18.0) g/dL Hct (42-52) % MCV (80-94) fL MCH (27-31) pg MCHC (31-36) g/dL RDW (10-15) % Plt Count (150-450) 10^3/uL MPV (7.4-10.4) fL Neut % (Auto) % Lymph % (Auto) % [place] % (Auto) % Eos % (Auto) % Baso % (Auto) % Absolute Neuts (auto) (1.5-7.7) 10^3/ul Absolute Lymphs (auto) (1.0-4.8) 10^3/ul Absolute Monos (auto) (0-0.8) 10^3/ul Absolute Eos (auto) (0-0.6) 10^3/ul Absolute Basos (auto) (0-0.2) 10^3/ul Absolute Nucleated RBC 10^3/ul Nucleated RBC % INR (Anticoag Therapy) 1.25 H (0.82-1.09) Sodium (135-145) mmol/L Potassium Chloride (101-111) mmol/L Carbon Dioxide (22-32) mmol/L Anion Gap BUN (6-24) mg/dL Creatinine (0.67-1.17) mg/dL Est GFR ( Amer) (>60) Est GFR (Non-Af Amer) (>60) BUN/Creatinine Ratio (8-20) Glucose (70-100) mg/dL Lactic Acid (0.5-2.0) mmol/L Calcium (8.6-10.3) mg/dL Magnesium (1.9-2.7) mg/dL Total Bilirubin (0.2-1.0) mg/dL AST (13-39) U/L ALT (7-52) U/L Alkaline Phosphatase (34-104) U/L Troponin I Total Protein (6.4-8.9) g/dL Albumin (3.2-5.2) g/dL Globulin (2-4) g/dL Albumin/Globulin Ratio (1-3) TSH Result Diagrams: 03/04/20 07:02 03/04/20 07:02 Lab Statement: Any lab studies that have been ordered have been reviewed, and results considered in the medical decision making process. Abdominal Pain Fem Course/Dx - Course Course Of Treatment: Patient is evaluated for need for dialysis. Patient states his right kidney is in pain. This is similar to his previous visits. He was ordered Tylenol 650 mg. Labs were drawn. Pt is in need of dialysis. Pt requesting pain medication. Refused tylenol. Pt continues to be adverse to our recommended care. He is agreeable to stay to obtain dialysis. Per Dr. Bangura, we are able to dialyze and will need admission to do that. - Diagnoses Differential Diagnosis: Positive: Other - pain request Provider Diagnoses: Patient requiring intermittent renal dialysis - Critical Care Time Critical Care Statement: Critical care time is provided exclusive of any time spent performing procedures. Discharge ED - Sign-Out/Discharge Documenting (check all that apply): Patient Departure - Discharge Plan Condition: Fair Disposition: ADMITTED TO [facility] Referrals: Jacob Deng MD [Primary Care Provider] - - Billing Disposition and Condition Condition: FAIR Disposition: Admitted to [facility] - Attestation Statements Provider Attestation: I have seen the patient with the LAVERNE and agree with the plan and documentation below except as noted: Briefly this is a 54-year-old male history of ESRD on dialysis who was recently discharged from the outpatient dialysis center after becoming verbally aggressive with staff. Patient presents for dialysis today. Patient also requesting pain medications, notably somnolent. Patient is on extremity high doses of narcotics at home. Will admit to jessi Solis MD
[2020-03-04 07:42] LABS: Anion Gap 12 mmol/L (2-11); Potassium 5.2 mmol/L (3.5-5.0)
[2020-03-04 07:43] LABS: Troponin I 0.04 ng/mL (<0.03)
[2020-03-04 10:19] LABS: TSH (Thyroid Stimulating Horm) 1.65 mcIU/mL (0.34-5.60)
[2020-03-04] MEDS ORDERED: Senna TAB 8.6 mg* TAB PO PRN (12:36)
[2020-03-04] MEDS ORDERED: oxyCODONE TAB* 5 MG TAB PO PRN (13:11)
[2020-03-04] MEDS ORDERED: Acetaminophen TAB* 325 MG PO PRN (13:22)
[2020-03-04] MEDS ORDERED: hydrALAZINE TAB* 25 MG PO SCH (14:00)
[2020-03-04] MEDS ORDERED: cloNIDine TAB* 0.1 MG PO SCH (14:00)
--- NOTE | 2020-03-04 14:29 | HP ---
CC: Dr. Deng* [facility] MEDICINE HISTORY AND PHYSICAL: DATE OF ADMISSION: 03/04/20 PRIMARY CARE PHYSICIAN: Dr. Deng. ATTENDING PHYSICIAN: Dr. Renetta Burgos* (dictation provided by Annalise Cole NP) . REASON FOR ADMISSION: Need for dialysis. HISTORY OF PRESENT ILLNESS: Mr. Roman is a 54-year-old male with a history of hypertension and end-stage renal disease, who presents today to the hospital with concern for need for dialysis. Mr. Roman had been receiving dialysis through [facility] in [place], but because of his behavior and threats to staff , he had been discharged from that practice. He is in the process of trying to get set up an alternate dialysis treatment facility, but he has not been able to do so yet and had been instructed to come to the emergency room to obtain dialysis. He denies any acute complaints. He states he is having chronic pain right now because he has not had his normal home oxymorphone, but otherwise he denies complaint. PAST MEDICAL HISTORY: 1. End-stage renal disease, on hemodialysis. 2. Hypertension. 3. History of renal transplant in February 2018. 4. Type 2 diabetes. 5. Congestive heart failure. 6. Severe pulmonary hypertension. 7. Chronic pain. MEDICATIONS: 1. Hydralazine 10 mg p.o. t.i.d. 2. Clonidine 0.1 mg p.o. t.i.d.. 3. Sildenafil 100 mg p.o. p.r.n. 4. Senna 25 mg p.o. daily p.r.n. 5. Oxymorphone ER 40 mg p.o. b.i.d. 6. Oxymorphone IR 20 mg p.o. 4 times a day. 7. Nifedipine 90 mg p.o. daily. 8. Carvedilol 25 mg p.o. b.i.d. ALLERGIES: BEE, PROTEIN, LISINOPRIL, PENICILLIN, and SHELLFISH. FAMILY HISTORY: The patient's mother and father had diabetes. SOCIAL HISTORY: He is a long-term smoker. No reported alcohol or drug use. He states his brother Hermann would be his healthcare proxy. REVIEW OF SYSTEMS: A 14-point review of systems was completed with Mr. Roman and all those not mentioned above were negative. PHYSICAL EXAMINATION GENERAL: Mr. Roman is sitting in the bed, in no acute distress. VITAL SIGNS: Temperature 99.3, pulse rate 63, respiratory rate 16, O2 saturation 96% on room air, blood pressure 163/87. LUNGS: Clear to auscultation bilaterally with no accessory muscle use and good aeration. HEART: S1, S2. No murmur, rub, or gallop and regular. ABDOMEN: Soft, nontender with bowel sounds positive x4. EXTREMITIES: No cyanosis or edema. NEUROLOGIC: He is alert. He is oriented x3. He moves all extremities equally. There is no facial asymmetry or focal weakness. Extraocular movements are intact. SKIN: Intact. DIAGNOSTIC STUDIES/LAB DATA: WBC 6.6, hemoglobin 10.6, hematocrit 33, platelet count 264. INR 1.25. Sodium 139, potassium 5.2, chloride 102, serum bicarbonate 25, BUN 46, creatinine 14.15, glucose 161. Troponin 0.04. TSH 1.65. ASSESSMENT AND PLAN: Mr. Roman is a 54-year-old male with a past medical history of end-stage renal disease, status post renal transplant with failure of the transplant as well as hypertension, diabetes, who presents today to the hospital with concern for need for dialysis. Our plans are for observation in the hospital for the followin. End-stage renal disease, on hemodialysis: I have spoken with the team and the patient will be placed on observation for dialysis. He will then be discharged thereafter. Social work and other case management staff are working to assist the patient to obtain a dialysis chair in an alternate clinic. 2. Disposition to medical floor for dialysis. TIME SPENT: Approximately 40 minutes was spent on the admission of this patient , more than half the time was spent with the patient at the bedside reviewing the events leading up to this hospitalization, performing the physical examination, and reviewing my plan of care. ANNALISE COLE NP [id number]/[facility] #: [id number] JOCY
[2020-03-04 15:53] VITALS: BP 181/90
--- NOTE | 2020-03-04 16:05 | CONSULT ---
Consult Consult: Consult requested for: ESRD. HTN. Fluid Overload Performed by Dr. Conner Venegas, [facility] Nephrology 03/04/2020 Chief complaint ESRD on HD TTS History of present illness: Used to get HD at [facility] outpatient dialysis clinic and has been discharged from the clinic as a result of disruptive behavior. He presented to the emergency room earlier in the day for dialysis. He missed dialysis treatment on Tuesday.Last HD last week. Patient receives dialysis in the hospital at this time has no other outpatient option is available for him. Dialysis prescription was discussed with his dialysis nurse HD Routine will be switched to MWF HD Duration: 3.5 Hr UF Goal: 3 L/Rx Vitals: BP: 180/90 HR: 60/m Blood Flow: 400 cc/min Dialysate Flow: 300 cc/min Bath: K: 2K Ca: 2.5Ca Na: 138 Hco3: 35 Temp: 36 C Dialyzer: Revaclear 300 Access: Rt IJ TDC Meds with HD: Heparin Loading & Maintenance: 2000 & 1000 IU/Hr except last Hr Vitals BP: 180/90 HR: 60/m O2 Sat: 96% No acute distress Patient isn't engaging and Physical exam wasn't done Assessment and plan: 1. ESRD on HD. Patient received hemodialysis in the hospital today because of no outpatient option available at this time. 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 High blood pressure, fluid overload related 3. Status post failed kidney transplant, poor compliance related 4. Volume overload. To remove fluid with dialysis. UF goal 3 L/Rx
[2020-03-04] MEDS ORDERED: Oxymorphone (NF) 10 MG TAB PO SCH (17:00)
[2020-03-04 17:26] LABS: Hepatitis B Surface Antigen Nonreactive (Nonreactive)
[2020-03-04 17:43] LABS: Hepatitis B Surface Ab Immune (Immune); Hepatitis C Antibody Negative (Negative)
[2020-03-04] MEDS ORDERED: Heparin DIALYSIS ONLY(*) 1,000 UNITS/ML VIAL ONE (18:00)
[2020-03-04] MEDS: Heparin DIALYSIS ONLY(*) 1,000 UNITS/ML VIAL SCH ×2 (18:11→19:13)
[2020-03-04] MEDS ORDERED: Heparin DIALYSIS ONLY(*) 1,000 UNITS/ML VIAL DIALYSIS ONE (20:00)
[2020-03-04] MEDS ORDERED: Carvedilol TAB* 25 MG PO SCH (21:00)
[2020-03-04] MEDS ORDERED: oxyCODONE SR TAB(*) 20 MG TAB.SR PO SCH (21:00)
[2020-03-04] MEDS ORDERED: OXYMORPHONE 10 MG PO SCH (21:00)
[2020-03-05] MEDS ORDERED: NIFEdipine ER TAB* 30 MG PO SCH (09:00)
== END 2020-03-04 20:30 | disposition home or self-care (01) ==
LOC: ED 06:14 → MEDTELE 12:35
PROVIDERS: ADMIT Internal Medicine; ATTEND Internal Medicine
DX: R10.84 Generalized abdominal pain (principal); I13.2 Hypertensive heart and chronic kidney disease with heart failure and with stage 5 chronic kidney disease, or end stage renal disease; I50.9 Heart failure, unspecified; N18.6 End stage renal disease; R94.31 Abnormal electrocardiogram [ECG] [EKG]; F41.9 Anxiety disorder, unspecified; Z87.891 Personal history of nicotine dependence; Z99.2 Dependence on renal dialysis; Z88.0 Allergy status to penicillin
CPT/HCPCS: 36415; 80053; 80074; 83605; 83735; 84443; 84484; 85025; 85610; 86706; 86708; 93005; 99284; A9270-GY; G0378; J1644

== ENCOUNTER 2020-03-10 05:47 | Observation (INO) ==
[2020-03-10 07:02] LABS: Hematocrit 31 % (42-52); Hemoglobin 9.9 g/dL (14.0-18.0); Mean Corpuscular HGB Conc 32 g/dL (31-36); Mean Corpuscular Hemoglobin 27 pg (27-31); Mean Corpuscular Volume 84 fL (80-94); Mean Platelet Volume 7.9 fL (7.4-10.4); Platelet Count 227 10^3/uL (150-450); Red Blood Count 3.63 10^6 /uL (4.18-5.48); Red Cell Distribution Width 18 % (10-15); White Blood Count 6.8 10^3/uL (3.5-10.8)
[2020-03-10 07:31] LABS: Albumin 3.5 g/dL (3.2-5.2); BUN/Creatinine Ratio 3.1 (8-20); Calcium 9.1 mg/dL (8.6-10.3); EGFR African American 5.5 (>60); EGFR Non-African American 4.6 (>60); Globulin 3.6 g/dL (2-4); Total Bilirubin 0.5 mg/dL (0.2-1.0); Total Protein 7.1 g/dL (6.4-8.9)
[2020-03-10 07:37] LABS: Potassium 5.2 mmol/L (3.5-5.0)
[2020-03-10 08:07] LABS: Phosphorus 4.3 mg/dL (2.5-5.0)
[2020-03-10 08:12] LABS: ABS Basophils 0.1 10^3/ul (0-0.2); ABS Eosinophils 0.9 10^3/ul (0-0.6); ABS Monocytes 0.5 10^3/ul (0-0.8); Eosinophil % 13.3 %; Nucleated Red Blood Cells % 0.1
[2020-03-10] MEDS: Heparin DIALYSIS ONLY(*) 1,000 UNITS/ML VIAL DIALYSIS ONE ×5 (09:53→14:02)
[2020-03-10] MEDS ORDERED: hydrALAZINE 20 mg/ml 1 ML Vial IV IV SLOW PU ONE ×2 (14:22→16:13)
[2020-03-10] MEDS: Ondansetron 4 mg VIAL 2 MG/ML 2 ml VIAL IV PRN (17:29)
[2020-03-10] MEDS ORDERED: SENNA PO PRN (18:15)
[2020-03-10] MEDS ORDERED: Nitro 2% OINT (Nitroglycerin) 1 INCH/PAK TOPICAL ONE (18:38)
[2020-03-10] MEDS ORDERED: Prochlorperazine 5 mg/ml 2 ml VIAL (10 mg) IV PRN (19:18)
[2020-03-10] MEDS ORDERED: OXYMORPHONE 20 MG PO SCH (21:00)
[2020-03-10] MEDS ORDERED: TACROLIMUS 1 MG PO SCH (21:00)
[2020-03-10] MEDS: Heparin 5000 UNITS/ML VIAL(*) 1 ml vial SUBCUT SCH (23:10)
[2020-03-11] MEDS ORDERED: Nitro Patch/OINT Remove PATCH TOPICAL ONE (01:00)
[2020-03-11] MEDS: Heparin 5000 UNITS/ML VIAL(*) 1 ml vial SUBCUT SCH (06:01)
[2020-03-11] MEDS ORDERED: CLONIDINE HCL 0.1 MG PO SCH (09:00)
[2020-03-11] MEDS: Ondansetron 4 mg VIAL 2 MG/ML 2 ml VIAL IV PRN (10:24)
[2020-03-11 10:34] VITALS: BP 169/82
[2020-03-11] MEDS ORDERED: Ondansetron 4 mg VIAL 2 MG/ML 2 ml VIAL IV ONE (12:29)
[2020-03-11] MEDS ORDERED: Ondansetron ODT 4 mg TAB 4 MG TAB SL PRN (12:41)
== END 2020-03-11 13:00 | disposition home or self-care (01) ==
LOC: MED 05:47 → ED 05:47 → MED 09:52
PROVIDERS: ADMIT Internal Medicine; ATTEND Internal Medicine

== ENCOUNTER 2020-03-12 05:58 | Observation (INO) ==
[2020-03-12 06:35] LABS: ABS Eosinophils 0.2 10^3/ul (0-0.6); ABS Lymphocytes 0.8 10^3/ul (1.0-4.8); ABS Monocytes 0.2 10^3/ul (0-0.8); Eosinophil % 4.2 %; Hematocrit 33 % (42-52); Hemoglobin 10.9 g/dL (14.0-18.0); Lymphocyte % 13.6 %; Mean Corpuscular HGB Conc 33 g/dL (31-36); Mean Corpuscular Hemoglobin 28 pg (27-31); Mean Corpuscular Volume 84 fL (80-94); Mean Platelet Volume 7.7 fL (7.4-10.4); Nucleated Red Blood Cells % 0.1; Platelet Count 287 10^3/uL (150-450); Red Blood Count 3.96 10^6 /uL (4.18-5.48); Red Cell Distribution Width 18 % (10-15); White Blood Count 5.6 10^3/uL (3.5-10.8)
[2020-03-12 06:48] LABS: Albumin/Globulin Ratio 0.9 (1-3); BUN/Creatinine Ratio 2.8 (8-20); EGFR African American 6.5 (>60); EGFR Non-African American 5.4 (>60); Globulin 4.3 g/dL (2-4); Total Bilirubin 0.5 mg/dL (0.2-1.0); Total Protein 8.3 g/dL (6.4-8.9)
[2020-03-12 08:35] VITALS: BP 147/83
[2020-03-12] MEDS: Heparin DIALYSIS ONLY(*) 1,000 UNITS/ML VIAL DIALYSIS ONE ×4 (08:47→12:40)
[2020-03-12] MEDS ORDERED: Heparin 5000 UNITS/ML VIAL(*) 1 ml vial SUBCUT SCH (14:00)
== END 2020-03-12 12:45 | disposition home or self-care (01) ==
LOC: MED 05:58 → ED 05:58 → MED 08:33
PROVIDERS: ADMIT Internal Medicine; ATTEND Internal Medicine

== ENCOUNTER 2020-03-19 05:47 | Inpatient (IN) ==
[2020-03-19] MEDS: Heparin *DIALYSIS* ONLY 1,000 UNITS/ML VIAL DIALYSIS ONE ×4 (07:28→11:35)
[2020-03-19 07:56] VITALS: BP 128/76
== END 2020-03-19 16:00 | disposition home or self-care (01) | DRG 291 ==
LOC: ED 05:47 → MED 05:47 → OBSVTOIN 06:10 → MED 06:59
PROVIDERS: ADMIT Hospitalist; ATTEND Internal Medicine

== ENCOUNTER 2020-03-21 05:32 | Inpatient (IN) ==
[2020-03-21] MEDS ORDERED: Ondansetron 4 mg VIAL 2 MG/ML 2 ml VIAL IV PRN (06:05)
[2020-03-21] MEDS ORDERED: Al Hydrox/Mg Hydrox/Simet LIQ 30 ML UDC PO PRN (06:05)
[2020-03-21] MEDS: Heparin DIALYSIS ONLY(*) 1,000 UNITS/ML VIAL DIALYSIS ONE ×4 (07:09→11:01)
[2020-03-21 07:25] VITALS: BP 113/58
== END 2020-03-21 13:43 | disposition home or self-care (01) | DRG 291 ==
LOC: ED 05:32 → MED 05:32 → INTOOBSV 07:15 → OBSVTOIN 07:15
PROVIDERS: ADMIT Pediatrics; ATTEND Internal Medicine

== ENCOUNTER 2020-03-24 05:52 | Observation (INO) ==
[2020-03-24] MEDS ORDERED: hydrALAZINE 20 mg/ml 1 ML Vial IV IV SLOW PU PRN (06:18)
[2020-03-24] MEDS: Heparin DIALYSIS ONLY(*) 1,000 UNITS/ML VIAL DIALYSIS ONE ×3 (07:23→09:46)
[2020-03-24 08:07] VITALS: BP 144/71
[2020-03-24 08:07] LABS: Hematocrit 31 % (42-52); Hemoglobin 9.7 g/dL (14.0-18.0); Mean Corpuscular HGB Conc 32 g/dL (31-36); Mean Corpuscular Hemoglobin 27 pg (27-31); Mean Corpuscular Volume 85 fL (80-94); Mean Platelet Volume 7.9 fL (7.4-10.4); Platelet Count 200 10^3/uL (150-450); Red Blood Count 3.61 10^6 /uL (4.18-5.48); Red Cell Distribution Width 20 % (10-15); White Blood Count 8.2 10^3/uL (3.5-10.8)
[2020-03-24 08:25] LABS: % Iron Saturation 25 % (15-55); BUN/Creatinine Ratio 6.5 (8-20); Blood Urea Nitrogen 73 mg/dL (6-24); CO2 Carbon Dioxide 20 mmol/L (22-32); Calcium 7.8 mg/dL (8.6-10.3); Chloride 109 mmol/L (101-111); EGFR African American 5.7 (>60); EGFR Non-African American 4.7 (>60); Glucose 178 mg/dL (70-100); Iron 55 ug/dL (50-212); Phosphorus 4.3 mg/dL (2.5-5.0); Sodium 141 mmol/L (135-145); Total Iron Binding Capacity 216 mcg/dL (250-450); Transferrin 154 mg/dL (203-362)
[2020-03-24 08:45] LABS: Ferritin 843.2 ng/mL (24-336)
[2020-03-24 08:53] LABS: Anion Gap 12 mmol/L (2-11); Potassium 5.7 mmol/L (3.5-5.0)
== END 2020-03-24 10:00 | disposition home or self-care (01) ==
LOC: MED 05:52 → ED 05:52
PROVIDERS: ADMIT Internal Medicine; ATTEND Internal Medicine

== ENCOUNTER 2020-03-26 05:53 | Observation (INO) ==
[2020-03-26] MEDS: Heparin *DIALYSIS* ONLY 1,000 UNITS/ML VIAL DIALYSIS ONE ×4 (07:25→11:25)
[2020-03-26 07:53] VITALS: BP 175/83
== END 2020-03-26 11:27 | disposition home or self-care (01) ==
LOC: ED 05:53 → MED 05:53
PROVIDERS: ADMIT Internal Medicine; ATTEND Internal Medicine

== ENCOUNTER 2020-03-31 05:36 | Observation (INO) ==
[2020-03-31] MEDS ORDERED: Ondansetron 4 mg VIAL 2 MG/ML 2 ml VIAL IV PRN (05:57)
[2020-03-31] MEDS ORDERED: hydrALAZINE 20 mg/ml 1 ML Vial IV IV SLOW PU PRN (05:58)
[2020-03-31] MEDS: Heparin 1,000 UNIT/ML CATH LAB 1,000 10 ml (10,000 UNITS) IV ONE ×4 (07:49→11:45)
[2020-03-31 08:04] VITALS: BP 134/65
== END 2020-03-31 11:46 | disposition home or self-care (01) ==
LOC: ED 05:36 → MED 05:36
PROVIDERS: ADMIT Internal Medicine; ATTEND Internal Medicine

== ENCOUNTER 2020-04-02 05:40 | Observation (INO) ==
[2020-04-02 06:45] VITALS: BP 150/94
[2020-04-02] MEDS: Heparin *DIALYSIS* ONLY 1,000 UNITS/ML VIAL DIALYSIS ONE ×4 (06:58→10:31)
[2020-04-02 13:44] LABS: Hepatitis B Surface Antigen Nonreactive (Nonreactive)
[2020-04-02 14:02] LABS: Hepatitis B Surface Ab Immune (Immune)
== END 2020-04-02 10:55 | disposition home or self-care (01) ==
LOC: MED 05:40 → ED 05:40 → MED 06:52
PROVIDERS: ADMIT Internal Medicine; ATTEND Internal Medicine

== ENCOUNTER 2020-04-04 05:45 | Observation (INO) ==
[2020-04-04] MEDS: Heparin DIALYSIS ONLY(*) 1,000 UNITS/ML VIAL DIALYSIS ONE ×4 (07:36→11:30)
[2020-04-04 08:15] VITALS: BP 150/79
== END 2020-04-04 11:34 | disposition home or self-care (01) ==
LOC: MED 05:45 → ED 05:45 → MED 07:09
PROVIDERS: ADMIT Internal Medicine; ATTEND Internal Medicine

== ENCOUNTER 2020-04-07 05:56 | Observation (INO) ==
[2020-04-07] MEDS ORDERED: OXYMORPHONE 10 MG PO PRN (06:11)
[2020-04-07] MEDS: Heparin DIALYSIS ONLY(*) 1,000 UNITS/ML VIAL DIALYSIS ONE ×4 (07:25→11:15)
[2020-04-07 08:15] VITALS: BP 156/87
[2020-04-07] MEDS ORDERED: OXYMORPHONE 10 MG PO SCH (21:00)
== END 2020-04-07 11:15 | disposition home or self-care (01) ==
LOC: ED 05:56 → MED 05:56 → ED 07:09
PROVIDERS: ADMIT Pediatrics; ATTEND Pediatrics

== ENCOUNTER 2020-04-11 05:42 | Observation (INO) ==
[2020-04-11 08:45] VITALS: BP 126/71
[2020-04-11] MEDS ORDERED: CLONIDINE HCL 0.1 MG PO SCH (09:00)
[2020-04-11] MEDS: Heparin DIALYSIS ONLY(*) 1,000 UNITS/ML VIAL DIALYSIS ONE ×4 (09:17→12:55)
== END 2020-04-11 12:30 | disposition home or self-care (01) ==
LOC: ED 05:42 → MED 05:42 → ED 08:43
PROVIDERS: ADMIT Internal Medicine; ATTEND Hospitalist

== ENCOUNTER 2020-04-14 05:43 | Observation (INO) ==
[2020-04-14] MEDS: Heparin DIALYSIS ONLY(*) 1,000 UNITS/ML VIAL DIALYSIS ONE ×4 (07:50→12:11)
[2020-04-14 08:30] LABS: Hematocrit 30 % (42-52); Hemoglobin 9.6 g/dL (14.0-18.0); Mean Corpuscular HGB Conc 32 g/dL (31-36); Mean Corpuscular Hemoglobin 27 pg (27-31); Mean Corpuscular Volume 85 fL (80-94); Mean Platelet Volume 7.9 fL (7.4-10.4); Platelet Count 183 10^3/uL (150-450); Red Blood Count 3.54 10^6 /uL (4.18-5.48); Red Cell Distribution Width 20 % (10-15); White Blood Count 5.2 10^3/uL (3.5-10.8)
[2020-04-14 08:41] LABS: ALT 8 U/L (7-52); AST 10 U/L (13-39); Albumin/Globulin Ratio 1.3 (1-3); Alkaline Phosphatase 51 U/L (34-104); Anion Gap 10 mmol/L (2-11); BUN/Creatinine Ratio 4.3 (8-20); Blood Urea Nitrogen 50 mg/dL (6-24); CO2 Carbon Dioxide 24 mmol/L (22-32); Calcium 8.4 mg/dL (8.6-10.3); Chloride 103 mmol/L (101-111); EGFR African American 5.5 (>60); EGFR Non-African American 4.6 (>60); Glucose 166 mg/dL (70-100); Phosphorus 3.7 mg/dL (2.5-5.0); Potassium 4.8 mmol/L (3.5-5.0); Sodium 137 mmol/L (135-145)
[2020-04-14 08:51] LABS: % Iron Saturation 12 % (15-55); Iron 27 ug/dL (50-212); Total Iron Binding Capacity 217 mcg/dL (250-450); Transferrin 155 mg/dL (203-362)
[2020-04-14] MEDS ORDERED: Iron Sucrose 200 MG in NS 0.9% 100 ml BAG 100 ML IVPB ONE (12:00)
[2020-04-14 12:52] LABS: Ferritin 752.6 ng/mL (24-336)
[2020-04-14 15:39] VITALS: BP 144/75
== END 2020-04-14 11:50 | disposition home or self-care (01) ==
LOC: ED 05:43 → MED 05:43
PROVIDERS: ADMIT Internal Medicine; ATTEND Hospitalist

== ENCOUNTER 2020-04-21 05:45 | Inpatient (IN) ==
[2020-04-21] MEDS ORDERED: Iron Sucrose 200 MG in NS 0.9% 100 ml BAG 100 ML IVPB ONE (07:00)
[2020-04-21] MEDS: Heparin DIALYSIS ONLY(*) 1,000 UNITS/ML VIAL DIALYSIS ONE ×4 (09:12→12:50)
[2020-04-21] MEDS ORDERED: hydrALAZINE 20 mg/ml 1 ML Vial IV IV SLOW PU ONE (10:10)
[2020-04-21] MEDS ORDERED: hydrALAZINE 20 mg/ml 1 ML Vial IV ONE (10:12)
[2020-04-21] MEDS ORDERED: CLONIDINE HCL 0.1 MG PO SCH (12:30)
[2020-04-21] MEDS ORDERED: niCARdipine 0.1MG/ML IVPREMIX 20 MG/200 ML BAG IV SCH (14:00)
[2020-04-21] MEDS ORDERED: niCARdipine 0.1MG/ML IVPREMIX 20 MG/200 ML BAG IV ONE (14:25)
[2020-04-21 15:36] LABS: ABS Basophils 0.1 10^3/ul (0-0.2); ABS Eosinophils 0.4 10^3/ul (0-0.6); ABS Lymphocytes 0.7 10^3/ul (1.0-4.8); ABS Monocytes 0.4 10^3/ul (0-0.8); Eosinophil % 7.1 %; Hematocrit 31 % (42-52); Hemoglobin 10.1 g/dL (14.0-18.0); Lymphocyte % 12.4 %; Mean Corpuscular HGB Conc 32 g/dL (31-36); Mean Corpuscular Hemoglobin 27 pg (27-31); Mean Corpuscular Volume 85 fL (80-94); Mean Platelet Volume 7.4 fL (7.4-10.4); Platelet Count 171 10^3/uL (150-450); Red Cell Distribution Width 19 % (10-15); White Blood Count 5.5 10^3/uL (3.5-10.8)
[2020-04-21 16:04] LABS: Albumin/Globulin Ratio 1.4 (1-3); BUN/Creatinine Ratio 4.1 (8-20); EGFR African American 11.1 (>60); EGFR Non-African American 9.2 (>60); Globulin 2.9 g/dL (2-4); Potassium 3.8 mmol/L (3.5-5.0); Total Protein 6.9 g/dL (6.4-8.9)
[2020-04-22 08:09] VITALS: BP 150/86
== END 2020-04-22 08:51 | disposition home or self-care (01) | DRG 304 ==
LOC: ED 05:45 → MED 05:45 → ICU 15:02 → UNDODISOB 04-22 08:51
PROVIDERS: ADMIT Pediatrics; ATTEND Internal Medicine

== ENCOUNTER 2020-04-23 05:54 | Observation (INO) ==
[2020-04-23] MEDS: Heparin DIALYSIS ONLY(*) 1,000 UNITS/ML VIAL DIALYSIS ONE ×4 (08:00→12:36)
[2020-04-23] MEDS ORDERED: hydrALAZINE 20 mg/ml 1 ML Vial IV IV SLOW PU ONE (11:04)
[2020-04-23] MEDS ORDERED: Labetalol IV 5 MG/ML 20 ml VIAL IV PUSH ONE (11:31)
[2020-04-23] MEDS ORDERED: Labetalol IV 5 MG/ML 20 ml VIAL ONE (11:35)
[2020-04-23 12:29] VITALS: BP 172/88
== END 2020-04-23 13:00 | disposition home or self-care (01) ==
LOC: MED 05:54 → ED 05:54 → MED 07:25
PROVIDERS: ADMIT Pediatrics; ATTEND Pediatrics

== ENCOUNTER 2020-04-25 05:57 | Observation (INO) ==
[2020-04-25] MEDS ORDERED: Iron Sucrose 200 MG in NS 0.9% 100 ml BAG 100 ML IVPB ONE (07:30)
[2020-04-25] MEDS ORDERED: OXYMORPHONE 5 MG PO PRN (08:07)
[2020-04-25] MEDS ORDERED: OXYMORPHONE 20 MG PO SCH (09:00)
[2020-04-25 15:57] VITALS: BP 195/88
[2020-04-25] MEDS: Heparin DIALYSIS ONLY(*) 1,000 UNITS/ML VIAL DIALYSIS ONE ×4 (17:39→20:50)
== END 2020-04-25 19:30 | disposition home or self-care (01) ==
LOC: MEDTELE 05:57 → ED 05:57 → MEDTELE 08:09
PROVIDERS: ADMIT Internal Medicine; ATTEND Hospitalist

== ENCOUNTER 2020-04-28 11:54 | Observation (INO) ==
[2020-04-28] MEDS: Heparin DIALYSIS ONLY(*) 1,000 UNITS/ML VIAL DIALYSIS ONE ×4 (15:28→19:15)
[2020-04-28 19:42] VITALS: BP 144/76
== END 2020-04-28 19:43 | disposition home or self-care (01) ==
LOC: ED 11:54 → MED 11:54
PROVIDERS: ADMIT Internal Medicine; ATTEND Internal Medicine

== ENCOUNTER 2020-04-30 05:53 | Observation (INO) ==
[2020-04-30] MEDS ORDERED: Albumin Human 25% 12.5 GM/50 ML BTL IV PRN (07:43)
[2020-04-30] MEDS ORDERED: Iron Sucrose 200 MG in NS 0.9% 100 ml BAG 100 ML IVPB ONE (09:00)
[2020-04-30] MEDS: Heparin DIALYSIS ONLY(*) 1,000 UNITS/ML VIAL DIALYSIS ONE ×3 (10:27→13:03)
[2020-04-30 11:56] VITALS: BP 132/72
== END 2020-04-30 14:02 | disposition home or self-care (01) ==
LOC: ED 05:53 → MED 05:53
PROVIDERS: ADMIT Hospitalist; ATTEND Hospitalist

== ENCOUNTER 2020-05-02 05:52 | Observation (INO) ==
[2020-05-02 09:06] VITALS: BP 111/61
[2020-05-02] MEDS: Heparin DIALYSIS ONLY(*) 1,000 UNITS/ML VIAL DIALYSIS ONE ×4 (11:18→15:06)
[2020-05-02 17:59] LABS: Hepatitis B Surface Antigen Nonreactive (Nonreactive)
[2020-05-02 18:16] LABS: Hepatitis B Surface Ab Immune (Immune)
== END 2020-05-02 15:15 | disposition home or self-care (01) ==
LOC: ED 05:52 → MED 05:52
PROVIDERS: ADMIT Internal Medicine; ATTEND Internal Medicine

== ENCOUNTER 2020-05-05 05:56 | Observation (INO) ==
[2020-05-05] MEDS ORDERED: ALBUMIN HUMAN IV PRN (07:26)
[2020-05-05 07:31] VITALS: BP 163/79
[2020-05-05] MEDS ORDERED: Heparin DIALYSIS ONLY(*) 1,000 UNITS/ML VIAL DIALYSIS ONE (08:00)
== END 2020-05-05 12:00 | disposition left against medical advice (07) ==
LOC: ED 05:56 → MEDTELE 05:56
PROVIDERS: ADMIT Internal Medicine; ATTEND Internal Medicine

== ENCOUNTER 2020-05-06 12:54 | Observation (INO) ==
[2020-05-06 14:38] VITALS: BP 156/77
[2020-05-06] MEDS: Heparin DIALYSIS ONLY(*) 1,000 UNITS/ML VIAL DIALYSIS ONE ×3 (15:08→17:08)
[2020-05-06 15:28] LABS: ABS Basophils 0.1 10^3/ul (0-0.2); ABS Eosinophils 0.9 10^3/ul (0-0.6); ABS Lymphocytes 0.9 10^3/ul (1.0-4.8); ABS Monocytes 0.4 10^3/ul (0-0.8); Eosinophil % 12.1 %; Hematocrit 29 % (42-52); Hemoglobin 9.3 g/dL (14.0-18.0); Lymphocyte % 13.1 %; Mean Corpuscular HGB Conc 33 g/dL (31-36); Mean Corpuscular Hemoglobin 28 pg (27-31); Mean Corpuscular Volume 85 fL (80-94); Platelet Count 165 10^3/uL (150-450); Red Blood Count 3.36 10^6 /uL (4.18-5.48); Red Cell Distribution Width 18 % (10-15); White Blood Count 7.1 10^3/uL (3.5-10.8)
[2020-05-06 15:46] LABS: BUN/Creatinine Ratio 3.7 (8-20); Calcium 8.4 mg/dL (8.6-10.3); EGFR African American 4.7 (>60); EGFR Non-African American 3.9 (>60)
[2020-05-06 15:48] LABS: Potassium 5.1 mmol/L (3.5-5.0)
== END 2020-05-06 18:30 | disposition home or self-care (01) ==
LOC: MEDTELE 12:54 → ED 12:54 → MEDTELE 14:12
PROVIDERS: ADMIT Hospitalist; ATTEND Hospitalist

== ENCOUNTER 2020-05-12 05:47 | Observation (INO) ==
[2020-05-12] MEDS: Heparin DIALYSIS ONLY(*) 1,000 UNITS/ML VIAL DIALYSIS ONE ×4 (07:08→10:43)
[2020-05-12 08:06] VITALS: BP 128/67
== END 2020-05-12 10:00 | disposition home or self-care (01) ==
LOC: ED 05:47 → MEDTELE 05:47
PROVIDERS: ADMIT Pediatrics; ATTEND Pediatrics

== ENCOUNTER 2020-05-16 05:53 | Observation (INO) ==
[2020-05-16] MEDS: Heparin DIALYSIS ONLY(*) 1,000 UNITS/ML VIAL DIALYSIS ONE ×4 (07:35→11:20)
[2020-05-16 11:36] VITALS: BP 146/69
== END 2020-05-16 11:30 | disposition home or self-care (01) ==
LOC: MED 05:53 → ED 05:53
PROVIDERS: ADMIT Nurse Practitioner Family; ATTEND Internal Medicine

== ENCOUNTER 2020-05-21 05:49 | Observation (INO) ==
[2020-05-21] MEDS: Heparin *DIALYSIS* ONLY 1,000 UNITS/ML VIAL DIALYSIS ONE ×2 (08:22→10:26)
[2020-05-21 10:12] VITALS: BP 170/93
== END 2020-05-21 12:14 | disposition home or self-care (01) ==
LOC: ED 05:49 → MED 05:49
PROVIDERS: ADMIT Nurse Practitioner Family; ATTEND Nurse Practitioner Family

== ENCOUNTER 2020-05-23 06:06 | Observation (INO) ==
[2020-05-23] MEDS ORDERED: Ondansetron ODT 4 mg TAB 4 MG TAB SL PRN (06:51)
[2020-05-23 07:54] VITALS: BP 117/65
[2020-05-23] MEDS: Heparin *DIALYSIS* ONLY 1,000 UNITS/ML VIAL DIALYSIS ONE ×4 (08:16→11:36)
== END 2020-05-23 11:45 | disposition home or self-care (01) ==
LOC: MED 06:06 → ED 06:06 → MED 07:41
PROVIDERS: ADMIT Internal Medicine; ATTEND Internal Medicine

== ENCOUNTER 2020-05-26 05:59 | Observation (INO) ==
[2020-05-26] MEDS: Heparin *DIALYSIS* ONLY 1,000 UNITS/ML VIAL DIALYSIS ONE ×4 (07:50→11:45)
[2020-05-26 09:02] VITALS: BP 174/93
== END 2020-05-26 12:00 | disposition home or self-care (01) ==
LOC: MED 05:59 → ED 05:59 → MED 07:05
PROVIDERS: ADMIT Hospitalist; ATTEND Hospitalist

== ENCOUNTER 2020-05-28 05:52 | Observation (INO) ==
[2020-05-28] MEDS: Heparin *DIALYSIS* ONLY 1,000 UNITS/ML VIAL DIALYSIS ONE ×2 (09:36→10:33)
[2020-05-28 12:48] LABS: Hepatitis B Surface Antigen Nonreactive (Nonreactive)
[2020-05-28 13:05] LABS: Hepatitis B Surface Ab Immune (Immune)
[2020-05-28 13:43] VITALS: BP 160/86
== END 2020-05-28 12:30 | disposition home or self-care (01) ==
LOC: MED 05:52 → ED 05:52 → MED 09:21
PROVIDERS: ADMIT Internal Medicine; ATTEND Internal Medicine

== ENCOUNTER 2020-05-30 06:03 | Observation (INO) ==
[2020-05-30 08:53] VITALS: BP 109/63
[2020-05-30] MEDS: Heparin *DIALYSIS* ONLY 1,000 UNITS/ML VIAL DIALYSIS ONE ×4 (08:55→11:54)
== END 2020-05-30 12:28 | disposition home or self-care (01) ==
LOC: ED 06:03 → MED 06:03
PROVIDERS: ADMIT Internal Medicine; ATTEND Internal Medicine

== ENCOUNTER 2020-06-02 05:55 | Observation (INO) ==
[2020-06-02] MEDS: Heparin *DIALYSIS* ONLY 1,000 UNITS/ML VIAL DIALYSIS ONE ×4 (08:09→11:45)
[2020-06-02] MEDS ORDERED: hydrALAZINE 20 mg/ml 1 ML Vial IV IV SLOW PU ONE (08:42)
[2020-06-02 12:18] VITALS: BP 172/98
== END 2020-06-02 12:00 | disposition home or self-care (01) ==
LOC: ED 05:55 → MED 05:55
PROVIDERS: ADMIT Pediatrics; ATTEND Pediatrics

== ENCOUNTER 2020-06-05 05:48 | Observation (INO) ==
[2020-06-05 08:56] LABS: ABS Eosinophils 0.5 10^3/ul (0-0.6); ABS Lymphocytes 0.7 10^3/ul (1.0-4.8); ABS Monocytes 0.4 10^3/ul (0-0.8); ABS Neutrophils 3.6 10^3/ul (1.5-7.7); Eosinophil % 9.9 %; Hematocrit 27 % (42-52); Hemoglobin 8.8 g/dL (14.0-18.0); Lymphocyte % 13.9 %; Mean Corpuscular HGB Conc 33 g/dL (31-36); Mean Corpuscular Hemoglobin 28 pg (27-31); Mean Corpuscular Volume 86 fL (80-94); Mean Platelet Volume 8.1 fL (7.4-10.4); Platelet Count 166 10^3/uL (150-450); Red Cell Distribution Width 17 % (10-15); White Blood Count 5.4 10^3/uL (3.5-10.8)
[2020-06-05 09:35] LABS: Albumin 4.2 g/dL (3.2-5.2); Calcium 8.5 mg/dL (8.6-10.3); Total Bilirubin 0.8 mg/dL (0.2-1.0)
[2020-06-05 09:38] LABS: Potassium 6.3 mmol/L (3.5-5.0)
[2020-06-05 09:41] LABS: Albumin/Globulin Ratio 1.3 (1-3); BUN/Creatinine Ratio 4.4 (8-20); EGFR African American 5.4 (>60); EGFR Non-African American 4.5 (>60); Globulin 3.2 g/dL (2-4); Total Protein 7.4 g/dL (6.4-8.9)
[2020-06-05] MEDS ORDERED: OXYMORPHONE IR 5 MG PO PRN (12:30)
[2020-06-05] MEDS ORDERED: Albumin Human 25% 12.5 GM/50 ML BTL IV PRN (12:53)
[2020-06-05] MEDS: Heparin *DIALYSIS* ONLY 1,000 UNITS/ML VIAL DIALYSIS ONE ×4 (14:25→18:16)
[2020-06-05 18:56] VITALS: BP 192/92
== END 2020-06-05 19:10 | disposition left against medical advice (07) ==
LOC: ED 05:48 → MED 05:48
PROVIDERS: ADMIT Internal Medicine; ATTEND Internal Medicine

== ENCOUNTER 2020-06-10 06:02 | Observation (INO) ==
[2020-06-10 07:10] LABS: ABS Basophils 0.1 10^3/ul (0-0.2); ABS Eosinophils 0.4 10^3/ul (0-0.6); ABS Lymphocytes 0.7 10^3/ul (1.0-4.8); ABS Monocytes 0.3 10^3/ul (0-0.8); ABS Neutrophils 3.6 10^3/ul (1.5-7.7); Eosinophil % 8.4 %; Hematocrit 23 % (42-52); Hemoglobin 7.5 g/dL (14.0-18.0); Lymphocyte % 13.1 %; Mean Corpuscular HGB Conc 33 g/dL (31-36); Mean Corpuscular Hemoglobin 28 pg (27-31); Mean Corpuscular Volume 85 fL (80-94); Platelet Count 139 10^3/uL (150-450); Red Blood Count 2.65 10^6 /uL (4.18-5.48); Red Cell Distribution Width 17 % (10-15)
[2020-06-10 07:31] LABS: Albumin 3.9 g/dL (3.2-5.2); Albumin/Globulin Ratio 1.2 (1-3); BUN/Creatinine Ratio 5.3 (8-20); Calcium 7.8 mg/dL (8.6-10.3); EGFR African American 4.3 (>60); EGFR Non-African American 3.6 (>60); Globulin 3.3 g/dL (2-4); Magnesium 2.5 mg/dL (1.9-2.7); Total Bilirubin 0.6 mg/dL (0.2-1.0); Total Protein 7.2 g/dL (6.4-8.9)
[2020-06-10 07:36] LABS: Potassium 6.5 mmol/L (3.5-5.0)
[2020-06-10] MEDS ORDERED: Dextrose 50% Syringe 50 ml 25 GM/50 ML SYRINGE IV PUSH ONE ×3 (07:45→19:59)
[2020-06-10] MEDS: Patiromer POWDER 8.4 GM PAK PO SCH ×2 (08:11→13:10)
[2020-06-10] MEDS: OXYMORPHONE IR 5 MG PO PRN ×2 (12:27→19:08)
[2020-06-10 18:26] LABS: BUN/Creatinine Ratio 5.4 (8-20); Calcium 8.2 mg/dL (8.6-10.3); EGFR African American 4.2 (>60); EGFR Non-African American 3.5 (>60)
[2020-06-10] MEDS ORDERED: Calcium Gluconate 2 GM in NS 0.9% 100 ml BAG 100 ML IV ONE (19:25)
[2020-06-10] MEDS ORDERED: Albuterol 0.5% CONC NEB.SOL 5 mg/ml 20 ml BOT INH ONE (19:25)
[2020-06-10] MEDS ORDERED: Sodium Polystyrene ORAL.SUSP 15 GM/60 ML BTL PO ONE (19:48)
[2020-06-10] MEDS ORDERED: Albuterol 2.5mg/3 ml (0.083%) NEB.SOLN INH ONE ×2 (20:20→20:25)
[2020-06-10] MEDS ORDERED: CALCIUM GLUCONATE IV ONE (20:23)
[2020-06-10] MEDS ORDERED: NS 0.9% IV ONE (20:23)
[2020-06-10 22:30] VITALS: BP 190/94
[2020-06-10] MEDS ORDERED: Calcium Gluconate 1 GM in NS 0.9% 50 ML 50 ML IV ONE (22:44)
[2020-06-10] MEDS ORDERED: LORazepam 2 mg VIAL 1 ml IV PUSH ONE (23:37)
[2020-06-10] MEDS ORDERED: Lorazepam PYXIS KEY PRN (23:37)
[2020-06-10] MEDS ORDERED: LORazepam 2 mg VIAL 1 ml ONE (23:45)
[2020-06-11] MEDS ORDERED: Patiromer POWDER 8.4 GM PAK PO SCH (09:00)
== END 2020-06-11 01:52 | disposition short-term general hospital (02) ==
LOC: ED 06:02 → MED 06:02
PROVIDERS: ADMIT Internal Medicine; ATTEND Internal Medicine

== ENCOUNTER 2020-06-16 06:08 | Observation (INO) ==
[2020-06-16 07:34] LABS: ABS Basophils 0.1 10^3/ul (0-0.2); ABS Eosinophils 0.6 10^3/ul (0-0.6); ABS Lymphocytes 0.7 10^3/ul (1.0-4.8); ABS Monocytes 0.4 10^3/ul (0-0.8); Eosinophil % 12.7 %; Hematocrit 24 % (42-52); Hemoglobin 8.3 g/dL (14.0-18.0); Lymphocyte % 15.1 %; Mean Corpuscular HGB Conc 34 g/dL (31-36); Mean Corpuscular Hemoglobin 29 pg (27-31); Mean Corpuscular Volume 85 fL (80-94); Mean Platelet Volume 7.7 fL (7.4-10.4); Platelet Count 166 10^3/uL (150-450); Red Blood Count 2.82 10^6 /uL (4.18-5.48); Red Cell Distribution Width 16 % (10-15); White Blood Count 4.9 10^3/uL (3.5-10.8)
[2020-06-16 07:54] LABS: Albumin 4.2 g/dL (3.2-5.2); Albumin/Globulin Ratio 1.2 (1-3); BUN/Creatinine Ratio 3.6 (8-20); Calcium 8.2 mg/dL (8.6-10.3); EGFR African American 4.2 (>60); EGFR Non-African American 3.5 (>60); Globulin 3.6 g/dL (2-4); Magnesium 2.4 mg/dL (1.9-2.7); Phosphorus 7.3 mg/dL (2.5-5.0); Potassium 4.7 mmol/L (3.5-5.0); Total Bilirubin 0.6 mg/dL (0.2-1.0); Total Protein 7.8 g/dL (6.4-8.9)
[2020-06-16] MEDS ORDERED: OXYMORPHONE IR 5 MG PO PRN (08:37)
[2020-06-16] MEDS: Heparin 1,000 UNIT/ML 10 ml (10,000 UNITS) CATHLAB/DIALYSIS DIALYSIS ONE ×4 (10:27→12:20)
[2020-06-16 10:36] VITALS: BP 130/74
== END 2020-06-16 12:25 | disposition home or self-care (01) ==
LOC: ED 06:08 → MED 06:08
PROVIDERS: ADMIT Internal Medicine; ATTEND Internal Medicine

== ENCOUNTER 2020-06-19 05:23 | Observation (INO) ==
[2020-06-19 07:41] LABS: ABS Basophils 0.1 10^3/ul (0-0.2); ABS Eosinophils 0.7 10^3/ul (0-0.6); ABS Monocytes 0.4 10^3/ul (0-0.8); ABS Neutrophils 3.3 10^3/ul (1.5-7.7); Eosinophil % 12.3 %; Hematocrit 24 % (42-52); Hemoglobin 8.1 g/dL (14.0-18.0); Lymphocyte % 17.8 %; Mean Corpuscular HGB Conc 33 g/dL (31-36); Mean Corpuscular Hemoglobin 29 pg (27-31); Mean Corpuscular Volume 86 fL (80-94); Mean Platelet Volume 8.1 fL (7.4-10.4); Platelet Count 144 10^3/uL (150-450); Red Blood Count 2.82 10^6 /uL (4.18-5.48); Red Cell Distribution Width 17 % (10-15); White Blood Count 5.4 10^3/uL (3.5-10.8)
[2020-06-19 08:03] LABS: Albumin 4.1 g/dL (3.2-5.2); Albumin/Globulin Ratio 1.2 (1-3); BUN/Creatinine Ratio 3.9 (8-20); Calcium 8.2 mg/dL (8.6-10.3); EGFR African American 3.9 (>60); EGFR Non-African American 3.2 (>60); Globulin 3.5 g/dL (2-4); Magnesium 2.4 mg/dL (1.9-2.7); Phosphorus 7.7 mg/dL (2.5-5.0); Total Bilirubin 0.8 mg/dL (0.2-1.0); Total Protein 7.6 g/dL (6.4-8.9)
[2020-06-19 08:11] LABS: Potassium 5.8 mmol/L (3.5-5.0)
[2020-06-19] MEDS ORDERED: OXYMORPHONE IR 5 MG PO PRN (10:56)
[2020-06-19 11:05] VITALS: BP 148/80
[2020-06-19] MEDS: Heparin 1,000 UNIT/ML 10 ml (10,000 UNITS) CATHLAB/DIALYSIS DIALYSIS ONE ×2 (11:10→12:30)
== END 2020-06-19 12:30 | disposition left against medical advice (07) ==
LOC: MED 05:23 → ED 05:23 → MED 10:36
PROVIDERS: ADMIT Internal Medicine; ATTEND Internal Medicine

== ENCOUNTER 2023-11-16 21:35 | Inpatient (IN) ==
[2023-11-17 01:04] LABS: ABS Basophils 0.1 10^3/uL (0.0-0.1); ABS Eosinophils 0.3 10^3/uL (0.0-0.5); ABS Lymphocytes 0.5 10^3/uL (1.0-4.8); ABS Monocytes 0.4 10^3/uL (0.0-1.1); ABS Nucleated RBC 0.01 10^3/ul; Eosinophil % 7.3 %; Hematocrit 28.9 % (38-53); Hemoglobin 9.8 g/dL (13.2-16.3); Lymphocyte % 12.7 %; Mean Corpuscular Hgb Conc 33.8 g/dL (31-36); Mean Corpuscular Volume 82.8 fL (80-97); Mean Platelet Volume 8.1 fL (7.5-11.2); Nucleated Red Blood Cells % 0.1 %/100WBC (0.0-0.8); Platelet Count 157 10^3/uL (150-450); Red Blood Count 3.49 10^6/uL (4.06-5.63); Red Cell Distribution Width 16.6 % (12-17); White Blood Count 4.2 10^3/uL (3.6-10.2)
[2023-11-17 01:18] LABS: Albumin 3.5 g/dL (3.2-5.2); Albumin/Globulin Ratio 0.8 (1-3); Calcium 7.4 mg/dL (8.6-10.3); Creatinine, Serum 12.9 mg/dL (0.67-1.17); Globulin 4.5 g/dL (2-4); Potassium 3.9 mmol/L (3.5-5.0); Total Bilirubin 1.2 mg/dL (0.2-1.0)
[2023-11-17 02:26] LABS: High Sensitivity Troponin 1 Hr 39 pg/mL (<20)
[2023-11-17] MEDS ORDERED: fentaNYL 100 mcg/2 ml 50 MCG/ML VIAL IV SLOW PU ONE ×2 (02:50→21:52)
[2023-11-17] MEDS ORDERED: LORazepam 2 mg VIAL 1 ml IV PUSH ONE (04:12)
[2023-11-17] MEDS ORDERED: Lorazepam PYXIS KEY PRN (04:12)
[2023-11-17] MEDS ORDERED: Albumin Human 25% 25 GM/100 ML BTL IV PRN (09:30)
[2023-11-17] MEDS ORDERED: NS 0.9% 1000 ml BAG 100 ML IV PRN (09:30)
[2023-11-17] MEDS ORDERED: NS 0.9% 1000 ml BAG 200 ML IV PRN (09:30)
[2023-11-17 09:46] LABS: C Reactive Protein 59.33 mg/L (<8.01)
[2023-11-17 10:56] LABS: Hepatitis B Surface Antigen Nonreactive (Nonreactive)
[2023-11-17 11:13] LABS: Hepatitis B Surface Ab Immune (Immune)
[2023-11-17] MEDS: Heparin 1,000 UNIT/ML 10 ml (10,000 UNITS) CATHLAB/DIALYSIS DIALYSIS PRN ×3 (13:35→15:32)
[2023-11-17] MEDS: Heparin 5000 UNITS/ML 1 mL VIAL SUBCUT SCH ×2 (18:28→22:02)
[2023-11-18] MEDS: Heparin 5000 UNITS/ML 1 mL VIAL SUBCUT SCH ×3 (08:11→21:50)
[2023-11-18] MEDS: Heparin 1,000 UNIT/ML 10 ml (10,000 UNITS) CATHLAB/DIALYSIS DIALYSIS PRN ×3 (08:51→10:50)
[2023-11-19] MEDS: Heparin 5000 UNITS/ML 1 mL VIAL SUBCUT SCH (05:12)
[2023-11-19 09:56] VITALS: BP 164/91
== END 2023-11-19 13:18 | disposition home or self-care (01) | DRG 682 ==
LOC: ED 21:35 → EDHOLD 11-17 09:28 → MED 11-17 13:02 → MEDTELE 11-17 13:34
PROVIDERS: ADMIT Student in an Organized Health Care Education/Training Program; ATTEND Internal Medicine